=== PATIENT | female | born 1995 | race Caucasian/White ===

== ENCOUNTER → 2021-03-24 10:54 | Outpatient (CLI) | payer OTHER, SELFPAY | PROVIDERS: Referring Provider Obstetrics & Gynecology; Visit Provider Obstetrics & Gynecology | DX: Z34.90 Encounter for supervision of normal pregnancy, unspecified, unspecified trimester (principal) | CPT/HCPCS: 36415; 84702; 86850; 86900; 86901 ==

== ENCOUNTER → 2021-03-26 10:45 | Outpatient (CLI) | payer OTHER, SELFPAY | PROVIDERS: Referring Provider Obstetrics & Gynecology; Visit Provider Obstetrics & Gynecology | DX: Z34.90 Encounter for supervision of normal pregnancy, unspecified, unspecified trimester (principal) | CPT/HCPCS: 36415; 84702 ==

== ENCOUNTER → 2021-03-28 15:38 | Outpatient (CLI) | payer OTHER, SELFPAY ==
--- NOTE | 2021-03-28 15:40 | US_ITS ---
STUDY: FIRST TRIMESTER OBSTETRICAL ULTRASOUND REASON FOR EXAM: Female, 25 years old well being LMP: TECHNIQUE: Transvaginal TECHNICAL QUALITY: Adequate. PRIOR ULTRASOUND: None. FINDINGS: No evidence for abnormal intrauterine gestational sac. The uterus measures 10.1 x 6.7 x 5.2. However there is a small slightly irregular fluid cavity with irregular heterogeneous endometrial thickening There is no demonstrated uterine fibroid. The cervix is closed. The right ovary measures 3.1 x 2 x 2 cm. There is no right ovarian cyst. There is no visualized right adnexal mass or complex lesion. The left ovary measures 2.3 x 1.7 x 1.6 cm. There is no left ovarian cyst. There is no visualized left adnexal mass or complex lesion. There is no fluid in the cul de sac. US/Transvaginal w/Preg US IMPRESSION: No evidence for normal intrauterine gestation Irregular appearing fluid-filled sac with associated thickened irregular endometrial lining which given elevated hCG units raises question of trophoblastic disease or molar . Clinical correlation recommended Electronically Signed: Raymond Chopra MD at 16:36 EDT , Service support ,
== END ==
PROVIDERS: Referring Provider Obstetrics & Gynecology; Visit Provider Obstetrics & Gynecology
DX: O36.80X0 Pregnancy with inconclusive fetal viability, not applicable or unspecified (principal); Z3A.00 Weeks of gestation of pregnancy not specified
CPT/HCPCS: 76817

== ENCOUNTER 2021-03-29 10:57 | Day surgery (SDC) | payer OTHER, SELFPAY ==
[2021-03-28 16:26] VITALS: BMI 31.5
[2021-03-29] VITALS (8 sets, daily range): BP systolic 107–133; BP diastolic 71–84; PULSE 70–102; RESP 16; TEMP 36.4–36.7; O2SAT 93–100; BMI 31.6
[2021-03-29] MEDS: Lactated Ringers 1,000 ML 100 ML IV (11:35)
--- NOTE | 2021-03-29 12:10 | HP.PCM.OB_ITS ---
HPI - General HPI Narrative PRISCA SIFUENTES, is a 25 F who presents for suction D&C for molar Maternal Data Information FILIPPO Calculator Estimated Delivery Date Method Current WG Current Estimate 10/19/21 LMP (Certain) 10w 6d PFSH PFSH Home Medications prenat.vits,ozzy,[id number]-[id number] 1 tab PO DAILY 03/14/21 [History Last Taken Unknown] levonorgestrel-ethinyl estradiol 0.1 mg-20 mcg tablet 1 tab PO DAILY #56 tab 03/28/21 [Rx Last Taken Unknown] Allergy/AdvReac Type Severity Reaction Status Date / Time No Known Allergies Allergy Verified 03/28/21 16:26 Family History Mother Hypertension Gestational diabetes Father Hypertension Brother Hypertension Sister Hypertension Sister PCOS (polycystic ovarian syndrome) Surgical History S/P wisdom tooth extraction Social History adopted: No household members: spouse number of children: 0 current occupational status: employed current occupation: [employer] pets and animals: Yes (avoid litter box) pets and animals: cat(s) Smoking Status: Never smoker alcohol intake: current details: not while substance use type: does not use History 1 Elective abortions Hx Para Spontaneous abortions Hx # Term Pregnancies Ectopic pregnancies Hx # Pregnancies Multiple births # of living children Visit Details Expected Delivery Route/Plan Plans OB Flowsheet Initial Weight: Not Recorded Date -?-?-?-?-?-?-?-?-?-?-?-?- EGA Weight BP Urine Prot -?-?-?-?-?-?-?-?-?-?-?-?- Glucose FHR FuHt Pres Dilation -?-?-?-?-?-?-?-?-?-?-?-?- Effaced St Visit Note 03/24/21 -?-?-?-?-?-?-?-?-?-?-?-?- 10w 1d -?-?-?-?-?-?-?-?-?-?-?-?- -?-?-?-?-?-?-?-?-?-?-?-?- GP - US shows th ickened lining but no evidence of gestational sac. Quants ordered 03/29/21 -?-?-?-?-?-?-?-?-?-?-?-?- 10w 6d 196 lb 3.382 oz 133/72 -?-?-?-?-?-?-?-?-?-?-?-?- -?-?-?-?-?-?-?-?-?-?-?-?- ROS Eyes Eyes: Reports systems reviewed and no addt'l complaints, except as documented ENT HEENT: Reports systems reviewed and no addt'l complaints, except as documented Cardiovascular Cardiovascular: Reports systems reviewed and no addt'l complaints, except as documented Respiratory/Chest Respiratory/Chest: Reports systems reviewed and no addt'l complaints, except as documented Gastrointestinal Gastrointestinal: Reports systems reviewed and no addt'l complaints, except as documented Genitourinary Genitourinary: Reports systems reviewed and no addt'l complaints, except as documented Musculoskeletal Musculoskeletal: Reports systems reviewed and no addt'l complaints, except as documented Integumentary Integumentary: Reports systems reviewed and no addt'l complaints, except as documented Neurologic Neurologic: Reports systems reviewed and no addt'l complaints, except as documented Psychiatric Psychiatric: Reports systems reviewed and no addt'l complaints, except as documented Endocrine Endocrinology: Reports systems reviewed and no addt'l complaints, except as documented Hematologic/Lymphatic Hematologic/Lymphatic: Reports systems reviewed and no addt'l complaints, except as documented Allergic/Immunologic Allergic/Immunologic: Reports systems reviewed and no addt'l complaints, except as documented Vital Signs Vital Signs Vital Signs: 03/29/21 12:01 Temperature 97.9 F Temperature Source Temporal Pulse Rate 86 Respiratory Rate 16 Respiratory Pattern Normal Blood Pressure 133/72 H Blood Pressure Mean 92 Blood Pressure Source Monitor Blood Pressure Position Semi-Fowlers Blood Pressure Location Left Arm Pulse Ox 100 Oxygen Delivery Method Room Air Weight Weight: 196 lb 3.382 oz Body Mass Index (BMI) 31.6 Physical Exam Const alert, oriented x3, no apparent distress, average body habitus, healthy appearing and well nourished HEENT normocephalic and moist oral mucous membranes Head and Scalp: atraumatic Eyes PERRL and EOMs intact bilaterally Neck full ROM Resp normal respiratory effort, no retractions and no use of accessory muscles Cardio regular rate and regular rhythm GI soft to palpation, non-tender and non-distended Extremity normal to inspection and full ROM Skin no rashes or lesions noted Neuro no focal motor deficits and no sensory deficits noted Psych mental status grossly normal, affect normal, speech normal and activity/motor behavior normal Labs Labs Labs: Blood Type O POSITIVE Antibody Screen NEGATIVE Obstetrics US Assessment & Plan (1) Molar : COMMENT: D&C 03/29 PLAN: Patient presents for follow-up after viability scan. Ultrasound done today demonstrates evidence of complete molar Physiology and treatment of molar reviewed with patient Patient aware that this is something that has the potential to turn into a cancer and therefore requires close follow-up. Aware that it is important that she follow counts down to 0 and that she not become for 6 months after negative clots. Recommend proceeding with suction D&C for complete evacuation of molar . Scheduled for tomorrow. The nature of the procedure was described to the patient. The risks, benefits, indications, and alternatives to the procedure were discussed with the patient including bleeding, infection, and damage to surrounding structures. Discussed that risks are very low with D&C. Patient aware of increased bleeding with molar and is agreeable to blood transfusion if medically necessary. Discussed the possibility of perforation and that this could require laparotomy or laparoscopy. Discussed the possibility of damage to surrounding structures including uterus, tubes, ovaries, bowel, or bladder. Understands the risk of hospitalization or reoperation. Voices understanding and agrees to proceed. OCPs sent to pharmacy as patient is aware needs reliable contraception to avoid UPDATE- I have seen the patient and performed any clinically relevant updates to the history and physical exam. Letitia Chaves MD
--- NOTE | 2021-03-29 12:29 | PCM.OPRPT ---
Problems Associated Problem List Diagnoses (1) Molar : Report of Operation Date of Procedure: 03/29/21 Pre-Operative Diagnosis: Molar Post-Operative Diagnosis: Same Surgery/Procedure Performed:: Suction dilation and curettage Description of Surgical Findings:: Normal appearing cervix. Intra-operative ultrasound consistent with molar Type of Anesthesia: MAC Special Medications: Ancef, pitocin Specimen's removed: Products of conception Estimated Blood Loss (mL): 25 Fluids Replaced: 700 Description of Procedure: The patient was taken to the operating room where anesthesia was obtained without difficulty. She was prepped and draped in the dorsal lithotomy position with yellofin stirrups. A weighted speculum was placed in the posterior aspect of the vagina and the anterior lip of the cervix was grasped with a ring forcep. IV pitocin was initiated immediately prior to beginning to dilate the cervix. The cervix was sequentially dilated to accommodate a #7 curved curette. The suction was activated and the products of conception were removed in an outward rotating movement. A gentle sharp curettage was then performed followed by an additional pass with the suction. The procedure was deemed complete. All instruments were removed from the vagina. The patient was awakened from anesthesia and taken to the recovery room in stable condition. Complications None Admit VTE Documentation VTE Present on Admission: No VTE Mechan Device Prophylaxis: SCD's VTE Pharm Prophylaxis ordered?: No Procedures Urinary/Genital [id number]: [id number] Trmt of incomplete Ab, any TM
--- NOTE | 2021-03-29 12:37 | PCM.DC ---
Discharge Instructions Diet Discharge Diet: No restrictions Activity Discharge Activity: May Not Drive (While on narcotic pain medication) and May Shower May resume sexual activity in: 2 weeks Dressing / Incision Call your doctor if your incision/area has: Continuous Slow Oozing, Sudden Increased Bleeding, Increased Pain/ Swelling, Increased Redness, Foul Smelling Discharge and Swelling at the incision site Call your doctor if you observe: Fever of 101 or Higher, Inability to urinate, Using more than 1 pad per hour, Shortness of breath, Dizziness, Fainting spells, Chest pain and Uncontrolled pain Follow Up Care Please Follow Up With: Letitia Chaves MD When: 2 weeks Test Results: Test results from this visit will be discussed in further detail at your follow-up appointment, if applicable. Discharge Plan Admission Primary Reason for Your Visit: Suction D&C Attending Provider: Letitia Chaves Primary Care Provider: Marixa Austin Primary Instructions Patient Instructions: Discharge Instructions for ... Discharge Orders/Prescriptions Prescriptions: New ibuprofen 800 mg tablet 800 mg PO Q8H PRN (Reason: pain) Qty: 30 RF: 1 Continued prenat.vits,ozzy,axm-[id number] Tablet 1 tab PO DAILY RF: 0 levonorgestrel-ethinyl estrad [Aviane] 0.1-20 mg-mcg tablet 1 tab PO DAILY Qty: 56 RF: 5 Referrals / Follow Up: Care PhysicianMarixa Primary [Primary Care Provider] - Disposition Disposition (needs filled in before D/C Order can be placed): Home, Self Care
[2021-03-29 12:48] LABS: Hematocrit 36.8 % (37-47); Hemoglobin 12.3 g/dL (12.0-15.0); Mean Corp Hgb Conc 33.4 g/dL (32-36); Mean Corpuscular Hgb 29.1 pg (27.0-32.0); Mean Platelet Vol. 10.2 fl (6.2-12.0); Platelet Count 261 K/mm3 (150-450); RBC Distribution Width CV 12.7 % (11.6-14.6); RBC Distribution Width SD 40.4 fl (35.1-43.9); Red Blood Count 4.23 M/mm3 (4.2-5.4); White Blood Count 9.3 K/mm3 (4.4-11.0)
[2021-03-29] MEDS: Lidocaine 1% (20 ml mdv) 20 ML Vial (13:13)
--- NOTE | 2021-03-29 13:15 | POC_PTH ---
PATIENT: PRISCA SIFUENTES [place] [facility] [place][id number] AGE/SX: 25/F ROOM: RE03/29/[address]: Dr. Letitia Chaves MD : [id number] BED: DIS: 03/29/2021 SPEC #: [id number] RECD: 03/29/21 14:34 STATUS: VALERIE BRIDGES #: [id number] EDSON: 03/29/21 13:[address]: Letitia Chaves DEPT: SURGICAL PATHOLOGY RECD BY: Nicole Byrne ENTERED: 03/30/21 08:37 SP TYPE: PROD CONC OTHR DR: No Primary Care Phys Tissues: Product of conception, NOS Procedures: Surgery Specimen Level IV HEADER OPERATION: Dilation and curettage, suction PRE-OP DIAGNOSIS: Molar TISSUE SUBMITTED: Products of conception MICROSCOPIC DIAGNOSIS Endometrium, curettage: Chorionic villi with hydropic change consistent with molar . AM:mio 03/31/2021 COMMENT Case has been reviewed in consultation with Dr. Mujica who concurs with the above diagnosis. IDC:ALDO MICROSCOPIC DESCRIPTION Slides are reviewed. GROSS DESCRIPTION Received in fixative is one container labeled with the patient's name and designated products of conception. The specimen consists of multiple fragments of hemorrhagic soft tissue that in aggregate measure 8 x 8 x 2 cm. No tissue is identified. No gross vesicles are noted. Carpet Yarn Winder Operator tissue is submitted in eight cassettes. / ALDO:mio 03/30/21 TC:5 CPT: 88853
[2021-03-29] MEDS: Cefazolin 2 GM in 0.9% Normal Saline 100 ML IV (13:20)
[2021-03-29 13:26] LABS: Thyroid Stim Hormone (TSH) 0.46 uIU/mL (0.358-3.74)
[2021-03-29] MEDS: Oxytocin 30 units/NS 500 ml 30 UNITS/500 ML IV.SOLN IV (13:36)
== END 2021-03-29 17:27 | disposition home or self-care (01) ==
LOC: SDC 10:58 → AC 10:59
PROVIDERS: Referring Provider Obstetrics & Gynecology; Visit Provider Obstetrics & Gynecology
PROC: (CPT 59812; principal; 2021-03-29 13:00)
DX: O02.0 Blighted ovum and nonhydatidiform mole (principal)
CPT/HCPCS: 59812; 84443; 84702; 85027; 86850; 86900; 86901; 86920; 86922; 87426; 88305; J7120; A4216; J2405

== ENCOUNTER → 2021-04-15 15:10 | Outpatient (CLI) | payer OTHER, SELFPAY ==
[2021-04-15 14:18] VITALS: BMI 31.6
[2021-04-15 16:20] LABS: hCG Titer Quant., Serum 54 mIU/mL (1-3)
== END ==
PROVIDERS: Referring Provider Obstetrics & Gynecology; Visit Provider Obstetrics & Gynecology
DX: O02.0 Blighted ovum and nonhydatidiform mole (principal)
CPT/HCPCS: 36415; 84702

== ENCOUNTER → 2021-04-23 10:32 | Outpatient (CLI) | payer OTHER, SELFPAY ==
[2021-04-23 12:42] LABS: hCG Titer Quant., Serum 13 mIU/mL (1-3)
== END ==
PROVIDERS: Visit Provider Obstetrics & Gynecology
DX: O02.0 Blighted ovum and nonhydatidiform mole (principal)
CPT/HCPCS: 36415; 84702

== ENCOUNTER → 2021-04-30 10:39 | Outpatient (CLI) | payer OTHER, SELFPAY ==
[2021-04-30 12:24] LABS: hCG Titer Quant., Serum 6 mIU/mL (1-3)
== END ==
PROVIDERS: Visit Provider Obstetrics & Gynecology
DX: O02.0 Blighted ovum and nonhydatidiform mole (principal)
CPT/HCPCS: 36415; 84702

== ENCOUNTER → 2021-05-07 11:06 | Outpatient (CLI) | payer OTHER, SELFPAY ==
[2021-05-07 12:26] LABS: hCG Titer Quant., Serum 3 mIU/mL (1-3)
== END ==
PROVIDERS: Referring Provider Obstetrics & Gynecology; Visit Provider Obstetrics & Gynecology
DX: O02.0 Blighted ovum and nonhydatidiform mole (principal)
CPT/HCPCS: 36415; 84702

== ENCOUNTER → 2021-05-14 09:55 | Outpatient (CLI) | payer OTHER, SELFPAY ==
[2021-05-14 10:47] LABS: hCG Titer Quant., Serum 2 mIU/mL (1-3)
== END ==
PROVIDERS: Referring Provider Obstetrics & Gynecology; Visit Provider Obstetrics & Gynecology
DX: O02.0 Blighted ovum and nonhydatidiform mole (principal)
CPT/HCPCS: 36415; 84702

== ENCOUNTER → 2021-05-21 10:20 | Outpatient (CLI) | payer OTHER, SELFPAY ==
[2021-05-21 11:07] LABS: hCG Titer Quant., Serum 1 mIU/mL (1-3)
== END ==
PROVIDERS: Visit Provider Obstetrics & Gynecology
DX: O02.0 Blighted ovum and nonhydatidiform mole (principal)
CPT/HCPCS: 36415; 84702

== ENCOUNTER → 2021-06-25 10:39 | Outpatient (CLI) | payer OTHER, SELFPAY ==
[2021-06-25 12:42] LABS: hCG Titer Quant., Serum < 1 mIU/mL (1-3)
== END ==
PROVIDERS: Referring Provider Obstetrics & Gynecology; Visit Provider Obstetrics & Gynecology
DX: O02.0 Blighted ovum and nonhydatidiform mole (principal)
CPT/HCPCS: 36415; 84702

== ENCOUNTER → 2021-07-23 11:32 | Outpatient (CLI) | payer OTHER, SELFPAY ==
[2021-07-23 13:04] LABS: hCG Titer Quant., Serum < 1 mIU/mL (1-3)
== END ==
PROVIDERS: Visit Provider Obstetrics & Gynecology
DX: O02.0 Blighted ovum and nonhydatidiform mole (principal)
CPT/HCPCS: 36415; 84702

== ENCOUNTER → 2021-08-29 10:34 | Outpatient (CLI) | payer OTHER, SELFPAY ==
[2021-08-29 11:51] LABS: hCG Titer Quant., Serum < 1 mIU/mL (1-3)
== END ==
PROVIDERS: Referring Provider Obstetrics & Gynecology; Visit Provider Obstetrics & Gynecology
DX: O02.0 Blighted ovum and nonhydatidiform mole (principal)
CPT/HCPCS: 36415; 84702

== ENCOUNTER 2021-09-24 11:01 | Outpatient (CLI) | payer OTHER, SELFPAY ==
[2021-09-24 12:39] LABS: hCG Titer Quant., Serum < 1 mIU/mL (1-3)
== END 2021-09-24 23:59 | disposition short-term general hospital (02) ==
LOC: LAB 11:03
PROVIDERS: Visit Provider Obstetrics & Gynecology
DX: O02.0 Blighted ovum and nonhydatidiform mole (principal)
CPT/HCPCS: 36415; 84702

== ENCOUNTER 2021-10-29 10:53 | Outpatient (CLI) | payer OTHER, SELFPAY ==
[2021-10-29 11:51] LABS: hCG Titer Quant., Serum < 1 mIU/mL (1-3)
== END 2021-10-29 23:59 | disposition home or self-care (01) ==
LOC: LAB 10:54
PROVIDERS: Referring Provider Obstetrics & Gynecology; Visit Provider Obstetrics & Gynecology
DX: O02.0 Blighted ovum and nonhydatidiform mole (principal)
CPT/HCPCS: 36415; 84702

== ENCOUNTER 2021-11-26 10:36 | Outpatient (CLI) | payer OTHER, SELFPAY ==
[2021-11-26 12:08] LABS: hCG Titer Quant., Serum < 1 mIU/mL (1-3)
== END 2021-11-26 23:59 | disposition home or self-care (01) ==
PROVIDERS: Referring Provider Obstetrics & Gynecology; Visit Provider Obstetrics & Gynecology
DX: O02.0 Blighted ovum and nonhydatidiform mole (principal)
CPT/HCPCS: 36415; 84702

== ENCOUNTER → 2022-11-29 | Outpatient (CLI) | payer OTHER, SELFPAY ==
[2022-12-01 22:07] LABS: Chlamydia By Nucleic Acid AMP Negative (Negative)
[2022-12-02 11:25] LABS: Gonococcus By Nucleic Acid AMP Negative (Negative)
[2022-12-11 15:55] LABS: HPV Reflexed? NOT INDICATED
== END | disposition home or self-care (01) ==
PROVIDERS: Referring Provider Obstetrics & Gynecology; Visit Provider Obstetrics & Gynecology
DX: O09.90 Supervision of high risk pregnancy, unspecified, unspecified trimester (principal)
CPT/HCPCS: 87086; 87088; 87491; 87591; 88175; G0145

== ENCOUNTER → 2022-12-15 | Outpatient (CLI) | payer OTHER, SELFPAY ==
[2022-12-15 11:03] LABS: Absolute Lymphocyte Count 2.18 X10^3/uL (0.83-4.51); Absolute Neutrophil Count 6.1 X10^3/uL (2.0-7.7); Basophil# 0.03 X10^3/uL; Basophil% 0.3 % (0-1); Eosinophil# 0.04 X10^3/uL; Eosinophils% 0.4 % (0-5); Hematocrit 38.6 % (37-47); Hemoglobin 12.5 g/dL (12.0-15.0); Lymphocyte # 2.18 X10^3/ul (0.83-4.51); Lymphocyte % 24.2 % (19-41); Mean Corp Hgb Conc 32.4 g/dL (32-36); Mean Corpuscular Hgb 28.8 pg (27.0-32.0); Mean Corpuscular Volume 88.9 fL (81-99); Mean Platelet Vol. 10.1 fl (6.2-12.0); Monocyte# 0.57 X10^3/uL; Monocyte% 6.3 % (0-10); NRBC Flagged by Analyzer 0 % (0-5); Neutrophil # 6.14 X10^3/uL (2.7-7.7); Neutrophil % 68.4 % (47-70); Platelet Count 292 K/mm3 (150-450); RBC Distribution Width CV 12.8 % (11.6-14.6); RBC Distribution Width SD 41.8 fl (35.1-43.9); Red Blood Count 4.34 M/mm3 (4.2-5.4)
[2022-12-15 11:30] LABS: Glucose Challenge Gest 1H 50g 135 mg/dL (70-140)
[2022-12-15 11:55] LABS: NATERA MAILED SPECIMEN
[2022-12-15 11:57] LABS: HIV - WCH Non-Reactive (Nonreactive); Hepatitis B Surface Antigen Non-Reactive (Nonreactive); Hepatitis C Antibody Non-Reactive (Nonreactive); Rubella IgG Reactive (Nonreactive); Syphilis Antibodies Non-reactive
== END | disposition home or self-care (01) ==
LOC: PAVLAB 10:34
PROVIDERS: Referring Provider Obstetrics & Gynecology; Visit Provider Obstetrics & Gynecology
DX: O09.90 Supervision of high risk pregnancy, unspecified, unspecified trimester (principal)
CPT/HCPCS: 36415; 82950; 85025; 86703; 86762; 86780; 86803; 86850; 86900; 86901; 87340

== ENCOUNTER → 2022-12-26 | Outpatient (CLI) | payer OTHER, SELFPAY ==
[2022-12-26 09:04] LABS: Glucose GTT-Gestation. Fasting 91 mg/dL (<105)
[2022-12-26 10:04] LABS: Glucose GTT-Gestational 1 Hr 138 mg/dL (<190)
[2022-12-26 10:51] LABS: Glucose GTT-Gestational 2 Hr 107 mg/dL (<165)
[2022-12-26 12:17] LABS: Glucose GTT-Gestational 3 Hr 85 L (<145)
== END | disposition home or self-care (01) ==
LOC: LAB 07:45
PROVIDERS: Referring Provider Nurse Practitioner Women's Health; Visit Provider Nurse Practitioner Women's Health
DX: O26.91 Pregnancy related conditions, unspecified, first trimester (principal); Z3A.10 10 weeks gestation of pregnancy
CPT/HCPCS: 36415; 82951; 82952

== ENCOUNTER → 2023-04-19 | Outpatient (CLI) | payer OTHER, SELFPAY ==
[2023-04-19 08:49] LABS: Absolute Lymphocyte Count 1.14 X10^3/uL (0.83-4.51); Absolute Neutrophil Count 4.8 X10^3/uL (2.0-7.7); Basophil# 0.02 X10^3/uL; Basophil% 0.3 % (0-1); Eosinophil# 0.02 X10^3/uL; Eosinophils% 0.3 % (0-5); Hematocrit 37.5 % (37-47); Hemoglobin 12.1 g/dL (12.0-15.0); Lymphocyte # 1.14 X10^3/ul (0.83-4.51); Lymphocyte % 17.6 % (19-41); Mean Corp Hgb Conc 32.3 g/dL (32-36); Mean Corpuscular Hgb 28.4 pg (27.0-32.0); Mean Platelet Vol. 11.1 fl (6.2-12.0); Monocyte# 0.45 X10^3/uL; Monocyte% 6.9 % (0-10); NRBC Flagged by Analyzer 0 % (0-5); Platelet Count 255 K/mm3 (150-450); RBC Distribution Width CV 13.1 % (11.6-14.6); RBC Distribution Width SD 42.5 fl (35.1-43.9); Red Blood Count 4.26 M/mm3 (4.2-5.4); White Blood Count 6.5 K/mm3 (4.4-11.0)
[2023-04-19 09:08] LABS: Glucose Challenge Gest 1H 50g 185 mg/dL (70-140)
== END | disposition home or self-care (01) ==
LOC: LAB 07:42
PROVIDERS: Obstetrics & Gynecology; Referring Provider Obstetrics & Gynecology; Visit Provider Obstetrics & Gynecology
DX: Z13.1 Encounter for screening for diabetes mellitus (principal)
CPT/HCPCS: 36415; 82950; 85025

== ENCOUNTER → 2023-06-15 | Outpatient (CLI) | payer OTHER, SELFPAY | END | disposition home or self-care (01) | PROVIDERS: Visit Provider Obstetrics & Gynecology | DX: O09.90 Supervision of high risk pregnancy, unspecified, unspecified trimester (principal); Z3A.00 Weeks of gestation of pregnancy not specified | CPT/HCPCS: 87081 ==

== ENCOUNTER → 2023-07-06 | Outpatient (CLI) | payer OTHER, SELFPAY | END | disposition home or self-care (01) | PROVIDERS: Referring Provider Obstetrics & Gynecology; Visit Provider Obstetrics & Gynecology | DX: L02.91 Cutaneous abscess, unspecified (principal) | CPT/HCPCS: 87070; 87077; 87186; 87205 ==

== ENCOUNTER 2023-07-11 18:50 | Inpatient (IN) | payer OTHER, SELFPAY ==
[2023-07-11 19:19] VITALS: BMI 37.5
[2023-07-11 19:44] LABS: Absolute Lymphocyte Count 2.63 X10^3/uL (0.83-4.51); Absolute Neutrophil Count 5.8 X10^3/uL (2.0-7.7); Basophil# 0.03 X10^3/uL; Basophil% 0.3 % (0-1); Eosinophil# 0.05 X10^3/uL; Eosinophils% 0.5 % (0-5); Hemoglobin 11.9 g/dL (12.0-15.0); Lymphocyte # 2.63 X10^3/ul (0.83-4.51); Lymphocyte % 28.6 % (19-41); Mean Corp Hgb Conc 31.3 g/dL (32-36); Mean Corpuscular Volume 83.2 fL (81-99); Mean Platelet Vol. 11.7 fl (6.2-12.0); Monocyte# 0.63 X10^3/uL; Monocyte% 6.9 % (0-10); NRBC Flagged by Analyzer 0 % (0-5); Neutrophil % 63.2 % (47-70); Platelet Count 280 K/mm3 (150-450); RBC Distribution Width CV 14.5 % (11.6-14.6); RBC Distribution Width SD 43.5 fl (35.1-43.9); Red Blood Count 4.57 M/mm3 (4.2-5.4); White Blood Count 9.2 K/mm3 (4.4-11.0)
[2023-07-11 19:48] VITALS: BP 132/88; PULSE 86; TEMP 36.3
[2023-07-11] MEDS: miSOPROStol 25 MCG TABLET VAGINAL (19:51)
[2023-07-11 20:18] LABS: Syphilis Antibodies Non-reactive
[2023-07-11 21:09] LABS: Bedside Glucose 107 mg/dL (74-106)
[2023-07-11 23:57] VITALS: BP 136/82; PULSE 72; TEMP 36.3
[2023-07-12] VITALS (33 sets, daily range): BP systolic 92–142; BP diastolic 55–104; PULSE 18–108; RESP 16–18; TEMP 35.9–37; O2SAT 94–100
[2023-07-12 00:28] LABS: Bedside Glucose 91 mg/dL (74-106)
[2023-07-12] MEDS: DiphenhydrAMINE 25 MG Capsule 50 MG PO (00:33)
[2023-07-12] MEDS: miSOPROStol 25 MCG TABLET VAGINAL ×2 (04:01)
[2023-07-12 04:23] LABS: Bedside Glucose 75 mg/dL (74-106)
[2023-07-12] MEDS: LACTATED RINGERS 500 ML 999 ML IV ×2 (07:06→10:26)
[2023-07-12] MEDS: fentaNYL 100 MCG/2 ML Ampul IV (07:06)
[2023-07-12] MEDS: Lactated Ringers 1,000 ML 50 ML IV (07:18)
[2023-07-12] MEDS: 0.9% Normal Saline Single 100 ML IV.SOLN. INTRA-UTER (07:25)
[2023-07-12 08:12] LABS: Bedside Glucose 79 mg/dL (74-106)
[2023-07-12] MEDS: fentaNYL-bupivacaine (epidural) 100 ML BAG EPIDURAL ×2 (08:19→13:05)
[2023-07-12] MEDS: Amnioinfusion- 0.9% NS 1,000 ML IV.SOLN. 1000 ML INTRA-UTER (10:43)
[2023-07-12 12:27] LABS: Bedside Glucose 75 mg/dL (74-106)
[2023-07-12 12:27] LABS: Bedside Glucose 58 mg/dL (74-106)
[2023-07-12] MEDS: Lactated Ringers 1,000 ML 200 ML IV (13:05)
[2023-07-12] MEDS: Oxytocin 15 Units/NS 250ml 15 UNITS/250 ML IV.SOLN 2 UNITS IV (14:13)
--- NOTE | 2023-07-12 14:33 | HP.PCM.OB_ITS ---
HPI - General General Date of Admission: 07/11/23 HPI Narrative PRISCA SIFUENTES, is a 27 F who presents for IOL secondary to gdm. she has had good control with diet alone, no medications. Maternal Data Information FILIPPO Calculator Estimated Delivery Date Method Current WG Current Estimate 07/11/23 Ultrasound #1 40w 1d Other Estimates 07/03/23 LMP (Certain) 41w 2d PFSH PFS Medical History (Updated 07/12/23 @ 14:[address] Tricia Todd MD) Anxiety Family history of hearing loss at age younger than 7 years pyelectasis Gestational diabetes Infertility Molar Trauma Home Medications blood sugar diagnostic (Blood Glucose Test strips) #120 ea 04/19/23 [Rx Last Taken Unknown] blood-glucose meter #1 ea 04/19/23 [Rx Last Taken Unknown] lancets #200 ea 04/19/23 [Rx Last Taken Unknown] amoxicillin 875 mg-potassium clavulanate 125 mg tablet 1 tab PO BID absess #14 tabs 07/06/23 [Rx Last Taken Unknown] Allergy/AdvReac Type Severity Reaction Status Date / Time No Known Allergies Allergy Verified 07/11/23 19:19 Family History Mother Hypertension Gestational diabetes Father Hypertension Brother Hypertension Sister Hypertension PCOS (polycystic ovarian syndrome) Sister PCOS (polycystic ovarian syndrome) Surgical History (Updated 07/11/23 @ 19:47 by Jo Zamora) History of D&C History of gynecologic surgery S/P wisdom tooth extraction Social History adopted: No household members: spouse number of children: 0 current occupational status: employed current occupation: [employer] pets and animals: Yes (avoid litter box) pets and animals: cat(s) history of recent travel: No sexually active: Yes Smoking Status: Never smoker alcohol intake: current alcohol intake frequency: holidays/special occasions only details: not while substance use type: does not use well-balanced diet: about half the time caffeine: Yes Type: coffee Number of servings: 1 seatbelt use: always do you feel safe at home: Yes additional social history: [facility] History 2 Elective abortions Hx Para 0 Spontaneous abortions Hx # Term Pregnancies Ectopic pregnancies Hx # Pregnancies Multiple births # of living children 0 Visit Details Expected Delivery Route/Plan Labor Preferences- CB/BF classes: yes labor support person: Pako labor intervention preferences: [] pain management options preferred: ok with epidural cut cord/dad catch: no : yes PP control planned: discussed discussed possible routes of delivery and associated risks: [] special requests: [] Plans Covid status: unvaccinated Flu vaccine: obtained. Tdap vaccine: [] Rhogam: NA LARC form signed: yes Problem list reviewed and updated with the most current plan of care details and appropriate orders placed. Relevant counseling for the gestational age provided. Continue routine care and follow up unless otherwise noted in visit notes/problem list details OB Flowsheet Initial Weight: Not Recorded Date -?-?-?-?-?-?-?-?-?-?-?-?- EGA Weight BP Urine Prot -?-?-?-?-?-?-?-?-?-?-?-?- Glucose FHR FuHt Pres Dilation -?-?-?-?-?-?-?-?-?-?-?-?- Effaced St Visit Note 11/29/22 -?-?-?-?-?-?-?-?-?-?-?-?- 8w 0d 205 lb 6 oz 140/88 -?-?-?-?-?-?-?-?-?-?-?-?- 153 -?-?-?-?-?-?-?-?-?-?-?-?- JV JV- single live IUP measurin g 8 weeks 0 days and not consistent with LMP. new filippo of 07/11/23 given. desires NIPT. had molar and wants to come back in 2 weeks for heart tones. 12/15/22 -?-?-?-?-?-?-?-?-?-?-?-?- 10w 2d 205 lb 4 oz 132/86 Nega tive -?-?-?-?-?-?-?-?-?-?-?-?- Negative 180 -?-?-?-?-?-?-?-?-?-?-?-?- JV- CRL consiste nt with 10 weeks. no bleeding, has mild cramping. fht reassuring today. nipt ordered along with other pnl. pt wants to return in 2 weeks for heart tones. 12/29/22 -?-?-?-?-?-?--?-?-?-?-?-?- 12w 2d 204 lb 4 oz 128/77 Nega tive -?-?-?-?-?-?-?-?-?-?-?-?- Negative 145 -?-?-?-?-?-?-?-?-?-?-?-?- JV- some nausea no vomiting. anatomy ultrasound ordered. plan for 12 weeks maternity leave 01/26/23 -?-?-?-?-?-?-?-?-?-?-?-?- 16w 2d 206 lb 6 oz 130/81 Nega tive -?-?-?-?-?-?-?-?-?-?-?-?- Negative 150 -?-?-?-?-?-?-?-?-?-?-?-?- kw-no cramping/v b. discussed AFP- will decide after US -02/19. no concerns. 02/23/23 -?-?-?-?-?-?-?-?-?-?-?-?- 20w 2d 209 lb 2 oz 132/80 Nega tive -?-?-?-?-?-?-?-?-?-?-?-?- Negative 155 -?-?-?-?-?-?-?-?-?-?-?-?- JV- dilated yoana l pelvis bilaterally (7mm) and limited views of heart. will need follow up in 2 weeks with mfm .decided against afp. 03/23/23 -?-?-?-?-?-?-?-?-?-?-?-?- 24w 2d 212 lb 8 oz 116/77 Nega tive -?-?-?-?-?-?-?-?-?-?-?-?- Negative 145 27 -?-?-?-?-?-?-?-?-?-?-?-?- JV- no complaint s today. follow up scan in at 28 weeks. gct ordered. 04/20/23 -?-?-?-?-?-?-?-?-?-?-?-?- 28w 2d 218 lb 6 oz 128/88 Nega tive -?-?-?-?-?-?-?-?-?-?-?-?- Negative 140 28 -?-?-?-?-?-?-?-?-?-?-?-?- SM- no vb lof good fm no reg ular ctx discussed new diabetes diagnosis. fu in 1 week to review 04/27/23 -?-?-?-?-?-?-?-?-?-?-?-?- 29w 2d 218 lb 2 oz 218 lb 122/70 -?-?-?-?-?-?-?-?-?-?-?-?- 145 -?-?-?-?-?-?-?-?-?-?-?-?- SM- no vb lof go od fm no regular ctx. arrhythmia heard, 04/10 bedside BPP seen, reviewed BS. recommend MFM consult and echo 05/09/23 -?-?-?-?-?-?-?-?-?-?-?-?- 31w 0d 218 lb 2 oz 122/82 Nega tive -?-?-?-?-?-?-?-?-?-?-?-?- Negative 146 31 -?-?-?-?-?-?-?-?-?-?-?-?- MH-Normal FHT rh ythm today. Has echo and US next week. Denies VB. Good FM. Larc. 06/08/23 -?-?-?-?-?-?-?-?-?-?-?-?- 35w 2d 225 lb 118/80 -?-?-?-?-?-?-?-?-?-?-?-?- 150 35 -?-?-?-?-?-?-?-?-?-?-?-?- LC- no vb/ctx/lo f. good fm. normal echo. + arrhythmia continues. 06/15/23 -?-?-?-?-?-?-?-?-?-?-?-?- 36w 2d 223 lb 8 oz 120/81 Nega tive -?-?-?-?-?-?-?-?-?-?-?-?- Negative 150 36 -?-?-?-?-?-?-?-?-?-?-?-?- SM- no vb lof go od fm no regular ctx 06/22/23 -?-?-?-?-?-?-?-?-?-?-?-?- 37w 2d 226 lb 2 oz 128/82 Nega tive -?-?-?-?-?-?-?-?-?-?-?-?- Negative 150 37 -?-?-?-?-?-?-?-?-?-?-?-?- JV- NST reactive , some arrhythmia heard periodically but no disruption in rhythm strip JV- NST reactive, some arrhy thmia heard periodically but no disruption in rhythm strip. glucose numbers within normal range 06/29/23 -?-?-?-?-?-?-?-?-?-?-?-?- 38w 2d 231 lb 8 oz 131/84 Nega tive -?-?-?-?-?-?-?-?-?-?-?-?- Negative 140 37 Cephalic 0 -?-?-?-?-?-?-?-?-?-?-?-?- JV- normal gluco se levels, nst reactive 07/06/23 -?-?-?-?-?-?-?-?-?-?-?-?- 39w 2d 231 lb 8 oz 137/88 Nega tive -?-?-?-?-?-?-?-?-?-?-?-?- Negative 150 38 Cephalic 0 -?-?-?-?-?-?-?-?-?-?-?-?- JV- NST reactive . pt has a groin abscess that wants lanced. IOL for sunday next week NST FHR Rate Baby A Baseline: 130 Variability:: Moderate Accelerations:: 15 x 15 Decelerations:: None NST Reactive:: Yes FHR Category:: Category I Uterine Activity:: irregular ROS Constitutional Constitutional: Reports systems reviewed and no addt'l complaints, except as documented Eyes Eyes: Denies change in vision ENT HEENT: Reports systems reviewed and no addt'l complaints, except as documented; Denies headache(s) Cardiovascular Cardiovascular: Reports systems reviewed and no addt'l complaints, except as documented; Denies chest pain or dyspnea Respiratory/Chest Respiratory/Chest: Reports systems reviewed and no addt'l complaints, except as documented Gastrointestinal Gastrointestinal: Reports systems reviewed and no addt'l complaints, except as documented; Denies abdominal pain Genitourinary Genitourinary: Reports systems reviewed and no addt'l complaints, except as documented, contractions Details: present (irregular) and movement Details: present; Denies dysuria or genital lesions Musculoskeletal Musculoskeletal: Reports systems reviewed and no addt'l complaints, except as documented Neurologic Neurologic: Reports systems reviewed and no addt'l complaints, except as documented Endocrine Endocrinology: Reports systems reviewed and no addt'l complaints, except as documented Vital Signs Vital Signs Vital Signs: 07/11/23 19:48 07/11/23 19:48 07/11/23 19:48 Temperature Temperature Source Temporal Pulse Rate 86 Respiratory Rate Blood Pressure 132/88 H Blood Pressure Mean BP Systolic 132 BP Diastolic 88 Blood Pressure Source Blood Pressure Location Pulse Ox Oxygen Delivery Method Oxygen Flow Rate (L/min) 07/11/23 19:48 07/11/23 23:57 07/11/23 23:57 Temperature 97.4 F L Temperature Source Pulse Rate 72 Respiratory Rate Blood Pressure 136/82 H Blood Pressure Mean BP Systolic 136 BP Diastolic 82 Blood Pressure Source Blood Pressure Location Pulse Ox Oxygen Delivery Method Oxygen Flow Rate (L/min) 07/11/23 23:57 07/11/23 23:57 07/12/23 03:55 Temperature 97.4 F L Temperature Source Temporal Pulse Rate Respiratory Rate Blood Pressure 132/90 H Blood Pressure Mean BP Systolic 132 BP Diastolic 90 Blood Pressure Source Blood Pressure Location Pulse Ox Oxygen Delivery Method Oxygen Flow Rate (L/min) 07/12/23 03:55 07/12/23 03:55 07/12/23 07:51 Temperature 97.3 F L Temperature Source Pulse Rate 68 Respiratory Rate Blood Pressure 138/85 H Blood Pressure Mean BP Systolic 138 BP Diastolic 85 Blood Pressure Source Blood Pressure Location Pulse Ox Oxygen Delivery Method Oxygen Flow Rate (L/min) 07/12/23 07:51 07/12/23 07:52 07/12/23 07:52 Temperature Temperature Source Temporal Pulse Rate 68 Respiratory Rate Blood Pressure Blood Pressure Mean BP Systolic BP Diastolic Blood Pressure Source Blood Pressure Location Pulse Ox 100 Oxygen Delivery Method Oxygen Flow Rate (L/min) 07/12/23 07:52 07/12/23 08:11 07/12/23 08:11 Temperature 97.0 F L Temperature Source Pulse Rate 93 Respiratory Rate Blood Pressure 142/104 H Blood Pressure Mean BP Systolic 142 BP Diastolic 104 Blood Pressure Source Blood Pressure Location Pulse Ox Oxygen Delivery Method Oxygen Flow Rate (L/min) 07/12/23 08:21 07/12/23 08:21 07/12/23 08:23 Temperature Temperature Source Pulse Rate 80 Respiratory Rate Blood Pressure 122/69 H 125/73 H Blood Pressure Mean BP Systolic 122 125 BP Diastolic 69 73 Blood Pressure Source Blood Pressure Location Pulse Ox Oxygen Delivery Method Oxygen Flow Rate (L/min) 07/12/23 08:23 07/12/23 08:21 07/12/23 08:23 Temperature Temperature Source Pulse Rate 83 Respiratory Rate Blood Pressure Blood Pressure Mean BP Systolic BP Diastolic Blood Pressure Source Blood Pressure Location Pulse Ox 99 99 Oxygen Delivery Method Oxygen Flow Rate (L/min) 07/12/23 08:28 07/12/23 08:28 07/12/23 08:33 Temperature Temperature Source Pulse Rate 85 Respiratory Rate Blood Pressure 113/66 119/68 Blood Pressure Mean BP Systolic 113 119 BP Diastolic 66 68 Blood Pressure Source Blood Pressure Location Pulse Ox Oxygen Delivery Method Oxygen Flow Rate (L/min) 07/12/23 08:33 07/12/23 08:33 07/12/23 08:40 Temperature Temperature Source Pulse Rate 86 Respiratory Rate Blood Pressure 123/78 H Blood Pressure Mean BP Systolic 123 BP Diastolic 78 Blood Pressure Source Blood Pressure Location Pulse Ox 99 Oxygen Delivery Method Oxygen Flow Rate (L/min) 07/12/23 08:40 07/12/23 08:40 07/12/23 08:43 Temperature Temperature Source Pulse Rate 108 H Respiratory Rate Blood Pressure 120/73 Blood Pressure Mean BP Systolic 120 BP Diastolic 73 Blood Pressure Source Blood Pressure Location Pulse Ox 98 Oxygen Delivery Method Oxygen Flow Rate (L/min) 07/12/23 08:43 07/12/23 08:43 07/12/23 08:43 Temperature Temperature Source Temporal Pulse Rate 83 Respiratory Rate Blood Pressure Blood Pressure Mean BP Systolic BP Diastolic Blood Pressure Source Blood Pressure Location Pulse Ox 98 Oxygen Delivery Method Oxygen Flow Rate (L/min) 07/12/23 08:43 07/12/23 09:28 07/12/23 09:28 Temperature 97.2 F L Temperature Source Pulse Rate 88 Respiratory Rate Blood Pressure 109/68 Blood Pressure Mean BP Systolic 109 BP Diastolic 68 Blood Pressure Source Blood Pressure Location Pulse Ox Oxygen Delivery Method Oxygen Flow Rate (L/min) 07/12/23 09:28 07/12/23 10:45 07/12/23 10:45 Temperature Temperature Source Pulse Rate 85 Respiratory Rate Blood Pressure 119/72 Blood Pressure Mean BP Systolic 119 BP Diastolic 72 Blood Pressure Source Blood Pressure Location Pulse Ox 98 Oxygen Delivery Method Oxygen Flow Rate (L/min) 07/12/23 10:45 07/12/23 10:45 07/12/23 10:45 Temperature 97.6 F L Temperature Source Temporal Pulse Rate Respiratory Rate Blood Pressure Blood Pressure Mean BP Systolic BP Diastolic Blood Pressure Source Blood Pressure Location Pulse Ox 100 Oxygen Delivery Method Oxygen Flow Rate (L/min) 07/12/23 12:25 07/12/23 12:25 07/12/23 12:25 Temperature Temperature Source Temporal Pulse Rate 95 Respiratory Rate Blood Pressure 100/55 L Blood Pressure Mean BP Systolic 100 BP Diastolic 55 Blood Pressure Source Blood Pressure Location Pulse Ox Oxygen Delivery Method Oxygen Flow Rate (L/min) 07/12/23 12:25 07/12/23 12:25 07/12/23 14:14 Temperature 96.7 F L Temperature Source Pulse Rate Respiratory Rate Blood Pressure 109/70 Blood Pressure Mean BP Systolic 109 BP Diastolic 70 Blood Pressure Source Blood Pressure Location Pulse Ox 100 Oxygen Delivery Method Oxygen Flow Rate (L/min) 07/12/23 14:14 07/12/23 14:14 07/12/23 14:14 Temperature Temperature Source Temporal Pulse Rate 83 83 Respiratory Rate Blood Pressure Blood Pressure Mean BP Systolic BP Diastolic Blood Pressure Source Blood Pressure Location Pulse Ox Oxygen Delivery Method Oxygen Flow Rate (L/min) 07/12/23 14:14 07/12/23 14:14 07/12/23 10:44 Temperature 97.4 F L 97.6 F L Temperature Source Temporal Pulse Rate 85 Respiratory Rate 16 Blood Pressure 119/72 Blood Pressure Mean 87 BP Systolic BP Diastolic Blood Pressure Source Monitor Blood Pressure Location Right Arm Pulse Ox 100 100 Oxygen Delivery Method Non-Rebreather Oxygen Flow Rate (L/min) 10 Weight Weight: 233 lb Body Mass Index (BMI) 37.5 Physical Exam Const alert, oriented x3, no apparent distress and healthy appearing HEENT normocephalic and moist oral mucous membranes Head and Scalp: atraumatic Neck full ROM, no lymphadenopathy, supple and thyroid normal General: trachea midline Lymph Lymphatic: no lymphadenopathy noted Chest inspection of chest normal Resp normal respiratory effort Cardio regular rate GI normal to inspection, nondistended, normoactive bowel sounds, soft to palpation and non-tender Inspection: gravid external exam normal Manual OB Exam: estimated gestational size appropriate, presentation cephalic, dilated, effaced and station Extremity normal to inspection General Extremity: Negative for edema Skin no rashes or lesions noted Neuro no focal motor deficits and deep tendon reflexes 2+ bilaterally Motor Exam: strength 5/5 throughout and clonus absent Psych mental status grossly normal Labs Labs Labs: Blood Type O POSITIVE Antibody Screen NEGATIVE Hct 38.0 % (37-47) Hgb 11.9 g/dL (12.0-15.0) L Pap Smear Negative Obstetrics Ultrasound Syphilis Total Ab Non-reactive Rubella IgG Antibody Reactive (Nonreactive) Hep Bs Antigen Non-Reactive (Nonreactive) Hepatitis C Antibody Non-Reactive (Nonreactive) Chlamydia DNA (GALILEA) Negative (Negative) N.gonorrhoeae DNA (GALILEA) Negative (Negative) HIV 1&2 Antibody Non-Reactive (Nonreactive) Glucose 1 Hr 50 gm 185 mg/dL (70-140) H Gest Glucose Tolerance MG/DL Assessment & Plan (1) arrhythmia affecting , antepartum: COMMENT: MFM consult recommended. 04/10 BPP 04/27 in office. arrhythmia heard 145 heart rate. 05/16 and rpt US 05/17 (2) Gestational diabetes mellitus (GDM): QUALIFIERS: Gestational diabetes mellitus control: diet-controlled Trimester: third trimester Qualified Code(s): O24.410 - Gestational diabetes mellitus in , diet controlled COMMENT: nutrition consult and supplies ordered. testing ordered. (3) Obesity affecting : COMMENT: enc healthy weight gain (4) History of molar : (5) : QUALIFIERS: Weeks of gestation: 39 weeks Qualified Code(s): Z3A.39 - 39 weeks gestation of COMMENT: NIPT low risk, declined carrier and NTD screening, anatomy reviewed. (6) Supervision of high risk , antepartum: COMMENT: PRR FILIPPO 07/03/23 boy Spouse: Pako (7) PCOS (polycystic ovarian syndrome): COMMENT: with irregula cycles (8) Anxiety: COMMENT: no meds currently, stable. (9) pyelectasis: COMMENT: continues @ 28 wks, follow up US after 32 weeks: 05/17-55%. Rpt 4 wk PLAN: Plan Patient presents IOL, plan management for with cytotec overnight then fb and then pit. Pain management: plans epidural. GBS negative. Management of any complications: arhythmia, gdm I have reviewed the [facility] and made any clinically relevant updates.
--- NOTE | 2023-07-12 14:35 | PCM.PN.BLA ---
Progress Note cat II tracing earlier resolved with position changes and amnioinfusion. exp management after spear bulb spontaneously removed. arom clear fluid. current tracing: FHT: 130 Moderate variability reactive early decelerations category I tracing [place]: q 2-4 Contractions reviewed tracing abnormalities since last note: intermittent variables and early A/P: pitocin if able for no cervical change, labor positions, s/p fluid boluses. epidural adequate.
[2023-07-12 14:39] LABS: Bedside Glucose 80 mg/dL (74-106)
[2023-07-12 15:39] LABS: Bedside Glucose 58 mg/dL (74-106)
[2023-07-12] MEDS: Acetaminophen 500 MG Tablet PO (16:10)
[2023-07-12] MEDS: Sodium Citrate/Citric Acid 30 ML UDC PO (16:10)
--- NOTE | 2023-07-12 16:11 | OP.PCM_ITS ---
Assessment & Plan (1) heart deceleration: (2) Encounter for induction of labor: (3) arrhythmia affecting , antepartum: COMMENT: MFM consult recommended. 04/10 BPP 04/27 in office. arrhythmia heard 145 heart rate. 05/16 and rpt US 05/17 (4) Gestational diabetes mellitus (GDM): QUALIFIERS: Gestational diabetes mellitus control: diet-controlled Trimester: third trimester Qualified Code(s): O24.410 - Gestational diabetes mellitus in , diet controlled COMMENT: nutrition consult and supplies ordered. testing ordered. (5) Obesity affecting : COMMENT: enc healthy weight gain (6) History of molar : (7) : QUALIFIERS: Weeks of gestation: 39 weeks Qualified Code(s): Z3A.39 - 39 weeks gestation of COMMENT: NIPT low risk, declined carrier and NTD screening, anatomy revie wed. (8) Supervision of high risk , antepartum: COMMENT: PRR FILIPPO 07/03/23 boy Spouse: Pako (9) PCOS (polycystic ovarian syndrome): COMMENT: with irregula cycles (10) Anxiety: COMMENT: no meds currently, stable. (11) pyelectasis: COMMENT: continues @ 28 wks, follow up US after 32 weeks: 05/17-55%. 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 Patient underwent epidural and after Monteiro bulb came out patient developed recurrent decelerations. Amniotic membranes were ruptured and IUPC was placed. Category 2 tracing with recurrent variable and early and occasional late decelerations with minimal to moderate variability were encountered. These resolved with position changes IV fluids and an amnioinfusion. Patient did not make cervical change after several hours and the tracing was then a category 1 and therefore Pitocin was able to be started and was increased to 4 milliunits. Patient was having adequate contractions and was still 6/80 and 0 station. The patient then developed to prolonged decelerations and then intermittent recurrent late decelerations with minimal to moderate variability. It was discussed with the patient that the ability to induce with Pitocin was unlikely and an arrest of dilation along with placental insufficiency and intolerance to labor which is complicated by the arrhythmia, at this time I would recommend proceeding with a primary . Patient agrees to proceed. Patient was taken to the operating room. The patient was placed in the dorsal supine position with leftward tilt. Patient was prepped and draped in the normal sterile fashion. Pfannenstiel skin incision was made with the scalpel and carried through to the underlying layer of fascia with the scalpel. Fascia was nicked in the midline and the incision extended laterally. The rectus bellies were dissected off superiorly and inferiorly with out complication both sharply and bluntly. The peritoneum was entered digitally. The incision was stretched and a low transverse uterine incision was made with the scalpel. The infant's head was delivered atraumatically followed by the anterior and posterior shoulders without complication the rest of the infant delivered. The cord was clamped and cut and the infant was handed off to awaiting nurse. The placenta was delivered spontaneously immediately following and was noted to be intact and have a three-vessel cord. The uterus was exteriorized cleared of all clots and debris, and the incision was closed in a single layer closure using #1 Monocryl. The ovaries and fallopian tubes were noted to be within normal limits. The uterus was returned to the maternal abdomen and gutters were cleared of all clots and debris. The peritoneum was closed with 3-0 Monocryl in a running fashion. Fascia was closed with 0 PDS in a running fashion. Subcutaneous tissue was copiously irrigated and the skin was closed with 3-0 Monocryl in a subcuticular fashion. Mepilex dressing was applied without complication. Patient was taken to recovery in stable condition. It was discussed with the patient that based on the clinical information obtained during this encounter, combined with her history, at this time I would recommend or vaginal for future deliveries if further pregnancies are desired. Placental Delivery Description: Spontaneous Placenta Disposition: [facility] Cord Vessel Description: 3 Vessels Delayed Cord Clamping: Yes Complications Risks of Surgery Discussed w/Patient: Bleeding, Infection, Need for Future C- Sections and Injury to surrounding structure(s) including bowel and bladder Complications: none Admit VTE Documentation VTE Present on Admission: No VTE Mechan Device Prophylaxis: SCD's Procedures Urinary/Genital [id number]: [id number] Delivery [facility]
[2023-07-12] MEDS: Cefazolin 2 GM in 0.9% Normal Saline (100mL Bag) 100 ML IV (16:14)
[2023-07-12] MEDS: Azithromycin 500 MG in Dextrose 5%-Water (250mL Bag) 250 ML 250 MG IV (16:14)
--- NOTE | 2023-07-12 16:19 | DCINST_ITS ---
Discharge Instructions Diet Discharge Diet: No restrictions Activity Discharge Activity: May Not Drive (for 2 weeks or while taking narcotic pain medications.), May Shower and May Take a Tub Bath (in 7 days) May shower in (days): 0 May resume sexual activity in: 4-6 weeks Weight Bearing Status: Full weight bearing Lifting Restrictions: 20 pounds Dressing / Incision Call your doctor if your incision/area has: Continuous Slow Oozing, Sudden Increased Bleeding, Increased Pain/ Swelling, Increased Redness and Foul Smelling Discharge Call your doctor if you observe: Fever of 101 or Higher and Using more than 1 pad per hour (for 2 hours) Suture Line Care: Avoid Pulling/Pushing and Avoid Pinching/Bending Cleanse incision/area with: Soap & Water and Keep Dressing Clean & Dry Follow Up Care Please Follow Up With: Tricia Todd MD When: Call [phone] to make an appointment for an incision check in 1-2 weeks. Test Results: Test results from this visit will be discussed in further detail at your follow- up appointment, if applicable. Discharge Plan Admission Admit Date/Time: 07/11/23 18:50 Attending Provider: Tricia Todd Primary Care Provider: Luzma Basurto Discharge Orders/Prescriptions Prescriptions: New naproxen [naproxen] 500 mg tablet 500 mg PO BID PRN PRN (Reason: Pain) Qty: 30 1RF No Action amoxicillin-pot clavulanate 875-125 mg tablet 1 tab PO BID Qty: 14 0RF (DME) blood-glucose meter Misc See Rx Instructions .MEDSUPPLY Qty: 1 0RF Rx Instructions: As directed- Test fasting and 2 hours after meals (DME) lancets Misc See Rx Instructions .MEDSUPPLY Qty: 200 8RF Rx Instructions: As directed fasting and 2 HR post meals (DME) Blood Glucose Test Strip See Rx Instructions .Route Qty: 120 8RF Rx Instructions: As directed- fasting and 2 HR psot meals Referrals / Follow Up: Luzma Basurto PA [Primary Care Provider] - Disposition Disposition (needs filled in before D/C Order can be placed): Home, Self Care
[2023-07-12 16:23] LABS: Bedside Glucose 71 mg/dL (74-106)
[2023-07-12] MEDS: Methylergonovine 0.2 MG/ML Ampul IM (16:42)
[2023-07-12] MEDS: Oxytocin 15 Units/NS 250ml 15 UNITS/250 ML IV.SOLN 83 UNITS IV (17:20)
[2023-07-12] MEDS: Ketorolac 30 MG/ML Syringe IV (18:03)
[2023-07-12] MEDS: 0.9% Saline Lock 10 ML Syringe IV ×2 (18:08→18:14)
[2023-07-12] MEDS: Ondansetron 4 MG/2 ML Vial IV (18:13)
[2023-07-12 18:46] LABS: Bedside Glucose 72 mg/dL (74-106)
[2023-07-12 18:46] LABS: Bedside Glucose 67 mg/dL (74-106)
[2023-07-12] MEDS: Lactated Ringers 1,000 ML 100 ML IV (20:07)
[2023-07-12] MEDS: Acetaminophen 500 MG Tablet 1000 MG PO (23:05)
[2023-07-13] VITALS (9 sets, daily range): BP systolic 116–134; BP diastolic 72–88; PULSE 75–91; RESP 14–18; TEMP 36.4–36.9; O2SAT 95–99
[2023-07-13] MEDS: Ketorolac 30 MG/ML Syringe IV ×3 (00:12→13:15)
[2023-07-13] MEDS: Acetaminophen 500 MG Tablet 1000 MG PO ×4 (04:31→22:46)
[2023-07-13 04:34] LABS: Hematocrit 34.3 % (37-47); Hemoglobin 10.7 g/dL (12.0-15.0); Mean Corp Hgb Conc 31.2 g/dL (32-36); Mean Corpuscular Volume 83.5 fL (81-99); Mean Platelet Vol. 11.3 fl (6.2-12.0); Platelet Count 208 K/mm3 (150-450); RBC Distribution Width CV 14.3 % (11.6-14.6); RBC Distribution Width SD 43.6 fl (35.1-43.9); Red Blood Count 4.11 M/mm3 (4.2-5.4); White Blood Count 12.2 K/mm3 (4.4-11.0)
[2023-07-13 04:42] LABS: Bedside Glucose 103 mg/dL (74-106)
[2023-07-13] MEDS: Enoxaparin 40 MG/0.4 ML Syringe SC (05:49)
[2023-07-13] MEDS: Lactated Ringers 1,000 ML 100 ML IV (05:56)
--- NOTE | 2023-07-13 06:54 | PCM.PN.OB ---
Subjective Subjective Patient is laying in bed comfortably without complaints. She states that she slept on an off during the night. Lochia is mild and pain is minimal. patient states that her baby is having glucose problems but other than that they are both doing well. Objective Data Objective Data Vital Signs: Vital Signs Temp Pulse Resp BP Pulse Ox O2 Del Method O2 Flow Rate 97.6 F L 87 16 119/72 98 Room Air 10 07/13/23 04:30 07/13/23 04:30 07/13/23 04:30 07/13/23 04:30 07/13/23 04:30 07/13/23 04:30 07/12/23 10:44 Oxygen Flow Rate (L/min) 10 Oxygen Delivery Method Room Air Weight: 233 lb Body Mass Index (BMI) 37.5 Intake & Output: Intake and Output for Last 24 Hours 07/11/23 07/12/23 07/13/23 23:59 23:59 23:59 Intake Total 3332.91 / 3332.91 833.33 / 833.33 Output Total 1500 / 1500 900 / 900 Balance 1832.91 / 1832.91 -66.67 / -66.67 Lab / Micro Data 07/13/23 04:23 Labs: Laboratory Results - last 24 hr 07/12/23 07:49: POC Glucose 79 07/12/23 11:48: POC Glucose 58 L 07/12/23 12:07: POC Glucose 75 07/12/23 14:17: POC Glucose 80 07/12/23 15:06: POC Glucose 58 L 07/12/23 15:26: POC Glucose 71 L 07/12/23 17:56: POC Glucose 67 L 07/12/23 18:23: POC Glucose 72 L 07/13/23 04:18: POC Glucose 103 07/13/23 04:23: WBC 12.2 H, RBC 4.11 L, Hgb 10.7 L, Hct 34.3 L, MCV 83.5, MCH 26.0 L, MCHC 31.2 L, RDW Std Deviation 43.6, RDW Coeff of [place] 14.3, Plt Count 208, MPV 11.3 ROS Constitutional Constitutional: Reports systems reviewed and no addt'l complaints, except as documented Cardiovascular Cardiovascular: Denies chest pain, dizziness, dyspnea or irregular heart rhythm Respiratory/Chest Respiratory/Chest: Denies cough, pain on inspiration or shortness of breath at rest Gastrointestinal Gastrointestinal: Denies abdominal pain, nausea or vomiting Genitourinary Genitourinary: Denies burning urination Musculoskeletal Musculoskeletal: Denies muscle cramps, muscle spasms or muscle weakness Neurologic Neurologic: Denies confusion, dizziness, headache(s) or lack of coordination Psychiatric Psychiatric: Denies anxiety, behavioral changes or depression Physical Exam HEENT normocephalic Resp normal respiratory effort and normal air movement GI soft to palpation, non-tender and non-distended Rectal Exam: other Other Details: Incision is clean, dry, and intact no CVA tenderness Extremity normal to inspection General Extremity: edema bilateral (trace ) Assessment & Plan (1) delivery delivered: COMMENT: LTCS 40 recurrent decels 6 cm boy PLAN: s/p LTCS PPD # 1 1. routine post care 2. breast feeding- support given 3. rh positive 4. rubella immune 5. plan for dc likely tomorrow due to GDM and infant hypoglycemia (2) Gestational diabetes mellitus (GDM): QUALIFIERS: Gestational diabetes mellitus control: diet-controlled Trimester: third trimester Qualified Code(s): O24.410 - Gestational diabetes mellitus in , diet controlled COMMENT: nutrition consult and supplies ordered. testing ordered. (3) PCOS (polycystic ovarian syndrome): COMMENT: with irregula cycles (4) Anxiety: COMMENT: no meds currently, stable.
[2023-07-13] MEDS: Senna/Docusate Sodium 1 Tablet PO (10:08)
[2023-07-13] MEDS: 0.9% Saline Lock 10 ML Syringe IV (13:14)
[2023-07-13] MEDS: Naproxen 500 MG Tablet PO (19:05)
[2023-07-14] MEDS: Naproxen 500 MG Tablet PO ×3 (02:50→18:35)
[2023-07-14 02:58] VITALS: BP 126/83; PULSE 80; RESP 17; TEMP 36.2; O2SAT 95
[2023-07-14] MEDS: Acetaminophen 500 MG Tablet 1000 MG PO ×4 (04:24→23:58)
[2023-07-14] MEDS: Enoxaparin 40 MG/0.4 ML Syringe SC (04:24)
--- NOTE | 2023-07-14 06:07 | PCM.PN.OB ---
Subjective Subjective Patient doing well without complaints. Tolerating PO. Ambulating and voiding without difficulty. Feeding well. Denies chest pain, shortness of breath, calf pain/swelling, fevers, chills, lightheadedness. Objective Data Objective Data Vital Signs: Vital Signs Temp Pulse Resp BP Pulse Ox O2 Del Method O2 Flow Rate 97.2 F L 80 17 126/83 H 95 Room Air 10 07/14/23 02:58 07/14/23 02:58 07/14/23 02:58 07/14/23 02:58 07/14/23 02:58 07/14/23 02:58 07/12/23 10:44 Oxygen Flow Rate (L/min) 10 Oxygen Delivery Method Room Air Weight: 233 lb Body Mass Index (BMI) 37.5 Intake & Output: Intake and Output for Last 24 Hours 07/12/23 07/13/23 07/14/23 23:59 23:59 23:59 Intake Total 3332.91 / 3332.91 1563.33 / 1563.33 Output Total 1500 / 1500 1600 / 1600 Balance 1832.91 / 1832.91 -36.67 / -36.67 Lab / Micro Data 07/13/23 04:23 ROS Constitutional Constitutional: Denies chills, fatigue, fever(s), poor appetite or weakness Eyes Eyes: Denies blurry vision, change in vision, seeing flashes or spots in vision ENT HEENT: Denies dizziness, headache(s), loss taste/smell or sore throat Cardiovascular Cardiovascular: Denies chest pain, dizziness, dyspnea, irregular heart rhythm, palpitations or rapid heart rate Respiratory/Chest Respiratory/Chest: Denies chest tightness, cough, dyspnea or breast pain Gastrointestinal Gastrointestinal: Denies abdominal pain, constipation or vomiting Genitourinary Genitourinary: Denies dysuria or flank pain Musculoskeletal Musculoskeletal: Denies difficulty walking, joint pain, limited range of motion or numbness Neurologic Neurologic: Denies abnormal movements, abnormal speech, dizziness, numbness, seizure-like activity or syncope Psychiatric Psychiatric: Denies anxiety, behavioral changes, change in appetite, confusion, depression or suicidal thoughts Physical Exam Const alert, oriented x3 and no apparent distress General Appearance: cooperative and comfortable Resp normal respiratory effort Cardio regular rate GI normal to inspection, nondistended, normoactive bowel sounds GI Narrative: uterus is firm below umbilicus Palpation: soft Back/Spine no CVA tenderness and thoraco-lumbar ROM normal Extremity normal to inspection, no clubbing, cyanosis or edema, no calf tenderness and no pedal edema Psych mental status grossly normal, thought process normal, cooperative, affect normal, speech normal, activity/motor behavior normal, denies homicidal ideation and denies suicidal ideation Assessment & Plan (1) delivery delivered: COMMENT: LTCS 40 recurrent decels 6 cm boy (2) Gestational diabetes mellitus (GDM): QUALIFIERS: Gestational diabetes mellitus control: diet-controlled Trimester: third trimester Qualified Code(s): O24.410 - Gestational diabetes mellitus in , diet controlled COMMENT: nutrition consult and supplies ordered. testing ordered. (3) PCOS (polycystic ovarian syndrome): COMMENT: with irregula cycles (4) Anxiety: COMMENT: no meds currently, stable. PLAN: Plan s/p LTCS PPD # 2 1. routine post care 2. breast feeding- support given 3. rh positive 4. rubella immune 5. plan to send home later today after breakfast and when peds has rounded on her baby
[2023-07-14 08:20] VITALS: BP 133/86; PULSE 89; RESP 16; TEMP 36.9; O2SAT 96
[2023-07-14] MEDS: Senna/Docusate Sodium 1 Tablet PO (10:51)
[2023-07-14 13:44] VITALS: BP 137/82; PULSE 78; RESP 16; TEMP 37.2; O2SAT 98
[2023-07-14 20:50] VITALS: BP 140/88; PULSE 77; RESP 16; TEMP 36.7; O2SAT 98
[2023-07-15] MEDS: Naproxen 500 MG Tablet PO ×2 (02:56→10:50)
[2023-07-15 02:58] VITALS: BP 141/88; PULSE 83; RESP 15; TEMP 36.7; O2SAT 96
[2023-07-15] MEDS: Enoxaparin 40 MG/0.4 ML Syringe SC (04:58)
[2023-07-15] MEDS: Acetaminophen 500 MG Tablet 1000 MG PO ×2 (04:58→10:50)
[2023-07-15 07:51] VITALS: BP 122/87; PULSE 77; RESP 16; TEMP 36.7; O2SAT 96
--- NOTE | 2023-07-15 09:32 | PCM.DC.SUM ---
Providers Date of Admission: 07/11/23 Primary Care Physician: MAGALY Grider Reason For Visit: PRIMARY C SECTION Diagnosis Discharge Diagnosis (1) delivery delivered: Status: Acute Code(s): O82 - Encounter for delivery without indication (2) Gestational diabetes mellitus (GDM): Status: Acute Code(s): O24.419 - Gestational diabetes mellitus in , unspecified control Qualifiers: Gestational diabetes mellitus control: diet-controlled Trimester: third trimester Qualified Code(s): O24.410 - Gestational diabetes mellitus in , diet controlled (3) PCOS (polycystic ovarian syndrome): Status: Acute Code(s): E28.2 - Polycystic ovarian syndrome (4) Anxiety: Status: Acute Code(s): F41.9 - Anxiety disorder, unspecified Plan s/p LTCS PPD # 2 1. routine post care 2. breast feeding- support given 3. rh positive 4. rubella immune 5. plan to send home later today after breakfast and when peds has rounded on her baby Medications at Discharge Home Medications blood sugar diagnostic (Blood Glucose Test strips) #120 04/19/23 blood-glucose meter #1 ea 04/19/23 lancets #200 ea 04/19/23 amoxicillin 875 mg-potassium clavulanate 125 mg tablet 1 tab PO BID absess #14 tabs 07/06/23 naproxen 500 mg tablet 500 mg PO BID PRN PRN Pain #30 tabs 07/12/23 oxycodone-acetaminophen 5 mg-325 mg tablet (Percocet) 1 tab PO Q4H PRN pain 7 days #15 tabs 07/14/23 Hospital Course Operations None and section Summary of Care Provided Minutes Spent on Discharge: 30 Hospital Course: The patient was admitted for a repeat section on 07/12/23 for IOL due to gestational diabetes. She progressed up to 6 cm dilated and stalled out. The tracing also showed intermittent late decelerations, variable decelerations and then a prolonged deceleration which ultimately lead to the decision for section on 07/13/23. There were no complications. On day #1 she was tolerating pain well and ambulating, on day #2 she was ready for discharge, however needed help with support and the baby was not yet cleared by pediatricians.on PPD#3 she was ambulating more and the baby was cleared. She has follow up support appt for ppd#4, outpatient. Physical Exam HEENT normocephalic Resp normal respiratory effort and normal air movement GI soft to palpation, non-tender and non-distended Rectal Exam: other Other Details: Incision is clean, dry, and intact no CVA tenderness Extremity normal to inspection General Extremity: edema bilateral (trace ) Weight / BMI Weight Weight: 233 lb Body Mass Index (BMI) 37.5 ABG / Lab / Microbiology Data 07/13/23 04:23 D/C Instructions Discharge Diet: No restrictions Discharge Activity: May Not Drive (for 2 weeks or while taking narcotic pain medications.), May Shower and May Take a Tub Bath (in 7 days.) May shower in (days): 0 May resume sexual activity in: 4-6 weeks Weight Bearing Status: Full weight bearing Lifting Restrictions: 20 pounds Call your doctor if your incision/area has: Continuous Slow Oozing, Sudden Increased Bleeding, Increased Pain/ Swelling, Increased Redness and Foul Smelling Discharge Call your doctor if you observe: Fever of 101 or Higher and Using more than 1 pad per hour (for 2 hours) Suture Line Care: Avoid Pulling/Pushing and Avoid Pinching/Bending Cleanse incision/area with: Soap & Water and Keep Dressing Clean & Dry Please Follow Up With: Tricia Todd MD When: Call [phone] to make an appointment for an incision check in 1-2 weeks. Meaningful Use Info Meaningful Use Diagnoses (Choose all that apply): None applicable Discharge Plan Admission Admit Date/Time: 07/11/23 18:50 Primary Reason for Your Visit: section Attending Provider: Tricia Todd Primary Care Provider: Luzma Basurto Discharge Orders/Prescriptions Prescriptions: New naproxen [naproxen] 500 mg tablet 500 mg PO BID PRN PRN (Reason: Pain) Qty: 30 1RF oxycodone-acetaminophen [Percocet] 5-325 mg tablet 1 tab PO Q4H PRN (Reason: pain) 7 Days Qty: 15 0RF Rx Instructions: 1-2 tabs q 4 hrs as needed for pain No Action amoxicillin-pot clavulanate 875-125 mg tablet 1 tab PO BID Qty: 14 0RF (DME) blood-glucose meter Misc See Rx Instructions .MEDSUPPLY Qty: 1 0RF Rx Instructions: As directed- Test fasting and 2 hours after meals (DME) lancets Misc See Rx Instructions .MEDSUPPLY Qty: 200 8RF Rx Instructions: As directed fasting and 2 HR post meals (DME) Blood Glucose Test Strip See Rx Instructions .Route Qty: 120 8RF Rx Instructions: As directed- fasting and 2 HR psot meals Referrals / Follow Up: Luzma Basurto PA [Primary Care Provider] - Disposition Disposition (needs filled in before D/C Order can be placed): Home, Self Care
[2023-07-15] MEDS: Senna/Docusate Sodium 1 Tablet PO (10:50)
[2023-07-15 14:46] VITALS: BP 133/88; PULSE 82; RESP 16; TEMP 37; O2SAT 97
== END 2023-07-15 16:00 | disposition home or self-care (01) | DRG 788 ==
PROVIDERS: Obstetrics & Gynecology; Admitting Provider Obstetrics & Gynecology; Visit Provider Obstetrics & Gynecology
DX: O24.420 Gestational diabetes mellitus in childbirth, diet controlled (principal); O36.5130 Maternal care for known or suspected placental insufficiency, third trimester, not applicable or unspecified; O99.214 Obesity complicating childbirth; O62.0 Primary inadequate contractions; O76 Abnormality in fetal heart rate and rhythm complicating labor and delivery; Z37.0 Single live birth; Z3A.39 39 weeks gestation of pregnancy
CPT/HCPCS: 59025; 59050; 82962; 85025; 85027; 86780; 86850; 86900; 86901; 99221; J7030; J7120; A4216; G0378; J2405

== ENCOUNTER → 2025-08-15 | Outpatient (CLI) | payer OTHER, SELFPAY ==
--- OUTSIDE RECORDS SUMMARY | 2025-08-15 10:39 | XMS RPT_ITS | CCD ---
Author Organization [facility] Care Team Providers Care Marketing Project Lead Name Role Phone Unavailable Unavailable Unavailable Nahomy, Quan Unavailable Unavailable Nahomy, Quan Unavailable Unavailable ROSALIA HERNANDEZ Attending Unavailable ROSALIA HERNANDEZ Primary Care Unavailable ROSALIA HERNANDEZ Admitting Unavailable MAGALY Joyner Aysha Primary Care Provider [phone] MAGALY Joyner Aysha Referring Provider Dr. Estella Holder Attending Provider MAGALY Joyner Aysha Primary Care Provider [phone] MAGALY Joyner Aysha Referring Provider Dr. Estella Holder Attending Provider JENNY Price Attending Provider [phone] Dr. Tricia Todd Attending Provider [phone] ESTELLA FRANKLIN Attending Unavailab le JOYNER, AYSHA Primary Care Unavailable ESTELLA FRANKLIN Referring Unavailab le ABBY MILLARD Attending Unavailable JOYNER, AYSHA Primary Care Unavailable ESTELLA FRANKLIN Referring Unavailab le ESTELLA FRANKLIN Referring Unavailab le JOYNER, AYSHA Primary Care Unavailable SKY MONTOYA Attending Unavailable SONALI CAREY Attending Unavailable ESTELLA FRANKLIN Referring Unavailab le JOYNER, AYSHA Primary Care Unavailable ESTELLA FRANKLIN Referring Unavailab le JOYNER, AYSHA Primary Care Unavailable ESTELLA FRANKLIN Attending Unavailab SHARDA Asher Attending Unavailable JOYNER, AYSHA Primary Care Unavailable JOYNER, AYSHA Referring Unavailable SONALI CAREY Attending Unavailable ESTELLA FRANKLIN Referring Unavailab le AR, AYSHA Primary Care Unavailable Joyner, PA Aysha Primary Care Provider Joyner, PA Aysha Referring Provider Dr. Estella Holder Attending Provider Emilia NEUROSCIENCE SPECIALIST, NEUROSCIENCE SPECIALIST-C Liat Attending Provider JENNY Hunter Attending Provider MAGALY Joyner Aysha Primary Care Provider Ar PA Aysha Referring Provider Dr. Estlela Holder Attending Provider Dr. Tricia Todd Attending Provider Emilia NEUROSCIENCE SPECIALIST, NEUROSCIENCE SPECIALIST-C Liat Attending Provider JENNY Hunter Attending Provider Dr. Estella Holder Admit Provider Dr. Estella Holder Referring Provider Dr. Estella Holder Other Provider Dr. Tricia Todd Admit Provider Dr. Tricia Todd Other Provider Ar MYRICK, Aysha Cooper Unavailable Vascular Specialty Provider Unavailable Unasoham Coyne MD, Constance Jones Unavailable Hakeem BUI, Denita Unavailable Nguyen Manzo MA Unavailable Unavailable Gogoi (scribe), Hemanta Unavailable Unavaila rosa elena Keenan LPN, Estefani Unavailable Unavailable Nick HUFF, Harsh Roberto Unavailable Angelique Coffman PA-C Unavailable Mani BUI, Terrie Unavailable Unavailable Cristhian ORELLANA, Angelique Roberto Unavailable Unavaila rosa elena Mehta LPN, Tammy Unavailable Unavailable Jonah MYRICK, Sun Cooper Unavailable Carlito (Scribe)Trevor Unavailable Unavailab le Kush RETAIL STORE MANAGER, Ginger Willingham Unavailable Unavailab le Paul RETAIL STORE MANAGER, Cintia Catalan Unavailable Unavailab le Ernesto CNM, Sahara Jimenez Unavailable Narciso HUFF, Robert Roberto Unavailable Nicholas RETAIL STORE MANAGER, Estella Unavailable Unavailabl e [place] RETAIL STORE MANAGER, Cassie N Unavailable Unavaila ble Zaugg RETAIL STORE MANAGER, Rachael Unavailable Unavailable Unavailable Unavailable Bryan BOYD, Neda Unavailable Unavailable MARY, ROSALIA Jones Attending Unavailable JOYNER, AYSHA PAC Consulting Unavailable JOYNER, AYSHA PAC Referring Unavailable MARY, ROSALIA Jones Admitting Unavailable MARY, ROSALIA Jones Primary Care Unavailable PROVIDER, UNKNOWN Consulting Unavailable DIDABEL, INNA KINGSLEY Primary Care Unavailable DIDUR, INNA KINGSLEY Attending Unavailable DIDUR, INNA KINGSLEY Admitting Unavailable JOYNER, AYSHA PAC Admitting Unavailable JOYNER, AYSHA PAC Primary Care Unavailable JOYNER, AYSHA PAC Consulting Unavailable JOYNER, AYSHA PAC Attending Unavailable PROVIDER, UNKNOWN Consulting Unavailable Joyner, Aysha Referring Unavailable Joyner, Aysha Primary Care Unavailable Emilia NEUROSCIENCE SPECIALIST, Liat Attending Unavailable Medications Current Medications Medication Drug Class(es) Dates Sig (Normalized) Sig (Original) acetaminophen 325 mg / oxyCODONE hydrochloride 5 mg oral tablet (1 source) Opioid Agonist Start: 07-14-2023 take 1-2 tablets by mouth every four hours as needed for pain Oxycodone-Acetami nophen (Percocet) 5-325 mg tablet Active 1 TABLET PO Q4H 15 July 14, 2023 1-2 tabs q 4 hrs as needed for pain amoxicillin 875 mg / clavulanate 125 mg oral tablet (1 source) Penicillin-class Antibacterial Start: 07-06-2023 take 1 tablet by mouth twice daily Amoxicillin-Pot Clavulanate Active 1 TABLET PO TWICE A DAY July 05, 2023 11:00pm Blood-Glucose Meter (3 sources) Start: 04-19-2023 Blood-Glucose Meter Active 0 .MEDSUPPLY April 18, 2023 11:00pm As directed- Test fasting and 2 hours after meals Start: 04-19-2023 Blood-Glucose Meter Active 0 .MEDSUPPLY April 19, 2023 12:00am As directed- Test fasting and 2 hours after meals Levonorgestrel-Ethinyl Estrad (20 sources) Progestin, Estrogen, Progestin-containing Intrauterine Device Start: 03-28-2021 take 1 tablet by mouth once daily Levonorgestrel-Ethinyl Estrad (Aviane) 0.1-20 mg-mcg tablet Active 1 TABLET PO DAILY March 28, 2021 5:07pm Start: 03-28-2021 End: 01-27-2022 take 1 tablet by mouth once daily Levonorgestrel-Ethinyl Estrad (Aviane) 0.1-20 mg-mcg tablet Discontinued 1 TABLET PO DAILY March 27, 2021 11:00pm January 27, 2022 12:46pm Start: 03-28-2021 End: 01-27-2022 take 1 tablet by mouth once daily Levonorgestrel-Ethinyl Estrad (Aviane) 0.1-20 mg-mcg tablet Discontinued 1 TABLET PO DAILY March 28, 2021 12:00am January 27, 2022 1:46pm Start: 11-18-2019 End: 12-20-2020 take 1 tablet by mouth once daily Aviane 0.1-20 MG-MCG Oral Tablet ; 1 (one) Tablet daily for 0 days Quantity: 2 {Package} Refills: 5 Ordered: 20-Dec-2020 REYNA Morrow Start: 18-Nov-2019 End: 20-Dec-2020 Status: Inactive Aviane 0.1-20 MG -MCG Oral Tablet ; daily (0.1-20 MG-MCG) Status: Inactive Multivitamin Oral Tablet (7 sources) take 1 tablet by mouth once daily Multivitamin Oral Tablet ; 1 daily naproxen 500 mg oral tablet (1 source) Nonsteroidal Anti-inflammatory Drug Start: 07-12-20 take 500 mg by mouth twice daily as needed Naproxen Active 500 MG PO TWICE DAILY NEEDED July 12, 2023 12:00am [place] (Nk) (2 sources) Start: 01-28-20 22 [place] (Nk) Active January 27, 2022 12:00am Norethindrone (7 sources) norethindrone (contraceptive) 0.35 mg tablet ; daily (0.35 mg) ofloxacin 3 mg/ml otic solution (10 sources) Quinolone Antimicrobial Start: 02-22-20 ofloxacin 0.3 % ear drops ; 10 drops two times daily for 0 days Quantity: 10 {Milliliter} Refills: 1 Ordered: 22-Feb-2024 ELEN Joyner Start: 22-Feb-2024 Start: 10-15-2015 End: 10-22-2015 take 5-10 drop(s) into the eye(s) once daily OFLOXACIN, 0.3% (Ophthalmic Solution) ; 5-10 drops once daily to affected ear for 7 days Quantity: 5 {Milliliter} Refills: 0 Ordered: 15-Oct-2015 MD Harsh Romero Start: 15-Oct-2015 End: 22-Oct-2015 Status: Inactive Comments: Note to pharm: opthalmic solution for otic use Comment on above: Note to pharm: optha lmic solution for otic use sertraline 25 mg oral tablet (7 sources) Serotonin Reuptake Inhibitor sertraline 25 mg tab let ; daily (25 mg) Completed/Discontinued Medications Medication Drug Class(es) Dates Sig (Normalized) Sig (Original) benzoyl peroxide 0.1 mg/mg topical gel (7 sources) Start: 11-13-2012 End: 02-07-2014 BENZOYL PEROXIDE, 10% (External Gel) ; 1 applicator(s) daily for 0 days Quantity: 60 {cc} Refills: 5 Ordered: 07-Feb-2014 RAMYA Miller Cintia Catalan Start: 13-Nov-2012 End: 07-Feb-2014 Status: Inactive cephalexin 500 mg oral tablet (3 sources) Cephalosporin Antibacterial Start: 02-22-2024 End: 02-29-2024 cephALEXin 500 mg tablet ; 2 (two) tablet two times daily for 7 days Quantity: 28 {Tablet} Refills: 0 Ordered: 22-Feb-2024 ELEN Joyner Start: 22-Feb-2024 End: 29-Feb-2024 Status: Inactive Desogestrel / Ethinyl Estradiol (7 sources) Progestin, Estrogen Start: 08-31-2016 End: 03-27-2017 take 1 tablet by mouth once daily Desogestrel-Ethin yl Estradiol 0.15-30 MG-MCG Oral Tablet ; 1 (one) Tablet Tablet daily for 0 days Quantity: 3 {Package} Refills: 3 Ordered: 31-Aug-2016 ELEN Coffman Start: 31-Aug-2016 End: 27-Mar-2017 Status: Discontinued Comments: This order discontinued per [facility]. Comment on above: This order discontin ued per [facility]. erythromycin 0.02 mg/mg topical gel (7 sources) Macrolide, Macrolide Antimicrobial Start: 11-13-2012 End: 02-07-2014 ERYTHROMYCIN, 2% (External Gel) ; 1 application(s) daily for 0 days Quantity: 60 {cc} Refills: 5 Ordered: 07-Feb-2014 RAMYA Miller Samara Start: 13-Nov-2012 End: 07-Feb-2014 Status: Inactive Comments: Caution: May bleach hair or clothing. Comment on above: Caution: May bleach hair or clothing. escitalopram 10 mg oral tablet (7 sources) Serotonin Reuptake Inhibitor Start: 06-17-2015 End: 03-21-2016 take 1 tablet by mouth once daily ESCITALOPRAM OXALATE, 10MG (Oral Tablet) ; 1 (one) Tablet once daily for 0 days Quantity: 30 {Tablet} Refills: 5 Ordered: 21-Mar-2016 RAMYA Goodman Start: 17-Jun-2015 End: 21-Mar-2016 Status: Inactive ibuprofen 800 mg oral tablet (6 sources) Nonsteroidal Anti-inflammatory Drug Start: 03-29-2021 End: 04-15-2021 take 800 mg by mouth every eight hours Ibuprofen Discontinued 800 MG PO Q8H March 28, 2021 11:00pm April 15, 2021 1:18pm levoFLOXacin 500 mg oral tablet (7 sources) Quinolone Antimicrobial Start: 10-28-2015 End: 11-02-2015 take 1 tablet by mouth once daily LEVAQUIN, 500MG (Oral Tablet) ; 1 Tab daily for 5 days Quantity: 5 {Tablet} Refills: 0 Ordered: 28-Oct-2015 RAMYA Miller Beth Start: 28-Oct-2015 End: 02-Nov-2015 Status: Inactive methylPREDNISolone 4 mg oral tablet (7 sources) Corticosteroid Start: 10-28-2015 End: 11-03-2015 MEDROL (JOSE), 4MG (Oral Tablet) ; 1 Tab as directed for 6 days Quantity: 1 {Dose_Pack} Refills: 0 Ordered: 28-Oct-2015 RAMYA Miller Cintia Cataaln Start: 28-Oct-2015 End: 03-Nov-2015 Status: Inactive metroNIDAZOLE 500 mg oral tablet (7 sources) Nitroimidazole Antimicrobial Start: 03-22-2017 End: 03-27-2017 take 1 tablet by mouth twice daily MetroNIDAZOLE 500 MG Oral Tablet ; 1 (one) Tablet twice daily for 7 days Quantity: 14 {Tablet} Refills: 0 Ordered: 27-Mar-2017 ELEN Coffman Start: 22-Mar-2017 End: 27-Mar-2017 Status: Inactive Comments: Do not use with alcohol Comment on above: Do not use with [place] mupirocin 0.02 mg/mg topical ointment (7 sources) RNA Synthetase Inhibitor Antibacterial Start: 03-11-2013 End: 03-18-2013 BACTROBAN, 2% (External Ointment) ; 1 (one) Ointment three times daily for 7 days Quantity: 22 {Gram(s)} Refills: 0 Ordered: 11-Mar-2013 ELEN Coffman Start: 11-Mar-2013 End: 18-Mar-2013 Status: Inactive oxyCODONE hydrochloride 5 mg oral capsule (6 sources) Opioid Agonist Start: 03-31-2021 End: 04-02-2021 take 5 mg by mouth every six hours Oxycodone Discontinued 5 MG PO EVERY 6 HOURS 01 02March 31, 2021 April 01, 2021 11:01pm PARoxetine hydrochloride 20 mg oral tablet (7 sources) Serotonin Reuptake Inhibitor Start: 07-08-2013 End: 05-18-2015 take 1 tablet by mouth once daily PAXIL, 20MG (Oral Tablet) ; 1 Tablet daily for 0 days Quantity: 30 {Tablet} Refills: 5 Ordered: 18-May-2015 RAMYA Goodman Start: 08-Jul-2013 End: 18-May-2015 Status: Inactive Comments: future fill Comment on above: future fill penicillin v potassium 500 mg oral tablet (7 sources) Start: 02-07-2014 End: 02-17-2014 take 1 tablet by mouth three times daily PENICILLIN V POTASSIUM, 500MG (Oral Tablet) ; 1 (one) Tablet three times daily for 10 days Quantity: 30 {Tablet} Refills: 0 Ordered: 07-Feb-2014 MD Constance Coyne Start: 07-Feb-2014 End: 17-Feb-2014 Status: Inactive predniSONE 20 mg oral tablet (7 sources) Start: 06-20-2021 End: 05-19-2022 take 3 tablets by mouth once daily, then take 2 tablets by mouth once daily, then take 1 tablet by mouth once daily, then take 0.5 tablet by mouth once daily predniSONE 20 MG Oral Tablet ; 1 (one) Tablet as directed for 0 days Quantity: 20 {Tablet} Refills: 0 Ordered: 19-May-2022 REYNA Morrow Start: 20-Jun-2021 End: 19-May-2022 Status: Inactive Comments: Take 3tabs qd for 3 days thenTake 2tabs qd for 3 days thenTake 1tab qd for 3 days thenTake 1/2tab qd for 4 days. Comment on above: Take 3tabs qd for 3 days thenTake 2tabs qd for 3 days thenTake 1tab qd for 3 days thenTake 1/2tab qd for 4 days. Prenat.Vits,Stevenson,Min-Iro n-Folic (6 sources) Start: 03-14-2021 End: 04-15-2021 take 1 tablet by mouth once daily Prenat.Vits,Stevenson,M fn-Gver-Tscsb Discontinued 1 TABLET PO DAILY March 14, 2021 11:31am April 15, 2021 2:18pm Start: 03-14-2021 End: 04-15-2021 take 1 tablet by mouth once daily Prenat.Vits,Stevenson,Xqw-Fxfx-Ysgqn Discontin ued 1 TABLET PO DAILY March 13, 2021 11:00pm April 15, 2021 1:18pm Start: 03-14-2021 End: 04-15-2021 take 1 tablet by mouth once daily Prenat.Vits,Stevenson,Rln-Mydt-Tpeph Discontin ued 1 TABLET PO DAILY March 14, 2021 12:00am April 15, 2021 2:18pm sulfamethoxazole 800 mg / trimethoprim 160 mg oral tablet (7 sources) Dihydrofolate Reductase Inhibitor Antibacterial, Sulfonamide Antimicrobial Start: 04-16-2017 End: 04-19-2017 take 1 tablet by mouth twice daily Bactrim DS 800-160 MG Oral Tablet ; 1 Tab two times daily for 3 days Quantity: 6 {Tablet} Refills: 0 Ordered: 16-Apr-2017 ELEN Mckenzie Start: 16-Apr-2017 End: 19-Apr-2017 Status: Inactive terconazole 80 mg vaginal insert (7 sources) Azole Antifungal Start: 02-06-2017 End: 02-09-2017 Terconazole 80 MG Vaginal Suppository ; 1 (one) Suppository per vagina before bed for 3 days Quantity: 3 {Suppository} Refills: 0 Ordered: 06-Feb-2017 ELEN Coffman Start: 06-Feb-2017 End: 09-Feb-2017 Status: Inactive Problems Active Problems Problem Classification Problem Date Documented Date Episodic/Chronic Administrative/social admission (7 sources) Issue of repeat prescriptions 03-27-2017 Episodic Allergic reactions (14 sources) Atopic dermatitis; Translations: [Atopic dermatitis, unspecified] 11-02-2023 Chronic Allergic reactions (14 sources) Eczema; Translations: [Dermatitis, unspecified] 07-06-2022 Episodic Anxiety disorders (20 sources) Anxiety; Translations: [Anxiety disorder, unspecified] 03-14-2021 Chronic Conditions associated with dizziness or vertigo (14 sources) Dizziness; Translations: [Dizziness and giddiness] 11-02-2023 Episodic Contraceptive and procreative management (20 sources) Patient encounter status; Translations: [Encounter for other general counseling and advice on procreation] 07-06-2022 Episodic Comment on above: Wanting to start TTC soon and wants to know about preconception education Diabetes or abnormal glucose tolerance complicating ; childbirth; or the puerperium (18 sources) Gestational diabetes mellitus; Translations: [Gestational diabetes mellitus in , unspecified control] 04-20-2023 Episodic E Codes: Natural/environment (7 sources) Insect bite - wound; Translations: [Bitten or stung by nonvenomous insect and other nonvenomous arthropods, initial encounter] 03-21-2016 Episodic Genitourinary congenital anomalies (20 sources) pyelectasis; Translations: [Dilation of renal pelvis of fetus] 04-23-2023 Chronic Headache; including migraine (14 sources) Headache; Translations: [Headache] 11-02-2023 Episodic Immunizations and screening for infectious disease (20 sources) Needs influenza immunization; Translations: [Encounter for immunization] 07-06-2022 Episodic Inflammatory diseases of female pelvic organs (20 sources) Vaginitis; Translations: [Acute vaginitis] 02-06-2017 Episodic Mood disorders (20 sources) Depressive disorder; Translations: [Depressive disorder, not elsewhere classified] 11-02-2023 Chronic Other circulatory disease (14 sources) Elevated blood pressure; Translations: [Elevated blood-pressure reading, without diagnosis of hypertension] 11-02-2023 Episodic Other complications of ; puerperium affecting management of mother (1 source) Deliveries by ; Translations: [Encounter for delivery without indication] 07-14-2023 Episodic Other complications of ; puerperium affecting management of mother (1 source) Encounter for delivery without indication; Translations: [ delivery, without mention of indication, delivered, with or without mention of antepartum condition] 07-15-2023 Episodic Other complications of (5 sources) Maternal obesity complicating , childbirth and the puerperium, antepartum; Translations: [Obesity complicating , unspecified trimester] 11-29-2022 Chronic Other complications of (20 sources) Obesity complicating , unspecified trimester; Translations: [Obesity complicating , childbirth, or the puerperium, unspecified as to episode of care or not applicable] 11-29-2022 Chronic Other complications of (6 sources) Hydatidiform mole, benign; Translations: [Blighted ovum and nonhydatidiform mole] 11-17-2022 Episodic Other complications of (5 sources) High risk ; Translations: [Supervision of high risk , unspecified, unspecified trimester] 11-22-2022 Episodic Other complications of (20 sources) Supervision of high risk , unspecified, unspecified trimester; Translations: [Supervision of unspecified high-risk ] 11-29-2022 Episodic Other complications of (2 sources) condition affecting obstetrical care of mother; Translations: [Maternal care for abnormalities of the heart rate or rhythm, unspecified trimester, not applicable or unspecified] 05-09-2023 Episodic Other complications of (12 sources) Maternal care for abnormalities of the heart rate or rhythm, unspecified trimester, not applicable or unspecified; Translations: [Abnormality in heart rate or rhythm, antepartum condition or complication] 04-27-2023 Episodic Other connective tissue disease (7 sources) Pain in upper limb; Translations: [Pain in arm, unspecified] 07-31-2017 Episodic Other ear and sense organ disorders (20 sources) Otitis externa; Translations: [Unspecified otitis externa, unspecified ear] 10-28-2015 Chronic Other ear and sense organ disorders (6 sources) Otitis externa of right ear; Translations: [Unspecified otitis externa, right ear] 02-22-2024 Chronic Other ear and sense organ disorders (14 sources) Hearing loss of left ear; Translations: [Impacted cerumen, left ear] 11-02-2023 Episodic Other endocrine disorders (19 sources) Polycystic ovary syndrome; Translations: [Polycystic ovarian syndrome] 01-27-2022 Chronic Other endocrine disorders (20 sources) Polycystic ovarian syndrome; Translations: [Polycystic ovaries] 11-29-2022 Chronic Other nutritional; endocrine; and metabolic disorders (7 sources) Obesity; Translations: [Obesity, unspecified] 07-08-2013 Chronic Other nutritional; endocrine; and metabolic disorders (12 sources) Overweight in adulthood with body mass index of 25 or more but less than 30; Translations: [Body mass index (BMI) 26.0-26.9, adult] 07-06-2022 Episodic Other nutritional; endocrine; and metabolic disorders (20 sources) Overweight; Translations: [Overweight] 11-02-2023 Episodic Other nutritional; endocrine; and metabolic disorders (2 sources) Body mass index 25-29 - overweight; Translations: [Body mass index (BMI) 26.0-26.9, adult] 07-06-2022 Episodic Other and delivery including normal (20 sources) ; Translations: [Encounter for supervision of normal , unspecified, unspecified trimester] 11-22-2022 Episodic Other skin disorders (20 sources) Acne; Translations: [Acne, unspecified] 11-02-2023 Episodic Other upper respiratory infections (20 sources) Acute upper respiratory infection; Translations: [Acute upper respiratory infection, unspecified] 07-06-2022 Episodic Residual codes; unclassified (5 sources) History of molar ; Translations: [Personal history of other complications of , childbirth and the puerperium] 11-22-2022 Episodic Residual codes; unclassified (20 sources) Personal history of other complications of , childbirth and the puerperium; Translations: [Personal history of other genital system and obstetric disorders] 11-29-2022 Episodic Residual codes; unclassified (20 sources) Influenza vaccination declined; Translations: [Immunization not carried out because of patient refusal] 11-02-2023 Episodic Skin and subcutaneous tissue infections (7 sources) Unspecified local infection of skin and subcutaneous tissue 03-11-2013 Episodic Unclassified (2 sources) Invalid ICD10 Description; Translations: [Invalid ICD10 Description] Onset: 09-24-2020 Unclassified (1 source) COVID-19; Translations: [COVID-19] Onset: 09-24-2020 Unclassified (7 sources) Number of Pregnancies 11-02-2023 Comment on above: 1. Unclassified (7 sources) [facility] Routine Follow up - The patient is here for follow-up of other condition(s) (Anxiety Last rtn visit 01/07/13. No labs.). The patient always takes the prescribed medications. No side effects noted. The patient has an active lifestyle but no regular program. The patient's out of office blood pressure checks occur rarely and dietary compliance is fairly good usually adhering to recommendations. The patient states that breathing effort is stable, there is no recent angina or dyspnea, there are no vision changes or weakness, weight has increased (19#), in general mood has improved and they do not have headaches. Note for Routine chronic follow-up: Patient reports she is feeling well on medication; happier and back to my normal self. However, patient does express concern because she has gained 19# since starting the medication. 07-08-2013 Unclassified (7 sources) [facility] Routine Follow up - The patient is here for follow-up of other condition(s) (Anxiety and Acne Last rtn visit 11/13/12). The patient always takes the prescribed medications. No side effects noted. The patient has an active lifestyle but no regular program. The patient's out of office blood pressure checks occur rarely and dietary compliance is fairly good usually adhering to recommendations. The patient states that breathing effort is stable, there is no recent angina or dyspnea, there are no vision changes or weakness, weight has increased (3#), in general mood has improved and they do not have headaches. The patient does not check home blood sugars. 01-08-2013 Urinary tract infections (7 sources) Urinary tract infectious disease; Translations: [Urinary tract infection, site not specified] 04-16-2017 Episodic Varicose veins of lower extremity (14 sources) Venous varices; Translations: [Varicose veins of unspecified lower extremity with pain] 11-02-2023 Episodic Past or Other Problems Problem Classification Problem Date Documented Da te Episodic/Chronic Unclassified (2 sources) heart deceleration; Translations: [ heart deceleration] 07-14-2023 Unclassified (7 sources) Well adult female - The patient feels well with minor complaints, has good energy level and is sleeping well. The first day of the last menstrual period was : (09/2022 on BC). The patient has a balanced diet and takes supplemental vitamins. The patient exercises 3 - 4 times per week. The patient sleeps 7 hours per night. Note for Well adult female: Patient needs a form completed for her workplace.Pt has been getting dizzy spells.Pt said she has noticed it since having her son in July 2023 Pt said she noticed it when she gets up from the ground or sitting downPt also said feels it worse when she is working out and getting up and down. pt said she does feel like she might pass out but has not passed out yet. She does report some fluttering in her chest with this dizziness, but denies any chest pain or shortness of breath.She reports symptoms every 2-3 days. 11-02-2023 Unclassified (7 sources) Ear pain - The onset of the pain has been acute and has been occurring in a persistent pattern for 2 weeks. The course has been increasing. The pain is described as a moderate pressure (More pressure and discomfort than pain) and plugged. The pain is described as being located in the inner ear. The pain is felt in the left ear. The symptoms have been associated with decreased hearing and tinnitus, while the symptoms have not been associated with chills, fever, inability to 'pop' ear drum, sore throat, runny nose, cough or vertigo. Medical History does not include seasonal allergies. Note for Ear pain: Patient has used OTC ear drops without relief of symptoms. 07-06-2022 Unclassified (7 sources) Well adult female - The patient feels well with no complaints, has good energy level and is sleeping well. The first day of the last menstrual period was : (05/07 to 05/10/2022). The patient has a balanced diet and takes supplemental vitamins. The patient exercises none (no planned exercise but is very active lately, currently remodeling home.). The patient sleeps 7 (7-8 hours a night) hours per night. Note for Well adult female: Last Pap 05/19/2020 normal.Is fasting today for labs.She will bring Wellness form to the office to be completed for her workplace.Patient and her are currently trying to have a baby. Her painter plate recently diagnosed her with PCOS. 05-19-2022 Unclassified (7 sources) Well adult female - The patient feels well with minor complaints, has good energy level and is sleeping well. The first day of the last menstrual period was : (05/18/2021). The current method of contraception is: oral contraceptives. The patient has a balanced diet and takes supplemental vitamins. The patient does not exercise. The patient sleeps 7 hours per night. Note for Well adult female: Patient presents today with a complaint of an eczema flare around her eyes since January. She reports some itching and pain. She usually treats her eczema flares with steroid cream, but is out of this right now. She will get flares on multiple locations on her body, but has not had a flare around her eyes in many years.Patient is currently being managed by gynecology for a molar that she had in January. She is now at the point where she will have bloodwork once a month for the next six months. 05-25-2021 Unclassified (7 sources) Hypertension - The hypertension has been occurring for weeks (A few weeks ago, she was at the dentist and her BP was elevated. First reading was 160's/107, second reading was 140's/106.). The symptoms include headache (she usually will have headaches, have not worsened), but do not include chest pain, dyspnea on exertion, edema, fatigue, palpitations, visual changes or shortness of breath. There is no tobacco use or home blood pressure monitoring. There is a family history of hypertension. Note for Hypertension: been stressful at her workplace, wonders if stress may have caused her BP to be elevated.Does have a family history of HTN- mother, father, brother and sister.Also would like to have varicose veins looked at on her right posterior leg, will become itchy and sometimes will be painful if they become pinched. Is unable to wear knee pads. The varicose vein is located on the posteromedial aspect of the the patient's right knee. She has tried wearing compression stockings/braces and this has only caused more discomfort and itching. She reports that sometimes just wearing pants will worsen the symptoms associated with the vein. 12-20-2020 Unclassified (7 sources) Well adult female - The patient feels well with no complaints, has good energy level and is sleeping well. The first day of the last menstrual period was : (05/05/2020). The current method of contraception is: oral contraceptives. The patient has a balanced diet. The patient exercises 3 - 4 times per week. The patient sleeps 7 hours per night. 05-19-2020 Unclassified (7 sources) Well adult female - The patient feels well with no complaints, has good energy level and is sleeping well. The first day of the last menstrual period was : (03/12/19). The current method of contraception is: oral contraceptives. The patient has a balanced diet. The patient exercises 3 - 4 times per week. The patient sleeps 7 hours per night. Note for Well adult female: nguyễn 06/25/18NO papheadaches- they have been worst for the past month- almost everyday (while at work) 05-19-2019 Unclassified (7 sources) Well adult female - The patient feels well with no complaints, has good energy level and is sleeping well. The first day of the last menstrual period was : (05/31/2018). The current method of contraception is: oral contraceptives. The patient has inadequate caloric intake and takes no supplemental vitamins & iron. The patient does not exercise. The patient sleeps 7 hours per night. Note for Well adult female: NGUYỄN 06/18/2017No labshand numbness and stiffness in fingers on left hand, last 3 digits. occured twice in last month 06-25-2018 Unclassified (7 sources) Cold Symptoms - Symptoms include nasal congestion, ear pain, ear fullness, scratchy throat, dry cough and general malaise. The onset was sudden 24 hour(s) ago. The symptoms occur constantly. The patient describes this as moderate in severity. The patient is not currently being treated for this problem. Risk factors do not include smoking. The patient has not been exposed to an individual with similar symptoms. 06-19-2018 Unclassified (7 sources) Arm pain - The pain is in the left arm. The onset of the pain has been sudden (patient received the influenza vaccination at her workplace on 07/12/2017. The pain of her arm was noticed after receiving the injection. No redness or local swelling. ) and has been occurring in a persistent (the pain is described as being a sharp pain and increases in severity with movement) pattern. The course has been increasing. Note for Pain: Has tried heat compresses. 07-31-2017 Unclassified (7 sources) Well adult female - The patient feels well with no complaints, has good energy level and is sleeping well. The first day of the last menstrual period was : (06/05/2017). The patient has a balanced diet and takes no supplemental vitamins & iron. The patient exercises 3 - 4 times per week. The patient sleeps 8 hours per night. Note for Well adult female: NGUYỄN 04/16/2017no past labs donenormal pap 05/29/2016 06-18-2017 Unclassified (7 sources) UTI - Symptoms include dysuria, urinary frequency and urinary urgency, but do not include abdominal pain or back pain. The patient describes the pain as burning. Onset was sudden (this am). The symptoms occur constantly. The patient describes this as moderate in severity and worsening. Associated symptoms do not include fever, nausea or vomiting. Note for UTI: Denies possibility of STD. 04-16-2017 Unclassified (7 sources) Vaginal discharge - The discharge has been occurring for 1 week and has been constant. The discharge has been light and is characterized as yellow. The symptoms have been associated with perineal pain, but have not been associated with dysuria, fever or urinary urgency. There is a history of use of contraceptive devices (condoms), while there is no history of sexual contact with a person having an STD or douching. The patient has been using oral contraceptives. Note for Vaginal discharge: Pt. saw [facility] 02/06/17 and was diagnosed with vaginitis and treated with terconazole supp. Symptoms improved. Pt. noted same symptoms again x 1 week. 03-22-2017 Unclassified (7 sources) Vaginal discharge - The discharge has been occurring for 2 weeks and has been increasing (in the last 2 days.). The discharge has been light and is characterized as bloody (very scant) and white. The symptoms have been associated with perineal pruritus and vulvar pruritis, but have not been associated with dysuria, fever, urinary frequency, skin rash, urinary urgency, chills, urinary burning, nausea, sore throat or vulvar edema. There is no medical history of diabetes or gonorrhea. The patient has been using oral contraceptives. 02-06-2017 Unclassified (7 sources) Discuss medication - Has been on 3 months of oral control. No longer has nausea or weight gain. Weight is down 6 pounds. Would like to remain on current medication. 09-23-2016 Unclassified (7 sources) control (initial visit) - The patient's motivation for contraception is the prevention of . No previous methods of contraception have been used. Previous pregnancies: none. Previous abortions/miscarriages: none. There is no STD history pertinent to this complaint. Note for Contraception: Patient would like a method that will not cause weight gain. Patient also complains of neck pain x 1 week. No known injury. 05-30-2016 Unclassified (7 sources) Rash - The onset of the rash has been acute and has been occurring in a persistent pattern for 10 weeks. The course has been constant. The rash is characterized as red, raised above the skin and grouped in crops. The rash was first seen on the trunk (around ribs-bilaterally). There has been no progression. There has been associated itching, while there has been no associated pain. There has been associated itching, while there has been no fever or pain. 03-21-2016 Unclassified (7 sources) Ear pain - The onset of the pain has been acute and has been occurring in a persistent pattern for 1 day. The course has been increasing. The pain is described as a moderate dull aching. The pain is described as being located in the inner ear. The pain is felt in the left ear. There has been no associated decreased hearing, fever, sore throat, runny nose, cough or tinnitus. 10-15-2015 Unclassified (7 sources) Depression, follow up - The last clinic visit was 1 month(s) ago (last office visit was 05-18-15.). Since diagnosis the disease has been improving. Note for Depression: Is currently on Escitalopram 10mg daily. Is doing well on current medication. Symptoms have been improving. No problems except alteration of taste perception. Sleeping well. Mood more stable. Would like to continue on the medication. 06-17-2015 Unclassified (7 sources) Depression (Initial) - The onset of the depression has been variable and has been occurring in an intermittent pattern for years. The course has been increasing. The depression is described as feeling blue, sad, nervous and tired. The symptoms include depressed mood, fatigue, trouble concentrating, indecisiveness, loss of appetite, weight loss, insomnia, headaches, irritability and anxiety, while the symptoms do not include suicidal thoughts or suicidal attempts. The symptoms have been associated with depression in the past, difficulty sleeping, episodes of spontaneous crying, feeling tired and recent changes in life. The depression was preceded by stress and family stressors. Pertinent family history includes depression in first degree relative (Siblings). Note for Depression: Patient's boyfriend just left for the [employer] and is basic training now. Patient has been on Paxil in the past but had a large weight gain with it. 05-18-2015 Unclassified (7 sources) Cold Symptoms - Symptoms include sore throat, fever ([id number]), chills, general malaise and headache, but do not include nasal congestion, runny nose, ear pain or dry cough. The onset was sudden 2 day(s) ago. The symptoms occur constantly. The patient describes this as moderate in severity and worsening. Current treatment includes NSAIDs. The patient has not been exposed to an individual with similar symptoms. Patient denies history of seasonal allergies or asthma. Note for Upper respiratory infection: Complains of occasional nausea. 02-07-2014 Unclassified (7 sources) sores - patient has sores on both sides of her nose and her hairline on the back of her neck. They have been present for one week, yellow tinged drainage can be squeezed out of them. Does not usually have trouble with acne on her face (has an outbreak on her back an is using topical treatment). Denies exposure to infectious disease, no sores anywhere else, afebrile 03-11-2013 Unclassified (7 sources) follow up anxiety - Patient had an office visit on 10/23/12 for anxiety. Patient was prescribed Paxil 20mg daily at that visit. Patient reports that she is doing much better since being on medication and feels she has improved. Patient denies any problems or complaints at this time. 11-13-2012 Unclassified (7 sources) Anxiety - The onset of the anxiety has been variable and has been occurring in an intermittent pattern for 7 years. The course has been increasing. The anxiety is characterized as extreme fear. 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 Precipitating factors include specific forthcoming events and specific circumstances. The symptoms have been associated with agitation, breathlessness, feeling of sadness, headache and palpitations, but have not been associated with chest pain, diarrhea, dizziness, increased appetite, insomnia, lightheadedness, nausea, paresthesias, paralysis, suicidal thoughts, sweating, vomiting or weight loss. 10-23-2012 Unclassified (3 sources) Ear pain - The onset of the pain has been sudden and has been occurring in a persistent pattern for 2 days. The course has been increasing. The pain is described as a moderate dull aching, sharp pain, stabbing, pressure and plugged. The pain is described as being located in the external ear. The pain is felt in the right ear. The symptoms have been associated with decreased hearing and runny nose, while the symptoms have not been associated with chills, fever, non-purulent discharge from ear, purulent discharge from ear, sore throat, cough, tinnitus or vertigo. Medical History includes ear infections (Patient has a history of swimmers ear. She reports she had a bad case of it this spring that sent her to the ER and required oral antibiotics.), but there is no history of seasonal allergies. Note for Ear pain: She did go swimming this past weekend. 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) Chief Complaint: annual Front Edger Required: No Is patient in pain?: No Allergies No Known Allergies Allergy (Verified 08/29/24 08:07) Medications ???Medication ???Instructions ???Recorded ???Confirmed ???Type sertraline 25 mg tablet (Zoloft) 25 mg PO DAILY #90 tabs 08/24/23 08/29/24 Rx levonorgestrel-ethin yl estradiol 1 tab PO DAILY #84 tabs 08/29/24 08/29/24 Rx 0.1 mg-20 mcg tablet (Aviane) Is last menstrual period known: Yes Last Menstrual Period: 08/05/24 Post menopausal: No Patient : No : No Control Method: ocp [facility] Medical History History of gestational diabetes delivery delivered Family history of hearing loss at age younger than 7 years Infertility Trauma Anxiety Gestational diabetes pyelectasis Molar Surgical History S/P primary low transverse History of gynecologic surgery History of D C S/P wisdom tooth extraction Family History Mother Hypertension Gestational diabetes Father Hypertension Brother Hypertension Sister Hypertension PCOS (polycystic ovarian syndrome) Sister PCOS (polycystic ovarian syndrome) Social History adopted: No household members: spouse number of children: 1 current occupational status: employed current occupation: [employer] pets and animals: Yes (avoid litter box) pets and animals: cat(s) history of recent travel: No sexually active: Yes Smoking Status: Never smoker alcohol intake: current alcohol intake frequency: holidays/special occasions only details: not while substance use type: does not use well-balanced diet: about half the time caffeine: Yes Type: coffee Number of servings: 1 seatbelt use: always do you feel safe at home: Yes additional social history: [facility] History 2 Elective abortions Hx Para 1 Spontaneous abortions Hx # Term Pregnancies Ectopic pregnancies Hx # Pregnancies Multiple births # of living children 1 Past Pregnancies Del. Date Name GA/Weeks Outcome Route Bth Weight Infant Gen Labor Lgth Anesthesia Del Locatn Provider FOB 07/12/23 Jonathan Myers live - full term 6lbs 14oz Male epidural [facility] Tricia Min Delivery Date: 07/12/23 Last Updated by: RAMYA Pina [facility] decels Jonathan wang HPI Encounter for routine gynecological examination Details: PILI SAMAYOA is a 28 year old who presents for annual exam. Has infected hair in c section scar. Wants to continue OCP. Last PAP: 2022; normal History of abnormal PAP: no Last mammogram: age 39 History of abnormal mammogram: n/a Colon cancer screening: age 44 Other preventative health care screenings: Aysha Joyner pcp Female Reproductive History Last Menstrual Period: 08/05/24 Cycle Length: 21-35 Questions: metorrhagia: No, sexually active: Yes, dyspareunia: No and PCB: No ROS Const Constitutional: Denies fatigue, weight gain or weight loss Cardio Card: Denies chest pain Resp Resp: Denies cough or dyspnea on exertion GI GI: Denies abdominal pain, bloating, change in stool character, constipation or vomiting : Reports as per HPI; Denies difficulty voiding, pelvic pain, urinary frequency, urinary incontinence, urinary urgency, vaginal discharge or vaginal pruritus Exam Const General: cooperative, healthy appearing, no acute distress and well developed Orientation: alert, oriented to person and oriented to place [facility] Head: normal to inspection Neck Neck: normal visual inspection Thyroid: thyroid normal Lymphatic: no lymphadenopathy noted Chest Breast inspection: normal inspection of the breasts and normal inspection of the axillae Breast palpation: normal palpation of the breasts, normal palpation of the axillae and no axillary lymphadenopathy Resp Effort Inspection: normal respiratory effort GI Palpation: soft, no masses and nontender Rectal Exam: deferred External Female Exam: normal external appearance and normal appearance of the urethra Urethra: normal appearance of the urethra and normal palpation Specu (more content not included)... Normal [facility] CBC (INCLUDES DIFF/PLT)on Basophils (Bld) [#/Vol] 0.027 10*3/uL Normal 0-200 [facility] Comment on above: Performed By: #### 6 399, [id number], 86629 #### [facility] of [address], [address] [place] [address] Furnace Tapper: Bruno Nieves MD Basophils/100 WBC (Bld) 0.4 % Normal [facility] Comment on above: Performed By: #### 6 399, 65573, 06990 #### [facility] of [address], [address] [place] [address] Furnace Tapper: Bruno Nieves MD Eosinophils (Bld) [#/Vol] 0.08 10*3/uL Normal 15-500 [facility] Comment on above: Performed By: #### 6 399, 34237, 66848 #### [facility] of [address], [address] [place] [address] Furnace Tapper: Bruno Nieves MD Eosinophils/100 WBC (Bld) 1.2 % Normal [facility] Comment on above: Performed By: #### 6 399, 27461, 85601 #### [facility] of [address], [address] [place] [address] Furnace Tapper: Bruno Nieves MD Erythrocyte distribution width (RBC) [Ratio] 14.7 % Normal 11.0-15.0 [facility] Comment on above: Performed By: #### 6 399, 87297, 53044 #### [facility] of [place] [address] Furnace Tapper: Bruno Nieves MD Hematocrit (Bld) [Volume fraction] 39.9 % Normal 35.0-45.0 [facility] Comment on above: Performed By: #### 6 399, 84679, 23935 #### [facility] of [address], [address] [place] [address] Furnace Tapper: Bruno Nieves MD Hemoglobin (Bld) [Mass/Vol] 13.1 g/dL Normal 11.7-15.5 [facility] Comment on above: Performed By: #### 6 399, 72496, 90019 #### [facility] of [place] [address] Furnace Tapper: Bruno Nieves MD Lymphocytes (Bld) [#/Vol] 2.888 10*3/uL Normal 850-3900 [facility] Comment on above: Performed By: #### 6 399, 19910, 09285 #### [facility] of [place] [address] Furnace Tapper: Bruno Nieves MD Lymphocytes/100 WBC (Bld) 43.1 % Normal [facility] Comment on above: Performed By: #### 6 399, 87171, 34082 #### [facility] of [place] [address] Furnace Tapper: Bruno Nieves MD MCH (RBC) [Entitic mass] 26.8 pg Low 27.0-33.0 [facility] Comment on above: Performed By: #### 6 399, 26957, 37528 #### [facility] [place] [address] Furnace Tapper: Bruno Nieves MD MCHC (RBC) [Mass/Vol] 32.8 g/dL Normal 32.0-36.[address] [facility] Comment on above: Performed By: #### 6 399, 84187, 15676 #### [facility] [place] [address] Furnace Tapper: Bruno Nieves MD MCV (RBC) [Entitic vol] 81.8 fL Normal 80.0-100.0 [facility] Comment on above: Performed By: #### 6 399, 68863, 44657 #### [facility] of [place] [address] Furnace Tapper: Bruno Nieves MD Monocytes (Bld) [#/Vol] 0.529 10*3/uL Normal 200-950 [facility] Comment on above: Performed By: #### 6 399, 38324, 15518 #### [facility] of [place] [address] Furnace Tapper: Bruno Nieves MD Monocytes/100 WBC (Bld) 7.9 % Normal [facility] Comment on above: Performed By: #### 6 399, 13993, 70016 #### [facility] of [place] [address] Furnace Tapper: Bruno Nieves MD Neutrophils (Bld) [#/Vol] 3.176 10*3/uL Normal 8102-0200 [facility] Comment on above: Performed By: #### 6 399, 05387, 05825 #### [facility] of [place] [address] Furnace Tapper: Bruno Nieves MD Neutrophils/100 WBC (Bld) 47.4 % Normal [facility] Comment on above: Performed By: #### 6 399, 13730, 69209 #### [facility] of [place] [address] Furnace Tapper: Bruno Nieves MD Platelet mean volume (Bld) [Entitic vol] 11.0 fL Normal 7.5-12.5 [facility] Comment on above: Performed By: #### 6 399, 66774, 05567 #### [facility] of [place] [address] Furnace Tapper: Bruno Nieves MD Platelets (Bld) [#/Vol] 305 10*3/uL Normal 140-400 [facility] Comment on above: Performed By: #### 6 399, 14021, 79037 #### [facility] of [place] [address] Furnace Tapper: Bruno Nieves MD RBC (Bld) [#/Vol] 4.88 10*6/uL Normal 3.80-5.10 [facility] Comment on above: Performed By: #### 6 399, 56442, 73566 #### [facility] of [place] [address] Furnace Tapper: Bruno Nieves MD WBC (Bld) [#/Vol] 6.7 10*3/uL Normal 3.8-10.8 [facility] Comment on above: Performed By: #### 6 399, 19259, 82014 #### [facility] of [address], [address] [place] [address] Furnace Tapper: Bruno Nieves MD [facility] 11-03-2023 Albumin [Mass/Vol] 4.6 g/dL Normal 3.6-5.1 [facility] Comment on above: Performed By: #### 6 399, 50789, 91017 #### [facility] of [address], [address] [place] [address] Furnace Tapper: Bruno Nieves MD Albumin/Globulin [Mass ratio] 1.8 {ratio} Normal 1.0-2.5 [facility] Comment on above: Performed By: #### 6 399, 68965, 25903 #### [facility] of [place] [address] Furnace Tapper: Bruno Nieves MD ALP [Catalytic activity/Vol] 67 U/L Normal 31-125 [facility] Comment on above: Performed By: #### 6 399, 49160, 17113 #### [facility] of [place] [address] Furnace Tapper: Bruno Nieves MD ALT [Catalytic activity/Vol] 49 U/L High 6-29 [facility] Comment on above: Performed By: #### 6 399, 06472, 53107 #### [facility] of [place] [address] Furnace Tapper: Bruno Nieves MD AST [Catalytic activity/Vol] 28 U/L Normal 10-30 [facility] Comment on above: Performed By: #### 6 399, 65624, 33868 #### [facility] of [place] [address] Furnace Tapper: Bruno Nieves MD Bilirubin [Mass/Vol] 0.9 mg/dL Normal 0.2-1.2 [facility] Comment on above: Performed By: #### 6 399, 15729, 88936 #### [facility] of [address] [address] Furnace Tapper: Bruno Nieves MD BUN/CREATININE RATIO SEE NOTE: Normal 6-22 [facility] Comment on above: Result Comment: Not Reported: BUN and Creatinine are within reference range. Performed By: #### 6 399, 09982, 24316 #### [facility] [address], [address] [place] [address] Furnace Tapper: Bruno Nieves MD Calcium [Mass/Vol] 9.5 mg/dL Normal 8.6-10.2 [facility] Comment on above: Performed By: #### 6 399, 90949, 08197 #### [facility] [place] [place] [address] Furnace Tapper: Bruno Nieves MD Chloride [Moles/Vol] 105 mmol/L Normal 98-110 [facility] t Diagnostics Comment on above: Performed By: #### 6 399, [id number], [id number] #### [facility] [address], [address] [place] [address] Furnace Tapper: Bruno Nieves MD CO2 [Moles/Vol] 23 mmol/L Normal 20-32 [facility] Comment on above: Performed By: #### 6 399, 10181, 46361 #### [facility] [place] [address] Furnace Tapper: Bruno Nieves MD Creatinine [Mass/Vol] 0.80 mg/dL Normal 0.50-0.96 [facility] st [facility] Comment on above: Performed By: #### 6 399, 77132, 74771 #### [facility] of [place] [address] Furnace Tapper: Bruno Nieves MD GFR/1.73 sq M.predicted among non-blacks MDRD (S/P/Bld) [Vol rate/Area] 102 mL/min/{1.73_m2} Normal > OR = 60 [facility] Comment on above: Performed By: #### 6 399, 49131, 77815 #### [facility] of [address], [address] [place] [address] Furnace Tapper: Bruno Nieves MD Globulin (S) [Mass/Vol] 2.5 g/dL Normal 1.9-3.7 [facility] Comment on above: Performed By: #### 6 399, 22420, [id number] #### [facility] of [address], [address] [place] [address] Furnace Tapper: Bruno Nieves MD Glucose [Mass/Vol] 72 mg/dL Normal 65-99 [facility] Comment on above: Result Comment: Fasting reference interval Performed By: #### 6 399, 15249, 75209 #### [facility] of [place] [address] Furnace Tapper: Bruno Nieves MD Potassium [Moles/Vol] 4.8 mmol/L Normal 3.5-5.[address] [facility] Comment on above: Performed By: #### 6 399, 39066, 89709 #### [facility] of [place] [address] Furnace Tapper: Bruno Nieves MD Protein [Mass/Vol] 7.1 g/dL Normal 6.1-8.1 [facility] Comment on above: Performed By: #### 6 399, 00133, 19305 #### [facility] [place] [address] Furnace Tapper: Bruno Nieves MD Sodium [Moles/Vol] 140 mmol/L Normal 135-146 [facility] Comment on above: Performed By: #### 6 399, 58384, 90851 #### [facility] of [place] [address] Furnace Tapper: Bruno Nieves MD Urea nitrogen [Mass/Vol] 11 mg/dL Normal 7-25 [facility] Comment on above: Performed By: #### 6 399, 44912, 76362 #### [facility] of [place] [address] Furnace Tapper: Bruno Nieves MD SPECIMEN INTEGRITY COMPROMIS EDon 11-03-2023 SPECIMEN INTEGRITY COMPROMISED Normal [facility] Comment on above: Result Comment: Whole blood, unspun or partially spun gel barrier tube was received more than 6 hours since collection. A false elevation of K, Phos and LD as well as a false decrease in glucose may occur due to prolonged contact with red cells. Performed By: #### 6 399, 28419, 97710 #### [facility] [address] [facility], [address] Furnace Tapper: Bruno Nieves MD TSHon 11-03-2023 TSH Qn 0.73 m[IU]/L Normal [facility] Comment on above: Result Comment: Refe rence Range > or = 20 Years 0.40-4.50 Ranges First trimester 0.26-2.66 Second trimester 0.55-2.73 Third trimester 0.43-2.91 Performed By: #### 6 399, 75408, 78824 #### [facility] [address], [address] [place], [place] [id number] Furnace Tapper: Bruno Nieves MD Laboratory - Chemistry and C hemistry - challengeon 11-02-2023 Albumin [Mass/Vol] 4.6 g/dL Normal 3.6 - 5.1 g/dL [employer] [facility], [facility].; [employer] Albumin/Globulin [Mass ratio] 1.8 {ratio} Normal 1.0 - 2.5 [employer] [facility].; [employer] ALP [Catalytic activity/Vol] 67 U/L Normal 31 - 125 U/L [employer] [facility].; [employer] ALT [Catalytic activity/Vol] 49 U/L Abnormal 6 - 29 U/L [employer], [facility].; [employer] AST [Catalytic activity/Vol] 28 U/L Normal 10 - 30 U/L [employer], [facility].; [employer] Bilirubin [Mass/Vol] 0.9 mg/dL Normal 0.2 - 1 .2 mg/dL [employer] [facility].; [employer] Calcium [Mass/Vol] 9.5 mg/dL Normal 8.6 - 10. 2 mg/dL [facility], [facility].; [facility]. Chloride [Moles/Vol] 105 mmol/L Normal 98 - 11 0 mmol/L [facility], [facility].; [facility], [facility]. CO2 [Moles/Vol] 23 mmol/L Normal 20 - 32 mmol/L [facility], [facility].; [facility], [facility] Creatinine [Mass/Vol] 0.80 mg/dL Normal 0.50 - 0.96 mg/dL [facility], [facility].; [facility]. GFR/1.73 sq M.predicted among non-blacks MDRD (S/P/Bld) [Vol rate/Area] 102 mL/min/{1.73_m2} Normal [facility], [facility]. Glucose [Mass/Vol] 72 mg/dL Normal 65 - 99 mg/dL [facility], [facility].; [facility], [facility]. Potassium [Moles/Vol] 4.8 mmol/L Normal 3.5 - 5.3 mmol/L [facility], [facility].; [facility], [facility]. Protein [Mass/Vol] 7.1 g/dL Normal 6.1 - 8.1 g/dL [facility], [facility].; [facility]. Sodium [Moles/Vol] 140 mmol/L Normal 135 - 146 mmol/L [facility], [facility].; [facility], [facility]. TSH Qn 0.73 m[IU]/L Normal [facility], [facility]; [facility], [facility] Urea nitrogen [Mass/Vol] 11 mg/dL Normal 7 - 25 mg/d L [facility], [facility].; [facility], [facility]. Laboratory - Hematology and Cell countson 11-02-2023 Basophils (Bld) [#/Vol] 0.027 10*3/uL Normal 0 - 200 {cells/uL} [facility], [facility].; [facility], [facility]. Basophils/100 WBC (Bld) 0.4 % Normal [facility].; [facility], [facility] Eosinophils (Bld) [#/Vol] 0.08 10*3/uL Normal 15 - 500 {cells/uL} [facility], [facility].; [facility], [facility]. Eosinophils/100 WBC (Bld) 1.2 % Normal [facility].; [facility], [facility] Erythrocyte distribution width (RBC) [Ratio] 14.7 % Normal 11.0 - 15.0 % [facility].; [facility], [facility] Hematocrit (Bld) [Volume fraction] 39.9 % Normal 35.0 - 45.0 % [facility].; [facility], [facility] Hemoglobin (Bld) [Mass/Vol] 13.1 g/dL Normal 11.7 - 15.5 g/dL [facility].; [facility], [facility] Lymphocytes (Bld) [#/Vol] 2.888 10*3/uL Normal 850 - 3900 {cells/uL} [facility].; [facility], [facility]. Lymphocytes/100 WBC (Bld) 43.1 % Normal [facility].; [facility], [facility] MCH (RBC) [Entitic mass] 26.8 pg Abnormal 27. 0 - 33.[address] [facility].; [facility], [facility]. MCHC (RBC) [Mass/Vol] 32.8 g/dL Normal 32.0 - 36.0 g/dL [facility].; [facility], [facility]. MCV (RBC) [Entitic vol] 81.8 fL Normal 80.0 - 100.[address] [facility].; [facility], [facility]. Monocytes (Bld) [#/Vol] 0.529 10*3/uL Normal 200 - 950 {cells/uL} [facility].; [facility] [employer], [facility]. Monocytes/100 WBC (Bld) 7.9 % Normal [facility].; [facility], [facility]. Neutrophils (Bld) [#/Vol] 3.176 10*3/uL Normal 1500 - 7800 {cells/uL} [facility].; [employer], [facility]. Neutrophils/100 WBC (Bld) 47.4 % Normal [facility].; [facility], [facility] Platelet mean volume (Bld) [Entitic vol] 11.0 fL Normal 7.5 - 12.[address] [facility].; [employer]. Platelets (Bld) [#/Vol] 305 10*3/uL Normal 140 - 400 [facility].; [employer] [facility]. RBC (Bld) [#/Vol] 4.88 10*6/uL Normal 3.80 - 5.1 0 {Million/uL} [facility].; [employer]. WBC (Bld) [#/Vol] 6.7 10*3/uL Normal 3.8 - 10.8 [employer] No Panel Informationon 11-01 BUN/CREATININE RATIO SEE NOTE: Normal 6 - 22 [facility] [employer].; [employer] GLOBULIN 2.5 Normal 1.9 - 3.7 [facility].; [employer]. Basophil percentageOrdered B y: Tricia Todd on 07-13-2023 WBC (Bld) [#/Vol] 12.2 10*3/uL 4.4-11.0 [facility] Blood erythrocytes count (nu mber/volume)Ordered By: Tricia Todd on 07-13-2023 RBC (Bld) [#/Vol] 4.11 10*6/uL 4.2-5.4 [facility] Blood hemoglobin measurement (mass/volume)Ordered By: Tricia Todd on 07-13-2023 Hemoglobin (Bld) [Mass/Vol] 10.7 g/dL 12.0-15.0 [facility] Blood platelet mean volumeOr dered By: Tricia Todd on 07-13-2023 Platelet mean volume (Bld) [Entitic vol] 11.3 fL 6.2-12.0 [facility] Determination of erythrocyte mean corpuscular volume (MCV)Ordered By: Tricia Todd on 07-13-2023 MCV (RBC) [Entitic vol] 83.5 fL 81-99 [facility] Glucose Glucometer (dC) [M ass/Vol]Ordered By: Tricia Todd on 07-13-2023 Glucose [Mass/Vol] 103 mg/dL 74-106 [facility] Comment on above: MANAGEMENT OF PATIEN T CARE PER NURSING PROTOCOL Hematocrit Auto (Bld) [Volum e fraction]Ordered By: Tricia Todd on 07-13-2023 Hematocrit (Bld) [Volume fraction] 34.3 % 37-47 [facility] Laboratory - Hematology and Cell countsOrdered By: Tricia Todd on 07-13-2023 Erythrocyte distribution width (RBC) [Entitic vol] 43.6 fL 35.1-43.9 [facility] Erythrocyte distribution width (RBC) [Ratio] 14.3 % 11.6-14.6 [facility] MCH (RBC) [Entitic mass] 26.0 pg 27.0-32.0 [facility] MCHC Auto (RBC) [Mass/Vol]Or dered By: Tricia Todd on 07-13-2023 MCHC (RBC) [Mass/Vol] 31.2 g/dL 32-36 [facility] Platelets bldOrdered By: Jake Todd on 07-13-2023 Platelets (Bld) [#/Vol] 208 10*3/uL 150-450 [facility] Absolute lymphocyte countOrd ered By: Estella Hendricks on 07-11-2023 Lymphocytes Auto (Unsp spec) [#/Vol] 2.63 10*3/uL 0.83-4.51 [facility] Basophil percentageOrdered B y: Estella Hendricks on 07-11-2023 Basophils/100 WBC (Bld) 0.3 % 0-1 [facility] Eosinophils/100 WBC (Bld) 0.5 % 0-5 [facility] Neutrophils (Bld) [#/Vol] 5.8 10*3/uL 2.0-7.7 [facility] Neutrophils/100 WBC (Bld) 63.2 % 47-70 [facility] Blood lymphocytes/100 leukoc ytesOrdered By: Estella Hendricks on 07-11-2023 Lymphocytes/100 WBC (Bld) 28.6 % 19-41 [facility] Blood monocytes/100 leukocyt esOrdered By: Estella Hendricks on 07-11-2023 Monocytes/100 WBC (Bld) 6.9 % 0-10 [facility] Laboratory - Hematology and Cell countsOrdered By: Estella Hendricks on 07-11-2023 Immature granulocytes/100 WBC (Bld) 0.500 % 0.0-0.9 [facility] Comment on above: IG% - Immature Granu locytes (promyelocytes, myelocytes and metamyelocytes) > 1% indicates that a LEFT SHIFT is Present. Nucleated RBC/100 WBC (Bld) [Ratio] 0 % 0-5 [facility] Serum Treponema species anti body detectionOrdered By: Estella Hendricks on 07-11-2023 Treponema sp Ab Ql (S) Non-Reactive [facility] Bacteria identified Cx Nom ( Wound)Ordered By: Estella Hendricks on 07-06-2023 Wound Culture Staphylococcus lugdunensis [facility] Gram stain for investigation of transfusion reactionOrdered By: Estella Hendricks on 07-06-2023 Microscopic observation Gram stain Nom (Unsp spec) [facility] Laboratory - Chemistry and C hemistry - challengeon 07-06-2023 Glucose Ql (U) Negative [facility] Laboratory - Urinalysison Protein Ql (U) Negative [facility] Laboratory - Chemistry and C hemistry - challengeon 06-29-2023 Glucose Ql (U) Negative [facility] Laboratory - Urinalysison Protein Ql (U) Negative [facility] Laboratory - Chemistry and C hemistry - challengeon 06-22-2023 Glucose Ql (U) Negative [facility] Laboratory - Urinalysison Protein Ql (U) Negative [facility] No Panel InformationOrdered By: Tricia Todd on 06-16-2023 Group B Streptococcus Culture Group B Beta Streptococcus is not isolated. [facility] Laboratory - Chemistry and C hemistry - challengeon 06-15-2023 Glucose Ql (U) Negative [facility] Laboratory - Urinalysison Protein Ql (U) Negative [facility] No Panel InformationOrdered By: Tricia Todd on 06-15-2023 Group B Streptococcus Culture Group B Beta Streptococcus is not isolated. [facility] Progress Noteon 05-16-2023 [employer] Authentication Interface Message Text New patient 05/17/2023 RE: Pili Samayoa : 1995 AGE: 27 y.o. [facility]#: [id number] Gestational Age: 32 Weeks Delivery Hospital: [facility] Reason for visit: Chief Complaint Patient presents with ECHO echo for arrhythmia which was initially on Doppler and subsequently on ultrasound. According to parents there was irregularity on the heartbeat noted. Other indications: Arrhythmia on Obstetrical Ultrasound OB History 1 Para Term AB Living SAB IAB Ectopic Multiple Live Births Counseling and/or coordination of care (face to face time in the office/outpatient setting or floor/unit time in the hospital) was greater than 40 minutes which is more than 50% of the total time of 60 minutes spent on the encounter. In addition, the following items were performed before, during, and after this visit: Synthesis of current imaging findings. Results for orders placed or performed in visit on 05/16/23 Echo [facility] [place] [address] [employer] ([email or web address] ------- Echocardiogram Report M-mode, complete 2D, complete spectral Doppler, and color Doppler PATIENT: Pili Samayoa STUDY DATE/TIME: May 16 2023 12:36PM HEIGHT: : 1995 WEIGHT: AGE: 27yr BSA/BMI: / GENDER: F BP: 119 / 60 LOCATION: [facility] REFERRING PHYSICIAN: Aysha Joyner PHYSICIAN: JUHI Olivas CLEARING INSPECTOR: Nahomy Macdonald RDCS ------- SUMMARY: No significant congenital heart disease identified. 1. The rhythm is sinus rhythm, with a heart rate of 136-154bpm. There were occasional conducted premature atrial contractions. In some views it was every third beat was conducted premature atrial beat. No evidence of supraventricular tachycardia. 2. Structurally normal cardiac anatomy. 3. No evidence of pericardial effusion or hydrops. 4. Normal biventricular size and function. 5. No atrioventricular valve regurgitation. 6. Normal three vessel view. 7. Normally related great arteries. 8. Left aortic arch with left patent ductus arteriosus. 9. Normal systemic and pulmonary venous connections. 10. This study is limited in evaluating minor valve abnormalities, septal defects, partial anomalous pulmonary venous connection, and aortic arch abnormalities. 11. The above findings, including the limitations, were discussed with the parents with use of a diagram for explanation. All questions were answered. The small risk of development of supraventricular tachycardia discussed with parents usually the heart rate would be more than 200 bpm. Good prognosis explained to the parents. If arrhythmia persist than follow up postnatally with EKG. Recommendations: Baby to have EKG done in the period. follow-up if principal systems engineer hears a heart murmur or otherwise clinically indicated. ------- REASON FOR EXAM: arrhythmia. ------- STUDY AND PROCEDURE DATA: Procedure Description: New ([id number]) . Study status: Routine. Location: lab. Procedure: Transabdominal echocardiography for congenital heart disease evaluation. Patient status: Outpatient. Blood pressure: 119/60 Maternal age: 27yr. : 1. Parity: 0. Expected delivery date: 07/11/2023. Gestational age: 32wk. Trimester: 3rd trimester. ------- FINDINGS: DESCRIPTION One fetus is present. Normal three vessel view, main pulmonary artery 6.5 mm, aorta 5.9 mm and superior vena cava 4.4 mm. The rhythm is sinus rhythm, with a heart rate of 136-154bpm. There were occasional conducted premature atrial contractions. In some views it was every third beat was conducted premature atrial beat. No evidence of supraventricular tachycardia. The position is vertex. Normal Doppler pattern of the ductus venosus, umbilical artery, and vein. Three vessel cord. ANATOMIC RELATIONSHIPS - Normal visceral situs, with left sided stomach. Left sided cardiac apex (levocardia).Normall y related great vessels. VEINS AND ATRIA Atrial septum - There is a patent foramen ovale. There is a [id number] shunt. Left atrium - The atrium is normal in size. Right atrium - The atrium is normal in size. Systemic veins - Inferior vena cava and superior vena cava seen entering normally into the right atrium. Pulmonary veins: There are at least 2 out of 4 pulmonary veins seen entering normally into the left atrium, with normal Doppler pattern. A-V CANAL Tricuspid valve - The valve is structurally normal. - The (more content not included)... Normal [facility] Laboratory - Chemistry and C hemistry - challengeon 05-09-2023 Glucose Ql (U) Negative [facility] Laboratory - Urinalysison Protein Ql (U) Negative [facility] Laboratory - Chemistry and C hemistry - challengeon 04-20-2023 Glucose Ql (U) Negative [facility] Laboratory - Urinalysison Protein Ql (U) Negative [facility] Absolute lymphocyte countOrd ered By: Tricia Todd on 04-19-2023 Lymphocytes Auto (Unsp spec) [#/Vol] 1.14 10*3/uL 0.83-4.51 [facility] Basophil percentageOrdered B y: Tricia Todd on 04-19-2023 Basophils/100 WBC (Bld) 0.3 % 0-1 [facility] Eosinophils/100 WBC (Bld) 0.3 % 0-5 [facility] Neutrophils (Bld) [#/Vol] 4.8 10*3/uL 2.0-7.7 [facility] Neutrophils/100 WBC (Bld) 74.0 % 47-70 [facility] WBC (Bld) [#/Vol] 6.5 10*3/uL 4.4-11.0 [facility] Blood erythrocytes count (nu mber/volume)Ordered By: Tricia Todd on 04-19-2023 RBC (Bld) [#/Vol] 4.26 10*6/uL 4.2-5.4 [facility] Blood hemoglobin measurement (mass/volume)Ordered By: Tricia Todd on 04-19-2023 Hemoglobin (Bld) [Mass/Vol] 12.1 g/dL 12.0-15.0 [facility] Blood lymphocytes/100 leukoc ytesOrdered By: Tricia Todd on 04-19-2023 Lymphocytes/100 WBC (Bld) 17.6 % 19-41 [facility] Blood monocytes/100 leukocyt esOrdered By: Tricia Todd on 04-19-2023 Monocytes/100 WBC (Bld) 6.9 % 0-10 [facility] Blood platelet mean volumeOr dered By: Tricia Todd on 04-19-2023 Platelet mean volume (Bld) [Entitic vol] 11.1 fL 6.2-12.0 [facility] Determination of erythrocyte mean corpuscular volume (MCV)Ordered By: Tricia Todd on 04-19-2023 MCV (RBC) [Entitic vol] 88.0 fL 81-99 [facility] Gestational diabetes screen 1-hour screen with 50g oral glucose loadOrdered By: Tricia Todd on 04-19-2023 Glucose 1 Hr post 50 g glucose PO [Mass/Vol] 185 mg/dL 70-140 [facility] Hematocrit Auto (Bld) [Volum e fraction]Ordered By: Tricia Todd on 04-19-2023 Hematocrit (Bld) [Volume fraction] 37.5 % 37-47 [facility] Laboratory - Hematology and Cell countsOrdered By: Tricia Todd on 04-19-2023 Erythrocyte distribution width (RBC) [Entitic vol] 42.5 fL 35.1-43.9 [facility] Erythrocyte distribution width (RBC) [Ratio] 13.1 % 11.6-14.6 [facility] Immature granulocytes/100 WBC (Bld) 0.900 % 0.0-0.9 [facility] Comment on above: IG% - Immature Granu locytes (promyelocytes, myelocytes and metamyelocytes) > 1% indicates that a LEFT SHIFT is Present. MCH (RBC) [Entitic mass] 28.4 pg 27.0-32.0 [facility] Nucleated RBC/100 WBC (Bld) [Ratio] 0 % 0-5 [facility] MCHC Auto (RBC) [Mass/Vol]Or dered By: Tricia Todd on 04-19-2023 MCHC (RBC) [Mass/Vol] 32.3 g/dL 32-36 [facility] Platelets bldOrdered By: Jake Todd on 04-19-2023 Platelets (Bld) [#/Vol] 255 10*3/uL 150-450 [facility] Laboratory - Chemistry and C hemistry - challengeon 03-23-2023 Glucose Ql (U) Negative [facility] Laboratory - Urinalysison Protein Ql (U) Negative [facility] Laboratory - Chemistry and C hemistry - challengeon 02-23-2023 Glucose Ql (U) Negative [facility] Laboratory - Urinalysison Protein Ql (U) Negative [facility] Progress Noteon 02-19-2023 [employer] Authentication Interface Message Text Pili Rodaswitt was seen at [facility] to discuss the preliminary ultrasound finding of hydronephrosis, as reviewed by Dr Carey History At the time of the visit Pili was 27 y.o. y.o. at 19weeks 5 days based on prior assessment. Ultrasound Findings Bilateral hydronephrosis with normal vincent Family and Medical History Hx molar Low risk NIPT We described the ultrasound findings and indicated that hydronephrosis is a dilation of the renal pelvis collecting system that is seen in approximately 1% of all pregnancies. The majority of cases will resolve spontaneously after and do not require any intervention. However, the likelihood of significant urologic pathology is directly related to the size of the renal pelvis as more severe dilation increases the risk of renal/urinary tract disorders. In addition, 30% of cases of hydronephrosis will have associated urinary tract abnormalities. We explained that ultrasound findings such as hydronephrosis can also be associated with both normal pregnancies and those with chromosome abnormalities, such as Down syndrome. We also discussed the recommendation of imaging and follow up should this persist after 28 weeks. Follow-up Follow up anatomy and continued surveillance of renal status. Dr Carey will finalize ultrasound report and provide additional recommendations as clinically indicated. Referral to [facility] if renal dilation persists. The total patient time of the visit was 15 minutes: 5 direct patient care, 10 minutes chart review and documentation. Normal [facility] Laboratory - Chemistry and C hemistry - challengeon 01-26-2023 Glucose Ql (U) Negative [facility] Laboratory - Urinalysison Protein Ql (U) Negative [facility] Laboratory - Chemistry and C hemistry - challengeon 12-29-2022 Glucose Ql (U) Negative [facility] Laboratory - Urinalysison Protein Ql (U) Negative [facility] Quantitative serum or plasma 3 hour gestational glucose tolerance panelOrdered By: Liat Nieto on 12-26-2022 Glucose tolerance 3 hours gestational panel See comment [facility] Comment on above: FASTING 91 Col: 12/03 01/23 0752GLUCOSE TOLERANCE TEST FOR Reference Interval GESTATIONAL DIABETES Fasting <105 mg/dL 1 hour <190 mg/dl 2 hour <165 mg/dl 3 hour <145 mg/dl 1 HR GLU 138 Col: 12/26/22 0856 2 HR GLU 107 Col: 12/26/22 0956 3 HR GLU 85 Col: 12/26/22 1100 Absolute lymphocyte countOrd ered By: Dr. Hendricks on 12-15-2022 Lymphocytes Auto (Unsp spec) [#/Vol] 2.18 10*3/uL 0.83-4.51 [facility] Basophil percentageOrdered B y: Dr. Hendricks on 12-15-2022 Basophils/100 WBC (Bld) 0.3 % 0-1 [facility] Eosinophils/100 WBC (Bld) 0.4 % 0-5 [facility] Neutrophils (Bld) [#/Vol] 6.1 10*3/uL 2.0-7.7 [facility] Neutrophils/100 WBC (Bld) 68.4 % 47-70 [facility] WBC (Bld) [#/Vol] 9.0 10*3/uL 4.4-11.0 [facility] Blood erythrocytes count (nu mber/volume)Ordered By: Dr. Hendricks on 12-15-2022 RBC (Bld) [#/Vol] 4.34 10*6/uL 4.2-5.4 [facility] Blood hemoglobin measurement (mass/volume)Ordered By: Dr. Hendricks on 12-15-2022 Hemoglobin (Bld) [Mass/Vol] 12.5 g/dL 12.0-15.0 [facility] Blood lymphocytes/100 leukoc ytesOrdered By: Dr. Hendricks on 12-15-2022 Lymphocytes/100 WBC (Bld) 24.2 % 19-41 [facility] Blood monocytes/100 leukocyt esOrdered By: Dr. Hendricks on 12-15-2022 Monocytes/100 WBC (Bld) 6.3 % 0-10 [facility] Blood platelet mean volumeOr dered By: Dr. Hendricks on 12-15-2022 Platelet mean volume (Bld) [Entitic vol] 10.1 fL 6.2-12.0 [facility] Determination of erythrocyte mean corpuscular volume (MCV)Ordered By: Dr. Hendricks on 12-15-2022 MCV (RBC) [Entitic vol] 88.9 fL 81-99 [facility] Gestational diabetes screen 1-hour screen with 50g oral glucose loadOrdered By: Dr. Hendricks on 12-15-2022 Glucose 1 Hr post 50 g glucose PO [Mass/Vol] 135 mg/dL 70-140 [facility] HIV 1 and HIV-2 antibody ass ay with HIV-1 p24 antigen detectionOrdered By: Dr. Hendricks on 12-15-2022 HIV 1+2 Ab+HIV1 p24 Ag IA Ql Non-Reactive Nonreactive [facility] Hematocrit Auto (Bld) [Volum e fraction]Ordered By: Dr. Hendricks on 12-15-2022 Hematocrit (Bld) [Volume fraction] 38.6 % 37-47 [facility] Laboratory - Chemistry and C hemistry - challengeon 12-15-2022 Glucose Ql (U) Negative [facility] Laboratory - Hematology and Cell countsOrdered By: Dr. Hendricks on 12-15-2022 Erythrocyte distribution width (RBC) [Entitic vol] 41.8 fL 35.1-43.9 [facility] Erythrocyte distribution width (RBC) [Ratio] 12.8 % 11.6-14.6 [facility] Immature granulocytes/100 WBC (Bld) 0.400 % 0.0-0.9 [facility] Comment on above: IG% - Immature Granu locytes (promyelocytes, myelocytes and metamyelocytes) > 1% indicates that a LEFT SHIFT is Present. MCH (RBC) [Entitic mass] 28.8 pg 27.0-32.0 [facility] Nucleated RBC/100 WBC (Bld) [Ratio] 0 % 0-5 [facility] Laboratory - Urinalysison Protein Ql (U) Negative [facility] MCHC Auto (RBC) [Mass/Vol]Or dered By: Dr. Hendricks on 12-15-2022 MCHC (RBC) [Mass/Vol] 32.4 g/dL 32-36 [facility] No Panel InformationOrdered By: Dr. Hendricks on 12-15-2022 Hepatitis B Surface Antigen Non-Reactive Nonreactive [facility] Hepatitis C Antibody Non-Reactive Nonreactive [facility] Comment on above: Non Reactive: < 0.8 Equivocal: >/= 0.8 to < 1.0 Reactive: >/= 1.0The CDC recommends that a reactive/equivocal HCV antibody result be followed up by the HCV Nucleic Acid Amplificationtest (415904) Miscellaneous Test Comment MAILED SPECIMEN [facility] Rubella IgG Antibody Reactive Nonreactive [facility] Comment on above: Antibody Results Int erpretation of Immune Status Non Reactive Presumed Non-Immune Equivocal Equivocal Reactive Presumed Immune Platelets bldOrdered By: Dr. Hendricks on 12-15-2022 Platelets (Bld) [#/Vol] 292 10*3/uL 150-450 [facility] Serum Treponema species anti body detectionOrdered By: Dr. Hendricks on 12-15-2022 Treponema sp Ab Ql (S) Non-Reactive [facility] Culture, urineOrdered By: Dr Summer Hendricks on 11-30-2022 Bacteria identified Cx Nom (U) Positive [facility] Cervical or vagninal specime n microscopic examination by cytology stain (reported asOrdered By: Dr. Hendricks on 11-29-2022 Cytology report Cyto stain Doc (Cvx/Vag) Comment . [facility] Comment on above: The Pap smear is a s creening test designed to aid in thedetection of premalignant and malignant conditions of theuterine cervix. It is not a diagnostic procedure andshould not be used as the sole means of detecting cervicalcancer. Both false-positive and false-negative reports dooccur. Chlamydia trachomatis rRNA d etection by probe and target amplification methodOrdered By: Dr. Hendricks on 11-29-2022 C. trachomatis rRNA GALILEA+probe Ql (Unsp spec) Negative Negative [facility] Laboratory - CytologyOrdered By: Dr. Hendricks on 11-29-2022 [employer] Terrain Vehicle [employer] Cyto stain Nom (Cvx/Vag) [ID] Comment . [facility] Comment on above: Sanaz suarez, Pillowcase Maker (ASCP) Laboratory - Microbiology an d Antimicrobial susceptibilityOrdered By: Dr. Hendricks on 11-29-2022 N. gonorrhoeae DNA GALILEA+probe Ql (Unsp spec) Negative Negative [facility] Comment on above: Performed at: =G - L [address] [id number] Director: Azra Willard MD, Phone: [phone] Laboratory - Miscellaneous t estsOrdered By: Dr. Hendricks on 11-29-2022 Service comment (Unsp spec) [Interp] Comment . [facility] Comment on above: This liquid based Th inPrep(R) pap test was screened withthe use of an image guided system. Service comment (Unsp spec) [Interp] . . [facility] No Panel InformationOrdered By: Dr. Hendricks on 11-29-2022 Human Papillomavirus Screen Comment . [facility] Comment on above: The HPV DNA reflex c john were not met with this specimenresult therefore, no HPV testing was performed.Performed at: - [facility], [place] [id number] Director: Azra Willard MD, Phone: [phone] Pathology report final diagnosis Narrative Comment . [facility] Comment on above: NEGATIVE FOR INTRAEP ITHELIAL LESION OR MALIGNANCY. Laboratory - Chemistry and C hemistry - challengeon 05-19-2022 Albumin [Mass/Vol] 4.3 g/dL Normal 3.6 - 5.1 g/dL [facility] [employer] [facility] Albumin/Globulin [Mass ratio] 1.7 {ratio} Normal 1.0 - 2.5 [facility], [facility] [employer] ALP [Catalytic activity/Vol] 53 U/L Normal 31 - 125 U/L [employer] [facility] [employer] ALT [Catalytic activity/Vol] 14 U/L Normal 6 - 29 U/L [employer] [facility] [employer] AST [Catalytic activity/Vol] 14 U/L Normal 10 - 30 U/L [employer] [facility], [facility].; [employer] Bilirubin [Mass/Vol] 1.2 mg/dL Normal 0.2 - 1 .2 mg/dL [employer] Calcium [Mass/Vol] 9.0 mg/dL Normal 8.6 - 10. 2 mg/dL [employer] Chloride [Moles/Vol] 105 mmol/L Normal 98 - 11 0 mmol/L [employer] [facility] [employer] Cholesterol [Mass/Vol] 171 mg/dL Normal [facility] [employer] Cholesterol in HDL [Mass/Vol] 44 mg/dL Abnormal [employer] Cholesterol in LDL [Mass/Vol] 108 mg/dL Abnormal [employer] CO2 [Moles/Vol] 29 mmol/L Normal 20 - 32 mmol/L [employer] [facility] [employer] Creatinine [Mass/Vol] 0.78 mg/dL Normal 0.50 - 0.96 mg/dL [employer] [facility].; [facility] GFR/1.73 sq M.predicted among non-blacks MDRD (S/P/Bld) [Vol rate/Area] 107 mL/min/{1.73_m2} Normal [facility], [facility] Glucose [Mass/Vol] 95 mg/dL Normal 65 - 99 mg/dL [facility], [facility] Potassium [Moles/Vol] 4.1 mmol/L Normal 3.5 - 5.3 mmol/L [facility]; [facility], [facility] Protein [Mass/Vol] 6.9 g/dL Normal 6.1 - 8.1 g/dL [facility]; [facility] Sodium [Moles/Vol] 138 mmol/L Normal 135 - 146 mmol/L [facility], [facility]; [facility], [facility] Triglyceride [Mass/Vol] 98 mg/dL Normal H [facility]; [facility] Urea nitrogen [Mass/Vol] 15 mg/dL Normal 7 - 25 mg/d L [facility]; [employer] [facility] No Panel Informationon 05-19 BUN/CREATININE RATIO NOT APPLICABLE Normal 6 - 22 [facility]; [employer] [facility]. CHOL/HDLC RATIO 3.9 Normal [facility]; [employer] [facility] GLOBULIN 2.6 Normal 1.9 - 3.7 [facility]; [employer] [facility] NON HDL CHOLESTEROL 127 Normal [facility]; [employer] [facility] Serum or plasma choriogonado tropin detectionon 11-26-2021 HCG ( test) Ql < 1 mIU/mL <4 [facility] Work Phone: Comment on above: hCG levels with Gest ational AgeGestational Age hCG mIU/mL (IU/L)0.2 - 1 week 5 - 501-2 weeks 50 - 5002-3 weeks 100 - 31820-3 weeks 500 - 390393-6 weeks 1000 - 684403-3 weeks 22848 - 100,0006-8 weeks 58070 - 200,0002-3 months 46076 - 100,000 Serum or plasma choriogonado tropin detectionon 10-29-2021 HCG ( test) Ql < 1 mIU/mL <4 [facility] Work Phone: Comment on above: hCG levels with Gest ational AgeGestational Age hCG mIU/mL (IU/L)0.2 - 1 week 5 - 501-2 weeks 50 - 5002-3 weeks 100 - 60429-1 weeks 500 - 548566-3 weeks 1000 - 997851-8 weeks 48808 - 100,0006-8 weeks 18546 - 200,0002-3 months 89276 - 100,000 Serum or plasma choriogonado tropin detectionon 09-24-2021 HCG ( test) Ql < 1 mIU/mL <4 [facility] Work Phone: Comment on above: hCG levels with Gest ational AgeGestational Age hCG mIU/mL (IU/L)0.2 - 1 week 5 - 501-2 weeks 50 - 5002-3 weeks 100 - 46746-4 weeks 500 - 360696-6 weeks 1000 - 117256-3 weeks 20020 - 100,0006-8 weeks 18953 - 200,0002-3 months 10259 - 100,000 Serum or plasma choriogonado tropin detectionon 08-29-2021 HCG ( test) Ql < 1 mIU/mL <4 [facility] Work Phone: Comment on above: hCG levels with Gest ational AgeGestational Age hCG mIU/mL (IU/L)0.2 - 1 week 5 - 501-2 weeks 50 - 5002-3 weeks 100 - 87743-3 weeks 500 - 543586-6 weeks 1000 - 170833-8 weeks 97708 - 100,0006-8 weeks 32851 - 200,0002-3 months 05555 - 100,000 CORONAVIRUS PCR [CCL]on 09-04 REF LAB REPORT Positive Normal [facility] Comment on above: Performed By: #### [id number] #### [facility],[address] [place] [address] SEND TO IC? YES Normal [facility] Comment on above: Performed By: #### [id number] #### [facility],[address] [place] [address] COVID 19 Result NEUROSCIENCE SPECIALIST Positive Abnormal [facility] Comment on above: Result Comment: Posi tive for COVID19 (SARS CoV2) by PCR.(*) This test was developed and its performance characteristics determined by [facility] [place]. This test has been authorized by FDA under an Emergency Use Authorization (EUA). This test has been validated in accordance with the FDA's Guidance Document Policy for Diagnostics Testing in Laboratories Certified to Perform High Complexity Testing under CLIA prior to Emergency use Authorization for Coronavirus Disease 2019 during the Public Health Emergency issued on November 01, [place] [address] Kurtis Briones III, M.D. [id number] Performed By: #### 2 [id number] #### [place] [address] COVID 19 Source NEUROSCIENCE SPECIALIST NEUROSCIENCE SPECIALIST SWAB Normal [facility] Comment on above: Performed By: #### 2 [id number] #### [place] [address] No Panel Informationon 05-19 [id number] SEE NOTE Normal [employer] CLINICAL INFORMATION: SEE NOTE Normal [facility] [employer] [employer] [employer] RADIOLOGY RN: SEE NOTE Normal [employer] INTERPRETATION/RESULT: SEE NOTE Normal [facility] [employer] LMP: SEE NOTE Normal [employer] PREV. BX: SEE NOTE Normal [employer] PREV. PAP: SEE NOTE Normal [employer] SOURCE: SEE NOTE Normal [employer] STATEMENT OF ADEQUACY: SEE NOTE Normal [facility] [employer]. Culture, Urineon 04-22-2017 Culture, Urine Test Name: Culture, UrineCulture Status: FinalMicro Source: Urine - clean catchORGANISM ID: 1 - 25,000-50,000 CFU/ml ESCHERICHIA COLIANTIBIOTIC INTERPRETATION ANGELA STATUSAmpicillin R >= 32 FAmp/Sulbactam I 16 FCefazolin S <= 4 FCefepime S <= 1 FCeftazidime S <= 1 FCeftriaxone S <= 1 FCiprofloxacin S <= 0.25 FGentamicin S <= 1 FLevofloxacin S 1 FNitrofurantoin S <= 16 FPiperacillin/Tazo S <= 4 FTobramycin S <= 1 FTrimeth/Sulfa R >= [address] [facility] Comment on above: Performed By: #### U RCUL ####Unless otherwise noted, all testing performed by [place] [address] [address], [place] [id number]: [id number] Director: Pako Morales M.D. Laboratory - Chemistry and C hemistry - challengeon 04-16-2017 Bilirubin Ql (U) Negative Normal [employer] [facility] [employer]. Ketones Ql (U) Negative Normal [employer] [facility] [employer]. pH (U) 5.5 [pH] Normal [employer]. Specific gravity (U) [Rel density] 1.025 Normal [employer]. Urobilinogen Qn (U) 0.2 mg/dL Normal [employer]. Laboratory - Hematology and Cell countson 04-16-2017 Hemoglobin Ql (U) large Abnormal [employer] Laboratory - Specimen inform ationon 04-16-2017 Appearance (U) cloudy Abnormal [employer]. Color (U) yellow Normal [employer]. Laboratory - Urinalysison Glucose Test strip (U) [Mass/Vol] Negative Normal [facility]; [place] [email or web address] [facility] Leukocyte esterase Test strip Ql (U) moderate Abnormal [facility].; [employer]. Nitrite Ql (U) Negative Normal [facility].; [employer] [employer] Protein Ql (U) 100 mg/dL Abnormal [facility].; [employer]. Laboratory - Microbiology an d Antimicrobial susceptibilityon 03-22-2017 Bacteria identified Aer cx Nom (Genital specimen) Normal [facility]; [employer] [facility] Laboratory - Specimen inform ationon 03-22-2017 Specimen source Nom (Unsp spec) GENITAL-NOT GIVEN Normal [facility]; [employer]. Laboratory - Cytologyon 05-05 Microscopic observation Cyto stain Nom (Cvx) Normal [facility]; [employer] Laboratory - Microbiology an d Antimicrobial susceptibilityon 05-29-2016 C. trachomatis rRNA GALILEA+probe Ql (Unsp spec) Not detected Normal [facility]; [employer] N. gonorrhoeae rRNA GALILEA+probe Ql (Unsp spec) Not detected Normal [facility].; [employer]. Laboratory - Microbiology an d Antimicrobial susceptibilityon 02-07-2014 Bacteria identified # 2 Cx Nom (Unsp spec) Normal [facility]; [employer]. Bacteria identified Cx Nom (Unsp spec) Normal [facility].; [employer]. S. pyogenes Ag EIA Ql (Throat) Negative Normal [facility]; [employer]. Laboratory - Specimen inform ationon 02-07-2014 Specimen source Nom (Unsp spec) RESPIRATORY-THROAT Normal [facility]; [employer] Vital Signs Date Time Vital Sign Value Performing Clinician Facility 02-22-2024 10:35-0400 Body height 168.28 cm Neda Adams MA [facility]; [employer] 02-22-2024 10:35-0400 Body temperature 97.8 [degF] Neda Adams MA [facility].; [employer]. 02-22-2024 10:35-0400 Diastolic blood pressure 82 mm[Hg] Neda Adams [facility].; [employer]. Comment on above: Patient Position: Sitting; Cuff Location : Left Arm; Cuff Size: Standard 02-22-2024 10:35-0400 Heart rate 64 /min Neda Adams [facility].; [employer]. Comment on above: Pattern: Regular 02-22-2024 10:35-0400 Systolic blood pressure 120 mm[Hg] Neda Adams [facility].; [employer]. Comment on above: Patient Position: Sitting; Cuff Location : Left Arm; Cuff Size: Standard 11-02-2023 09:18-0500 Body height 168.28 cm Nguyen Manzo MA [facility].; [employer] [employer] [facility]. 11-02-2023 09:18-0500 Body mass index (BMI) [Ratio] 33.64 kg/m2 Nguyen Manzo MA [facility].; [employer] [employer] [facility]. 11-02-2023 09:18-0500 Body surface area Derived from formula 2.05 m[address] MA [facility].; [employer] [facility]. 11-02-2023 09:18-0500 Body weight 95.26 kg Nguyen Manzo MA [facility].; [employer] [facility]. 11-02-2023 09:18-0500 Diastolic blood pressure 85 mm[Hg] Nguyen Manzo MA [facility].; [employer]. Comment on above: Patient Position: Sitting; Cuff Location : Left Arm; Cuff Size: Standard 11-02-2023 09:18-0500 Heart rate 63 /min Nguyen Manzo MA [facility].; [employer]. Comment on above: Pattern: Regular 11-02-2023 09:18-0500 Systolic blood pressure 125 mm[Hg] Nguyen Manzo MA [facility].; [employer]. Comment on above: Patient Position: Sitting; Cuff Location : Left Arm; Cuff Size: Standard 07-15-2023 14:46-0500 Body temperature 98.6 [degF] PA Aysha Joyner Work Phone: 1(573)680-957849 [place] [address] 07-15-2023 14:46-0500 Diastolic blood pressure 88 mm[Hg] PA Aysha Joyner Work Phone: 9(858)414-902920 [place] [address] 07-15-2023 14:46-0500 Heart rate 82 /min PA Aysha Joyner Work Phone: 3(732)289-960620 [place] [address] 07-15-2023 14:46-0500 Respiratory rate 16 /min PA Aysha Joyner Work Phone: 2(232)074-161720 [place] [address] 07-15-2023 14:46-0500 SaO2% (BldA) [Mass fraction] 97 % PA Aysha Joyner Work Phone: 4(072)758-769220 [place] [address] 07-15-2023 14:46-0500 Systolic blood pressure 133 mm[Hg] PA Aysha Joyner Work Phone: 4(644)292-454620 [place] [address] 07-12-2023 10:44-0500 Inhaled oxygen flow rate 10 L/min PA Aysha Joyner Work Phone: 7(635)787-267520 [place] [address] 07-11-2023 19:19-0500 Body height 167.64 cm PA Aysha Joyner Work Phone: 1(754)058-168020 [place] [address] 07-11-2023 19:19-0500 Body mass index (BMI) [Ratio] 37.5 kg/m2 PA Aysha Joyner Work Phone: 1(575)469-431342 [address] 07-11-2023 19:19-0500 Body weight 105.68 kg PA Aysha Joyner Work Phone: 6(323)536-700920 [place] [address] 07-06-2023 15:41-0400 Body mass index (BMI) [Ratio] 41 kg/m2 PA Aysha Joyner Work Phone: 1(757)221-855042 [address] 07-06-2023 15:41-0400 Body weight 105 kg PA Aysha Joyner Work Phone: [facility] 07-06-2023 15:41-0400 Diastolic blood pressure 88 mm[Hg] PA Aysha Joyner Work Phone: 5(990)588-975449 [place] [address] 07-06-2023 15:41-0400 Systolic blood pressure 137 mm[Hg] PA Aysha Joyner Work Phone: 3(553)627-296142 [address] 06-29-2023 15:28-0400 Body mass index (BMI) [Ratio] 41 kg/m2 PA Aysha Joyner Work Phone: 0(723)098-747442 [address] 06-29-2023 15:28-0400 Body weight 105 kg PA Aysha Joyner Work Phone: 4(381)784-420020 [place] [address] 06-29-2023 15:28-0400 Diastolic blood pressure 84 mm[Hg] PA Aysha Joyner Work Phone: 1(388)976-607820 [place] [address] 06-29-2023 15:28-0400 Systolic blood pressure 131 mm[Hg] PA Aysha Joyner Work Phone: 6(381)142-750520 [place] [address] 06-22-2023 14:40-0400 Body mass index (BMI) [Ratio] 40 kg/m2 PA Aysha Joyner Work Phone: 6(709)006-027520 [place] [address] 06-22-2023 14:40-0400 Body weight 102.56 kg PA Aysha Joyner Work Phone: 5(619)268-674120 [place] [address] 06-22-2023 14:40-0400 Diastolic blood pressure 82 mm[Hg] PA Aysha Joyner Work Phone: 2(486)552-738242 [address] 06-22-2023 14:40-0400 Systolic blood pressure 128 mm[Hg] PA Aysha Joyner Work Phone: 4(533)005-179062 [place] [address] 06-15-2023 16:01-0400 Body height 160.02 cm PA Aysha Joyner Work Phone: 6(981)128-707220 [place] [address] 06-15-2023 16:01-0400 Body mass index (BMI) [Ratio] 39.6 kg/m2 PA Aysha Joyner Work Phone: 9(254)555-984149 [place] [address] 06-15-2023 16:01-0400 Body weight 101.37 kg PA Aysha Joyner Work Phone: [facility] 06-15-2023 16:01-0400 Diastolic blood pressure 81 mm[Hg] PA Aysha Joyner Work Phone: [facility] 06-15-2023 16:01-0400 Systolic blood pressure 120 mm[Hg] PA Aysha Joyner Work Phone: [facility] 06-08-2023 15:41-0400 Body mass index (BMI) [Ratio] 39.8 kg/m2 PA Aysha Joyner Work Phone: 4(206)705-341342 [address] 06-08-2023 15:41-0400 Body weight 102.05 kg PA Aysha Joyner Work Phone: 8(992)296-175342 [address] 06-08-2023 15:41-0400 Diastolic blood pressure 80 mm[Hg] PA Aysha Joyner Work Phone: 7(209)974-983042 [address] 06-08-2023 15:41-0400 Systolic blood pressure 118 mm[Hg] PA Aysha Joyner Work Phone: 4(725)510-681042 [address] 05-09-2023 14:29-0400 Body mass index (BMI) [Ratio] 38.6 kg/m2 PA Aysha Joyner Work Phone: [facility] 05-09-2023 14:29-0400 Body weight 98.93 kg PA Aysha Joyner Work Phone: 9(987)736-909042 [address] 05-09-2023 14:29-0400 Diastolic blood pressure 82 mm[Hg] PA Aysha Joyner Work Phone: [facility] 05-09-2023 14:29-0400 Systolic blood pressure 122 mm[Hg] PA Aysha Joyner Work Phone: [facility] 04-27-2023 13:58-0400 Body mass index (BMI) [Ratio] 38.6 kg/m2 PA Aysha Joyner Work Phone: [facility] 04-27-2023 13:58-0400 Body weight 98.88 kg PA Aysha Joyner Work Phone: [facility] 04-27-2023 13:58-0400 Diastolic blood pressure 70 mm[Hg] PA Aysha Joyner Work Phone: [facility] 04-27-2023 13:58-0400 Systolic blood pressure 122 mm[Hg] PA Aysha Joyner Work Phone: [facility] 04-20-2023 15:51-0400 Body height 160.02 cm PA Aysha Joyner Work Phone: [facility] 04-20-2023 15:46-0400 Body mass index (BMI) [Ratio] 35.2 kg/m2 PA Aysha Joyner Work Phone: [facility] 04-20-2023 15:46-0400 Body weight 99.05 kg PA Aysha Joyner Work Phone: [facility] 04-20-2023 15:46-0400 Diastolic blood pressure 88 mm[Hg] PA Aysha Joyner Work Phone: [phone] [place] [address] 04-20-2023 15:46-0400 Systolic blood pressure 128 mm[Hg] PA Aysha Joyner Work Phone: [facility] 03-23-2023 16:11-0400 Body mass index (BMI) [Ratio] 37.6 kg/m2 PA Aysha Joyner Work Phone: [facility] 03-23-2023 16:11-0400 Body weight 96.38 kg PA Aysha Joyner Work Phone: [facility] 03-23-2023 16:11-0400 Diastolic blood pressure 77 mm[Hg] PA Aysha Joyner Work Phone: [facility] 03-23-2023 16:11-0400 Systolic blood pressure 116 mm[Hg] PA Aysha Joyner Work Phone: [facility] 02-23-2023 16:03-0400 Body mass index (BMI) [Ratio] 37 kg/m2 PA Aysha Joyner Work Phone: [facility] 02-23-2023 16:03-0400 Body weight 94.85 kg PA Aysha Joyner Work Phone: [facility] 02-23-2023 16:03-0400 Diastolic blood pressure 80 mm[Hg] PA Aysha Joyner Work Phone: [facility] 02-23-2023 16:03-0400 Systolic blood pressure 132 mm[Hg] PA Aysha Joyner Work Phone: [facility] 01-26-2023 15:33-0400 Body mass index (BMI) [Ratio] 36.5 kg/m2 PA Aysha Joyner Work Phone: [facility] 01-26-2023 15:33-0400 Body weight 93.61 kg PA Aysha Joyner Work Phone: [facility] 01-26-2023 15:33-0400 Diastolic blood pressure 81 mm[Hg] PA Aysha Joyner Work Phone: [phone] [place] [address] 01-26-2023 15:33-0400 Systolic blood pressure 130 mm[Hg] PA Aysha Joyner Work Phone: [facility] 12-29-2022 11:47-0400 Body height 160.02 cm PA Aysha Joyner Work Phone: [facility] 12-29-2022 11:47-0400 Body mass index (BMI) [Ratio] 32.9 kg/m2 PA Aysha Joyner Work Phone: [facility] 12-29-2022 11:47-0400 Body weight 92.64 kg PA Aysha Joyner Work Phone: [facility] 12-29-2022 11:47-0400 Diastolic blood pressure 77 mm[Hg] PA Aysha Joyner Work Phone: [facility] 12-29-2022 11:47-0400 Systolic blood pressure 128 mm[Hg] PA Aysha Joyner Work Phone: [facility] 12-15-2022 10:02-0400 Body mass index (BMI) [Ratio] 36.3 kg/m2 PA Aysha Joyner Work Phone: [facility] 12-15-2022 10:02-0400 Body weight 93.09 kg PA Aysha Joyner Work Phone: [facility] 12-15-2022 10:02-0400 Diastolic blood pressure 86 mm[Hg] PA Aysha Joyner Work Phone: [facility] 12-15-2022 10:02-0400 Systolic blood pressure 132 mm[Hg] PA Aysha Joyner Work Phone: [facility] 11-29-2022 11:53-0400 Body height 160.02 cm PA Aysha Joyner Work Phone: [facility] 11-29-2022 11:53-0400 Body mass index (BMI) [Ratio] 36.3 kg/m2 PA Aysha Joyner Work Phone: [facility] 11-29-2022 11:53-0400 Body weight 93.15 kg PA Aysha Joyner Work Phone: [facility] 11-29-2022 11:53-0400 Diastolic blood pressure 88 mm[Hg] PA Aysha Joyner Work Phone: [facility] 11-29-2022 11:53-0400 Systolic blood pressure 140 mm[Hg] PA Aysha Joyner Work Phone: [facility] 07-06-2022 11:23-0400 Body height 168.28 cm Rachael King LPN [facility], [facility]. 07-06-2022 11:23-0400 Body mass index (BMI) [Ratio] 33 kg/m2 Rachael King LPN [facility], [facility]. 07-06-2022 11:23-0400 Body surface area Derived from formula 2.03 m2 Rachael King LPN [facility] [employer]. 07-06-2022 11:23-0400 Body temperature 98.3 [degF] Rachael King [facility] [employer] [facility], [facility].; [employer]. Comment on above: Method: Tympanic 07-06-2022 11:23-0400 Body weight 93.44 kg Rachael King RAMYA [place] [employer] [facility] [employer], [employer]. 07-06-2022 11:23-0400 Diastolic blood pressure 85 mm[Hg] Rachael King RETAIL STORE MANAGER [place] [employer] [facility], [facility].; [employer]. Comment on above: Patient Position: Sitting; Cuff Location : Left Arm; Cuff Size: Standard 07-06-2022 11:23-0400 Heart rate 76 /min Rachael King [facility] [employer] [facility], [facility].; [employer]. Comment on above: Pattern: Regular 07-06-2022 11:23-0400 Systolic blood pressure 121 mm[Hg] Rachael King RETAIL STORE MANAGER [place] [employer] [facility], [facility].; [employer]. Comment on above: Patient Position: Sitting; Cuff Location : Left Arm; Cuff Size: Standard 05-19-2022 09:08-0400 Body height 168.28 cm Angelique Morrow RN [place] [employer] [facility], [facility].; [employer]. 05-19-2022 09:08-0400 Body mass index (BMI) [Ratio] 32.52 kg/m2 Angelique Morrow RN [place] [employer] [facility], [employer].; [employer] [facility]. 05-19-2022 09:08-0400 Body surface area Derived from formula 2.02 m2 Angelique Morrow RN [place] [employer] [facility].; [employer]. 05-19-2022 09:08-0400 Body weight 92.08 kg Angleique Morrow RN [place] [employer] [facility].; [employer]. 05-19-2022 09:08-0400 Diastolic blood pressure 70 mm[Hg] Angelique Morrow RN [place] [employer] [facility], [employer].; [employer]. Comment on above: Patient Position: Sitting; Cuff Location : Left Arm; Cuff Size: Standard 05-19-2022 09:08-0400 Heart rate 67 /min Angelique Morrow RN [facility], [facility].; [employer] [facility]. Comment on above: Pattern: Regular 05-19-2022 09:08-0400 Systolic blood pressure 108 mm[Hg] Angelique Morrow RN [facility], [facility].; [employer], [employer]. Comment on above: Patient Position: Sitting; Cuff Location : Left Arm; Cuff Size: Standard 05-25-2021 08:31-0400 Body height 168.28 cm Tammy Mehta LPN [facility], [facility].; [place] [employer] [facility], [facility]. 05-25-2021 08:31-0400 Body mass index (BMI) [Ratio] 31.24 kg/m2 Tammy Mehta LPN [facility], [facility].; [place] [employer] [facility], [employer]. 05-25-2021 08:31-0400 Body surface area Derived from formula 1.98 m2 Tammy Mehta LPN [facility], [facility].; [place] [employer] [facility], [facility]. 05-25-2021 08:31-0400 Body weight 88.45 kg Tammy Mehta LPN [facility], [facility].; [employer] [facility], [facility]. 05-25-2021 08:31-0400 Diastolic blood pressure 90 mm[Hg] Tammy Mehta LPN [facility], [facility].; [employer], [employer]. Comment on above: Patient Position: Sitting; Cuff Location : Left Arm; Cuff Size: Standard 05-25-2021 08:31-0400 Heart rate 69 /min Tammy Mehta LPN [facility], [facility].; [employer]. Comment on above: Pattern: Regular 05-25-2021 08:31-0400 Systolic blood pressure 125 mm[Hg] Tammy Mehta LPN [facility], [facility].; [employer]. Comment on above: Patient Position: Sitting; Cuff Location : Left Arm; Cuff Size: Standard 12-20-2020 09:47-0400 Body height 482.6 cm Angelique Morrow RN [facility], [facility].; [employer]. 12-20-2020 09:47-0400 Body mass index (BMI) [Ratio] 1.29 kg/m2 Angelique Morrow RN [facility]. 12-20-2020 09:47-0400 Body surface area Derived from formula 2.69 m2 Angelique Morrow RN [facility].; [place] [email or web address] [facility]. 12-20-2020 09:47-0400 Body weight 30.05 kg Angelique Morrow RN [facility].; [email or web address] [facility]. 12-20-2020 09:47-0400 Diastolic blood pressure 83 mm[Hg] Angelique Morrow RN [facility].; [facility]. Comment on above: Patient Position: Sitting; Cuff Location : Left Arm; Cuff Size: Standard 12-20-2020 09:47-0400 Heart rate 76 /min Angelique Morrow RN [facility].; [employer]. Comment on above: Pattern: Regular 12-20-2020 09:47-0400 Systolic blood pressure 120 mm[Hg] Angelique Morrow RN [facility].; [place] [employer] [facility]. Comment on above: Patient Position: Sitting; Cuff Location : Left Arm; Cuff Size: Standard 05-19-2020 14:14-0400 Diastolic blood pressure 78 mm[Hg] Crystal K Uptain CNM Work Phone: [facility].; [employer]. Work Phone: Comment on above: Patient Position: Sitting; Cuff Location : Left Arm; Cuff Size: Standard 05-19-2020 14:14-0400 Systolic blood pressure 126 mm[Hg] Crystal K Uptain CNM Work Phone: [place] [employer].; [employer]. Work Phone: Comment on above: Patient Position: Sitting; Cuff Location : Left Arm; Cuff Size: Standard 05-19-2020 13:18-0400 Body height 168.28 cm Crystal K Uptain CNM Work Phone: [employer]; [employer]. 05-19-2020 13:18-0400 Body mass index (BMI) [Ratio] 30.6 kg/m2 Crystal Barbara Uptain CNM Work Phone: [email or web address]; [employer]. 05-19-2020 13:18-0400 Body surface area Derived from formula 1.97 m2 Crystal K Uptain CNM Work Phone: [email or web address]; [employer]. 05-19-2020 13:18-0400 Body temperature 84 [degF] Crystal K Uptain CNM Work Phone: [employer]; [employer]. Comment on above: Method: Tympanic 05-19-2020 13:18-0400 Body weight 86.64 kg Crystal Barbara Uptain CNM Work Phone: [employer]; [employer]. 05-19-2020 13:18-0400 Diastolic blood pressure 90 mm[Hg] Crystal Barbara Uptain CNM Work Phone: [employer]; [employer]. Comment on above: Patient Position: Sitting; Cuff Location : Left Arm; Cuff Size: Standard 05-19-2020 13:18-0400 Heart rate 84 /min Sahara Jimenez Uptain CNM Work Phone: [employer]; [employer]. Comment on above: Pattern: Regular 05-19-2020 13:18-0400 Systolic blood pressure 145 mm[Hg] Crystal K Uptain CNM Work Phone: [employer]; [employer]. Comment on above: Patient Position: Sitting; Cuff Location : Left Arm; Cuff Size: Standard 05-19-2019 14:19-0400 Body height 168.28 cm Terrie Singleton LPN [employer].; [employer]. 05-19-2019 14:19-0400 Body mass index (BMI) [Ratio] 29.31 kg/m2 Terrie Singleton LPN [employer].; [employer] 05-19-2019 14:190400 Body surface area Derived from formula 1.93 m2 Terrie Singleton LPN [facility] [employer], [employer] 05-19-2019 14:190400 Body weight 83.01 kg Terrie Singleton LPN [facility] [employer], [employer] 05-19-2019 14:19-0400 Diastolic blood pressure 82 mm[Hg] Terrie Singleton LPN [facility] [employer], [employer]. Comment on above: Patient Position: Sitting; Cuff Location : Left Arm; Cuff Size: Standard 05-19-2019 14:19-0400 Heart rate 65 /min Terrie Singleton LPN [facility] [employer], [employer]. Comment on above: Pattern: Regular 05-19-2019 14:19-0400 Systolic blood pressure 126 mm[Hg] Terrie Singleton LPN [place] [employer] [facility] [employer], [employer]. Comment on above: Patient Position: Sitting; Cuff Location : Left Arm; Cuff Size: Standard 06-25-2018 15:13-0400 Body height 168.28 cm [facility] Gogoi (scribe) [facility] [employer], [employer] 06-25-2018 15:13-0400 Body mass index (BMI) [Ratio] 28.99 kg/m2 [employer] (scribe) [facility] [employer] [facility].; [employer], [employer] 06-25-2018 15:130400 Body surface area Derived from formula 1.92 m2 Hemanta Gogoi (scribe) [place] [employer] [facility], [facility].; [employer], [employer] 06-25-2018 15:130400 Body weight 82.1 kg [employer] (scribe) [facility] [employer] [facility] [employer], [employer] 06-25-2018 15:13-0400 Diastolic blood pressure 78 mm[Hg] Hemanta Gogoi (scribe) [facility] [employer] [facility] [employer], [employer] Comment on above: Patient Position: Sitting; Cuff Location : Left Arm; Cuff Size: Standard 06-25-2018 15:13-0400 Heart rate 79 /min [facility] Dimitrisgoi (scribe) [employer], [employer].; [employer]. Comment on above: Pattern: Regular 06-25-2018 15:13-0400 Systolic blood pressure 126 mm[Hg] Hemanta Dimitrisgoi (scribe) [employer], [employer].; [employer] Comment on above: Patient Position: Sitting; Cuff Location : Left Arm; Cuff Size: Standard 06-19-2018 13:33-0400 Body height 168.28 cm [facility] Work Phone: [employer] Work Phone: 06-19-2018 13:33-0400 Body mass index (BMI) [Ratio] 28.03 kg/m2 [facility] Work Phone: [employer].; [employer] Work Phone: 06-19-2018 13:33-0400 Body surface area Derived from formula 1.9 m2 [facility] Work Phone: [employer]; [employer]. Work Phone: 06-19-2018 13:33-0400 Body temperature 99.2 [degF] [facility] Work Phone: [employer].; [employer] Work Phone: Comment on above: Method: Tympanic 06-19-2018 13:33-0400 Body weight 79.38 kg [facility] Work Phone: [employer].; [employer] Work Phone: 06-19-2018 13:33-0400 Diastolic blood pressure 88 mm[Hg] [facility] Work Phone: [employer].; [employer] Work Phone: Comment on above: Patient Position: Sitting; Cuff Location : Left Arm; Cuff Size: Standard 06-19-2018 13:33-0400 Heart rate 72 /min Denita Palacio LPN Work Phone: [employer].; [employer] Work Phone: Comment on above: Pattern: Regular 06-19-2018 13:33-0400 Systolic blood pressure 133 mm[Hg] Denita Palacio RETAIL STORE MANAGER Work Phone: [employer].; [employer] Work Phone: Comment on above: Patient Position: Sitting; Cuff Location : Left Arm; Cuff Size: Standard 07-31-2017 13:50-0500 Body height 168.28 cm Angelique Morrow RN [employer].; [employer]. 07-31-2017 13:50-0500 Body mass index (BMI) [Ratio] 26.91 kg/m2 Angelique Morrow RN [employer].; [employer]. 07-31-2017 13:50-0500 Body surface area Derived from formula 1.86 m2 Angelique Morrow RN [employer].; [employer]. 07-31-2017 13:50-0500 Body temperature 98.6 [degF] Angelique Morrow RN [employer].; [employer]. Comment on above: Method: Tympanic 07-31-2017 13:50-0500 Body weight 76.2 kg Angelique Morrow RN [employer].; [employer] 07-31-2017 13:50-0500 Diastolic blood pressure 90 mm[Hg] Angelique Morrow RN [employer].; [employer]. Comment on above: Patient Position: Sitting; Cuff Location : Left Arm; Cuff Size: Standard 07-31-2017 13:50-0500 Heart rate 72 /min Angelique Morrow RN [employer].; [employer]. Comment on above: Pattern: Regular 07-31-2017 13:50-0500 Systolic blood pressure 128 mm[Hg] Angelique Morrow RN [facility], [employer].; [employer], [employer]. Comment on above: Patient Position: Sitting; Cuff Location : Left Arm; Cuff Size: Standard 06-18-2017 13:16-0400 Body height 168.28 cm Trevor Carlito (Scribe) [facility] [employer], [employer] 06-18-2017 13:16-0400 Body mass index (BMI) [Ratio] 26.43 kg/m2 [facility] (Scribe) [facility] [employer], [employer]. 06-18-2017 13:160400 Body surface area Derived from formula 1.85 m2 [facility] [employer], [employer] 06-18-2017 13:160400 Body weight 74.84 kg [facility] (Scribe) [place] [employer] [facility], [facility].; [employer], [employer]. 06-18-2017 13:16-0400 Diastolic blood pressure 86 mm[Hg] Trevor Carlito (Scribe) [place] [employer] [facility] [employer]. Comment on above: Patient Position: Sitting; Cuff Location : Left Arm; Cuff Size: Standard 06-18-2017 13:16-0400 Heart rate 60 /min [facility] (Scribe) [facility] [employer] Comment on above: Pattern: Regular 06-18-2017 13:16-0400 Systolic blood pressure 135 mm[Hg] Trevor Carlito (Scribe) [facility] [employer]. Comment on above: Patient Position: Sitting; Cuff Location : Left Arm; Cuff Size: Standard 04-16-2017 15:150400 Body height 168.28 cm Estella Peterson LPN [place] [employer] [facility] [employer], [employer] 04-16-2017 15:15-0400 Body mass index (BMI) [Ratio] 25.95 kg/m2 Estella Peterson LPN [place] [employer] [facility], [facility].; [employer], [employer] 04-16-2017 15:15-0400 Body surface area Derived from formula 1.83 m[address] [place] BUI [facility] [employer], [employer] 04-16-2017 15:15-0400 Body temperature 98.9 [degF] Estella Peterson [facility], [facility].; [place] [employer] Comment on above: Method: Tympanic 04-16-2017 15:150400 Body weight 73.48 kg Estella [place] [facility] [employer], [employer] 04-16-2017 15:15-0400 Diastolic blood pressure 90 mm[Hg] Estella Veelópez [facility] [employer], [employer]. Comment on above: Patient Position: Sitting; Cuff Location : Left Arm; Cuff Size: Standard 04-16-2017 15:15-0400 Heart rate 85 /min Estella Veelópez [facility].; [employer]. Comment on above: Pattern: Regular 04-16-2017 15:15-0400 Systolic blood pressure 143 mm[Hg] Estella Veesukijulienne RETAIL STORE MANAGER [place] [employer] [facility], [facility] [employer], [employer]. Comment on above: Patient Position: Sitting; Cuff Location : Left Arm; Cuff Size: Standard 03-22-2017 11:290400 Body temperature 99.2 [degF] Aysha Joyner PA-C Work Phone: [facility].; [employer]. Comment on above: Method: Tympanic 03-22-2017 11:290400 Body weight 73.98 kg Aysha Joyner PA-C Work Phone: [place] [employer].; [employer], [employer]. 03-22-2017 11:290400 Diastolic blood pressure 88 mm[Hg] Aysha Joyner PA-C Work Phone: [place] [employer].; [employer]. Comment on above: Patient Position: Sitting; Cuff Location : Left Arm; Cuff Size: Standard 03-22-2017 11:29-0400 Heart rate 69 /min Aysha Joyner PA-C Work Phone: [employer]; [employer]. Comment on above: Pattern: Regular 03-22-2017 11:29-0400 Systolic blood pressure 125 mm[Hg] Aysha Joyner PA-C Work Phone: [employer]; [employer]. Comment on above: Patient Position: Sitting; Cuff Location : Left Arm; Cuff Size: Standard 02-06-2017 14:50-0400 Body height 168.28 cm Aysha Joyner PA-C Work Phone: [employer]; [employer]. 02-06-2017 14:50-0400 Body mass index (BMI) [Ratio] 26.24 kg/m2 Aysha Joyner PA-C Work Phone: [employer]; [employer] 02-06-2017 14:50-0400 Body surface area Derived from formula 1.84 m2 Aysha Joyner PA-C Work Phone: [employer]; [employer] 02-06-2017 14:50-0400 Body temperature 97.8 [degF] Aysha Joyner PA-C Work Phone: [employer]; [employer]. Comment on above: Method: Tympanic 02-06-2017 14:50-0400 Body weight 74.3 kg Aysha Joyner PA-C Work Phone: [employer]; [employer]. 02-06-2017 14:50-0400 Diastolic blood pressure 82 mm[Hg] Aysha Joyner PA-C Work Phone: [employer]; [employer]. Comment on above: Patient Position: Sitting; Cuff Location : Left Arm; Cuff Size: Standard 02-06-2017 14:50-0400 Heart rate 62 /min Aysha Joyner PA-C Work Phone: [employer]; [employer] Comment on above: Pattern: Regular 02-06-2017 14:50-0400 Systolic blood pressure 131 mm[Hg] Aysha Joyner PA-C Work Phone: [facility].; [employer]. Comment on above: Patient Position: Sitting; Cuff Location : Left Arm; Cuff Size: Standard 09-23-2016 08:50-0500 Body height 168.28 cm Cintia Miller [facility] [employer] [facility] [employer]. 09-23-2016 08:50-0500 Body mass index (BMI) [Ratio] 29.15 kg/m2 [facility] [employer] [facility], [employer], [employer] 09-23-2016 08:50-0500 Body surface area Derived from formula 1.93 m2 Cintia Miller [facility] [employer] [facility], [employer].; [employer], [employer]. 09-23-2016 08:50-0500 Body weight 82.56 kg Cintia Miller [facility] [employer] [facility], [employer].; [employer]. 09-23-2016 08:50-0500 Diastolic blood pressure 87 mm[Hg] Cintia Miller [facility] [employer] [facility], [employer].; [employer]. Comment on above: Patient Position: Sitting; Cuff Location : Left Arm; Cuff Size: Large 09-23-2016 08:50-0500 Heart rate 80 /min SamaraAlayna Miller [facility] [employer] [facility], [employer].; [employer]. Comment on above: Pattern: Regular 09-23-2016 08:50-0500 Systolic blood pressure 131 mm[Hg] Cintia Miller [facility] [employer] [facility] [employer]. Comment on above: Patient Position: Sitting; Cuff Location : Left Arm; Cuff Size: Large 05-29-2016 09:08-0400 Body height 168.28 cm Cassie Goodman RETAIL STORE MANAGER [place] [employer] [facility], [facility] [employer]. 05-29-2016 09:08-0400 Body mass index (BMI) [Ratio] 30.12 kg/m2 Cassie Goodman RETAIL STORE MANAGER [place] [employer] [facility], [employer].; [employer]. 05-29-2016 09:08-0400 Body surface area Derived from formula 1.95 m[address]PN [facility] [employer], [employer]. 05-29-2016 09:08-0400 Body temperature 97.7 [degF] Cassie Allyson Goodman LPN [place] [employer] [facility], [facility].; [employer]. Comment on above: Method: Tympanic 05-29-2016 09:08-0400 Body weight 85.28 kg Cassiejorge Goodman LPN [employer] [facility], [facility].; [employer], [employer]. 05-29-2016 09:08-0400 Diastolic blood pressure 90 mm[Hg] Cassie Allyson Goodman LPN [employer] [facility], [employer].; [employer], [employer]. Comment on above: Patient Position: Sitting; Cuff Location : Left Arm; Cuff Size: Large 05-29-2016 09:08-0400 Heart rate 79 /min Cassie Goodman LPN [employer] [facility], [facility].; [employer]. Comment on above: Pattern: Regular 05-29-2016 09:08-0400 Systolic blood pressure 129 mm[Hg] Cassie Allyson Goodman LPN [employer] [facility], [employer].; [employer], [employer]. Comment on above: Patient Position: Sitting; Cuff Location : Left Arm; Cuff Size: Large 03-21-2016 08:56-0400 Body height 167.64 cm Cassie Goodman LPN [employer] [facility] [employer], [employer]. 03-21-2016 08:56-0400 Body mass index (BMI) [Ratio] 30.34 kg/m2 Cassie Goodman LPN [employer] [facility], [facility].; [employer], [employer]. 03-21-2016 08:56-0400 Body surface area Derived from formula 1.95 m2 Cassie Goodman LPN [employer] [facility], [employer].; [employer], [employer]. 03-21-2016 08:56-0400 Body temperature 97.8 [degF] Cassie Goodman LPN [employer] [facility], [employer].; [employer]. Comment on above: Method: Tympanic 03-21-2016 08:56-0400 Body weight 85.28 kg Cassie Goodman LPN [facility] [employer], [employer]. 03-21-2016 08:56-0400 Diastolic blood pressure 83 mm[Hg] Cassie Goodman LPN [facility] [employer], [employer] Comment on above: Patient Position: Sitting; Cuff Location : Left Arm; Cuff Size: Large 03-21-2016 08:56-0400 Heart rate 86 /min Cassie Goodman LPN [facility] [employer] Comment on above: Pattern: Regular 03-21-2016 08:56-0400 Systolic blood pressure 119 mm[Hg] Cassie Goodman LPN [facility] [employer], [employer]. Comment on above: Patient Position: Sitting; Cuff Location : Left Arm; Cuff Size: Large 10-15-2015 14:43-0500 Body height 167.64 cm Cassie Goodman LPN [facility], [facility] [employer] 10-15-2015 14:43-0500 Body mass index (BMI) [Ratio] 30.83 kg/m2 Cassie Goodman LPN [employer] [facility], [facility].; [employer] 10-15-2015 14:43-0500 Body surface area Derived from formula 1.96 m[address]PN [facility] [employer] 10-15-2015 14:43-0500 Body temperature 98.3 [degF] Cassie Goodman LPN [employer] [facility] [employer], [employer]. Comment on above: Method: Tympanic 10-15-2015 14:43-0500 Body weight 86.64 kg Cassie Goodman LPN [employer] [facility] [employer] 10-15-2015 14:43-0500 Diastolic blood pressure 91 mm[Hg] Cassie Goodman LPN [employer] [facility] [employer], [employer]. Comment on above: Patient Position: Sitting; Cuff Location : Left Arm; Cuff Size: Standard 10-15-2015 14:43-0500 Heart rate 79 /min Cassie Goodman LPN [facility] [employer], [employer]. Comment on above: Pattern: Regular 10-15-2015 14:43-0500 Systolic blood pressure 133 mm[Hg] Cassie [facility] [employer], [employer]. Comment on above: Patient Position: Sitting; Cuff Location : Left Arm; Cuff Size: Standard 06-17-2015 11:23-0400 Body height 167.64 cm Cintia Miller [facility], [facility] [employer], [employer] 06-17-2015 11:23-0400 Body mass index (BMI) [Ratio] 29.38 kg/m2 Cintia Miller [facility] [employer], [employer] 06-17-2015 11:23-0400 Body surface area Derived from formula 1.92 m2 [facility] Paul [facility] [employer] [facility], [employer]. 06-17-2015 11:23-0400 Body weight 82.56 kg Cintia Miller [facility] [employer], [employer]. 06-17-2015 11:23-0400 Diastolic blood pressure 74 mm[Hg] Cintia Miller [facility] [employer], [employer]. Comment on above: Patient Position: Sitting; Cuff Location : Left Arm; Cuff Size: Large 06-17-2015 11:23-0400 Heart rate 76 /min Cintia Miller [facility] [employer], [employer]. Comment on above: Pattern: Regular 06-17-2015 11:23-0400 Systolic blood pressure 109 mm[Hg] Cintia Miller [facility] [employer], [employer]. Comment on above: Patient Position: Sitting; Cuff Location : Left Arm; Cuff Size: Large 05-18-2015 11:16-0400 Body height 167.64 cm Cassie Goodman LPN [facility] [employer], [employer]. 05-18-2015 11:16-0400 Body mass index (BMI) [Ratio] 29.38 kg/m2 Cassie Goodman RETAIL STORE MANAGER [facility], [facility].; [employer] [facility] 05-18-2015 11:16-0400 Body surface area Derived from formula 1.92 m2 Cassie Allyson Goodman LPN [facility] [employer] 05-18-2015 11:16-0400 Body weight 82.56 kg Cassie Townsend Rex [facility] [employer] 05-18-2015 11:16-0400 Diastolic blood pressure 85 mm[Hg] Cassie Allyson Goodman LPN [facility] [employer] Comment on above: Patient Position: Sitting; Cuff Location : Right Arm; Cuff Size: Standard 05-18-2015 11:16-0400 Heart rate 64 /min Cassie Allyson Goodman RETAIL STORE MANAGER [facility] [employer] Comment on above: Pattern: Regular 05-18-2015 11:16-0400 Systolic blood pressure 125 mm[Hg] Cassie Allyson Rex RETAIL STORE MANAGER [facility] [employer] Comment on above: Patient Position: Sitting; Cuff Location : Right Arm; Cuff Size: Standard 02-07-2014 09:32-0400 Body temperature 101.8 [degF] Cintia Miller RETAIL STORE MANAGER [facility] [employer] Comment on above: Method: Tympanic 02-07-2014 09:32-0400 Body weight 90.27 kg Cintia Miller RETAIL STORE MANAGER [facility] [employer] 02-07-2014 09:32-0400 Diastolic blood pressure 82 mm[Hg] Cintia Miller RETAIL STORE MANAGER [employer] [facility] [employer], [employer]. Comment on above: Patient Position: Sitting; Cuff Location : Left Arm; Cuff Size: Large 02-07-2014 09:32-0400 Heart rate 129 /min Cintia Miller RAMYA [employer] [facility] [employer], [employer]. Comment on above: Pattern: Regular 02-07-2014 09:32-0400 Systolic blood pressure 119 mm[Hg] Cintia Miller RETAIL STORE MANAGER [facility] [employer] [facility]. Comment on above: Patient Position: Sitting; Cuff Location : Left Arm; Cuff Size: Large 07-08-2013 13:10-0500 Body height 167.64 cm Cassie Goodman LPN [facility] [employer], [employer] 07-08-2013 13:10-0500 Body mass index (BMI) [Percentile] Per age and sex 94 % Cassie Goodman LPN [facility] [employer], [employer]. 07-08-2013 13:10-0500 Body mass index (BMI) [Ratio] 30.02 kg/m2 Cassie Goodman L[facility], [employer], [employer]. 07-08-2013 13:10-0500 Body surface area Derived from formula 1.94 m[address] [facility] [employer], [employer]. 07-08-2013 13:10-0500 Body weight 84.37 [address] Goodman [address] [facility], [facility].; [employer], [employer]. 07-08-2013 13:10-0500 Diastolic blood pressure 88 mm[Hg] Cassie Goodman LPN [facility], [employer], [employer]. Comment on above: Patient Position: Sitting; Cuff Location : Left Arm; Cuff Size: Standard 07-08-2013 13:10-0500 Heart rate 98 /min Cassie Goodman LPN [facility] [employer]. Comment on above: Pattern: Regular 07-08-2013 13:10-0500 Systolic blood pressure 134 mm[Hg] Cassie Goodman LPN [employer] [facility], [employer]. Comment on above: Patient Position: Sitting; Cuff Location : Left Arm; Cuff Size: Standard 03-11-2013 10:25-0400 Body height 167.64 cm Aysha Joyner PA-C Work Phone: [employer], [employer]. 03-11-2013 10:25-0400 Body mass index (BMI) [Percentile] Per age and sex 89 % Aysha POOLC Work Phone: [email or web address]; [employer] 03-11-2013 10:25-0400 Body mass index (BMI) [Ratio] 26.95 kg/m2 Aysha Joyner PA-C Work Phone: [email or web address]; [employer]. 03-11-2013 10:25-0400 Body surface area Derived from formula 1.85 m2 Aysha Joyner PA-C Work Phone: [email or web address]; [employer] 03-11-2013 10:25-0400 Body temperature 97.2 [degF] Aysha Joyner PA-C Work Phone: [email or web address]; [employer] Comment on above: Method: Tympanic 03-11-2013 10:25-0400 Body weight 75.75 kg Aysha Joyner PA-C Work Phone: [email or web address]; [employer] 03-11-2013 10:25-0400 Diastolic blood pressure 78 mm[Hg] Aysha Joyner PA-C Work Phone: [email or web address]; [employer]. Comment on above: Patient Position: Sitting; Cuff Location : Right Arm; Cuff Size: Standard 03-11-2013 10:25-0400 Heart rate 79 /min Aysha Joyner PA-C Work Phone: [email or web address]; [employer]. Comment on above: Pattern: Regular 03-11-2013 10:25-0400 Systolic blood pressure 117 mm[Hg] Aysha Joyner PA-C Work Phone: [email or web address]; [employer]. Comment on above: Patient Position: Sitting; Cuff Location : Right Arm; Cuff Size: Standard 01-07-2013 17:41-0400 Body height 167.64 cm Cassie Goodman LPN [employer]. 01-07-2013 17:41-0400 Body mass index (BMI) [Percentile] Per age and sex 90 % Cassie Goodman LPN [employer] [facility] [employer] 01-07-2013 17:41-0400 Body mass index (BMI) [Ratio] 27.28 kg/m2 Cassie Allyson Goodman LPN [employer] [facility] [employer] 01-07-2013 17:41-0400 Body surface area Derived from formula 1.86 m2 Cassie Allyson Goodman LPN [employer] [facility] [employer], [employer]. 01-07-2013 17:41-0400 Body temperature 97.8 [degF] Cassie Allyson Goodman RETAIL STORE MANAGER [employer] [facility] [employer], [employer]. Comment on above: Method: Tympanic 01-07-2013 17:41-0400 Body weight 76.66 kg Cassie Goodman LPN [employer] [facility] [employer] 11-13-2012 09:32-0400 Body height 167.64 cm Cassie Goodman LPN [employer] [facility] [employer], [employer]. 11-13-2012 09:32-0400 Body mass index (BMI) [Percentile] Per age and sex 89 % Cassie Goodman LPN [employer] [facility] [employer] 11-13-2012 09:32-0400 Body mass index (BMI) [Ratio] 26.79 kg/m2 Cassie Goodman LPN [employer] [facility] [employer] 11-13-2012 09:32-0400 Body surface area Derived from formula 1.85 m2 Cassie Allyson Goodman LPN [employer], [employer]. 11-13-2012 09:32-0400 Body temperature 96.6 [degF] Cassie Allyson Goodman RETAIL STORE MANAGER [employer], [employer]. Comment on above: Method: Tympanic 11-13-2012 09:32-0400 Body weight 75.3 kg Cassiejorge Goodman LPN [employer] 10-23-2012 09:45-0500 Body height 167.64 cm Cassie Goodman LPN [employer] [facility] [employer], [employer]. 10-23-2012 09:45-0500 Body mass index (BMI) [Percentile] Per age and sex 90 % Cassie Goodman LPN [employer], [employer]. 10-23-2012 09:45-0500 Body mass index (BMI) [Ratio] 27.12 kg/m2 Cassie Goodman LPN [employer], [employer]. 10-23-2012 09:45-0500 Body surface area Derived from formula 1.86 m2 Cassie Goodman LPN [employer] [facility], [employer], [employer] 10-23-2012 09:45-0500 Body temperature 98.5 [degF] Cassie Goodman LPN [employer]. Comment on above: Method: Tympanic 10-23-2012 09:45-0500 Body weight 76.2 kg Cassie Goodman LPN [employer]. Encounters Encounter Date Encounter Type Care Provider Facility Start: 09-24-2024 Encounter for gynecological examination (general) (routine) without abnormal findings Liat Nieto NP [facility] Start: 08-29-2024 End: 08-29-2024 ambulatory Aysha Joyner [place]: 05-12-2024 End: 05-12-2024 Telephone follow-up Aysha Joyner PA-C Work Phone: [employer] [facility] Start: 05-11-2024 End: 05-11-2024 Emergency department patient visit ROSALIA HERNANDEZ [facility] Start: 02-22-2024 End: 02-22-2024 Office outpatient visit 15 minutes Aysha Joyner PA-C Work Phone: [employer] [facility] Start: 11-09-2023 End: 11-09-2023 ambulatory AYSHA JOYNER [facility] Start: 11-02-2023 End: 11-02-2023 Patient encounter status Aysha Joyner PA-C Work Phone: [facility]; [facility] Start: 11-02-2023 End: 11-02-2023 Periodic preventive med est patient 18-39 yrs Aysha Joyner PA-C Work Phone: [facility] Start: 09-02-2023 End: 09-02-2023 Emergency department patient visit INNA [facility] Start: 07-15-2023 Non-patient / Non-visit PA Jess ecca Joyner Work Phone: [facility] Start: 07-14-2023 Non-patient / Non-visit PA Jess ecca Joyner Work Phone: [facility] Start: 07-13-2023 Non-patient / Non-visit PA Jess ecca Joyner Work Phone: [facility] Start: 07-12-2023 Non-patient / Non-visit PA Jess ecca Joyner Work Phone: [facility] Start: 07-11-2023 End: 07-15-2023 Evaluation and management of inpatient PA Aysha [facility] Work [facility]: Start: 07-06-2023 End: 07-06-2023 Patient encounter procedure PA Aysha Joyner Work Phone: [facility] Work Phone: Start: 07-06-2023 End: 07-06-2023 Patient encounter procedure PA Aysha Joyner Work Phone: [facility] Work Phone: Start: 06-29-2023 End: 06-29-2023 Patient encounter procedure PA Aysha Joyner Work Phone: [facility] Work Phone: Start: 06-22-2023 End: 06-22-2023 Patient encounter procedure PA Aysha Joyner Work Phone: [facility] Work Phone: Start: 06-15-2023 End: 06-15-2023 ambulatory PA Aysha Joyner Work Phone: [facility] Work Phone: Start: 06-15-2023 End: 06-15-2023 Patient encounter procedure PA Aysha Joyner Work Phone: [facility] Work Phone: Start: 06-15-2023 End: 06-15-2023 Patient encounter procedure PA Aysha Joyner Work Phone: [facility] Work Phone: Start: 06-14-2023 End: 06-14-2023 ambulatory ESTELLA FRANKLIN [facility] Start: 06-08-2023 End: 06-08-2023 Patient encounter procedure PA Aysha Joyner Work Phone: [facility] Work Phone: Start: 05-17-2023 End: 05-17-2023 ambulatory SONALI Hilda CAREY [facility] Start: 05-16-2023 End: 05-16-2023 ambulatory SHARDA RICHEY [facility] Start: 05-09-2023 End: 05-09-2023 Patient encounter procedure PA Aysha Joyner Work Phone: [facility] Work Phone: Start: 04-27-2023 End: 04-27-2023 Patient encounter procedure PA Aysha Joyner Work Phone: [facility] Work Phone: Start: 04-20-2023 End: 04-20-2023 Patient encounter procedure PA Aysha Joyner Work Phone: [facility] Work Phone: Start: 04-19-2023 End: 04-19-2023 ambulatory SONALI CAREY [facility] Start: 04-19-2023 End: 04-19-2023 ambulatory PA Aysha Joyner Work Phone: [facility] Work Phone: Start: 04-19-2023 End: 04-19-2023 Patient encounter procedure PA Aysha Joyner Work Phone: [facility] Work Phone: Start: 03-23-2023 End: 03-23-2023 Patient encounter procedure PA Aysha Joyner Work Phone: [facility] Work Phone: Start: 03-12-2023 End: 03-12-2023 ambulatory [facility] Start: 02-23-2023 End: 02-23-2023 Patient encounter procedure PA Aysha Joyner Work Phone: [facility] Work Phone: Start: 02-19-2023 End: 02-19[facility] Start[facility] 02-19-2023 End: 02-19-2023 ambulatory [facility] Start: 01-26-2023 End: 01-26-2023 Patient encounter procedure PA Aysha Joyner Work Phone: [facility] Work Phone: Start: 12-29-2022 End: 12-29-2022 Patient encounter procedure PA Aysha Joyner Work Phone: [facility] Start: 12-26-2022 End: 12-26-2022 ambulatory PA Aysha Joyner Work Phone: [facility] Work Phone: Start: 12-26-2022 End: 12-26-2022 Patient encounter procedure PA [facility] Start: 12-15-2022 End: 12-15-2022 Patient encounter procedure PA Aysha Joyner Work Phone: [facility] Start: 11-29-2022 End: 11-29-2022 ambulatory PA Aysha Joyner Work Phone: [facility] Work Phone: Start: 11-29-2022 End: 11-29-2022 Patient encounter procedure PA Aysha Joyner [facility] Start: 11-29-2022 End: 11-29-2022 Patient encounter procedure PA Aysha Joyner Work Phone: [facility] Start: 07-06-2022 End: 07-06-2022 Office outpatient visit 15 minutes Aysha Joyner PA-C Work Phone: [facility] Start: 05-19-2022 End: 05-19-2022 Patient encounter status Aysha Joyner PA-C Work Phone: [email or web address]; [employer] Start: 05-19-2022 End: 05-19-2022 Periodic preventive med est patient 18-39 yrs Aysha Joyner PA-C Work Phone: [employer]. Start: 11-26-2021 End: 11-26-2021 [facility] Start: 10-29-2021 End: 10-29-2021 [facility] Start: 09-24-2021 End: 09-24-2021 [facility] Start: 08-29-2021 [facility] Start: 06-20-2021 End: 06-20-2021 Medication Aysha Joyner PA-C Work Phone: [employer] Start: 05-25-2021 End: 05-25-2021 Patient encounter procedure Aysha Joyner PA-C Work Phone: [employer] Start: 05-25-2021 End: 05-25-2021 Periodic preventive med est patient 18-39 yrs Aysha Joyner PA-C Work Phone: [employer]. Start: 12-20-2020 End: 12-20-2020 Office outpatient visit 15 minutes Aysha Joyner PA-C Work Phone: [employer] Start: 09-24-2020 End: 09-24-2020 Patient encounter procedure ROSALIA Robert [facility] Start: 05-19-2020 End: 05-19-2020 Patient encounter procedure Rachael King LPN [employer] Start: 05-19-2020 End: 05-19-2020 Periodic preventive med est patient 18-39 yrs Aysha Joyner PA-C Work Phone: [employer] Start: 05-19-2019 End: 05-19-2019 Patient encounter procedure Aysha Joyner PA-C Work Phone: [employer]; [employer]. Start: 05-19-2019 End: 05-19-2019 Periodic preventive med est patient 18-39 yrs Aysha Joyner PA-C Work Phone: [employer] Start: 06-25-2018 End: 06-25-2018 Patient encounter status Aysha Joyner PA-C Work Phone: [employer]; [employer]. Start: 06-25-2018 End: 06-25-2018 Periodic preventive med est patient 18-39 yrs Aysha Joyner PA-C Work Phone: [employer] Start: 06-19-2018 End: 06-19-2018 Patient encounter procedure Aysha Joyner PA-C Work Phone: [employer] Start: 07-31-2017 End: 07-31-2017 Office outpatient visit 15 minutes Aysha Joyner PA-C Work Phone: [employer] Start: 06-18-2017 End: 06-18-2017 Patient encounter status Aysha Joyner PA-C Work Phone: [employer] Start: 06-18-2017 End: 06-18-2017 Periodic preventive med est patient 18-39 yrs Aysha Joyner PA-C Work Phone: [employer] Start: 04-22-2017 Ambulatory Quan Nahomy Facility:[facility] Start: 04-22-2017 End: 04-22-2017 Ambulatory [facility] N[facility]omy Work Phone: [facility] Start: 04-16-2017 End: 04-16-2017 Office outpatient visit 15 minutes Aysha Joyner PA-C Work Phone: [employer] Start: 03-27-2017 End: 03-27-2017 Medication Aysha Joyner PA-C Work Phone: [employer] Start: 03-22-2017 End: 03-22-2017 Patient encounter procedure Aysha Joyner PA-C Work Phone: [employer] Start: 02-06-2017 End: 02-06-2017 Patient encounter procedure Aysha Joyner PA-C Work Phone: [employer] Start: 09-23-2016 End: 09-23-2016 Patient encounter procedure Aysha Joyner PA-C Work Phone: [employer] Start: 05-29-2016 End: 05-29-2016 FATOU Template Aysha Joyner PA-C Work Phone: [employer] Start: 05-29-2016 End: 05-30-2016 Patient encounter procedure Aysha Joyner PA-C Work Phone: [email or web address] Start: 05-29-2016 End: 05-30-2016 Patient encounter status Aysha Joyner PA-C Work Phone: [employer] Start: 03-21-2016 End: 03-21-2016 Office outpatient visit 10 minutes Aysha Joyner PA-C Work Phone: [employer]. Start: 10-28-2015 End: 10-28-2015 Medication Aysha Joyner PA-C Work Phone: [employer]. Start: 10-28-2015 End: 10-28-2015 Medication Aysha Joyner PA-C Work Phone: [employer]. Start: 10-15-2015 End: 10-15-2015 Office outpatient visit 15 minutes Aysha Joyner PA-C Work Phone: [employer] Start: 06-17-2015 End: 06-17-2015 Office outpatient visit 15 minutes Aysha Joyner PA-C Work Phone: [employer]. Start: 05-18-2015 End: 05-18-2015 Office outpatient visit 15 minutes Aysha Joyner PA-C Work Phone: [employer] Start: 02-07-2014 End: 02-07-2014 Patient encounter procedure Aysha Joyner PA-C Work Phone: [employer] Start: 07-08-2013 End: 07-08-2013 Patient encounter procedure Aysha Joyner PA-C Work Phone: [employer]. Start: 03-11-2013 End: 03-11-2013 Patient encounter procedure Aysha Joyner PA-C Work Phone: [employer] Start: 01-07-2013 End: 01-08-2013 Patient encounter procedure Aysha Joyner PA-C Work Phone: [employer] Start: 11-13-2012 End: 11-13-2012 Patient encounter procedure Aysha Joyner PA-C Work Phone: [facility] Start: 10-23-2012 End: 10-23-2012 Patient encounter procedure Aysha Joyner PA-C Work Phone: [facility] Follow-up encounter Nguyen Manzo MA [facility]; [facility] Follow-up encounter Aysha Kenneth Kennedy gant PA-C Work Phone: [facility]; [facility] Follow-up encounter Neda Adams MA [facility]; [facility] Patient encounter procedure Rachael King LPN [facility]; [facility] Patient encounter status Rachael King LP N [facility]; [facility] Procedures Date Procedure Procedure Detail Performing Clinician Start: 11-02-2023 End: 11-02-2023 Depression screening Aysha Joyner PA-C Work Phone: Start: 11-02-2023 End: 11-02-2023 Scr dep neg, no plan reqd Aysha Joyner PA-C Work Phone: Start: 11-02-2023 End: 12-13-2023 Xtrnl pt activ ecg transmis w/r&i 30 days Aysha Joyner PA-C Work Phone: Start: 07-12-2023 End: 07-12-2023 section Nguyen Manzo MA Start: 07-06-2023 Investigation of tra nsfusion reaction PA Aysha Joyner Work Phone: Start: 07-06-2023 Microbial culture, routine PA Aysha Joyner Work Phone: Start: 06-15-2023 Group B Streptococcu s Culture PA Aysha Joyner Work Phone: Start: 07-06-2022 End: 07-06-2022 Removal impacted cerumen instrumentation unilat Aysha Joyner PA-C Work Phone: Start: 05-19-2022 End: 05-19-2022 Depression screening Aysha Joyner PA-C Work Phone: Start: 05-19-2022 End: 05-19-2022 Scr dep neg, no plan reqd Aysha Joyner PA-C Work Phone: Start: 05-25-2021 End: 05-25-2021 Depression screening Aysha Joyner PA-C Work Phone: Start: 05-25-2021 End: 05-25-2021 Scr dep neg, no plan reqd Aysha Joyner PA-C Work Phone: Start: 05-19-2020 End: 05-19-2020 Microscopic examination of cervical Papanicolaou smear Nguyen Manzo MA Comment on above: Normal. Start: 05-19-2019 End: 05-19-2019 Depression screening Harsh Romero MD Work Phone: Start: 05-19-2019 End: 05-19-2019 Flu imm no admin doc pb Harsh Chaves Work Phone: Start: 05-19-2019 End: 05-19-2019 Scr dep neg, no plan reqd Harsh Romero MD Work Phone: Start: 07-31-2017 End: 07-31-2017 Body mass index documented Harsh Romero MD Work Phone: Start: 06-18-2017 End: 06-18-2017 Flu imm no admin doc pb Chaves Work Phone: Start: 10-23-2012 End: 10-23-2012 No Known Past Surgical History Tammy Mehta LPN D&C 2020 Nguyen Manzo MA Comment on above: [facility] D&C 2020 Neda Adams MA Comment on above: [facility] Urine culture PA Aysha townsend Work Phone: Plan of Treatment Date Care Activity Detail Author Start: 11-02-2023 Xtrnl pt activ ecg transmis w/r&i 30 days 30 Day Cardiac Event Monitor (76443) Start: 02-Nov-2023 Intent [email or web address]; [employer] Start: 11-02-2023 Assay of thyroid stimulating hormone tsh TSH (THYROID STIMULATING HORMONE) (91511) Start: 02-Nov-2023 09:36-05:00 Request [email or web address]; [employer]. Start: 11-02-2023 Comprehensive metabolic panel CMP w/ GFR* (70376) Start: 02-Nov-2023 09:36-05:00 Request [email or web address]; [employer]. Start: 11-02-2023 Blood count complete auto&auto difrntl wbc CBC, PLATELETS & AUT DIFF (F) (79634) Start: 02-Nov-2023 09:36-05:00 Request [employer]; [employer] Start: 07-15-2023 Patient discharge [facility] Start: 07-14-2023 Patient discharge [facility] Start: 07-13-2023 Application of abdominal corset [facility] Start: 07-12-2023 Administration of medication [facility] Start: 07-12-2023 Ambulation therapy management [facility] Start: 07-12-2023 Application of device [facility] Start: 07-12-2023 Application of intermittent pneumatic compression device [facility] Start: 07-12-2023 Assessment of risk of venous thromboembolism [facility] Start: 07-12-2023 Catheterization of vein [facility] Start: 07-12-2023 Deep breathing and coughing exercises [facility] Start: 07-12-2023 Exercises [facility] Start: 07-12-2023 Incentive spirometry [facility] Start: 07-12-2023 Measuring intake and output [facility] Start: 07-12-2023 End: 07-12-2023 Notification of physician [facility] Start: 07-12-2023 Procedure discontinued [facility] Start: 07-12-2023 Provision of activity privileges [facility] Start: 07-12-2023 Skin care [facility] Start: 07-12-2023 Wound care [facility] Start: 07-12-2023 End: 07-12-2023 [facility] Start: 07-12-2023 Application of abdominal corset [facility] Start: 07-12-2023 Vital signs measurements [facility] Start: 07-11-2023 Admission procedure [facility] Start: 11-29-2022 Liquid based cervical cytology screening [facility] CBC W Auto Different ial panel - Blood [facility] Glucose [Mass/volume ] in Serum or Plasma --1 hour post 50 g glucose PO [facility] Hepatitis B surface antigen measurement [facility] Hepatitis C antibody measurement [facility] HIV 1+2 Ab+HIV1 p24 Ag [Presence] in Serum or Plasma by Immunoassay [facility] Incision AND drainage [facility] Path report.final Dx Spec [facility] Patient referral [facility] Work Phone: Rubella IgG measurement [facility] Treponema sp Ab [Pre sence] in Serum [facility] [place] Immunization Date Immunization Notes Care Provider Rosas saxena 06-08-2023 influenza, injectabl e, quadrivalent, preservative free PA Aysha Joyner Work Phone: [facility] 06-25-2018 influenza, injectabl e, quadrivalent, contains preservative Aysha Joyner PA-C Work Phone: [email or web address] Comment on above: Site: Right DeltoidV IS Given: * Influenza - Inactivated (04/09/15) 07-12-2017 influenza, injectabl e, quadrivalent, contains preservative Aysha Joyner PA-C Work Phone: [employer]; [employer] Comment on above: at her workplace 05-29-2016 tetanus toxoid, redu mac diphtheria toxoid, and acellular pertussis vaccine, adsorbed Aysha Joyner PA-C Work Phone: [employer]; [employer] Comment on above: Site: Deltoid (Left) VIS Given: * Tdap (Tetanus, Diphtheria, Pertussis) (10/27/14) 06-16-2015 influenza, seasonal, injectable Aysha Joyner PA-C Work Phone[facility] 07-05-2012 meningococcal polysaccharide vaccine (MPSV4) Aysha Joyner PA-C Work Phone: [facility] Payers Date Payer Category Payer Self-pay [id number] 2024 Unknown [id number] 1995 Unknown [id number] 2.16.84 [id number] 1994 Unknown [id number] 2.16. [id number] 1994 Unknown [id number] 2.16. [id number] 1994 Unknown [id number] 2.16. [id number] 1994 Unknown [id number] 2.16. [id number] 1994 Unknown [id number] 2.16. [id number] 1994 Unknown [id number] 2.16. [id number] 1994 Unknown [id number] 2.16. [id number] 1994 Unknown [id number] 2.16.8 [id number] 1994 Unknown [id number] 2.16.8 [id number] 1994 Unknown [id number] 2.16.8 [id number] Unknown [id number] Unknown Unknown [id number] Unknown [id number] 2.16.8 [id number] Social History Date Type Detail Facility Start: 04-23-2017 End: 07-11-2023 Tobacco smoking status COIS Unknown if ever smoked [facility] Sex Assigned At Not on file Octavia clifford Work Phone: Start: 1995 Sex Assigned At Female [facility] Alcohol Use Alcohol Use [employer]; [employer] Tobacco Use: Tobacco Use: ; N ever smoker. [employer]; [employer] Tobacco/Smoke Exposure: Tobacco/Smoke Exposure: ; None. [employer]; [employer] Never smoked tobacco [employer]; [employer] Work Phone: None [employer]; [employer] Work Phone: Medical Equipment Procedure Code Equipment Code Equipment Origin al Text Equipment Identifier Dates Blood Sugar Diagnostic (Blood Glucose Test) strip Start: 04-19-2023 Lancets Start: 04-19-2023 Blood Sugar Diagnostic (Blood Glucose Test) strip Start: 04-19-2023 [facility]ets Start: 04-19-2023 Blood Sugar Diagnostic (Blood Glucose Test) strip Start: 04-19-2023 [facility] Start: 04-19-2023 Goals Date Patient Goal Desired Activity /State Mental Status Date Assessment Result Facility 07-13-2023 Cognitive function Voice/Name [facility] Work Phone: Clinical Notes 11-29-2022 to 07-15-2023 Note Date & Type Note Facility 07-15-2023 Discharge summary Note Date/Time July 15, 2023 9:33am [facility] Medical Records Department [address] [place] [address] Discharge Summary 07/15/23 0932 MR#: [id number] Acct: [id number] Name: PILI SAMAYOA Rep #:[id number] : 1995 27 From: Estella Holder DO PCP: MAGALY Grider Status:ADM IN Location: [id number] Providers Date of Admission: 07/11/23 Primary Care Physician: MAGALY Grider Reason For Visit: PRIMARY C SECTION Diagnosis Discharge Diagnosis (1) delivery delivered: Status: Acute Code(s): O82 - Encounter for delivery without indication (2) Gestational diabetes mellitus (GDM): Status: Acute Code(s): O24.419 - Gestational diabetes mellitus in , unspecified control Qualifiers: Gestational diabetes mellitus control: diet-controlled Trimester: thirdtrimester Qualified Code(s): O24.410 - Gestational diabetes mellitus in , diet controlled (3) PCOS (polycystic ovarian syndrome): Status: Acute Code(s): E28.2 - Polycystic ovarian syndrome (4) Anxiety: Status: Acute Code(s): F41.9 - Anxiety disorder, unspecified Plan s/p LTCS PPD # 2 1. routine post care 2. breast feeding- support given 3. rh positive 4. rubella immune 5. plan to send home later today after breakfast and when peds has rounded on her baby Medications at Discharge Home Medications blood sugar diagnostic (Blood Glucose Test strips) #120 ea 04/19/23 blood-glucose meter #1 ea 04/19/23 lancets #200 ea 04/19/23 amoxicillin 875 mg-potassium clavulanate 125 mg tablet 1 tab PO BID absess #14 tabs 07/06/23 naproxen 500 mg tablet 500 mg PO BID PRN PRN Pain #30 tabs 07/12/23 oxycodone-acetaminophen 5 mg-325 mg tablet (Percocet) 1 tab PO Q4H PRN pain 7 days #15 tabs 07/14/23 Hospital Course Operations None and section Summary of Care Provided Minutes Spent on Discharge: 30 Hospital Course: The patient was admitted for a repeat section on 07/12/23 for IOL due togestational diabetes. She progressed up to 6 cm dilated and stalled out. The tracing also showed intermittent late decelerations, variable decelerations and then a prolonged deceleration which ultimately lead to the decision for section on 07/13/23. There were no complications. On day #1 she was tolerating pain well and ambulating, on day#2 she was ready for discharge, however needed help with support and the baby was not yet cleared by pediatricians.on PPD#3 she was ambulating more and the baby was cleared. She has follow up support appt for ppd#4, outpatient. Physical Exam HEENT normocephalic Resp normal respiratory effort and normal air movement GI soft to palpation, non-tender and non-distended Rectal Exam: other Other Details: Incision is clean, dry, and intact no CVA tenderness Extremity normal to inspection General Extremity: edema bilateral (trace ) Weight / BMI Weight Weight: 233 lb Body Mass Index (BMI) 37.5 ABG / Lab / Microbiology Data 07/13/23 04:23 D/C Instructions Discharge Diet: No restrictions Discharge Activity: May Not Drive (for 2 weeks or while taking narcotic pain medications.), May Shower and May Take a Tub Bath (in 7 days.) May shower in (days): 0 May resume sexual activity in: 4-6 weeks Weight Bearing Status: Full weight bearing Lifting Restrictions: 20 pounds Call your doctor if your incision/area has: Continuous Slow Oozing, Sudden Increased Bleeding, Increased Pain/ Swelling, Increased Redness and Foul Smelling Discharge Call your doctor if you observe: Fever of 101 or Higher and Using more than 1 pad per hour (for 2 hours) Suture Line Care: Avoid Pulling/Pushing and Avoid Pinching/Bending Cleanse incision/area with: Soap & Water and Keep Dressing Clean & Dry Please Follow Up With: Tricia Todd MD When: Call [phone] to make an appointment for an incision check in 1-2 weeks. Meaningful Use Info Meaningful Use Diagnoses (Choose all that apply): None applicable Discharge Plan Admission Admit Date/Time: 07/11/23 18:50 Primary Reason for Your Visit: section Attending Provider: Tricia Todd Primary Care Provider: Aysha Joyner Discharge Orders/Prescriptions Prescriptions: New naproxen [naproxen] 500 mg tablet 500 mg PO BID PRN PRN (Reason: Pain) Qty: 30 1RF oxycodone-acetaminophen [Percocet] 5-325 mg tablet 1 tab PO Q4H PRN (Reason: pain) 7 Days Qty: 15 0RF Rx Instructions: 1-2 tabs q 4 hrs as needed for pain No Action amoxicillin-pot clavulanate 875-125 mg tablet 1 tab PO BID Qty: 14 0RF (DME) blood-glucose meter Misc See Rx Instructions .MEDSUPPLY Qty: 1 0RF Rx Instructions: As directed- Test fasting and 2 hours after meals (DME) lancets Misc See Rx Instructions .MEDSUPPLY Qty: 200 8RF Rx Instructions: As directed fasting and 2 HR post meals (DME) Blood Glucose Test Strip See Rx Instructions .Route Qty: 120 8RF Rx Instructions: As directed- fasting and 2 HR psot meals Referrals / Follow Up: Aysha Joyner PA [Primary Care Provider] - Disposition Disposition (needs filled in before D/C Order can be placed): Home, Self Care 07/15/23 0936 <Electronically signed by Estella Holder DO> Cosigner Signature (if applicable): CC: Dr. Estella Holder DO; MAGALY Grider~ Signed [facility] Work Phone: 1(523) 314-417011-11-2023 Progress note Author Estella [facility] July 14, 2023 6:08am Note Date/Time July 14, 2023 6:09am [facility] Medical Records Department [address] [place] [address] Progress Note - OBGYN 07/14/23606 MR#: [id number] Acct: [id number] Name: PILI SAMAYOA Rep #:[id number] : 1995 From: Estella Holder DO PCP: MAGALY Grider Status:ADM IN Location: [id number] Subjective Subjective Patient doing well without complaints. Tolerating PO. Ambulating and voiding without difficulty. Feeding well. Denies chest pain, shortness of breath, calf pain/swelling, fevers, chills, lightheadedness. Objective Data Objective Data Vital Signs: Vital Signs Temp Pulse Resp BP Pulse Ox O2 Del Method O2 Flow Rate 97.2 F L 80 17 126/83 H 95 Room Air 10 07/14/23 02:58 07/14/23 02:58 07/14/23 02:58 07/14/23 02:58 07/14/23 02:58 07/14/23 02:58 07/12/23 10:44 Oxygen Flow Rate (L/min) 10 Oxygen Delivery Method Room Air Weight: 233 lb Body Mass Index (BMI) 37.5 Intake & Output: Intake and Output for Last 24 Hours 07/12/23 07/13/23 07/14/23 23:59 23:59 23:59 Intake Total 3332.91 / 3332.91 1563.33 / 1563.33 Output Total 1500 / 1500 1600 / 1600 Balance 1832.91 / 1832.91 -36.67 / -36.67 Lab / Micro Data 07/13/23 04:23 ROS Constitutional Constitutional: Denies chills, fatigue, fever(s), poor appetite or weakness Eyes Eyes: Denies blurry vision, change in vision, seeing flashes or spots in vision ENT HEENT: Denies dizziness, headache(s), loss taste/smell or sore throat Cardiovascular Cardiovascular: Denies chest pain, dizziness, dyspnea, irregular heart rhythm, palpitations or rapid heart rate Respiratory/Chest Respiratory/Chest: Denies chest tightness, cough, dyspnea or breast pain Gastrointestinal Gastrointestinal: Denies abdominal pain, constipation or vomiting Genitourinary Genitourinary: Denies dysuria or flank pain Musculoskeletal Musculoskeletal: Denies difficulty walking, joint pain, limited range of motion or numbness Neurologic Neurologic: Denies abnormal movements, abnormal speech, dizziness, numbness, seizure-like activity or syncope Psychiatric Psychiatric: Denies anxiety, behavioral changes, change in appetite, confusion, depression or suicidal thoughts Physical Exam Const alert, oriented x3 and no apparent distress General Appearance: cooperative and comfortable Resp normal respiratory effort Cardio regular rate GI normal to inspection, nondistended, normoactive bowel sounds GI Narrative: uterus is firm below umbilicus Palpation: soft Back/Spine no CVA tenderness and thoraco-lumbar ROM normal Extremity normal to inspection, no clubbing, cyanosis or edema, no calf tenderness and no pedal edema Psych mental status grossly normal, thought process normal, cooperative, affect normal, speech normal, activity/motor behavior normal, denies homicidal ideationand denies suicidal ideation Assessment & Plan (1) delivery delivered: COMMENT: LTCS 40 recurrent decels 6 cm boy (2) Gestational diabetes mellitus (GDM): QUALIFIERS: Gestational diabetes mellitus control: diet-controlled Trimester: third trimester Qualified Code(s): O24.410 - Gestational diabetes mellitus in , diet controlled COMMENT: nutrition consult and supplies ordered. testing ordered. (3) PCOS (polycystic ovarian syndrome): COMMENT: with irregula cycles (4) Anxiety: COMMENT: no meds currently, stable. PLAN: Plan s/p LTCS PPD # 2 1. routine post care 2. breast feeding- support given 3. rh positive 4. rubella immune 5. plan to send home later today after breakfast and when peds has rounded on her baby 07/14/23 0608 <Electronically signed by Estella Holder DO> Cosigner Signature (if applicable): CC: ~ Signed [facility] Work Phone: 1(650) 694-100811-10-2023 Progress note Author Estella [facility] July 13, 2023 6:56am Note Date/Time July 13, 2023 6:56am [facility] Medical Records Department [address] [place] [address] Progress Note - OBGYN 07/13/23 0654 MR#: [id number] Acct: [id number] Name: PILI SAMAYOA Rep #:[id number] : 1995 From: Estella Holder DO PCP: MAGALY Grider Status:ADM IN Location: [id number] Subjective Subjective Patient is laying in bed comfortably without complaints. She states that she slept on an off during the night. Lochia is mild and pain is minimal. patient states that her baby is having glucose problems but other than that they are both doing well. Objective Data Objective Data Vital Signs: Vital Signs Temp Pulse Resp BP Pulse Ox O2 Del Method O2 Flow Rate 97.6 F L 87 16 119/72 98 Room Air 10 07/13/23 04:30 07/13/23 04:30 07/13/23 04:30 07/13/23 04:30 07/13/23 04:30 07/13/23 04:30 07/12/23 10:44 Oxygen Flow Rate (L/min) 10 Oxygen Delivery Method Room Air Weight: 233 lb Body Mass Index (BMI) 37.5 Intake & Output: Intake and Output for Last 24 Hours 07/11/23 07/12/23 07/13/23 23:59 23:59 23:59 Intake Total 3332.91 / 3332.91 833.33 / 833.33 Output Total 1500 / 1500 900 / 900 Balance 1832.91 / 1832.91 -66.67 / -66.67 Lab / Micro Data 07/13/23 04:23 Labs: Laboratory Results - last 24 hr 07/12/23 07:49: POC Glucose 79 07/12/23 11:48: POC Glucose 58 L 07/12/23 12:07: POC Glucose 75 07/12/23 14:17: POC Glucose 80 07/12/23 15:06: POC Glucose 58 L 07/12/23 15:26: POC Glucose 71 L 07/12/23 17:56: POC Glucose 67 L 07/12/23 18:23: POC Glucose 72 L 07/13/23 04:18: POC Glucose 103 07/13/23 04:23: WBC 12.2 H, RBC 4.11 L, Hgb 10.7 L, Hct 34.3 L, MCV 83.5, MCH 26.0 L, MCHC 31.2 L, RDW Std Deviation 43.6, RDW Coeff of Aixa 14.3, Plt Count 208, MPV 11.3 ROS Constitutional Constitutional: Reports systems reviewed and no addt'l complaints, except as documented Cardiovascular Cardiovascular: Denies chest pain, dizziness, dyspnea or irregular heart rhythm Respiratory/Chest Respiratory/Chest: Denies cough, pain on inspiration or shortness of breath at rest Gastrointestinal Gastrointestinal: Denies abdominal pain, nausea or vomiting Genitourinary Genitourinary: Denies burning urination Musculoskeletal Musculoskeletal: Denies muscle cramps, muscle spasms or muscle weakness Neurologic Neurologic: Denies confusion, dizziness, headache(s) or lack of coordination Psychiatric Psychiatric: Denies anxiety, behavioral changes or depression Physical Exam HEENT normocephalic Resp normal respiratory effort and normal air movement GI soft to palpation, non-tender and non-distended Rectal Exam: other Other Details: Incision is clean, dry, and intact no CVA tenderness Extremity normal to inspection General Extremity: edema bilateral (trace ) Assessment & Plan (1) delivery delivered: COMMENT: SM LTCS 40 recurrent decels 6 cm boy PLAN: s/p LTCS PPD # 1 1. routine post care 2. breast feeding- support given 3. rh positive 4. rubella immune 5. plan for dc likely tomorrow due to GDM and hypoglycemia (2) Gestational diabetes mellitus (GDM): QUALIFIERS: Gestational diabetes mellitus control: diet-controlled Trimester: third trimester Qualified Code(s): O24.410 - Gestational diabetes mellitus in , diet controlled COMMENT: nutrition consult and supplies ordered. testing ordered. (3) PCOS (polycystic ovarian syndrome): COMMENT: with irregula cycles (4) Anxiety: COMMENT: no meds currently, stable. 07/13/23 0656 <Electronically signed by Estella Holder DO> Cosigner Signature (if applicable): CC: ~ Signed [facility] Work Phone: 1(890) 345-594011-09-2023 Discharge summary Author Tricia Todd [facility] July 12, 2023 5:33pm Note Date/Time July 12, 2023 4 :20pm [facility] Medical Records Department [address] [place] [address] Instructions for Home/Discharge Instructions 07/12/23 1619 MR#: [id number] Acct: [id number] Name: PILI SAMAYOA Rep #:[id number] : 1995 From: Tricia smiley MD PCP: MAGALY Grider Status:ADM IN Discharge Instructions Diet Discharge Diet: No restrictions Activity Discharge Activity: May Not Drive (for 2 weeks or while taking narcotic pain medications.), May Shower and May Take a Tub Bath (in 7 days) May shower in (days): 0 May resume sexual activity in: 4-6 weeks Weight Bearing Status: Full weight bearing Lifting Restrictions: 20 pounds Dressing / Incision Call your doctor if your incision/area has: Continuous Slow Oozing, Sudden Increased Bleeding, Increased Pain/ Swelling, Increased Redness and Foul Smelling Discharge Call your doctor if you observe: Fever of 101 or Higher and Using more than 1 pad per hour (for 2 hours) Suture Line Care: Avoid Pulling/Pushing and Avoid Pinching/Bending Cleanse incision/area with: Soap & Water and Keep Dressing Clean & Dry Follow Up Care Please Follow Up With: Tricia Todd MD When: Call [phone] to make an appointment for an incision check in 1-2 weeks. Test Results: Test results from this visit will be discussed in further detail at your follow- up appointment, if applicable. Discharge Plan Admission Admit Date/Time: 07/11/23 18:50 Attending Provider: Tricia Todd Primary Care Provider: Aysha Joyner Discharge Orders/Prescriptions Prescriptions: New naproxen [naproxen] 500 mg tablet 500 mg PO BID PRN PRN (Reason: Pain) Qty: 30 1RF No Action amoxicillin-pot clavulanate 875-125 mg tablet 1 tab PO BID Qty: 14 0RF (DME) blood-glucose meter Misc See Rx Instructions .MEDSUPPLY Qty: 1 0RF Rx Instructions: As directed- Test fasting and 2 hours after meals (DME) lancets Misc See Rx Instructions .MEDSUPPLY Qty: 200 8RF Rx Instructions: As directed fasting and 2 HR post meals (DME) Blood Glucose Test Strip See Rx Instructions .Route Qty: 120 8RF Rx Instructions: As directed- fasting and 2 HR psot meals Referrals / Follow Up: Aysha Joyner PA [Primary Care Provider] - Disposition Disposition (needs filled in before D/C Order can be placed): Home, Self Care 07/12/23 1733<Electronically signed by Tricia Todd MD>Tricia Todd MD CC: MAGALY Grider ~ Signed [facility] Work Phone: 1(291) 119-949611-09-2023 Procedure [facility] 07-12-2023 Progress note Author Tricia Todd [facility] July 12, 2023 2:37pm Note Date/Time July 12, 2023 2 :37pm [facility] System Medical Records Department [address] [place] [address] Progress Note 07/12/23 1435 MR#: [id number] Acct: [id number] Name: PILI SAMAYOA Rep #:[id number] : 1995 27 From: Tricia smiley MD PCP: MAGALY Grider Status:ADM IN Location: [id number] Progress Note cat II tracing earlier resolved with position changes and amnioinfusion. exp management after spear bulb spontaneously removed. arom clear fluid. current tracing: FHT: 130 Moderate variability reactive early decelerations category I tracing Helix: q 2-4 Contractions reviewed tracing abnormalities since last note: intermittent variables and early A/P: pitocin if able for no cervical change, labor positions, s/p fluid boluses. epidural adequate. 07/12/237 <Electronically signed by Tricia Todd MD> Tricia Todd MD Cosigner Signature (if applicable): CC: ~ Signed [facility] Work Phone: 1(836) 559-702311-09-2023 History and physical note Author Tricia Todd [facility] July 12, 2023 2:35pm Note Date/Time July 12, 2023 2 :35pm [facility] Medical Records Department [address] [place] [address] H&P Exam - HOME HEALTH AIDE CAREGIVER 07/12/231432 MR#: [id number] Acct: [id number] Name: PILI SAMAYOA Rep #:[id number] : 1995 27 From: Tricia smiley MD PCP: MAGALY Grider Status:ADM IN Location: [id number] HPI - General General Date of Admission: 07/11/23 HPI Narrative PILI SAMAYOA, is a 27 F who presents for IOL secondary to gdm. she has had goodcontrol with diet alone, no medications. Maternal Data Information ELKE Calculator Estimated Delivery Date Method Current WG Current Estimate 07/11/23 Ultrasound #1 40w 1d Other Estimates 07/03/23 LMP (Certain) 41w 2d PFSH PFS Medical History (Updated 07/12/23 @ 14:[address] Tricia Todd MD) Anxiety Family history of hearing loss at age younger than 7 years pyelectasis Gestational diabetes Infertility Molar Trauma Home Medications blood sugar diagnostic (Blood Glucose Test strips) #120 ea 04/19/23 [Rx Last Taken Unknown] blood-glucose meter #1 ea 04/19/23 [Rx Last Taken Unknown] lancets #200 ea 04/19/23 [Rx Last Taken Unknown] amoxicillin 875 mg-potassium clavulanate 125 mg tablet 1 tab PO BID absess #14 tabs 07/06/23 [Rx Last Taken Unknown] Allergy/AdvReac Type Severity Reaction Status Date / Time No Known Allergies Allergy Verified 07/11/23 19:19 Family History Mother Hypertension Gestational diabetes Father Hypertension Brother Hypertension Sister Hypertension PCOS (polycystic ovarian syndrome) Sister PCOS (polycystic ovarian syndrome) Surgical History (Updated 07/11/23 @ 19:47 by Jo Zamora) History of D&C History of gynecologic surgery S/P wisdom tooth extraction Social History adopted: No household members: spouse number of children: 0 current occupational status: employed current occupation: [employer] pets and animals: Yes (avoid litter box) pets and animals: cat(s) history of recent travel: No sexually active: Yes Smoking Status: Never smoker alcohol intake: current alcohol intake frequency: holidays/special occasions only details: not while substance use type: does not use well-balanced diet: about half the time caffeine: Yes Type: coffee Number of servings: 1 seatbelt use: always do you feel safe at home: Yes additional social history: [facility] History 2 Elective abortions Hx Para 0 Spontaneous abortions Hx # Term Pregnancies Ectopic pregnancies Hx # Pregnancies Multiple births # of living children 0 Visit Details Expected Delivery Route/Plan Labor Preferences- CB/BF classes: yes labor support person: Pako labor intervention preferences: [] pain management options preferred: ok with epidural cut cord/dad catch: no : yes PP control planned: discussed discussed possible routes of delivery and associated risks: [] special requests: [] Plans Covid status: unvaccinated Flu vaccine: obtained. Tdap vaccine: [] Rhogam: NA LARC form signed: yes Problem list reviewed and updated with the most current plan of care details and appropriate orders placed. Relevant counseling for the gestational age provided. Continue routine care and follow up unless otherwise noted in visit notes/problem list details OB Flowsheet Initial Weight: Not Recorded Date -?-?-?-?-?-?-?-?-?-?-?-?- EGA Weight BP Urine Prot -?-?-?-?-?-?-?-?-?-?-?-?- Glucose FHR FuHt Pres Dilation -?-?-?-?-?-?-?-?-?-?-?-?- Effaced St Visit Note 11/29/22 -?-?-?-?-?-?-?-?-?-?-?-?- 8w 0d 205 lb 6 oz 140/88 -?-?-?-?-?-?-?-?-?-?-?-?- 153 -?-?-?-?-?-?-?-?-?-?-?-?- JV JV- single live IUP measurin g 8 weeks 0 days and not consistent with LMP. new elke of 07/11/23 given. desires NIPT. had molar and wants to come back in 2 weeks for heart tones. 12/15/22 -?-?-?-?-?-?-?-?-?-?-?-?- 10w 2d 205 lb 4 oz 132/86 Nega tive -?-?-?-?-?-?-?-?-?-?-?-?- Negative 180 -?-?-?-?-?-?-?-?-?-?-?-?- JV- CRL consiste nt with 10 weeks. no bleeding, has mild cramping. fht reassuring today. nipt ordered along with other pnl. pt wants to return in 2 weeks for heart tones. 12/29/22 -?-?-?-?-?-?-?-?-?-?-?--?- 12w 2d 204 lb 4 oz 128/77 Nega tive -?-?-?-?-?-?-?-?-?-?-?-?- Negative 145 -?-?-?-?-?-?-?-?-?-?-?-?- JV- some nausea no vomiting. anatomy ultrasound ordered. plan for 12 weeks maternity leave 01/26/23 -?-?-?-?-?-?-?-?-?-?-?-?- 16w 2d 206 lb 6 oz 130/81 Nega tive -?-?-?-?-?-?-?-?-?-?-?-?- Negative 150 -?-?-?-?-?-?-?-?-?-?-?-?- kw-no cramping/v b. discussed AFP- will decide after US -02/19. no concerns. 02/23/23 -?-?-?-?-?-?-?-?-?-?-?-?- 20w 2d 209 lb 2 oz 132/80 Nega tive -?-?-?-?-?-?-?-?-?-?-?-?- Negative 155 -?-?-?-?-?-?-?-?-?-?-?-?- JV- dilated yoana l pelvis bilaterally (7mm) and limited views of heart. will need follow up in 2 weeks with mfm .decided against afp. 03/23/23 -?-?-?-?-?-?-?-?-?-?-?-?- 24w 2d 212 lb 8 oz 116/77 Nega tive -?-?-?-?-?-?-?-?-?-?-?-?- Negative 145 27 -?-?-?-?-?-?-?-?-?-?-?-?- JV- no complaint s today. follow up scan in at 28 weeks. gct ordered. 04/20/23 -?-?-?-?-?-?-?-?-?-?-?-?- 28w 2d 218 lb 6 oz 128/88 Nega tive -?-?-?-?-?-?-?-?-?-?-?-?- Negative 140 28 -?-?-?-?-?-?-?-?-?-?-?-?- SM- no vb lof good fm no reg ular ctx discussed new diabetes diagnosis. fu in 1 week to review 04/27/23 -?-?-?-?-?-?-?-?-?-?-?-?- 29w 2d 218 lb 2 oz 218 lb 122/70 -?-?--?-?-?-?-?-?-?-?-?-?- 145 -?-?-?-?-?-?-?-?-?-?-?-?- SM- no vb lof go od fm no regular ctx. arrhythmia heard, 04/10 bedside BPP seen, reviewed BS. recommend MFM consult and echo 05/09/23 -?-?-?-?-?-?-?-?-?-?-?-?- 31w 0d 218 lb 2 oz 122/82 Nega tive -?-?-?-?-?-?-?-?-?-?-?-?- Negative 146 31 -?-?-?-?-?-?-?-?-?-?-?-?- MH-Normal FHT rh ythm today. Has echo and US next week. Denies VB. Good FM. Larc. 06/08/23 -?-?-?-?-?-?-?-?-?-?-?-?- 35w 2d 225 lb 118/80 -?-?-?-?-?-?-?-?-?-?-?-?- 150 35 -?-?-?-?-?-?-?-?-?-?-?-?- LC- no vb/ctx/lo f. good fm. normal echo. + arrhythmia continues. 06/15/23 -?-?-?-?-?-?-?-?-?-?-?-?- 36w 2d 223 lb 8 oz 120/81 Nega tive -?-?-?-?-?-?-?-?-?-?-?-?- Negative 150 36 -?-?-?-?-?-?-?-?-?-?-?-?- SM- no vb lof go od fm no regular ctx 06/22/23 -?-?-?-?-?-?-?-?-?-?-?-?- 37w 2d 226 lb 2 oz 128/82 Nega tive -?-?-?-?-?-?-?-?-?-?-?-?- Negative 150 37 -?-?-?-?-?-?-?-?-?-?-?-?- JV- NST reactive , some arrhythmia heard periodically but no disruption in rhythm strip JV- NST reactive, some arrhy thmia heard periodically but no disruption in rhythm strip. glucose numbers within normal range 06/29/23 -?-?-?-?-?-?-?-?-?-?-?-?- 38w 2d 231 lb 8 oz 131/84 Nega tive -?-?-?-?-?-?-?-?-?-?-?-?- Negative 140 37 Cephalic 0 -?-?-?-?-?-?-?-?-?-?-?-?- JV- normal gluco se levels, nst reactive 07/06/23 -?-?-?-?-?-?-?-?-?-?-?-?- 39w 2d 231 lb 8 oz 137/88 Nega tive -?-?-?-?-?-?-?-?-?-?-?-?- Negative 150 38 Cephalic 0 -?-?-?-?-?-?-?-?-?-?-?-?- JV- NST reactive . pt has a groin abscess that wants lanced. IOL for sunday next week NST FHR Rate Baby A Baseline: 130 Variability:: Moderate Accelerations:: 15 x 15 Decelerations:: None NST Reactive:: Yes FHR Category:: Category I Uterine Activity:: irregular ROS Constitutional Constitutional: Reports systems reviewed and no addt'l complaints, except as documented Eyes Eyes: Denies change in vision ENT HEENT: Reports systems reviewed and no addt'l complaints, except as documented; Denies headache(s) Cardiovascular Cardiovascular: Reports systems reviewed and no addt'l complaints, except as documented; Denies chest pain or dyspnea Respiratory/Chest Respiratory/Chest: Reports systems reviewed and no addt'l complaints, except as documented Gastrointestinal Gastrointestinal: Reports systems reviewed and no addt'l complaints, except as documented; Denies abdominal pain Genitourinary Genitourinary: Reports systems reviewed and no addt'l complaints, except as documented, contractions Details: present (irregular) and movement Details: present; Denies dysuria or genital lesions Musculoskeletal Musculoskeletal: Reports systems reviewed and no addt'l complaints, except as documented Neurologic Neurologic: Reports systems reviewed and no addt'l complaints, except as documented Endocrine Endocrinology: Reports systems reviewed and no addt'l complaints, except as documented Vital Signs Vital Signs Vital Signs: 07/11/23 19:48 07/11/23 19:48 07/11/23 19:48 Temperature Temperature Source Temporal Pulse Rate 86 Respiratory Rate Blood Pressure 132/88 H Blood Pressure Mean BP Systolic 132 BP Diastolic 88 Blood Pressure Source Blood Pressure Location Pulse Ox Oxygen Delivery Method Oxygen Flow Rate (L/min) 07/11/23 19:48 07/11/23 23:57 07/11/23 23:57 Temperature 97.4 F L Temperature Source Pulse Rate 72 Respiratory Rate Blood Pressure 136/82 H Blood Pressure Mean BP Systolic 136 BP Diastolic 82 Blood Pressure Source Blood Pressure Location Pulse Ox Oxygen Delivery Method Oxygen Flow Rate (L/min) 07/11/23 23:57 07/11/23 23:57 07/12/23 03:55 Temperature 97.4 F L Temperature Source Temporal Pulse Rate Respiratory Rate Blood Pressure 132/90 H Blood Pressure Mean BP Systolic 132 BP Diastolic 90 Blood Pressure Source Blood Pressure Location Pulse Ox Oxygen Delivery Method Oxygen Flow Rate (L/min) 07/12/23 03:55 07/12/23 03:55 07/12/23 07:51 Temperature 97.3 F L Temperature Source Pulse Rate 68 Respiratory Rate Blood Pressure 138/85 H Blood Pressure Mean BP Systolic 138 BP Diastolic 85 Blood Pressure Source Blood Pressure Location Pulse Ox Oxygen Delivery Method Oxygen Flow Rate (L/min) 07/12/23 07:51 07/12/23 07:52 07/12/23 07:52 Temperature Temperature Source Temporal Pulse Rate 68 Respiratory Rate Blood Pressure Blood Pressure Mean BP Systolic BP Diastolic Blood Pressure Source Blood Pressure Location Pulse Ox 100 Oxygen Delivery Method Oxygen Flow Rate (L/min) 07/12/23 07:52 07/12/23 08:11 07/12/23 08:11 Temperature 97.0 F L Temperature Source Pulse Rate 93 Respiratory Rate Blood Pressure 142/104 H Blood Pressure Mean BP Systolic 142 BP Diastolic 104 Blood Pressure Source Blood Pressure Location Pulse Ox Oxygen Delivery Method Oxygen Flow Rate (L/min) 07/12/23 08:21 07/12/23 08:21 07/12/23 08:23 Temperature Temperature Source Pulse Rate 80 Respiratory Rate Blood Pressure 122/69 H 125/73 H Blood Pressure Mean BP Systolic 122 125 BP Diastolic 69 73 Blood Pressure Source Blood Pressure Location Pulse Ox Oxygen Delivery Method Oxygen Flow Rate (L/min) 07/12/23 08:23 07/12/23 08:21 07/12/23 08:23 Temperature Temperature Source Pulse Rate 83 Respiratory Rate Blood Pressure Blood Pressure Mean BP Systolic BP Diastolic Blood Pressure Source Blood Pressure Location Pulse Ox 99 99 Oxygen Delivery Method Oxygen Flow Rate (L/min) 07/12/23 08:28 07/12/23 08:28 07/12/23 08:33 Temperature Temperature Source Pulse Rate 85 Respiratory Rate Blood Pressure 113/66 119/68 Blood Pressure Mean BP Systolic 113 119 BP Diastolic 66 68 Blood Pressure Source Blood Pressure Location Pulse Ox Oxygen Delivery Method Oxygen Flow Rate (L/min) 07/12/23 08:33 07/12/23 08:33 07/12/23 08:40 Temperature Temperature Source Pulse Rate 86 Respiratory Rate Blood Pressure 123/78 H Blood Pressure Mean BP Systolic 123 BP Diastolic 78 Blood Pressure Source Blood Pressure Location Pulse Ox 99 Oxygen Delivery Method Oxygen Flow Rate (L/min) 07/12/23 08:40 07/12/23 08:40 07/12/23 08:43 Temperature Temperature Source Pulse Rate 108 H Respiratory Rate Blood Pressure 120/73 Blood Pressure Mean BP Systolic 120 BP Diastolic 73 Blood Pressure Source Blood Pressure Location Pulse Ox 98 Oxygen Delivery Method Oxygen Flow Rate (L/min) 07/12/23 08:43 07/12/23 08:43 07/12/23 08:43 Temperature Temperature Source Temporal Pulse Rate 83 Respiratory Rate Blood Pressure Blood Pressure Mean BP Systolic BP Diastolic Blood Pressure Source Blood Pressure Location Pulse Ox 98 Oxygen Delivery Method Oxygen Flow Rate (L/min) 07/12/23 08:43 07/12/23 09:28 07/12/23 09:28 Temperature 97.2 F L Temperature Source Pulse Rate 88 Respiratory Rate Blood Pressure 109/68 Blood Pressure Mean BP Systolic 109 BP Diastolic 68 Blood Pressure Source Blood Pressure Location Pulse Ox Oxygen Delivery Method Oxygen Flow Rate (L/min) 07/12/23 09:28 07/12/23 10:45 07/12/23 10:45 Temperature Temperature Source Pulse Rate 85 Respiratory Rate Blood Pressure 119/72 Blood Pressure Mean BP Systolic 119 BP Diastolic 72 Blood Pressure Source Blood Pressure Location Pulse Ox 98 Oxygen Delivery Method Oxygen Flow Rate (L/min) 07/12/23 10:45 07/12/23 10:45 07/12/23 10:45 Temperature 97.6 F L Temperature Source Temporal Pulse Rate Respiratory Rate Blood Pressure Blood Pressure Mean BP Systolic BP Diastolic Blood Pressure Source Blood Pressure Location Pulse Ox 100 Oxygen Delivery Method Oxygen Flow Rate (L/min) 07/12/23 12:25 07/12/23 12:25 07/12/23 12:25 Temperature Temperature Source Temporal Pulse Rate 95 Respiratory Rate Blood Pressure 100/55 L Blood Pressure Mean BP Systolic 100 BP Diastolic 55 Blood Pressure Source Blood Pressure Location Pulse Ox Oxygen Delivery Method Oxygen Flow Rate (L/min) 07/12/23 12:25 07/12/23 12:25 07/12/23 14:14 Temperature 96.7 F L Temperature Source Pulse Rate Respiratory Rate Blood Pressure 109/70 Blood Pressure Mean BP Systolic 109 BP Diastolic 70 Blood Pressure Source Blood Pressure Location Pulse Ox 100 Oxygen Delivery Method Oxygen Flow Rate (L/min) 07/12/23 14:14 07/12/23 14:14 07/12/23 14:14 Temperature Temperature Source Temporal Pulse Rate 83 83 Respiratory Rate Blood Pressure Blood Pressure Mean BP Systolic BP Diastolic Blood Pressure Source Blood Pressure Location Pulse Ox Oxygen Delivery Method Oxygen Flow Rate (L/min) 07/12/23 14:14 07/12/23 14:14 07/12/23 10:44 Temperature 97.4 F L 97.6 F L Temperature Source Temporal Pulse Rate 85 Respiratory Rate 16 Blood Pressure 119/72 Blood Pressure Mean 87 BP Systolic BP Diastolic Blood Pressure Source Monitor Blood Pressure Location Right Arm Pulse Ox 100 100 Oxygen Delivery Method Non-Rebreather Oxygen Flow Rate (L/min) 10 Weight Weight: 233 lb Body Mass Index (BMI) 37.5 Physical Exam Const alert, oriented x3, no apparent distress and healthy appearing HEENT normocephalic and moist oral mucous membranes Head and Scalp: atraumatic Neck full ROM, no lymphadenopathy, supple and thyroid normal General: trachea midline Lymph Lymphatic: no lymphadenopathy noted Chest inspection of chest normal Resp normal respiratory effort Cardio regular rate GI normal to inspection, nondistended, normoactive bowel sounds, soft to palpation and non-tender Inspection: gravid external exam normal Manual OB Exam: estimated gestational size appropriate, presentation cephalic, dilated, effaced and station Extremity normal to inspection General Extremity: Negative for edema Skin no rashes or lesions noted Neuro no focal motor deficits and deep tendon reflexes 2+ bilaterally Motor Exam: strength 5/5 throughout and clonus absent Psych mental status grossly normal Labs Labs Labs: Blood Type O POSITIVE Antibody Screen NEGATIVE Hct 38.0 % (37-47) Hgb 11.9 g/dL (12.0-15.0) L Pap Smear Negative Obstetrics Ultrasound Syphilis Total Ab Non-reactive Rubella IgG Antibody Reactive (Nonreactive) Hep Bs Antigen Non-Reactive (Nonreactive) Hepatitis C Antibody Non-Reactive (Nonreactive) Chlamydia DNA (GALILEA) Negative (Negative) N.gonorrhoeae DNA (GALILEA) Negative (Negative) HIV 1&2 Antibody Non-Reactive (Nonreactive) Glucose 1 Hr 50 gm 185 mg/dL (70-140) H Gest Glucose Tolerance MG/DL Assessment & Plan (1) arrhythmia affecting , antepartum: COMMENT: MFM consult recommended. 04/10 BPP 04/27 in office. arrhythmia heard 145 heart rate. 05/16 and rpt US 05/17 (2) Gestational diabetes mellitus (GDM): QUALIFIERS: Gestational diabetes mellitus control: diet-controlled Trimester: third trimester Qualified Code(s): O24.410 - Gestational diabetes mellitus in , diet controlled COMMENT: nutrition consult and supplies ordered. testing ordered. (3) Obesity affecting : COMMENT: enc healthy weight gain (4) History of molar : (5) : QUALIFIERS: Weeks of gestation: 39 weeks Qualified Code(s): Z3A.39 - 39 weeks gestation of COMMENT: NIPT low risk, declined carrier and NTD screening, anatomy reviewed. (6) Supervision of high risk , antepartum: COMMENT: PRR ELKE 07/03/23 boy Spouse: Pako (7) PCOS (polycystic ovarian syndrome): COMMENT: with irregula cycles (8) Anxiety: COMMENT: no meds currently, stable. (9) pyelectasis: COMMENT: continues @ 28 wks, follow up US after 32 weeks: 05/17-55%. Rpt 4 wk PLAN: Plan Patient presents IOL, plan management for with cytotec overnight then fb and then pit. Pain management: plans epidural. GBS negative. Management of any complications: arhythmia, gdm I have reviewed the [facility] and made any clinically relevant updates. 07/12/23 1435 <Electronically signed by Tricia Todd MD> Cosigner Signature (if applicable): CC: Dr. Tricia Todd MD; MAGALY Grider~ Signed [facility] Work Phone: [phone] NotePap Smear Specimen AdequacyMarch 2022 1:43pmComment.Satisfactory for evaluation. Endocervical and/or squamous metaplasticcells (endocervical component)are present.[facility]ED A#[id number] Hospitals Health SystemComment on above:Satisfactory for evaluation. Endocervical and/or squamous metaplasticcells (endocervical component)are present.Evaluation noteNo assessment information availableWUniversity Hospitals Health System Work Phone: Evaluation note* Diagnosis Onset Date Resolution Status Anxiety acute History of molar a cute Obesity affecting acute PCOS (polycystic ovarian syndrome) acute acute Supervision of high risk , antepartum acute [facility] Work Phone: Evaluation note* Diagnosis Onset Date Resolution Status Anxiety acute History of molar a cute Obesity affecting acute PCOS (polycystic ovarian syndrome) acute acute Supervision of high risk , antepartum acute Anxiety acute History of molar a cute Obesity affecting acute PCOS (polycystic ovarian syndrome) acute acute Supervision of high risk , antepartum acute Anxiety acute History of molar a cute Obesity affecting acute PCOS (polycystic ovarian syndrome) acute acute Supervision of high risk , antepartum acute [facility] Work Phone: Evaluation note* Diagnosis Onset Date Resolution Status Anxiety acute History of molar a cute Obesity affecting acute PCOS (polycystic ovarian syndrome) acute acute Supervision of high risk , antepartum acute Anxiety acute History of molar a cute Obesity affecting acute PCOS (polycystic ovarian syndrome) acute acute Supervision of high risk , antepartum acute Anxiety acute pyelectasis acute History of molar a cute Obesity affecting acute PCOS (polycystic ovarian syndrome) acute acute Supervision of high risk , antepartum acute Anxiety acute pyelectasis acute History of molar a cute Obesity affecting acute PCOS (polycystic ovarian syndrome) acute acute Supervision of high risk , antepartum acute Anxiety acute pyelectasis acute Gestational diabetes mellitus (GDM) acute History of molar a cute Obesity affecting acute PCOS (polycystic ovarian syndrome) acute acute Supervision of high risk , antepartum acute [facility] Work Phone: Evaluation note* Diagnosis Onset Date Resolution Status Anxiety acute pyelectasis acute History of molar a cute Obesity affecting acute PCOS (polycystic ovarian syndrome) acute acute Supervision of high risk , antepartum acute Anxiety acute pyelectasis acute History of molar a cute Obesity affecting acute PCOS (polycystic ovarian syndrome) acute acute Supervision of high risk , antepartum acute Anxiety acute pyelectasis acute Gestational diabetes mellitus (GDM) acute History of molar a cute Obesity affecting acute PCOS (polycystic ovarian syndrome) acute acute Supervision of high risk , antepartum acute Anxiety acute arrhythmia affecting , antepartum acute pyelectasis acute Gestational diabetes mellitus (GDM) acute History of molar a cute Obesity affecting acute PCOS (polycystic ovarian syndrome) acute acute Supervision of high risk , antepartum acute arrhythmia affecting , antepartum acute pyelectasis acute Gestational diabetes mellitus (GDM) acute History of molar a cute acute Supervision of high risk , antepartum acute Anxiety acute arrhythmia affecting , antepartum acute pyelectasis acute Gestational diabetes mellitus (GDM) acute History of molar a cute Obesity affecting acute PCOS (polycystic ovarian syndrome) acute acute Supervision of high risk , antepartum acute Anxiety acute arrhythmia affecting , antepartum acute pyelectasis acute Gestational diabetes mellitus (GDM) acute History of molar a cute Obesity affecting acute PCOS (polycystic ovarian syndrome) acute acute Supervision of high risk , antepartum acute [facility] Work Phone: Evaluation note* Diagnosis Onset Date Resolution Status Anxiety acute PCOS (polycystic ovarian syndrome) acute pyelectasis resolved History of molar r esolved Obesity affecting resolved resolved Supervision of high risk , antepartum resolved Anxiety acute Gestational diabetes mellitus (GDM) acute PCOS (polycystic ovarian syndrome) acute pyelectasis resolved History of molar r esolved Obesity affecting resolved resolved Supervision of high risk , antepartum resolved Anxiety acute Gestational diabetes mellitus (GDM) acute PCOS (polycystic ovarian syndrome) acute arrhythmia affecting , antepartum resolved pyelectasis resolved History of molar r esolved Obesity affecting resolved resolved Supervision of high risk , antepartum resolved Gestational diabetes mellitus (GDM) acute arrhythmia affecting , antepartum resolved pyelectasis resolved History of molar r esolved resolved Supervision of high risk , antepartum resolved Anxiety acute Gestational diabetes mellitus (GDM) acute PCOS (polycystic ovarian syndrome) acute arrhythmia affecting , antepartum resolved pyelectasis resolved History of molar r esolved Obesity affecting resolved resolved Supervision of high risk , antepartum resolved Anxiety acute Gestational diabetes mellitus (GDM) acute PCOS (polycystic ovarian syndrome) acute arrhythmia affecting , antepartum resolved pyelectasis resolved History of molar r esolved Obesity affecting resolved resolved Supervision of high risk , antepartum resolved Anxiety acute Gestational diabetes mellitus (GDM) acute PCOS (polycystic ovarian syndrome) acute arrhythmia affecting , antepartum resolved pyelectasis resolved History of molar r esolved Obesity affecting resolved resolved Supervision of high risk , antepartum resolved Anxiety acute Gestational diabetes mellitus (GDM) acute PCOS (polycystic ovarian syndrome) acute arrhythmia affecting , antepartum resolved pyelectasis resolved History of molar r esolved Obesity affecting resolved resolved Supervision of high risk , antepartum resolved Anxiety acute Gestational diabetes mellitus (GDM) acute PCOS (polycystic ovarian syndrome) acute arrhythmia affecting , antepartum resolved pyelectasis resolved History of molar r esolved Obesity affecting resolved resolved Supervision of high risk , antepartum resolved Anxiety acute delivery delivered acute Gestational diabetes mellitus (GDM) acute PCOS (polycystic ovarian syndrome) acute Encounter for induction of labor resolved arrhythmia affecting , antepartum resolved heart deceleration res olved pyelectasis resolved History of molar r esolved Obesity affecting resolved resolved Supervision of high risk , antepartum resolved [facility] Work Phone: Summary Purpose Family History No Family History Records Found Relationship Condition Age at Onset Recorded Date/T [place] mother Hypertension Unknown Gestational diabetes mellitus (GDM) Unkno wn father Hypertension Unknown brother Hypertension Unknown sister Hypertension Unknown sister Polycystic ovary syndrome Unknown Relationship Condition Age at Onset Recorded Date/T [place] mother Hypertension Unknown Gestational diabetes mellitus (GDM) Unkno wn father Hypertension Unknown brother Hypertension Unknown sister Hypertension Unknown Polycystic ovary syndrome Unknown sister Polycystic ovary syndrome Unknown Colon Cancer Status:Active Dementia Status:Active Hypertension Status:Active Comments:Mother. Father. Brother. Sister. Family Members In General. Status:Active Osteoarthritis Status:Active Comments:Mother. Father. Colon Cancer Status:Active Dementia Status:Active Hypertension Status:Active Comments:Mother. Father. Brother. Sister. Family Members In General. Status:Active Osteoarthritis Status:Active Comments:Mother. Father. Colon Cancer Status:Active Dementia Status:Active Hypertension Status:Active Comments:Mother. Father. Brother. Sister. Family Members In General. Status:Active Osteoarthritis Status:Active Comments:Mother. Father. Colon Cancer Status:Active Dementia Status:Active Hypertension Status:Active Comments:Mother. Father. Brother. Sister. Family Members In General. Status:Active Osteoarthritis Status:Active Comments:Mother. Father. Colon Cancer Status:Active Dementia Status:Active Hypertension Status:Active Comments:Mother. Father. Brother. Sister. Family Members In General. Status:Active Osteoarthritis Status:Active Comments:Mother. Father. Colon Cancer Status:Active Dementia Status:Active Hypertension Status:Active Comments:Mother. Father. Brother. Sister. Family Members In General. Status:Active Osteoarthritis Status:Active Comments:Mother. Father. Colon Cancer Status:Active Dementia Status:Active Hypertension Status:Active Comments:Mother. Father. Brother. Sister. Family Members In General. Status:Active Osteoarthritis Status:Active Comments:Mother. Father. Advance Directives No Advanced Directives Records Found Advance Directive Response Recorded Date/ Time Living Will No March 29, 2021 11:56am Power of Group Manager No March 29 1 11:56am Advance Directive Response Recorded Date/ Time Living Will No April 27 3 2:39pm Power of Group Manager No April 27, 023 2:39pm Advance Directive Response Recorded Date/ Time Living Will No July 11 8:01pm Power of Group Manager No July 11, 2023 8:01pm Chief Complaint and Reason for Visit Chief Complaint INT LABS E ORDER EORDER E ORDER Chief Complaint NOB LMP: 09/26 Reason for Visit Anxiety History of molar Obesity affecting PCOS (polycystic ovarian syndrome) Supervision of high risk , antepartum Chief Complaint NOB LMP: 09/26 10 WK OB 1 HR GTT-135 14 WK OB Reason for Visit Anxiety History of molar Obesity affecting PCOS (polycystic ovarian syndrome) Supervision of high risk , antepartum Anxiety History of molar Obesity affecting PCOS (polycystic ovarian syndrome) Supervision of high risk , antepartum Anxiety History of molar Obesity affecting PCOS (polycystic ovarian syndrome) Supervision of high risk , antepartum Chief Complaint 1 HR GTT-135 14 WK OB 16 wk ob 20 WK OB 24 WK OB NO E ORDER/1 HR GLUCOSE 28 WK OB Reason for Visit Anxiety History of molar Obesity affecting PCOS (polycystic ovarian syndrome) Supervision of high risk , antepartum Anxiety History of molar Obesity affecting PCOS (polycystic ovarian syndrome) Supervision of high risk , antepartum Anxiety pyelectasis History of molar Obesity affecting PCOS (polycystic ovarian syndrome) Supervision of high risk , antepartum Anxiety pyelectasis History of molar Obesity affecting PCOS (polycystic ovarian syndrome) Supervision of high risk , antepartum Anxiety pyelectasis Gestational diabetes mellitus (GDM) History of molar Obesity affecting PCOS (polycystic ovarian syndrome) Supervision of high risk , antepartum Chief Complaint 20 WK OB 24 WK OB NO E ORDER/1 HR GLUCOSE 28 WK OB 29 WK OB 31 WK OB 35 WK OB 36 WK OB Reason for Visit Anxiety pyelectasis History of molar Obesity affecting PCOS (polycystic ovarian syndrome) Supervision of high risk , antepartum Anxiety pyelectasis History of molar Obesity affecting PCOS (polycystic ovarian syndrome) Supervision of high risk , antepartum Anxiety pyelectasis Gestational diabetes mellitus (GDM) History of molar Obesity affecting PCOS (polycystic ovarian syndrome) Supervision of high risk , antepartum Anxiety arrhythmia affecting , antepartum pyelectasis Gestational diabetes mellitus (GDM) History of molar Obesity affecting PCOS (polycystic ovarian syndrome) Supervision of high risk , antepartum arrhythmia affecting , antepartum pyelectasis Gestational diabetes mellitus (GDM) History of molar Supervision of high risk , antepartum Anxiety arrhythmia affecting , antepartum pyelectasis Gestational diabetes mellitus (GDM) History of molar Obesity affecting PCOS (polycystic ovarian syndrome) Supervision of high risk , antepartum Anxiety arrhythmia affecting , antepartum pyelectasis Gestational diabetes mellitus (GDM) History of molar Obesity affecting PCOS (polycystic ovarian syndrome) Supervision of high risk , antepartum Chief Complaint 24 WK OB NO E ORDER/1 HR GLUCOSE 28 WK OB 29 WK OB 31 WK OB 35 WK OB 36 WK OB 37 WK OB/NST , ok per TK/MM 38 WK OB/NST 39 WK OB/NST PRIMARY C SECTION LABOR AND DELIVERY PRIMARY C SECTION PRIMARY C SECTION PRIMARY C SECTION Reason for Visit Anxiety PCOS (polycystic ovarian syndrome) pyelectasis History of molar Obesity affecting Supervision of high risk , antepartum Anxiety Gestational diabetes mellitus (GDM) PCOS (polycystic ovarian syndrome) pyelectasis History of molar Obesity affecting Supervision of high risk , antepartum Anxiety Gestational diabetes mellitus (GDM) PCOS (polycystic ovarian syndrome) arrhythmia affecting , antepartum pyelectasis History of molar Obesity affecting Supervision of high risk , antepartum Gestational diabetes mellitus (GDM) arrhythmia affecting , antepartum pyelectasis History of molar Supervision of high risk , antepartum Anxiety Gestational diabetes mellitus (GDM) PCOS (polycystic ovarian syndrome) arrhythmia affecting , antepartum pyelectasis History of molar Obesity affecting Supervision of high risk , antepartum Anxiety Gestational diabetes mellitus (GDM) PCOS (polycystic ovarian syndrome) arrhythmia affecting , antepartum pyelectasis History of molar Obesity affecting Supervision of high risk , antepartum Anxiety Gestational diabetes mellitus (GDM) PCOS (polycystic ovarian syndrome) arrhythmia affecting , antepartum pyelectasis History of molar Obesity affecting Supervision of high risk , antepartum Anxiety Gestational diabetes mellitus (GDM) PCOS (polycystic ovarian syndrome) arrhythmia affecting , antepartum pyelectasis History of molar Obesity affecting Supervision of high risk , antepartum Anxiety Gestational diabetes mellitus (GDM) PCOS (polycystic ovarian syndrome) arrhythmia affecting , antepartum pyelectasis History of molar Obesity affecting Supervision of high risk , antepartum Anxiety delivery delivered Gestational diabetes mellitus (GDM) PCOS (polycystic ovarian syndrome) Encounter for induction of labor arrhythmia affecting , antepartum heart deceleration pyelectasis History of molar Obesity affecting Supervision of high risk , antepartum Additional Source Comments INFORMATION SOURCE (unrecogn ized section and content) DATE CREATED AUTHOR 02/27/2018 [facility] DATE CREATED AUTHOR AUTHOR'S ORGANIZ ATION 10/07/2020 [facility] DATE CREATED AUTHOR AUTHOR'S ORGANIZ ATION 06/15/2023 [facility] DATE CREATED AUTHOR AUTHOR'S ORGANIZ ATION 11/05/2023 [facility] DATE CREATED AUTHOR AUTHOR'S ORGANIZ ATION 05/13/2024 [facility] DATE CREATED AUTHOR AUTHOR'S ORGANIZ ATION 09/26/2024 [facility] y Hospital Goals (unrecognized section and content) Goals may be documented in a n alternate sectionGoals may be documented in an alternate sectionGoals may be documented in an alternate sectionGoals may be documented in an alternate sectionGoals may be documented in an alternate section Care Teams (unrecognized sec tion and content) Team Status: Active Member Role Status Dates Aysha Joyner PA Primary Care Provider Active Team Status: Inactive Member Role Status Dates Aysha Joyner , PA Primary Care Provider, Referring Pro vider Active Dr. Estella Holder DO Attending Provider Activ e Team Status: Inactive Member Role Status Dates Aysha Joyner PA Primary Care Provider Active Dr. Estella Holder DO Attending Provider, Refe rring Provider Active Team Status: Inactive Member Role Status Dates Aysha Ar , PA Primary Care Provider Active Liat Nieto NEUROSCIENCE SPECIALIST, NEUROSCIENCE SPECIALIST-C Attending Provider, Referring Provider Active Team Status: Inactive Member Role Status Dates Aysha Joyner , PA Primary Care Provider, Referring Pro vider Active Rosana Price CNM Attending Provider Active Team Status: Inactive Member Role Status Dates Aysha Ar , PA Primary Care Provider, Referring Pro vider Active Dr. Tricia Todd MD Attending Provider Active Team Status: Inactive Member Role Status Dates Aysha Joyner , PA Primary Care Provider, Referring Pro vider Active Liat Nieto NEUROSCIENCE SPECIALIST, NEUROSCIENCE SPECIALIST-C Attending Provider Active Team Status: Inactive Member Role Status Dates Aysha Joyner , PA Primary Care Provider, Referring Pro vider Active Genie Hunter CNM Attending Provider Active Team Status: Inactive Member Role Status Dates Aysha Ar , PA Primary Care Provider Active Dr. Tricia Todd MD Attending Provider Active Team Status: Active Member Role Status Dates Aysha Joyner PA Primary Care Provider Active Dr. Estella Holder DO Admit Prov ider, Referring Provider, Other Provider Active Dr. Tricia Todd MD Attending Provider Active Team Status: Active Member Role Status Dates MAGALY Grider Primary Care Provider Active Dr. Tricia Todd MD Admit Provider, Other Prov ider Active Dr. Estella Holder DO Attending Provider Activ e Team Status: Inactive Member Role Status Dates MAGALY Grider Primary Care Provider Active Dr. Tricia Todd MD Admit Provider, Attending Provider Active FOR RECORDS PERTAINING TO PATIENTS WHO ARE OR HAVE BEEN ENROLLED IN A CHEMICAL DEPENDENCY/SUBSTANCEABUSE PROGRAM, SOME INFORMATION MAY BE OMITTED. This clinical summary was aggregated from multiple sources. Caution should be exercised in using it in the provision of clinical care. This summary normalizes information from multiple sources, and as a consequence, information in this document may materially change the coding, format and clinical context of patient data. In addition, data may be omitted in some cases. CLINICAL DECISIONS SHOULD BE BASED ON THE PRIMARY CLINICAL RECORDS. [facility]. provides no warranty or guarantee of the accuracy or completeness of information in this document.
[2025-08-15 12:26] LABS: hCG Titer Quant., Serum 35 mIU/mL (<9 non-preg)
== END | disposition home or self-care (01) ==
LOC: LAB 10:37
PROVIDERS: Referring Provider Advanced Practice Midwife; Visit Provider Advanced Practice Midwife
DX: Z34.90 Encounter for supervision of normal pregnancy, unspecified, unspecified trimester (principal)
CPT/HCPCS: 36415; 84702

== ENCOUNTER 2025-08-17 11:00 | Outpatient (CLI) | payer OTHER, SELFPAY ==
[2025-08-17 12:49] LABS: hCG Titer Quant., Serum 87 mIU/mL (<9 non-preg)
== END 2025-08-17 23:59 | disposition home or self-care (01) ==
LOC: LAB 11:04
PROVIDERS: Referring Provider Advanced Practice Midwife; Visit Provider Advanced Practice Midwife
DX: O20.0 Threatened abortion (principal); Z3A.00 Weeks of gestation of pregnancy not specified
CPT/HCPCS: 36415; 84702

== ENCOUNTER → 2025-08-19 | Outpatient (CLI) | payer OTHER, SELFPAY | END | disposition home or self-care (01) | LOC: US 10:04 | PROVIDERS: Referring Provider Advanced Practice Midwife; Visit Provider Advanced Practice Midwife | DX: Z00.00 Encounter for general adult medical examination without abnormal findings (principal) ==

== ENCOUNTER 2025-08-25 15:01 | Emergency (ER) | payer OTHER, SELFPAY ==
[2025-08-25 15:03] VITALS: BP 154/91; PULSE 81; RESP 20; TEMP 36.6; O2SAT 98; BMI 34.7
--- NOTE | 2025-08-25 15:17 | US_ITS ---
PROCEDURE: TRANSVAGINAL W/PREG US 08/25/2025 REASON FOR EXAM: Vaginal bleeding, pelvic pain, rule out ectopic . HCG 1418 TECHNIQUE: Procedure Code: USTVAGP Modality: US Procedure: TRANSVAGINAL W/PREG US COMPARISON: None. FINDINGS Anteverted uterus appears normal in size and smooth in contour, measuring 8.9 x 5.6 x 3.7 cm. No discrete uterine myoma. No intrauterine gestational sac or sac-like structure is seen at this time to confirm an intrauterine . No abnormal fluid collection within the uterine cavity. Endometrial stripe complex appears within normal limits measuring up to roughly 10 mm in thickness. Bilateral ovaries appear sonographically normal. The right ovary measures 3.1 x 2.1 x 1.9 cm. Left ovary measures 2.5 x 1.9 x 1.5 cm. Blood flow is preserved within the ovaries on color Doppler. No adnexal mass is seen. There is small amount of nonspecific free fluid in the cul-de-sac. US/Transvaginal w/Preg US IMPRESSION: No intrauterine is seen at this time. Bilateral ovaries appear sonog raphically normal. No adnexal mass visualized. Small volume nonspecific free pelvic fluid. No findings to suggest ectopic pre gnancy although this cannot be entirely excluded at this time. Correlation with serum beta HCG levels and short-term follow-up sonography recommended, as clinically indicated. Reading Location: [id number]
--- NOTE | 2025-08-25 15:30 | ED.VIS.FEGU ---
HPI HPI - Female History of Present Illness Chief Complaint: Vag Bleeding Narrative Narrative: Patient is a 29-year-old female G3, P1 with previous molar who presented to the emergency department the chief complaint of concern for ectopic . She states that she had a at home test that was positive recently and notes that she has started spotting she states that she followed up with her [employer] [place] and had 2 positive test with them. They are concerned that she has an ectopic therefore they sent her here to be further evaluated. PFSH PFS Medical History History of gestational diabetes delivery delivered Family history of hearing loss at age younger than 7 years Infertility Trauma Anxiety Gestational diabetes pyelectasis Molar Home Medications ?Medication ?Instructions ?Recorded ?Last Taken ?Type sertraline 25 mg tablet (Zoloft) 25 mg PO DAILY #90 tabs 09/12/24 Unknown Rx [id number] 3 fatty no.1 27 cap PO 08/25/25 Unknown History mg-1 mg-300 mg capsule Allergy/AdvReac Type Severity Reaction Status Date / Time No Known Allergies Allergy Verified 08/25/25 15:04 Family History Mother Hypertension Gestational diabetes Father Hypertension Brother Hypertension Sister Hypertension PCOS (polycystic ovarian syndrome) Sister PCOS (polycystic ovarian syndrome) Surgical History S/P primary low transverse History of gynecologic surgery History of D&C S/P wisdom tooth extraction Social History adopted: No household members: spouse number of children: 1 current occupational status: employed current occupation: [employer] pets and animals: Yes (avoid litter box) pets and animals: cat(s) history of recent travel: No sexually active: Yes Smoking Status: Never smoker alcohol intake: current alcohol intake frequency: holidays/special occasions only details: not while substance use type: does not use well-balanced diet: about half the time caffeine: Yes Type: coffee Number of servings: 1 seatbelt use: always do you feel safe at home: Yes additional social history: [facility] ROS ROS ED ROS Narrative Constitutional: Denies any fevers, chills, headache Abdomen: Complains of lower abdominal pain on the left side denies nausea vomiting diarrhea : Denies any urinary symptoms Neurological: Denies any numbness, weakness, tingling Musculoskeletal: Denies back pain Skin: Denies any rashes or lesions EXAM Physical Exam Narrative Exam Narrative: General: Patient was lying in bed rest comfortably did not appear to be in acute distress Head: Atraumatic, normocephalic Eyes: PERRL bilaterally, EOMI bilaterally, no conjunctival injection noted Neck: Soft, supple, trachea midline Cardiovascular: Regular rate Abdomen: Soft, mild tenderness to palpation left lower quadrants no rebound or guarding on exam Extremities: +5/5 strength noted in the bilateral upper and lower extremity Neurological: Patient is following commands knew that she was at [facility] the year is 2024 Skin: Warm, dry, intact no rashes or lesions noted Const Vital Signs: 08/25/25 15:03 08/25/25 17:02 08/25/25 19:00 Temperature 97.8 F 98.7 F Temperature Source Temporal Oral Pulse Rate 81 83 80 Respiratory Rate 20 H 16 Blood Pressure 154/91 H 131/81 H 122/83 H Blood Pressure Mean 112 97 96 Pulse Ox 98 99 96 Oxygen Delivery Method Room Air Room Air Room Air MDM MDM MDM Narrative Medical decision making narrative: Patient is a 29-year-old female who presented to the emergency department concern for ectopic . On the differential diagnose include but not limited to ectopic , intrauterine , UTI, pyelonephritis. Once the workup is obtained reviewed she will be reevaluated. Patient is a CBC reviewed and showed a white blood count that is normal 9.3, he was 12.3, plate count of 295. Patient sodium is 137, potassium normal at 4.2, creatinine normal at 0.82. Patient AST and ALT are 15 and 25 respectively quant level is 1418 positive test. Patient urinalysis showed 250 occult blood negative nitrites negative leukocyte esterase 0-5 white cells with rare bacteria noted. Patient's ultrasound reviewed and showed no intrauterine seen at this time. Bilateral ovaries appear sonographically normal. No adnexal mass visualized small volume nonspecific free fluid noted. No findings to suggest ectopic although this cannot be entirely excluded at this time. Correlation with serum beta-hCG levels and short-term follow-up sonography is recommended. I reached out and spoke with on-call [employer] for [place] Dr. Ko who states that she can have repeat quant in 2 to 3 days. I discussed this plan with the patient and significant other at bedside they are agreeable this plan all course concerns answered she was discharged home in stable condition. She was advised to return with worsening symptoms or any other concerns Lab Data Labs: Laboratory Results - last 24 hr 08/25/25 08/25/25 15:30 16:58 WBC 9.3 RBC 4.36 Hgb 12.3 Hct 38.0 MCV 87.2 MCH 28.2 MCHC 32.4 RDW Std Deviation 41.1 RDW Coeff of [place] 13.0 Plt Count 295 MPV 10.5 Immature Gran % (Auto) 0.600 Neut % (Auto) 63.2 Lymph % (Auto) 28.2 [place] % (Auto) 7.3 Eos % (Auto) 0.4 Baso % (Auto) 0.3 Absolute Neuts (auto) 5.9 Absolute Lymphs (auto) 2.63 Nucleated RBC % 0 Sodium 137 Potassium 4.2 Chloride 106 Carbon Dioxide 23.2 Anion Gap 7 BUN 12 Creatinine 0.82 Estim Creat Clear Calc 118.24 Est GFR (MDRD) Non-Af 98 BUN/Creatinine Ratio 14.6 Glucose 107 H Calcium 8.8 Total Bilirubin 0.54 AST 15 ALT 25 Alkaline Phosphatase 62 Total Protein 6.6 Albumin 4.1 Globulin 2.5 Albumin/Globulin Ratio 1.7 HCG, Quant 1418 H Serum , Qual POSITIVE Urine Color Yellow Urine Clarity Clear Urine pH 6.0 Ur Specific [place] 1.015 Urine Protein 15 H Urine Glucose (UA) Normal Urine Ketones Negative Urine Occult Blood 250 H Urine Nitrite Negative Urine Bilirubin Negative Urine Urobilinogen Normal Ur Leukocyte Esterase Negative Urine RBC 0-5 SEEN Urine WBC 0-5 SEEN Ur Squamous Epith Cells 5-10 SEEN Urine Bacteria RARE Urine Mucus 0 SEEN Blood Type O POSITIVE Radiography Diagnostic Testing: Clinical Impression(s) from Imaging Studies Obstetrics Ultrasound 08/25/25 15:17 IMPRESSION: No intrauterine is seen at this time. Bilateral ovaries appear sonographically normal. No adnexal mass visualized. Small volume nonspecific free pelvic fluid. No findings to suggest ectopic although this cannot be entirely excluded at this time. Correlation with serum beta HCG levels and short-term follow-up sonography recommended, as clinically indicated. Reading Location: [id number] Discharge Plan Triage Chief Complaint: Vag Bleeding ED Provider: Abraham Calderon Dx/Rx/DC Orders Clinical Impression: Vaginal bleeding affecting early , Anxiety, PCOS (polycystic ovarian syndrome), Abdominal pain Prescriptions: No Action [id number] 3 fatty no.1 27-1-300 mg capsule PO sertraline [Zoloft] 25 mg tablet 25 mg PO DAILY Qty: 90 4RF Primary Care Provider: Luzma Basurto Referrals: Luzma Basurto PA [Primary Care Provider, Family Practice] Activity Restrictions/Additional Instructions: Have a repeat quantitative level in 2 to 3 days follow-up with your [employer]. Return with worsening symptoms or any other concerns. Your ultrasound was indeterminant at this point time as you are likely very early on and this is not allowing visualization at this point in time. Print Language: Luxembourgish Disposition Disposition: Home, Self Care
[2025-08-25] MEDS: 0.9% Normal Saline (1000mL) 1,000 ML 999 ML IV (15:34)
[2025-08-25 15:43] LABS: Hematocrit 38.0 % (37-47); Hemoglobin 12.3 g/dL (12.0-15.0); Immature Granulocytes Count 0.060 X10^3/uL (0.0-0.0); Mean Corp Hgb Conc 32.4 g/dL (32-36); Mean Corpuscular Volume 87.2 fL (81-99); Mean Platelet Vol. 10.5 fl (6.2-12.0); NRBC Flagged by Analyzer 0 % (0-5); Platelet Count 295 K/mm3 (150-450); RBC Distribution Width CV 13.0 % (11.6-14.6); RBC Distribution Width SD 41.1 fl (35.1-43.9); Red Blood Count 4.36 M/mm3 (4.2-5.4); White Blood Count 9.3 K/mm3 (4.4-11.0)
[2025-08-25 16:22] LABS: Internal QC Validated? YES +Cl - CLEAR BKGD; Pregnancy, Serum, hCG Quali. POSITIVE Negative
[2025-08-25 16:34] LABS: AST(SGOT) 15 U/L (<=31); Alanine Aminotransfer ALT/SGPT 25 U/L (<=34); Albumin, Serum 4.1 g/dL (3.5-5.0); Alkaline Phosphatase 62 U/L (35-104); Anion Gap 7 (7-18); BUN 12 mg/dL (4-19); BUN/Creat Ratio 14.6 RATIO (10-20); Calcium,Total 8.8 mg/dL (7.6-11.0); Carbon Dioxide 23.2 mmol/L (20.0-29.0); Chloride 106 mmol/L (96-106); Estimated Creatinine Clearance 118.24 ml/min (50-250); Globulin 2.5 g/dL (2.2-4.2); Glucose 107 mg/dL (70-99); Potassium 4.2 mmol/L (3.5-5.1)
[2025-08-25 17:02] VITALS: BP 131/81; PULSE 83; RESP 16; TEMP 37.1; O2SAT 99
[2025-08-25 17:04] LABS: Mucous, Urine 0 SEEN /hpf (<or=2+)
[2025-08-25 17:13] LABS: Color, Urine Yellow (Yellow); Glucose, Dipstick Normal (Normal); Ketone-Dipstick Negative (Negative); Leukocyte Esterase-Dipstick Negative /ul (Negative); Nitrite-Dipstick Negative (Negative); Occult Blood-Urine 250 /ul (Negative); Protein-Dipstick 15 mg/dl (Negative); Specific Gravity, Urine 1.015 (1.002-1.030); Urine Bilirubin Dipstick Negative (Negative)
[2025-08-25 17:48] LABS: Red Blood Cells-Urine 0-5 SEEN /hpf (0-5); Squamous Epithelial Cells - UA 5-10 SEEN /hpf (5-10)
[2025-08-25 18:43] LABS: hCG Titer Quant., Serum 1418 mIU/mL (<9 non-preg)
[2025-08-25 19:00] VITALS: BP 122/83; PULSE 80; O2SAT 96
[2025-08-25 20:39] VITALS: BP 125/78; PULSE 83; RESP 18; TEMP 36.9; O2SAT 98
== END 2025-08-25 20:40 | disposition home or self-care (01) ==
PROVIDERS: Emergency Provider Emergency Medicine; Visit Provider Emergency Medicine
DX: O20.9 Hemorrhage in early pregnancy, unspecified (principal); F41.9 Anxiety disorder, unspecified; E28.2 Polycystic ovarian syndrome; R10.9 Unspecified abdominal pain; O99.340 Other mental disorders complicating pregnancy, unspecified trimester; O99.280 Endocrine, nutritional and metabolic diseases complicating pregnancy, unspecified trimester; Z3A.00 Weeks of gestation of pregnancy not specified
CPT/HCPCS: 76817; 80053; 81001; 84702; 84703; 85025; 86900; 86901; 96360; 96361; 99283; A4216

== ENCOUNTER → 2025-08-28 | Outpatient (CLI) | payer OTHER, SELFPAY ==
--- NOTE | 2025-08-28 10:48 | US_ITS ---
PROCEDURE: TRANSVAGINAL W/PREG US 08/28/2025 REASON FOR EXAM: Patient's spotting. DATING US. HCG 1418 on 08/25/2025. Unknown LMP. TECHNIQUE: Procedure Code: USTVAGP Modality: US Procedure: TRANSVAGINAL W/PREG US COMPARISON: 08/25/2025 FINDINGS ENDOMETRIUM: Heterogeneous with a thickness of 16.0 mm. UTERUS: Normal size and contour measuring 9.3 x 5.1 x 4.9 cm. No intrauterine identified. No fibroid detected. CERVIX: Normal size and contour. Small cervical nabothian cyst. RIGHT OVARY: Normal size and appearance measuring 3.0 x 1.8 x 2.0 cm (volume 5.6 mL). Normal follicles. Normal blood flow. No adnexal mass. LEFT OVARY: Normal size and appearance measuring 1.9 x 2.9 x 2.1 cm (volume 6.1 mL). Normal follicles. Normal blood flow. No adnexal mass. FREE FLUID: Mild free fluid. US/Transvaginal w/Preg US IMPRESSION: No intrauterine or extrauterine detected. Considerations include an e zakiya IUP, spontaneous , or unidentified ectopic . Serial beta hCG correlation with as needed follow-up trina matthew is suggested. Reading Location: [id number]
--- OUTSIDE RECORDS SUMMARY | 2025-08-28 11:03 | XMS RPT_ITS | CCD ---
Author Organization [facility] Care Team Providers Care Plating Operator Name Role Phone Unavailable Unavailable Unavailable Nahomy, Quan Unavailable Unavailable Nahomy, Quan Unavailable Unavailable ROSALIA HERNANDEZ Attending Unavailable ROSALIA HERNANDEZ Primary Care Unavailable ROSALIA HERNANDEZ Admitting Unavailable MAGALY Joyner Aysha Primary Care Provider [phone] MAGALY Joyner Aysha Referring Provider [phone] Estella Holder Attending Provider MAGALY Joyner Aysha Primary Care Provider [phone] MAGALY Joyner Aysha Referring Provider Dr. Estella Holder Attending Provider JENNY Price Attending Provider [phone] Dr. Tricia Todd Attending Provider [phone] ESTELLA FRANKLIN Attending Unavailab le JOYNER, AYSHA [...] Provider Dr. Estella Holder Attending Provider Emilia TRAIN STARTER, TRAIN STARTER-C Liat Attending Provider JENNY Hunter Attending Provider MAGALY Joyner Aysha Primary Care Provider Ar PA Aysha Referring Provider Dr. Estella Holder Attending Provider Dr. Tricia Todd Attending Provider Emilia TRAIN STARTER, TRAIN STARTER-C Liat Attending Provider JENNY Hunter Attending Provider [...] Unavailable Carlito (Scribe)Trevor Unavailable Unavailab le Kush CORRECTIONS OFFICER, Ginger Willingham Unavailable Unavailab le Paul CORRECTIONS OFFICER, Cintia Catalan Unavailable Unavailab le Ernesto CNM, Sahara Jimenez Unavailable Narciso HUFF, Robert Roberto Unavailable Nicholas CORRECTIONS OFFICER, Estella Unavailable Unavailabl e [place] CORRECTIONS OFFICER, Cassie N Unavailable Unavaila ble Zaugg CORRECTIONS OFFICER, Rachael Unavailable Unavailable Unavailable Unavailable Bryan BOYD, [...] Unavailable Joyner, Aysha Primary Care Unavailable Emilia TRAIN STARTER, Liat Attending Unavailable Medications Current Medications Medication [...] TWICE DAILY NEEDED July 12, 2023 12:00am [place] (Nk) (2 sources) Start: 01-28-20 22 [place] (Nk) Active January 27, 2022 12:00am Norethindrone [...] Refills: 0 Ordered: 28-Oct-2015 RAMYA Miller Cintia Catalan Start: 28-Oct-2015 End: 03-Nov-2015 Status: Inactive metroNIDAZOLE [...] 1 tablet by mouth once daily Prenat.Vits,Stevenson,M th-Xadq-Nneox Discontinued 1 TABLET PO DAILY March 14, 2021 11:31am April 15, 2021 2:18pm Start: 03-14-2021 End: 04-15-2021 take 1 tablet by mouth once daily Prenat.Vits,Stevenson,Cvv-Segl-Qmtyu Discontin ued 1 TABLET PO DAILY March 13, 2021 11:00pm April 15, 2021 1:18pm Start: 03-14-2021 End: 04-15-2021 take 1 tablet by mouth once daily Prenat.Vits,Stevenson,Epj-Cpff-Veknc Discontin ued 1 TABLET PO DAILY March [...] Comment on above: 1. Unclassified (7 sources) [facility] Routine Follow up - The patient [...] starting the medication. 07-08-2013 Unclassified (7 sources) [facility] Routine Follow up - The patient [...] currently trying to have a baby. Her groundskeeper porter recently diagnosed her with PCOS. 05-19-2022 Unclassified [...] contraceptives. Note for Vaginal discharge: Pt. saw [facility] 02/06/17 and was diagnosed with vaginitis and [...] Symptoms - Symptoms include sore throat, fever ([id number]), chills, general malaise and headache, but do [...] Test Name Value Interpretation Reference Range Facility [facility] Office Visit Reporton 08-29-2024 [facility] Office Visit Report [facility] [address], [address] [place] [address] OFFICE VISIT Date of Service: 08/29/24 MR#: [id number] Acct: [id number] Name: PILI SAMAYOA Rep #: [id number] : 1995 Provider: KIARRA walton Age/Sex: 28/F [place] [facility] [place]: Signed Intake Vital Signs 08/24/23 11:32 08/29/24 08:07 Height 5 ft 6 in 5 ft 6 in Weight: 213 lb BMI 34.3 BP 118/77 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 Date Name GA/Weeks Outcome Route Bth Weight Infant Gen Labor Lgth Anesthesia Del Locatn Provider FOB 07/12/23 Jonathan Myers live - full term 6lbs 14oz Male epidural [facility] Tricia Min Delivery Date: 07/12/23 Last Updated [...] oriented to person and oriented to place [facility] Head: normal to inspection Neck Neck: normal [...] palpation Specu (more content not included)... Normal [facility] CBC (INCLUDES DIFF/PLT)on Basophils (Bld) [#/Vol] 0.027 10*3/uL Normal 0-200 [facility] Comment on above: Performed By: #### 6 399, 64841, 93610 #### [facility] of [address], [address] [place] [address] Step Down Nurse: Bruno Nieves MD Basophils/100 WBC (Bld) 0.4 % Normal [facility] Comment on above: Performed By: #### 6 399, 69427, 42324 #### [facility] of [address], [address] [place] [address] Step Down Nurse: Bruno Nieves MD Eosinophils (Bld) [#/Vol] 0.08 10*3/uL Normal 15-500 [facility] Comment on above: Performed By: #### 6 399, 21036, 19560 #### [facility] of [address], [address] [place] [address] Step Down Nurse: Bruno Nieves MD Eosinophils/100 WBC (Bld) 1.2 % Normal [facility] Comment on above: Performed By: #### 6 399, 91030, 00894 #### [facility] of [address], [address] [place] [address] Step Down Nurse: Bruno Nieves MD Erythrocyte distribution width (RBC) [Ratio] 14.7 % Normal 11.0-15.0 [facility] Comment on above: Performed By: #### 6 399, 94524, 86478 #### [facility] of [place] [address] Step Down Nurse: Bruno Nieves MD Hematocrit (Bld) [Volume fraction] 39.9 % Normal 35.0-45.0 [facility] Comment on above: Performed By: #### 6 399, 17340, 63551 #### [facility] of [address], [address] [place] [address] Step Down Nurse: Bruno Nieves MD Hemoglobin (Bld) [Mass/Vol] 13.1 g/dL Normal 11.7-15.5 [facility] Comment on above: Performed By: #### 6 399, 59145, 27227 #### [facility] of [place] [address] Step Down Nurse: Bruno Nieves MD Lymphocytes (Bld) [#/Vol] 2.888 10*3/uL Normal 850-3900 [facility] Comment on above: Performed By: #### 6 399, 39137, 75804 #### [facility] of [place] [address] Step Down Nurse: Bruno Nieves MD Lymphocytes/100 WBC (Bld) 43.1 % Normal [facility] Comment on above: Performed By: #### 6 399, 75952, 75320 #### [facility] of [place] [address] Step Down Nurse: Bruno Nieves MD MCH (RBC) [Entitic mass] 26.8 pg Low 27.0-33.0 [facility] Comment on above: Performed By: #### 6 399, 32608, 73411 #### [facility] [place] [address] Step Down Nurse: Bruno Nieves MD MCHC (RBC) [Mass/Vol] 32.8 g/dL Normal 32.0-36.[address] [facility] Comment on above: Performed By: #### 6 399, 21164, 81223 #### [facility] [place] [address] Step Down Nurse: Bruno Nieves MD MCV (RBC) [Entitic vol] 81.8 fL Normal 80.0-100.0 [facility] Comment on above: Performed By: #### 6 399, 89594, 96177 #### [facility] of [place] [address] Step Down Nurse: Bruno Nieves MD Monocytes (Bld) [#/Vol] 0.529 10*3/uL Normal 200-950 [facility] Comment on above: Performed By: #### 6 399, 65621, 93443 #### [facility] of [place] [address] Step Down Nurse: Bruno Nieves MD Monocytes/100 WBC (Bld) 7.9 % Normal [facility] Comment on above: Performed By: #### 6 399, 98053, 11413 #### [facility] of [place] [address] Step Down Nurse: Bruno Nieves MD Neutrophils (Bld) [#/Vol] 3.176 10*3/uL Normal 4075-9219 [facility] Comment on above: Performed By: #### 6 399, 10576, 84513 #### [facility] of [place] [address] Step Down Nurse: Brnuo Nieves MD Neutrophils/100 WBC (Bld) 47.4 % Normal [facility] Comment on above: Performed By: #### 6 399, 90179, 06562 #### [facility] of [place] [address] Step Down Nurse: Bruno Nieves MD Platelet mean volume (Bld) [Entitic vol] 11.0 fL Normal 7.5-12.5 [facility] Comment on above: Performed By: #### 6 399, 56942, 70001 #### [facility] of [place] [address] Step Down Nurse: Bruno Nieves MD Platelets (Bld) [#/Vol] 305 10*3/uL Normal 140-400 [facility] Comment on above: Performed By: #### 6 399, 70059, 61420 #### [facility] of [place] [address] Step Down Nurse: Bruno Nieves MD RBC (Bld) [#/Vol] 4.88 10*6/uL Normal 3.80-5.10 [facility] Comment on above: Performed By: #### 6 399, 37088, 79806 #### [facility] of [place] [address] Step Down Nurse: Bruno Nieves MD WBC (Bld) [#/Vol] 6.7 10*3/uL Normal 3.8-10.8 [facility] Comment on above: Performed By: #### 6 399, 66230, 90490 #### [facility] of [address], [address] [place] [address] Step Down Nurse: Bruno Nieves MD [facility] METABOLIC PANE [facility] 11-03-2023 Albumin [Mass/Vol] 4.6 g/dL Normal 3.6-5.1 [facility] Comment on above: Performed By: #### 6 399, 04583, 63885 #### [facility] of [address], [address] [place] [address] Step Down Nurse: Bruno Nieves MD Albumin/Globulin [Mass ratio] 1.8 {ratio} Normal 1.0-2.5 [facility] Comment on above: Performed By: #### 6 399, 22619, 82654 #### [facility] of [place] [address] Step Down Nurse: Bruno Nieves MD ALP [Catalytic activity/Vol] 67 U/L Normal 31-125 [facility] Comment on above: Performed By: #### 6 399, 50015, 52482 #### [facility] of [place] [address] Step Down Nurse: Bruno Nieves MD ALT [Catalytic activity/Vol] 49 U/L High 6-29 [facility] Comment on above: Performed By: #### 6 399, 72635, 44734 #### [facility] of [place] [address] Step Down Nurse: Bruno Nieves MD AST [Catalytic activity/Vol] 28 U/L Normal 10-30 [facility] Comment on above: Performed By: #### 6 399, 18266, 25889 #### [facility] of [place] [address] Step Down Nurse: Bruno Nieves MD Bilirubin [Mass/Vol] 0.9 mg/dL Normal 0.2-1.2 [facility] Comment on above: Performed By: #### 6 399, 33339, 63914 #### [facility] of [address] [address] Step Down Nurse: Bruno Nieves MD BUN/CREATININE RATIO SEE NOTE: Normal 6-22 [facility] Comment on above: Result Comment: Not Reported: BUN and Creatinine are within reference range. Performed By: #### 6 399, 59643, 65737 #### [facility] [address], [address] [place] [address] Step Down Nurse: Bruno Nieevs MD Calcium [Mass/Vol] 9.5 mg/dL Normal 8.6-10.2 [facility] Comment on above: Performed By: #### 6 399, 50575, 21030 #### [facility] [place] [address] Step Down Nurse: Bruno Nieves MD Chloride [Moles/Vol] 105 mmol/L Normal 98-110 [facility] Comment on above: Performed By: #### 6 399, 92510, 13671 #### [facility] [address], [address] [place] [address] Step Down Nurse: Bruno Nieves MD CO2 [Moles/Vol] 23 mmol/L Normal 20-32 [facility] Comment on above: Performed By: #### 6 399, 04943, 25523 #### [facility] [place] [address] Step Down Nurse: Bruno Nieves MD Creatinine [Mass/Vol] 0.80 mg/dL Normal 0.50-0.96 [facility] Comment on above: Performed By: #### 6 399, 30156, 47403 #### [facility] of [place] [address] Step Down Nurse: Bruno Nieves MD GFR/1.73 sq M.predicted among non-blacks MDRD (S/P/Bld) [Vol rate/Area] 102 mL/min/{1.73_m2} Normal > OR = 60 [facility] Comment on above: Performed By: #### 6 399, 92975, 07096 #### [facility] of [address], [address] [place] [address] Step Down Nurse: Bruno Nieves MD Globulin (S) [Mass/Vol] 2.5 g/dL Normal 1.9-3.7 [facility] Comment on above: Performed By: #### 6 399, 62457, 04644 #### [facility] of [address], [address] [place] [address] Step Down Nurse: Bruno Nieves MD Glucose [Mass/Vol] 72 mg/dL Normal 65-99 [facility] Comment on above: Result Comment: Fasting reference interval Performed By: #### 6 399, 78455, 86836 #### [facility] of [place] [address] Step Down Nurse: Bruno Nieves MD Potassium [Moles/Vol] 4.8 mmol/L Normal 3.5-5.[address] [facility] Comment on above: Performed By: #### 6 399, 52556, 86688 #### [facility] of [place] [address] Step Down Nurse: Bruno Nieves MD Protein [Mass/Vol] 7.1 g/dL Normal 6.1-8.1 [facility] Comment on above: Performed By: #### 6 399, 87505, 68913 #### [facility] [place] [address] Step Down Nurse: Bruno Nieves MD Sodium [Moles/Vol] 140 mmol/L Normal 135-146 [facility] Comment on above: Performed By: #### 6 399, 55321, 01379 #### [facility] of [place] [address] Step Down Nurse: Bruno Nieves MD Urea nitrogen [Mass/Vol] 11 mg/dL Normal 7-25 [facility] Comment on above: Performed By: #### 6 399, 99662, 57815 #### [facility] of [place] [address] Step Down Nurse: Bruno Nieves MD SPECIMEN INTEGRITY COMPROMIS EDon [...] red cells. Performed By: #### 6 399, 21352, 07956 #### [facility], [address] Step Down Nurse: Bruno Nieves MD TSHon 11-03-2023 TSH Qn 0.73 m[IU]/L Normal [facility] Comment on above: Result Comment: Refe rence Range > or = 20 Years 0.40-4.50 Ranges First trimester 0.26-2.66 Second trimester 0.55-2.73 Third trimester 0.43-2.91 Performed By: #### 6 399, 69942, 88605 #### [facility] [address], [address] [place], [place] [address] Step Down Nurse: Bruno Nieves MD Laboratory - Chemistry and C hemistry - challengeon 11-02-2023 Albumin [Mass/Vol] 4.6 g/dL Normal 3.6 - 5.1 g/dL [place] [facility], [facility].; [employer] Albumin/Globulin [Mass ratio] 1.8 {ratio} Normal 1.0 - 2.5 [facility], [facility].; [employer] ALP [Catalytic activity/Vol] 67 U/L Normal 31 - 125 U/L [facility], [facility].; [employer] ALT [Catalytic activity/Vol] 49 U/L Abnormal 6 - 29 U/L [employer], [facility].; [employer] AST [Catalytic activity/Vol] 28 U/L Normal 10 - 30 U/L [employer], [facility].; [employer] Bilirubin [Mass/Vol] 0.9 mg/dL Normal 0.2 - 1 .2 mg/dL [facility], [facility].; [employer] Calcium [Mass/Vol] 9.5 mg/dL Normal 8.6 - 10. 2 mg/dL [facility], [facility].; [facility], [facility]. Chloride [Moles/Vol] 105 mmol/L Normal 98 - 11 0 mmol/L [facility], [facility].; [facility], [facility]. CO2 [Moles/Vol] 23 mmol/L Normal 20 - 32 mmol/L [facility], [facility].; [facility], [facility] Creatinine [Mass/Vol] 0.80 mg/dL Normal 0.50 - 0.96 mg/dL [facility], [facility].; [facility], [facility]. GFR/1.73 sq M.predicted among non-blacks MDRD (S/P/Bld) [Vol rate/Area] 102 mL/min/{1.73_m2} Normal [facility].; [facility], [facility]. Glucose [Mass/Vol] 72 mg/dL Normal 65 - 99 mg/dL [facility], [facility].; [facility], [facility]. Potassium [Moles/Vol] 4.8 mmol/L Normal 3.5 - 5.3 mmol/L [facility], [facility].; [facility], [facility]. Protein [Mass/Vol] 7.1 g/dL Normal 6.1 - 8.1 g/dL [facility], [facility].; [facility], [facility]. Sodium [Moles/Vol] 140 mmol/L Normal 135 - 146 mmol/L [facility], [facility].; [facility], [facility]. TSH Qn 0.73 m[IU]/L Normal [facility], [facility]; [facility], [facility] Urea nitrogen [Mass/Vol] 11 mg/dL Normal 7 - 25 mg/d L [facility], [facility].; [facility], [facility]. Laboratory - Hematology and Cell countson 11-02-2023 Basophils (Bld) [#/Vol] 0.027 10*3/uL Normal 0 - 200 {cells/uL} [facility], [facility].; [facility], [facility]. Basophils/100 WBC (Bld) 0.4 % Normal H [facility].; [facility], [facility] Eosinophils (Bld) [#/Vol] 0.08 10*3/uL Normal 15 - 500 {cells/uL} [facility], [facility].; [facility], [facility]. Eosinophils/100 WBC (Bld) 1.2 % Normal [facility].; [facility], [facility] Erythrocyte distribution width (RBC) [Ratio] 14.7 % Normal 11.0 - 15.0 % [facility].; [facility], [facility] Hematocrit (Bld) [Volume fraction] 39.9 % Normal 35.0 - 45.0 % [facility].; [facility], [facility] Hemoglobin (Bld) [Mass/Vol] 13.1 g/dL Normal 11.7 - 15.5 g/dL [facility].; [facility], [facility] Lymphocytes (Bld) [#/Vol] 2.888 10*3/uL Normal 850 - 3900 {cells/uL} [facility].; [facility], [facility]. Lymphocytes/100 WBC (Bld) 43.1 % Normal [facility].; [facility], [facility] MCH (RBC) [Entitic mass] 26.8 pg Abnormal 27. 0 - 33.0 pg [facility].; [facility], [facility]. MCHC (RBC) [Mass/Vol] 32.8 g/dL Normal 32.0 - 36.0 g/dL [facility].; [facility], [facility]. MCV (RBC) [Entitic vol] 81.8 fL Normal 80.0 - 100.0 fL [facility].; [facility], [facility]. Monocytes (Bld) [#/Vol] 0.529 10*3/uL Normal 200 - 950 {cells/uL} [facility].; [facility] [employer], [facility]. Monocytes/100 WBC (Bld) 7.9 % Normal [facility].; [facility], [facility]. Neutrophils (Bld) [#/Vol] 3.176 10*3/uL Normal 1500 - 7800 {cells/uL} [facility].; [place] [employer], [facility]. Neutrophils/100 WBC (Bld) 47.4 % Normal [facility].; [facility], [facility] Platelet mean volume (Bld) [Entitic vol] 11.0 fL Normal 7.5 - 12.5 fL [facility].; [place] [employer]. Platelets (Bld) [#/Vol] 305 10*3/uL Normal 140 - 400 [facility].; [place] [facility]. RBC (Bld) [#/Vol] 4.88 10*6/uL Normal 3.80 - 5.1 0 {Million/uL} [facility].; [place] [employer]. WBC (Bld) [#/Vol] 6.7 10*3/uL Normal 3.8 - 10.8 [place] [employer].; [place] [employer] No Panel Informationon 11-01 BUN/CREATININE RATIO SEE NOTE: Normal 6 - 22 [facility] [employer].; [place] [employer] GLOBULIN 2.5 Normal 1.9 - 3.7 [facility].; [place] [employer]. Basophil percentageOrdered B y: Tricia Todd on 07-13-2023 WBC (Bld) [#/Vol] 12.2 10*3/uL 4.4-11.0 [facility] Blood erythrocytes count (nu mber/volume)Ordered By: Tricia Todd on 07-13-2023 RBC (Bld) [#/Vol] 4.11 10*6/uL 4.2-5.4 [facility] Blood hemoglobin measurement (mass/volume)Ordered By: Tricia Todd on 07-13-2023 Hemoglobin (Bld) [Mass/Vol] 10.7 g/dL 12.0-15.0 [facility] Blood platelet mean volumeOr dered By: Tricia Todd on 07-13-2023 Platelet mean volume (Bld) [Entitic vol] 11.3 fL 6.2-12.0 [facility] Determination of erythrocyte mean corpuscular volume (MCV)Ordered By: Tricia Todd on 07-13-2023 MCV (RBC) [Entitic vol] 83.5 fL 81-99 [facility] Glucose Glucometer (dC) [M ass/Vol]Ordered By: Tricia Todd on 07-13-2023 Glucose [Mass/Vol] 103 mg/dL 74-106 [facility] Comment on above: MANAGEMENT OF PATIEN T CARE PER NURSING PROTOCOL Hematocrit Auto (Bld) [Volum e fraction]Ordered By: Tricia Todd on 07-13-2023 Hematocrit (Bld) [Volume fraction] 34.3 % 37-47 [facility] Laboratory - Hematology and Cell countsOrdered By: Tricia Todd on 07-13-2023 Erythrocyte distribution width (RBC) [Entitic vol] 43.6 fL 35.1-43.9 [facility] Erythrocyte distribution width (RBC) [Ratio] 14.3 % 11.6-14.6 [facility] MCH (RBC) [Entitic mass] 26.0 pg 27.0-32.0 [facility] MCHC Auto (RBC) [Mass/Vol]Or dered By: Tricia Todd on 07-13-2023 MCHC (RBC) [Mass/Vol] 31.2 g/dL 32-36 [facility] Platelets bldOrdered By: Jake Todd on 07-13-2023 Platelets (Bld) [#/Vol] 208 10*3/uL 150-450 [facility] Absolute lymphocyte countOrd ered By: Estella Hendricks on 07-11-2023 Lymphocytes Auto (Unsp spec) [#/Vol] 2.63 10*3/uL 0.83-4.51 [facility] Basophil percentageOrdered B y: Estella Hendricks on 07-11-2023 Basophils/100 WBC (Bld) 0.3 % 0-1 [facility] Eosinophils/100 WBC (Bld) 0.5 % 0-5 [facility] Neutrophils (Bld) [#/Vol] 5.8 10*3/uL 2.0-7.7 [facility] Neutrophils/100 WBC (Bld) 63.2 % 47-70 [facility] Blood lymphocytes/100 leukoc ytesOrdered By: Estella Hendricks on 07-11-2023 Lymphocytes/100 WBC (Bld) 28.6 % 19-41 [facility] Blood monocytes/100 leukocyt esOrdered By: Estella Hendricks on 07-11-2023 Monocytes/100 WBC (Bld) 6.9 % 0-10 [facility] Laboratory - Hematology and Cell countsOrdered By: Estella Hendricks on 07-11-2023 Immature granulocytes/100 WBC (Bld) 0.500 % 0.0-0.9 [facility] Comment on above: IG% - Immature Granu locytes (promyelocytes, myelocytes and metamyelocytes) > 1% indicates that a LEFT SHIFT is Present. Nucleated RBC/100 WBC (Bld) [Ratio] 0 % 0-5 [facility] Serum Treponema species anti body detectionOrdered By: Estella Hendricks on 07-11-2023 Treponema sp Ab Ql (S) Non-Reactive [facility] Bacteria identified Cx Nom ( Wound)Ordered By: Estella Hendricks on 07-06-2023 Wound Culture Staphylococcus lugdunensis [facility] Gram stain for investigation of transfusion reactionOrdered By: Estella Hendricks on 07-06-2023 Microscopic observation Gram stain Nom (Unsp spec) [facility] Laboratory - Chemistry and C hemistry - challengeon 07-06-2023 Glucose Ql (U) Negative [facility] Laboratory - Urinalysison Protein Ql (U) Negative [facility] Laboratory - Chemistry and C hemistry - challengeon 06-29-2023 Glucose Ql (U) Negative [facility] Laboratory - Urinalysison Protein Ql (U) Negative [facility] Laboratory - Chemistry and C hemistry - challengeon 06-22-2023 Glucose Ql (U) Negative [facility] Laboratory - Urinalysison Protein Ql (U) Negative [facility] No Panel InformationOrdered By: Tricia Todd on 06-16-2023 Group B Streptococcus Culture Group B Beta Streptococcus is not isolated. [facility] Laboratory - Chemistry and C hemistry - challengeon 06-15-2023 Glucose Ql (U) Negative [facility] Laboratory - Urinalysison Protein Ql (U) Negative [facility] No Panel InformationOrdered By: Tricia Todd on 06-15-2023 Group B Streptococcus Culture Group B Beta Streptococcus is not isolated. [facility] Progress Noteon 05-16-2023 Corporate Compliance Director Authentication Interface Message Text New patient 05/17/2023 RE: Pili Samayoa : 1995 AGE: 27 y.o. [facility]#: [id number] Gestational Age: 32 Weeks Delivery Hospital: [facility] Reason for visit: Chief Complaint Patient presents [...] performed in visit on 05/16/23 Echo [facility] [place] [address] [employer]fair[place] stationLocal [employer]eral[employer] rg ------- Echocardiogram Report M-mode, complete 2D, complete spectral Doppler, and color Doppler PATIENT: Pili Samayoa STUDY DATE/TIME: May 16 2023 12:36PM HEIGHT: : 1995 WEIGHT: AGE: 27yr BSA/BMI: / GENDER: F BP: 119 / 60 LOCATION: Heart [facility] REFERRING PHYSICIAN: Aysha Joyner PHYSICIAN: JUHI Olivas LIGHT BULB REPLACER: Nahomy Macdonald RDCS ------- SUMMARY: No significant [...] EKG done in the period. follow-up if dining room manager hears a heart murmur or otherwise clinically indicated. ------- REASON FOR EXAM: arrhythmia. ------- STUDY AND PROCEDURE DATA: Procedure Description: New ([id number]) . Study status: Routine. Location: lab. Procedure: [...] a patent foramen ovale. There is a [id number] shunt. Left atrium - The atrium is [...] - The (more content not included)... Normal [facility] Laboratory - Chemistry and C hemistry - challengeon 05-09-2023 Glucose Ql (U) Negative [facility] Laboratory - Urinalysison Protein Ql (U) Negative [facility] Laboratory - Chemistry and C hemistry - challengeon 04-20-2023 Glucose Ql (U) Negative [facility] Laboratory - Urinalysison Protein Ql (U) Negative [facility] Absolute lymphocyte countOrd ered By: Tricia Todd on 04-19-2023 Lymphocytes Auto (Unsp spec) [#/Vol] 1.14 10*3/uL 0.83-4.51 [facility] Basophil percentageOrdered B y: Tricia Todd on 04-19-2023 Basophils/100 WBC (Bld) 0.3 % 0-1 [facility] Eosinophils/100 WBC (Bld) 0.3 % 0-5 [facility] Neutrophils (Bld) [#/Vol] 4.8 10*3/uL 2.0-7.7 [facility] Neutrophils/100 WBC (Bld) 74.0 % 47-70 [facility] WBC (Bld) [#/Vol] 6.5 10*3/uL 4.4-11.0 [facility] Blood erythrocytes count (nu mber/volume)Ordered By: Tricia Todd on 04-19-2023 RBC (Bld) [#/Vol] 4.26 10*6/uL 4.2-5.4 [facility] Blood hemoglobin measurement (mass/volume)Ordered By: Tricia Todd on 04-19-2023 Hemoglobin (Bld) [Mass/Vol] 12.1 g/dL 12.0-15.0 [facility] Blood lymphocytes/100 leukoc ytesOrdered By: Tricia Todd on 04-19-2023 Lymphocytes/100 WBC (Bld) 17.6 % 19-41 [facility] Blood monocytes/100 leukocyt esOrdered By: Tricia Todd on 04-19-2023 Monocytes/100 WBC (Bld) 6.9 % 0-10 [facility] Blood platelet mean volumeOr dered By: Tricia Todd on 04-19-2023 Platelet mean volume (Bld) [Entitic vol] 11.1 fL 6.2-12.0 [facility] Determination of erythrocyte mean corpuscular volume (MCV)Ordered By: Tricia Todd on 04-19-2023 MCV (RBC) [Entitic vol] 88.0 fL 81-99 [facility] Gestational diabetes screen 1-hour screen with 50g oral glucose loadOrdered By: Tricia Todd on 04-19-2023 Glucose 1 Hr post 50 g glucose PO [Mass/Vol] 185 mg/dL 70-140 [facility] Hematocrit Auto (Bld) [Volum e fraction]Ordered By: Tricai Todd on 04-19-2023 Hematocrit (Bld) [Volume fraction] 37.5 % 37-47 [facility] Laboratory - Hematology and Cell countsOrdered By: Tricia Todd on 04-19-2023 Erythrocyte distribution width (RBC) [Entitic vol] 42.5 fL 35.1-43.9 [facility] Erythrocyte distribution width (RBC) [Ratio] 13.1 % 11.6-14.6 [facility] Immature granulocytes/100 WBC (Bld) 0.900 % 0.0-0.9 [facility] Comment on above: IG% - Immature Granu locytes (promyelocytes, myelocytes and metamyelocytes) > 1% indicates that a LEFT SHIFT is Present. MCH (RBC) [Entitic mass] 28.4 pg 27.0-32.0 [facility] Nucleated RBC/100 WBC (Bld) [Ratio] 0 % 0-5 [facility] MCHC Auto (RBC) [Mass/Vol]Or dered By: Tricia Todd on 04-19-2023 MCHC (RBC) [Mass/Vol] 32.3 g/dL 32-36 [facility] Platelets bldOrdered By: Jake Todd on 04-19-2023 Platelets (Bld) [#/Vol] 255 10*3/uL 150-450 [facility] Laboratory - Chemistry and C hemistry - challengeon 03-23-2023 Glucose Ql (U) Negative [facility] Laboratory - Urinalysison Protein Ql (U) Negative [facility] Laboratory - Chemistry and C hemistry - challengeon 02-23-2023 Glucose Ql (U) Negative [facility] Laboratory - Urinalysison Protein Ql (U) Negative [facility] Progress Noteon 02-19-2023 Corporate Compliance Director Authentication Interface Message Text Pili Rodaswitt was seen at [facility] to discuss the preliminary ultrasound [...] additional recommendations as clinically indicated. Referral to [facility] if renal dilation persists. The total patient time of the visit was 15 minutes: 5 direct patient care, 10 minutes chart review and documentation. Normal [facility] Laboratory - Chemistry and C hemistry - challengeon 01-26-2023 Glucose Ql (U) Negative [facility] Laboratory - Urinalysison Protein Ql (U) Negative [facility] Laboratory - Chemistry and C hemistry - challengeon 12-29-2022 Glucose Ql (U) Negative [facility] Laboratory - Urinalysison Protein Ql (U) Negative [facility] Quantitative serum or plasma 3 hour gestational glucose tolerance panelOrdered By: Liat Nieto on 12-26-2022 Glucose tolerance 3 hours gestational panel See comment [facility] Comment on above: FASTING 91 Col: 12/03 [...] Auto (Unsp spec) [#/Vol] 2.18 10*3/uL 0.83-4.51 [facility] Basophil percentageOrdered B y: Dr. Hendricks on 12-15-2022 Basophils/100 WBC (Bld) 0.3 % 0-1 [facility] Eosinophils/100 WBC (Bld) 0.4 % 0-5 [facility] Neutrophils (Bld) [#/Vol] 6.1 10*3/uL 2.0-7.7 [facility] Neutrophils/100 WBC (Bld) 68.4 % 47-70 [facility] WBC (Bld) [#/Vol] 9.0 10*3/uL 4.4-11.0 [facility] Blood erythrocytes count (nu mber/volume)Ordered By: Dr. Hendricks on 12-15-2022 RBC (Bld) [#/Vol] 4.34 10*6/uL 4.2-5.4 [facility] Blood hemoglobin measurement (mass/volume)Ordered By: Dr. Hendricks on 12-15-2022 Hemoglobin (Bld) [Mass/Vol] 12.5 g/dL 12.0-15.0 [facility] Blood lymphocytes/100 leukoc ytesOrdered By: Dr. Hendricks on 12-15-2022 Lymphocytes/100 WBC (Bld) 24.2 % 19-41 [facility] Blood monocytes/100 leukocyt esOrdered By: Dr. Hendricks on 12-15-2022 Monocytes/100 WBC (Bld) 6.3 % 0-10 [facility] Blood platelet mean volumeOr dered By: Dr. Hendricks on 12-15-2022 Platelet mean volume (Bld) [Entitic vol] 10.1 fL 6.2-12.0 [facility] Determination of erythrocyte mean corpuscular volume (MCV)Ordered By: Dr. Hendricks on 12-15-2022 MCV (RBC) [Entitic vol] 88.9 fL 81-99 [facility] Gestational diabetes screen 1-hour screen with 50g oral glucose loadOrdered By: Dr. Hendricks on 12-15-2022 Glucose 1 Hr post 50 g glucose PO [Mass/Vol] 135 mg/dL 70-140 [facility] HIV 1 and HIV-2 antibody ass ay with HIV-1 p24 antigen detectionOrdered By: Dr. Hendricks on 12-15-2022 HIV 1+2 Ab+HIV1 p24 Ag IA Ql Non-Reactive Nonreactive [facility] Hematocrit Auto (Bld) [Volum e fraction]Ordered By: Dr. Hendricks on 12-15-2022 Hematocrit (Bld) [Volume fraction] 38.6 % 37-47 [facility] Laboratory - Chemistry and C hemistry - challengeon 12-15-2022 Glucose Ql (U) Negative [facility] Laboratory - Hematology and Cell countsOrdered By: Dr. Hendricks on 12-15-2022 Erythrocyte distribution width (RBC) [Entitic vol] 41.8 fL 35.1-43.9 [facility] Erythrocyte distribution width (RBC) [Ratio] 12.8 % 11.6-14.6 [facility] Immature granulocytes/100 WBC (Bld) 0.400 % 0.0-0.9 [facility] Comment on above: IG% - Immature Granu locytes (promyelocytes, myelocytes and metamyelocytes) > 1% indicates that a LEFT SHIFT is Present. MCH (RBC) [Entitic mass] 28.8 pg 27.0-32.0 [facility] Nucleated RBC/100 WBC (Bld) [Ratio] 0 % 0-5 [facility] Laboratory - Urinalysison Protein Ql (U) Negative [facility] MCHC Auto (RBC) [Mass/Vol]Or dered By: Dr. Hendricks on 12-15-2022 MCHC (RBC) [Mass/Vol] 32.4 g/dL 32-36 [facility] No Panel InformationOrdered By: Dr. Hendricks on 12-15-2022 Hepatitis B Surface Antigen Non-Reactive Nonreactive [facility] Hepatitis C Antibody Non-Reactive Nonreactive [facility] Comment on above: Non Reactive: < 0.8 Equivocal: >/= 0.8 to < 1.0 Reactive: >/= 1.0The CDC recommends that a reactive/equivocal HCV antibody result be followed up by the HCV Nucleic Acid Amplificationtest (593833) Miscellaneous Test Comment MAILED SPECIMEN [facility] Rubella IgG Antibody Reactive Nonreactive [facility] Comment on above: Antibody Results Int erpretation of Immune Status Non Reactive Presumed Non-Immune Equivocal Equivocal Reactive Presumed Immune Platelets bldOrdered By: Dr. Hendricks on 12-15-2022 Platelets (Bld) [#/Vol] 292 10*3/uL 150-450 [facility] Serum Treponema species anti body detectionOrdered By: Dr. Hendricks on 12-15-2022 Treponema sp Ab Ql (S) Non-Reactive [facility] Culture, urineOrdered By: Dr Summer Hendricks on 11-30-2022 Bacteria identified Cx Nom (U) Positive [facility] Cervical or vagninal specime n microscopic examination by cytology stain (reported asOrdered By: Dr. Hendricks on 11-29-2022 Cytology report Cyto stain Doc (Cvx/Vag) Comment . [facility] Comment on above: The Pap smear is [...] rRNA GALILEA+probe Ql (Unsp spec) Negative Negative [facility] Laboratory - CytologyOrdered By: Dr. Hendricks on 11-29-2022 Necktie Turner Cyto stain Nom (Cvx/Vag) [ID] Comment . [facility] Comment on above: Sanaz suarez, Forest Fire Management Officer (ASCP) Laboratory - Microbiology an d Antimicrobial susceptibilityOrdered By: Dr. Hendricks on 11-29-2022 N. gonorrhoeae DNA GALILEA+probe Ql (Unsp spec) Negative Negative [facility] Comment on above: Performed at: =G - L [address] [id number] Director: Azra Willard MD, Phone: [phone] Laboratory - Miscellaneous t estsOrdered By: Dr. Hendricks on 11-29-2022 Service comment (Unsp spec) [Interp] Comment . [facility] Comment on above: This liquid based Th inPrep(R) pap test was screened withthe use of an image guided system. Service comment (Unsp spec) [Interp] . . [facility] No Panel InformationOrdered By: Dr. Hendricks on 11-29-2022 Human Papillomavirus Screen Comment . [facility] Comment on above: The HPV DNA reflex c john were not met with this specimenresult therefore, no HPV testing was performed.Performed at: - [facility], [place] [id number] Director: Azra Willard MD, Phone: [phone] Pathology report final diagnosis Narrative Comment . [facility] Comment on above: NEGATIVE FOR INTRAEP ITHELIAL LESION OR MALIGNANCY. Laboratory - Chemistry and C hemistry - challengeon 05-19-2022 Albumin [Mass/Vol] 4.3 g/dL Normal 3.6 - 5.1 g/dL [facility] [place] [facility] Albumin/Globulin [Mass ratio] 1.7 {ratio} Normal 1.0 - 2.5 [facility], [facility].; [place] [employer] ALP [Catalytic activity/Vol] 53 U/L Normal 31 - 125 U/L [facility] [employer] ALT [Catalytic activity/Vol] 14 U/L Normal 6 - 29 U/L [facility] [place] [employer] AST [Catalytic activity/Vol] 14 U/L Normal 10 - 30 U/L [place] [facility], [facility].; [employer] Bilirubin [Mass/Vol] 1.2 mg/dL Normal 0.2 - 1 .2 mg/dL [place] [employer] Calcium [Mass/Vol] 9.0 mg/dL Normal 8.6 - 10. 2 mg/dL [place] [employer] Chloride [Moles/Vol] 105 mmol/L Normal 98 - 11 0 mmol/L [place] [facility] [employer] Cholesterol [Mass/Vol] 171 mg/dL Normal [facility] [employer] Cholesterol in HDL [Mass/Vol] 44 mg/dL Abnormal [place] [employer] Cholesterol in LDL [Mass/Vol] 108 mg/dL Abnormal [place] [employer] CO2 [Moles/Vol] 29 mmol/L Normal 20 - 32 mmol/L [place] [facility] [employer] Creatinine [Mass/Vol] 0.78 mg/dL Normal 0.50 - 0.96 mg/dL [place] [facility] GFR/1.73 sq M.predicted among non-blacks MDRD (S/P/Bld) [Vol rate/Area] 107 mL/min/{1.73_m2} Normal [facility].; [facility], [facility] Glucose [Mass/Vol] 95 mg/dL Normal 65 - 99 mg/dL [facility], [facility] Potassium [Moles/Vol] 4.1 mmol/L Normal 3.5 - 5.3 mmol/L [facility] Hospital[facility] [employer] [facility]; [facility], [facility] Protein [Mass/Vol] 6.9 g/dL Normal 6.1 - 8.1 g/dL [facility]; [facility] Sodium [Moles/Vol] 138 mmol/L Normal 135 - 146 mmol/L [facility], [facility]; [facility], [facility] Triglyceride [Mass/Vol] 98 mg/dL Normal H [facility]; [facility] [employer] [facility] Urea nitrogen [Mass/Vol] 15 mg/dL Normal 7 - 25 mg/d L [facility]; [place] [facility] [employer] [facility] No Panel Informationon 05-19 BUN/CREATININE RATIO NOT APPLICABLE Normal 6 - 22 [facility]; [place] [facility] HospitalPos[facility]. CHOL/HDLC RATIO 3.9 Normal [facility]; [place] [facility] [employer] [facility] GLOBULIN 2.6 Normal 1.9 - 3.7 [facility]; [place] [facility] NON HDL CHOLESTEROL 127 Normal [facility] [facility] [employer] [facility]; [place] [facility] Serum or plasma choriogonado tropin detectionon 11-26-2021 HCG ( test) Ql < 1 mIU/mL <4 [facility] Work Phone: Comment on above: hCG levels with Gest ational AgeGestational Age hCG mIU/mL (IU/L)0.2 - 1 week 5 - 501-2 weeks 50 - 5002-3 weeks 100 - 21327-7 weeks 500 - 975683-8 weeks 1000 - 869734-5 weeks 77949 - 100,0006-8 weeks 80616 - 200,0002-3 months 87345 - 100,000 Serum or plasma choriogonado tropin detectionon 10-29-2021 HCG ( test) Ql < 1 mIU/mL <4 [facility] Work Phone: Comment on above: hCG levels with Gest ational AgeGestational Age hCG mIU/mL (IU/L)0.2 - 1 week 5 - 501-2 weeks 50 - 5002-3 weeks 100 - 51143-2 weeks 500 - 989003-1 weeks 1000 - 754102-4 weeks 22641 - 100,0006-8 weeks 94976 - 200,0002-3 months 51155 - 100,000 Serum or plasma choriogonado tropin detectionon 09-24-2021 HCG ( test) Ql < 1 mIU/mL <4 [facility] Work Phone: Comment on above: hCG levels with Gest ational AgeGestational Age hCG mIU/mL (IU/L)0.2 - 1 week 5 - 501-2 weeks 50 - 5002-3 weeks 100 - 48149-3 weeks 500 - 446096-8 weeks 1000 - 136977-9 weeks 33886 - 100,0006-8 weeks 02975 - 200,0002-3 months 31747 - 100,000 Serum or plasma choriogonado tropin detectionon 08-29-2021 HCG ( test) Ql < 1 mIU/mL <4 [facility] Work Phone: Comment on above: hCG levels with Gest ational AgeGestational Age hCG mIU/mL (IU/L)0.2 - 1 week 5 - 501-2 weeks 50 - 5002-3 weeks 100 - 89265-5 weeks 500 - 291341-8 weeks 1000 - 384982-3 weeks 07927 - 100,0006-8 weeks 54742 - 200,0002-3 months 98731 - 100,000 CORONAVIRUS PCR [CCL]on 09-04 REF LAB REPORT Positive Normal [facility] Comment on above: Performed By: #### 2 [id number] #### [facility],[address] [place] [address] SEND TO IC? YES Normal [facility] Comment on above: Performed By: #### 2 [id number] #### [facility],[address] [place] [address] COVID 19 Result TRAIN STARTER Positive Abnormal [facility] Comment on above: Result Comment: Posi tive for COVID19 (SARS CoV2) by PCR.(*) This test was developed and its performance characteristics determined by [facility]'s [facility] [place]. This test has been authorized by FDA under an Emergency Use Authorization (EUA). This test has been validated in accordance with the FDA's Guidance Document Policy for Diagnostics Testing in Laboratories Certified to Perform High Complexity Testing under CLIA prior to Emergency use Authorization for Coronavirus Disease 2019 during the Public Health Emergency issued on November 01, 2019[place] [address] Kurtis Briones III, M.D. [id number] Performed By: #### 2 [id number] #### [place] [address] COVID 19 Source TRAIN STARTER TRAIN STARTER SWAB Normal [facility] Comment on above: Performed By: #### 2 [id number] #### [place] [address] No Panel Informationon 05-19 [id number] SEE NOTE Normal [facility] [employer] CLINICAL INFORMATION: SEE NOTE Normal [facility] [employer] [employer] [employer] RESIDENTIAL REAL ESTATE APPRAISER: SEE NOTE Normal [employer] INTERPRETATION/RESULT: SEE NOTE Normal [facility] [employer] LMP: SEE NOTE Normal [employer] PREV. BX: SEE NOTE Normal [employer] PREV. PAP: SEE NOTE Normal [employer] SOURCE: SEE NOTE Normal [employer] STATEMENT OF ADEQUACY: SEE NOTE Normal [facility], Inc.; [employer]. Culture, Urineon 04-22-2017 Culture, Urine Test Name: [...] 1 FTrimeth/Sulfa R >= 320 F Normal [facility] Comment on above: Performed By: #### U RCUL ####Unless otherwise noted, all testing performed by [place] [address] [address], [place] [phone]: [id number] Director: Pako Morales M.D. Laboratory - Chemistry and C hemistry - challengeon 04-16-2017 Bilirubin Ql (U) Negative Normal [employer] [facility].; [employer]. Ketones Ql (U) Negative Normal [employer] [facility] [employer].; [employer]. pH (U) 5.5 [pH] Normal [employer]. Specific gravity (U) [Rel density] 1.025 Normal [employer].; [employer]. Urobilinogen Qn (U) 0.2 mg/dL Normal [employer]. Laboratory - Hematology and Cell countson 04-16-2017 Hemoglobin Ql (U) large Abnormal [employer].; [employer] Laboratory - Specimen inform ationon 04-16-2017 Appearance (U) cloudy Abnormal [employer].; [employer]. Color (U) yellow Normal [employer].; [employer]. Laboratory - Urinalysison Glucose Test strip (U) [Mass/Vol] Negative Normal [facility]; [place] [employer] [facility] Leukocyte esterase Test strip Ql (U) moderate Abnormal [facility].; [employer]. Nitrite Ql (U) Negative Normal [facility].; [place] [employer] Protein Ql (U) 100 mg/dL Abnormal [facility].; [place] [employer]. Laboratory - Microbiology an d Antimicrobial susceptibilityon 03-22-2017 Bacteria identified Aer cx Nom (Genital specimen) Normal [facility]; [employer] [facility] Laboratory - Specimen inform ationon 03-22-2017 Specimen source Nom (Unsp spec) GENITAL-NOT GIVEN Normal [facility]; [employer]. Laboratory - Cytologyon 05-05 Microscopic observation Cyto stain Nom (Cvx) Normal [facility] ERTejas [facility] [employer] [facility]; [employer] Laboratory - Microbiology an d Antimicrobial susceptibilityon 05-29-2016 C. trachomatis rRNA GALILEA+probe Ql (Unsp spec) Not detected Normal [facility]; [employer] N. gonorrhoeae rRNA GALILEA+probe Ql (Unsp spec) Not detected Normal [facility].; [employer]. Laboratory - Microbiology an d Antimicrobial susceptibilityon 02-07-2014 Bacteria identified # 2 Cx Nom (Unsp spec) Normal [facility] [facility]; [employer]. Bacteria identified Cx Nom (Unsp spec) Normal [facility].; [employer]. S. pyogenes Ag EIA Ql (Throat) Negative Normal [facility]; [employer]. Laboratory - Specimen inform ationon 02-07-2014 Specimen source Nom (Unsp spec) RESPIRATORY-THROAT Normal [facility]; [employer] Vital Signs Date Time Vital Sign Value Performing Clinician Facility 02-22-2024 10:35-0400 Body height 168.28 cm Neda Adams MA [facility]; [employer] 02-22-2024 10:35-0400 Body temperature 97.8 [degF] Neda Adams MA [facility].; [employer]. 02-22-2024 10:35-0400 Diastolic blood pressure 82 mm[Hg] Neda Adams MA [facility].; [employer]. Comment on above: Patient Position: Sitting; Cuff Location : Left Arm; Cuff Size: Standard 02-22-2024 10:35-0400 Heart rate 64 /min Neda Adams MA [facility] [employer]. Comment on above: Pattern: Regular 02-22-2024 10:35-0400 Systolic blood pressure 120 mm[Hg] Neda Adams MA [facility].; [place] [employer]. Comment on above: Patient Position: Sitting; Cuff Location : Left Arm; Cuff Size: Standard 11-02-2023 09:18-0500 Body height 168.28 cm Nguyen Manzo MA [facility].; [place] [employer] [facility]. 11-02-2023 09:18-0500 Body mass index (BMI) [Ratio] 33.64 kg/m2 Nguyen Manzo MA [facility].; [place] [facility]. 11-02-2023 09:18-0500 Body surface area Derived from formula 2.05 m2 Nguyen Manzo MA [facility].; [place] [facility]. 11-02-2023 09:18-0500 Body weight 95.26 kg Nguyen Manzo MA [facility].; [employer] [facility]. 11-02-2023 09:18-0500 Diastolic blood pressure 85 mm[Hg] Nguyen Manzo MA [facility].; [employer]. Comment on above: Patient Position: Sitting; Cuff Location : Left Arm; Cuff Size: Standard 11-02-2023 09:18-0500 Heart rate 63 /min Nguyen Manzo MA [facility].; [employer]. Comment on above: Pattern: Regular 11-02-2023 09:18-0500 Systolic blood pressure 125 mm[Hg] Nguyen Manzo MA [facility].; [employer]. Comment on above: Patient Position: Sitting; Cuff Location : Left Arm; Cuff Size: Standard 07-15-2023 14:46-0500 Body temperature 98.6 [degF] PA Aysha Joyner Work Phone: 9(142)695-835049 [place] [address] 07-15-2023 14:46-0500 Diastolic blood pressure 88 mm[Hg] PA Aysha Joyner Work Phone: 4(326)259-940068 [place] [address] 07-15-2023 14:46-0500 Heart rate 82 /min PA Aysha Joyner Work Phone: 3(593)597-027868 [place] [address] 07-15-2023 14:46-0500 Respiratory rate 16 /min PA Aysha Joyner Work Phone: 7(745)098-165268 [place] [address] 07-15-2023 14:46-0500 SaO2% (BldA) [Mass fraction] 97 % PA Aysha Joyner Work Phone: 6(861)932-241168 [place] [address] 07-15-2023 14:46-0500 Systolic blood pressure 133 mm[Hg] PA Aysha Joyner Work Phone: 6(214)493-555368 [place] [address] 07-12-2023 10:44-0500 Inhaled oxygen flow rate 10 L/min PA Aysha Joyner Work Phone: 8(759)020-149168 [place] [address] 07-11-2023 19:19-0500 Body height 167.64 cm PA Aysha Joyner Work Phone: 8(092)086-528668 [place] [address] 07-11-2023 19:19-0500 Body mass index (BMI) [Ratio] 37.5 kg/m2 PA Aysha Joyner Work Phone: 6(593)207-834897 [address] 07-11-2023 19:19-0500 Body weight 105.68 kg PA Aysha Joyner Work Phone: 9(649)309-320868 [place] [address] 07-06-2023 15:41-0400 Body mass index (BMI) [Ratio] 41 kg/m2 PA Aysha Joyner Work Phone: 2(474)330-997597 [address] 07-06-2023 15:41-0400 Body weight 105 kg PA Aysha Joyner Work Phone: [facility] 07-06-2023 15:41-0400 Diastolic blood pressure 88 mm[Hg] PA Aysha Joyner Work Phone: 1(782)973-039049 [place] [address] 07-06-2023 15:41-0400 Systolic blood pressure 137 mm[Hg] PA Aysha Joyner Work Phone: 8(930)310-835797 [address] 06-29-2023 15:28-0400 Body mass index (BMI) [Ratio] 41 kg/m2 PA Aysha Joyner Work Phone: 1(967)056-182597 [address] 06-29-2023 15:28-0400 Body weight 105 kg PA Aysha Joyner Work Phone: 8(044)298-596168 [place] [address] 06-29-2023 15:28-0400 Diastolic blood pressure 84 mm[Hg] PA Aysha Joyner Work Phone: 2(348)677-606668 [place] [address] 06-29-2023 15:28-0400 Systolic blood pressure 131 mm[Hg] PA Aysha Joyner Work Phone: 5(494)243-552868 [place] [address] 06-22-2023 14:40-0400 Body mass index (BMI) [Ratio] 40 kg/m2 PA Aysha Joyner Work Phone: 0(640)725-862668 [place] [address] 06-22-2023 14:40-0400 Body weight 102.56 kg PA Aysha Joyner Work Phone: 9(776)470-284368 [place] [address] 06-22-2023 14:40-0400 Diastolic blood pressure 82 mm[Hg] PA Aysha Joyner Work Phone: 6(676)582-756897 [address] 06-22-2023 14:40-0400 Systolic blood pressure 128 mm[Hg] PA Aysha Joyner Work Phone: 6(723)569-180198 [place] [address] 06-15-2023 16:01-0400 Body height 160.02 cm PA Aysha Joyner Work Phone: 0(562)486-951768 [place] [address] 06-15-2023 16:01-0400 Body mass index (BMI) [Ratio] 39.6 kg/m2 PA Aysha Joyner Work Phone: 9(299)962-721649 [place] [address] 06-15-2023 16:01-0400 Body weight 101.37 kg PA Aysha Joyner Work Phone: [facility] 06-15-2023 16:01-0400 Diastolic blood pressure 81 mm[Hg] PA Aysha Joyner Work Phone: [facility] 06-15-2023 16:01-0400 Systolic blood pressure 120 mm[Hg] PA Aysha Joyner Work Phone: [facility] 06-08-2023 15:41-0400 Body mass index (BMI) [Ratio] 39.8 kg/m2 PA Aysha Joyner Work Phone: 5(234)958-045797 [address] 06-08-2023 15:41-0400 Body weight 102.05 kg PA Aysha Joyner Work Phone: 4(241)304-521997 [address] 06-08-2023 15:41-0400 Diastolic blood pressure 80 mm[Hg] PA Aysha Joyner Work Phone: 7(212)979-511797 [address] 06-08-2023 15:41-0400 Systolic blood pressure 118 mm[Hg] PA Aysha Joyner Work Phone: 3(852)593-908897 [address] 05-09-2023 14:29-0400 Body mass index (BMI) [Ratio] 38.6 kg/m2 PA Aysha Joyner Work Phone: [facility] 05-09-2023 14:29-0400 Body weight 98.93 kg PA Aysha Joyner Work Phone: 2(240)822-717297 [address] 05-09-2023 14:29-0400 Diastolic blood pressure 82 mm[Hg] PA Aysha Joyner Work Phone: [facility] 05-09-2023 14:29-0400 Systolic blood pressure 122 mm[Hg] PA Aysha Joyner Work Phone: [facility] 04-27-2023 13:58-0400 Body mass index (BMI) [Ratio] 38.6 kg/m2 PA Aysha Joyner Work Phone: [facility] 04-27-2023 13:58-0400 Body weight 98.88 kg PA Aysha Joyner Work Phone: [facility] 04-27-2023 13:58-0400 Diastolic blood pressure 70 mm[Hg] PA Aysha Joyner Work Phone: [facility] 04-27-2023 13:58-0400 Systolic blood pressure 122 mm[Hg] PA Aysha Joyner Work Phone: [facility] 04-20-2023 15:51-0400 Body height 160.02 cm PA Aysha Joyner Work Phone: [facility] 04-20-2023 15:46-0400 Body mass index (BMI) [Ratio] 35.2 kg/m2 PA Aysha Joyner Work Phone: [facility] 04-20-2023 15:46-0400 Body weight 99.05 kg PA Aysha Joyner Work Phone: [facility] 04-20-2023 15:46-0400 Diastolic blood pressure 88 mm[Hg] PA Aysha Joyner Work Phone: 3(628)495-942749 [place] [address] 04-20-2023 15:46-0400 Systolic blood pressure 128 mm[Hg] PA Aysha Joyner Work Phone: [facility] 03-23-2023 16:11-0400 Body mass index (BMI) [Ratio] 37.6 kg/m2 PA Aysha Joyner Work Phone: [facility] 03-23-2023 16:11-0400 Body weight 96.38 kg PA Aysha Joyner Work Phone: [facility] 03-23-2023 16:11-0400 Diastolic blood pressure 77 mm[Hg] PA Aysha Joyner Work Phone: [facility] 03-23-2023 16:11-0400 Systolic blood pressure 116 mm[Hg] PA Aysha Joyner Work Phone: [facility] 02-23-2023 16:03-0400 Body mass index (BMI) [Ratio] 37 kg/m2 PA Aysha Joyner Work Phone: [facility] 02-23-2023 16:03-0400 Body weight 94.85 kg PA Aysha Joyner Work Phone: [facility] 02-23-2023 16:03-0400 Diastolic blood pressure 80 mm[Hg] PA Aysha Joyner Work Phone: [facility] 02-23-2023 16:03-0400 Systolic blood pressure 132 mm[Hg] PA Aysha Joyner Work Phone: [facility] 01-26-2023 15:33-0400 Body mass index (BMI) [Ratio] 36.5 kg/m2 PA Aysha Joyner Work Phone: [facility] 01-26-2023 15:33-0400 Body weight 93.61 kg PA Aysha Joyner Work Phone: [facility] 01-26-2023 15:33-0400 Diastolic blood pressure 81 mm[Hg] PA Aysha Joyner Work Phone: 6(728)361-576549 [place] [address] 01-26-2023 15:33-0400 Systolic blood pressure 130 mm[Hg] PA Aysha Joyner Work Phone: [facility] 12-29-2022 11:47-0400 Body height 160.02 cm PA Aysha Joyner Work Phone: [facility] 12-29-2022 11:47-0400 Body mass index (BMI) [Ratio] 32.9 kg/m2 PA Aysha Joyner Work Phone: [facility] 12-29-2022 11:47-0400 Body weight 92.64 kg PA Aysha Joyner Work Phone: [facility] 12-29-2022 11:47-0400 Diastolic blood pressure 77 mm[Hg] PA Aysha Joyner Work Phone: [facility] 12-29-2022 11:47-0400 Systolic blood pressure 128 mm[Hg] PA Aysha Joyner Work Phone: [facility] 12-15-2022 10:02-0400 Body mass index (BMI) [Ratio] 36.3 kg/m2 PA Aysha Joyner Work Phone: [facility] 12-15-2022 10:02-0400 Body weight 93.09 kg PA Aysha Joyner Work Phone: [facility] 12-15-2022 10:02-0400 Diastolic blood pressure 86 mm[Hg] PA Ayhsa Joyner Work Phone: [facility] 12-15-2022 10:02-0400 Systolic blood pressure 132 mm[Hg] PA Aysha Joyner Work Phone: [facility] 11-29-2022 11:53-0400 Body height 160.02 cm PA Aysha Joyner Work Phone: [facility] 11-29-2022 11:53-0400 Body mass index (BMI) [Ratio] 36.3 kg/m2 PA Aysha Joyner Work Phone: [facility] 11-29-2022 11:53-0400 Body weight 93.15 kg PA Aysha Joyner Work Phone: [facility] 11-29-2022 11:53-0400 Diastolic blood pressure 88 mm[Hg] PA Aysha Joyner Work Phone: [facility] 11-29-2022 11:53-0400 Systolic blood pressure 140 mm[Hg] PA Aysha Joyner Work Phone: [facility] 07-06-2022 11:23-0400 Body height 168.28 cm Rachael King LPN [facility], [facility]. 07-06-2022 11:23-0400 Body mass index (BMI) [Ratio] 33 kg/m2 Rachael King LPN [facility], [facility]. 07-06-2022 11:23-0400 Body surface area Derived from formula 2.03 m2 Rachael King LPN [facility] [employer]. 07-06-2022 11:23-0400 Body temperature 98.3 [degF] Rachael King [facility], [facility].; [employer]. Comment on above: Method: Tympanic 07-06-2022 11:23-0400 Body weight 93.44 kg Rachael King RAMYA [place] [facility], [facility].; [employer], [employer]. 07-06-2022 11:23-0400 Diastolic blood pressure 85 mm[Hg] Rachael King CORRECTIONS OFFICER [place] [facility], [facility].; [employer]. Comment on above: Patient Position: Sitting; Cuff Location : Left Arm; Cuff Size: Standard 07-06-2022 11:23-0400 Heart rate 76 /min Rachael King [facility], [facility].; [employer]. Comment on above: Pattern: Regular 07-06-2022 11:23-0400 Systolic blood pressure 121 mm[Hg] Rachael King [employer]RECTIONS OFFICER [place] [facility], [facility].; [employer]. Comment on above: Patient Position: Sitting; Cuff Location : Left Arm; Cuff Size: Standard 05-19-2022 09:08-0400 Body height 168.28 cm Angelique Morrow RN [place] [facility], [facility].; [employer]. 05-19-2022 09:08-0400 Body mass index (BMI) [Ratio] 32.52 kg/m2 Angelique Morrow RN [place] [facility], [employer].; [employer] [facility]. 05-19-2022 09:08-0400 Body surface area Derived from formula 2.02 m2 Angelique Morrow RN [place] [facility]Te[employer] [facility] [employer] [facility].; [employer]. 05-19-2022 09:08-0400 Body weight 92.08 kg Angelique Morrow RN [place] [facility]Te[facility] [employer] [facility].; [employer]. 05-19-2022 09:08-0400 Diastolic blood pressure 70 mm[Hg] Angelique Morrow RN [place] [facility], [employer].; [employer]. Comment on above: Patient Position: Sitting; Cuff Location : Left Arm; Cuff Size: Standard 05-19-2022 09:08-0400 Heart rate 67 /min Angelique Morrow RN [facility], [facility].; [facility] [facility]. Comment on above: Pattern: Regular 05-19-2022 09:08-0400 Systolic blood pressure 108 mm[Hg] Angelique Morrow RN [facility], [facility].; [employer], [employer]. Comment on above: Patient Position: Sitting; Cuff Location : Left Arm; Cuff Size: Standard 05-25-2021 08:31-0400 Body height 168.28 cm Tammy Mehta LPN [facility], [facility].; [place] [facility], [facility]. 05-25-2021 08:31-0400 Body mass index (BMI) [Ratio] 31.24 kg/m2 Tammy Mehta LPN [facility], [facility].; [place] [facility], [employer]. 05-25-2021 08:31-0400 Body surface area Derived from formula 1.98 m2 Tammy Mehta LPN [facility], [facility].; [place] [facility], [facility]. 05-25-2021 08:31-0400 Body weight 88.45 kg Tammy Mehta LPN [facility], [facility].; [facility], [facility]. 05-25-2021 08:31-0400 Diastolic blood pressure 90 mm[Hg] Tammy Mehta LPN [facility], [facility].; [employer], [employer]. Comment on above: Patient Position: Sitting; Cuff Location : Left Arm; Cuff Size: Standard 05-25-2021 08:31-0400 Heart rate 69 /min Tammy Mehta LPN [facility], [facility].; [employer]. Comment on above: Pattern: Regular 05-25-2021 08:31-0400 Systolic blood pressure 125 mm[Hg] Tammy Mehta LPN [facility], [facility].; [employer]. Comment on above: Patient Position: Sitting; Cuff Location : Left Arm; Cuff Size: Standard 12-20-2020 09:47-0400 Body height 482.6 cm Angelique Morrow RN [facility], [facility].; [employer]. 12-20-2020 09:47-0400 Body mass index (BMI) [Ratio] 1.29 kg/m2 Angelique Morrow RN [facility] [place] [facility].; [facility]. 12-20-2020 09:47-0400 Body surface area Derived from formula 2.69 m2 Angelique Morrow RN [facility] [place] [facility].; [place] [employer] [facility]. 12-20-2020 09:47-0400 Body weight 30.05 kg Angelique Morrow RN [facility].; [employer] [employer] [facility]. 12-20-2020 09:47-0400 Diastolic blood pressure 83 mm[Hg] Angelique Morrow RN [facility] [employer] [facility].; [facility]. Comment on above: Patient Position: Sitting; Cuff Location : Left Arm; Cuff Size: Standard 12-20-2020 09:47-0400 Heart rate 76 /min Angelique Morrow RN [facility].; [employer]. Comment on above: Pattern: Regular 12-20-2020 09:47-0400 Systolic blood pressure 120 mm[Hg] Angelique Morrow RN [facility] [employer] [facility].; [place] [facility]. Comment on above: Patient Position: Sitting; Cuff Location : Left Arm; Cuff Size: Standard 05-19-2020 14:14-0400 Diastolic blood pressure 78 mm[Hg] Crystal K Uptain CNM Work Phone: [facility].; [employer]. Work Phone: Comment on above: Patient Position: Sitting; Cuff Location : Left Arm; Cuff Size: Standard 05-19-2020 14:14-0400 Systolic blood pressure 126 mm[Hg] Crystal K Uptain CNM Work Phone: [place] [employer].; [employer]. Work Phone: Comment on above: Patient Position: Sitting; Cuff Location : Left Arm; Cuff Size: Standard 05-19-2020 13:18-0400 Body height 168.28 cm Crystal K Uptain CNM Work Phone: [employer]; [employer]. 05-19-2020 13:18-0400 Body mass index (BMI) [Ratio] 30.6 kg/m2 Crystal Barbara Uptain CNM Work Phone: [employer]; [employer]. 05-19-2020 13:18-0400 Body surface area Derived from formula 1.97 m2 Crystal K Uptain CNM Work Phone: [employer]; [employer]. 05-19-2020 13:18-0400 Body temperature 84 [degF] Crystal K Uptain CNM Work Phone: [employer]; [employer]. Comment on above: Method: Tympanic 05-19-2020 13:18-0400 Body weight 86.64 kg Crystal Barbara Uptain CNM Work Phone: [employer]; [employer]. 05-19-2020 13:18-0400 Diastolic blood pressure 90 mm[Hg] Crystal Barbara Uptain CNM Work Phone: [employer]; [employer]. Comment on above: Patient Position: Sitting; Cuff Location : Left Arm; Cuff Size: Standard 05-19-2020 13:18-0400 Heart rate 84 /min Sahara Jimenez Uptain CNM Work Phone: [employer]; [employer]. Comment on above: Pattern: Regular 05-19-2020 13:18-0400 Systolic blood pressure 145 mm[Hg] Crystal K Uptain CNM Work Phone: [employer]; [employer]. Comment on above: Patient Position: Sitting; Cuff Location : Left Arm; Cuff Size: Standard 05-19-2019 14:19-0400 Body height 168.28 cm Terrie Singleton LPN [employer].; [employer]. 05-19-2019 14:19-0400 Body mass index (BMI) [Ratio] 29.31 kg/m2 Terrie Singleton LPN [employer].; [employer] 05-19-2019 14:190400 Body surface area Derived from formula 1.93 m2 Terrie Singleton LPN [facility] [employer] 05-19-2019 14:190400 Body weight 83.01 kg Terrie Singleton LPN [facility] [employer], [employer] 05-19-2019 14:19-0400 Diastolic blood pressure 82 mm[Hg] Terrie Singleton LPN [facility].; [employer], [employer]. Comment on above: Patient Position: Sitting; Cuff Location : Left Arm; Cuff Size: Standard 05-19-2019 14:19-0400 Heart rate 65 /min Terrie Singleton LPN [facility].; [employer], [employer]. Comment on above: Pattern: Regular 05-19-2019 14:19-0400 Systolic blood pressure 126 mm[Hg] Terrie Singleton LPN [place] [facility].; [employer], [employer]. Comment on above: Patient Position: Sitting; Cuff Location : Left Arm; Cuff Size: Standard 06-25-2018 15:13-0400 Body height 168.28 cm [facility] (scribe) [facility] [employer], [employer] 06-25-2018 15:13-0400 Body mass index (BMI) [Ratio] 28.99 kg/m2 [facility] (scribe) [facility] [employer], [employer] 06-25-2018 15:130400 Body surface area Derived from formula 1.92 m2 Hemanta [employer]og[employer] (scribe) [place] [facility].; [employer], [employer] 06-25-2018 15:130400 Body weight 82.1 kg [employer] Get [employer] [place] (scribe) [facility].; [employer], [employer] 06-25-2018 15:13-0400 Diastolic blood pressure 78 mm[Hg] Hemanta Gogoi (scribe) [facility].; [employer], [employer]. Comment on above: Patient Position: Sitting; Cuff Location : Left Arm; Cuff Size: Standard 06-25-2018 15:13-0400 Heart rate 79 /min [facility] Dimitrisgoi (scribe) [employer], [employer].; [employer]. Comment on above: Pattern: Regular 06-25-2018 15:13-0400 Systolic blood pressure 126 mm[Hg] Hemanta Dimitrisgoi (scribe) [employer], Inc.; [employer]. Comment on above: Patient Position: Sitting; Cuff Location : Left Arm; Cuff Size: Standard 06-19-2018 13:33-0400 Body height 168.28 cm [facility] Work Phone: [employer].; [employer]. Work Phone: 06-19-2018 13:33-0400 Body mass index (BMI) [Ratio] 28.03 kg/m2 [facility] Work Phone: [employer].; [employer]. Work Phone: 06-19-2018 13:33-0400 Body surface area Derived from formula 1.9 m2 [facility] Work Phone: [employer]; [employer]. Work Phone: 06-19-2018 13:33-0400 Body temperature 99.2 [degF] [facility] Work Phone: [employer].; [employer]. Work Phone: Comment on above: Method: Tympanic 06-19-2018 13:33-0400 Body weight 79.38 kg [facility] Work Phone: [employer].; [employer]. Work Phone: 06-19-2018 13:33-0400 Diastolic blood pressure 88 mm[Hg] [facility] Work Phone: [employer].; [employer]. Work Phone: Comment on above: Patient Position: Sitting; Cuff Location : Left Arm; Cuff Size: Standard 06-19-2018 13:33-0400 Heart rate 72 /min Denita Palacio LPN Work Phone: [employer].; [employer]. Work Phone: Comment on above: Pattern: Regular 06-19-2018 13:33-0400 Systolic blood pressure 133 mm[Hg] Denita Palacio CORRECTIONS OFFICER Work Phone: [employer].; [employer]. Work Phone: Comment on above: Patient Position: Sitting; Cuff Location : Left Arm; Cuff Size: Standard 07-31-2017 13:50-0500 Body height 168.28 cm Angelique Morrow RN [employer].; [employer]. 07-31-2017 13:50-0500 Body mass index (BMI) [Ratio] 26.91 kg/m2 Angelique Morrow RN [employer].; [employer]. 07-31-2017 13:50-0500 Body surface area Derived from formula 1.86 m2 Angelique Morrow RN [employer].; [employer]. 07-31-2017 13:50-0500 Body temperature 98.6 [degF] Angelique Morrow RN [employer].; [employer]. Comment on above: Method: Tympanic 07-31-2017 13:50-0500 Body weight 76.2 kg Angelique Morrow RN [employer].; [employer]. 07-31-2017 13:50-0500 Diastolic blood pressure 90 mm[Hg] Angelique Morrow RN [employer].; [employer]. Comment on above: Patient Position: Sitting; Cuff Location : Left Arm; Cuff Size: Standard 07-31-2017 13:50-0500 Heart rate 72 /min Angelique Morrow RN [employer].; [employer]. Comment on above: Pattern: Regular 07-31-2017 13:50-0500 Systolic blood pressure 128 mm[Hg] Angelique Morrow RN [facility], [employer].; [employer], [employer]. Comment on above: Patient Position: Sitting; Cuff Location : Left Arm; Cuff Size: Standard 06-18-2017 13:16-0400 Body height 168.28 cm Trevor Carlito (Scribe) [facility], Inc.; [employer], [employer] 06-18-2017 13:16-0400 Body mass index (BMI) [Ratio] 26.43 kg/m2 [facility] (Scribe) [facility], Inc.; [employer], [employer]. 06-18-2017 13:160400 Body surface area Derived from formula 1.85 m2 [facility], Inc.; [employer], [employer] 06-18-2017 13:160400 Body weight 74.84 kg [facility] (Scribe) [place] [facility], Inc.; [employer], [employer]. 06-18-2017 13:16-0400 Diastolic blood pressure 86 mm[Hg] Trevor Carlito (Scribe) [place] [facility], Inc.; [employer]. Comment on above: Patient Position: Sitting; Cuff Location : Left Arm; Cuff Size: Standard 06-18-2017 13:16-0400 Heart rate 60 /min [facility] (Scribe) [facility], Inc.; [employer], [employer]. Comment on above: Pattern: Regular 06-18-2017 13:16-0400 Systolic blood pressure 135 mm[Hg] Trevor Carlito (Scribe) [facility], Inc.; [employer]. Comment on above: Patient Position: Sitting; Cuff Location : Left Arm; Cuff Size: Standard 04-16-2017 15:150400 Body height 168.28 cm Estella Peterson LPN [place] [facility], Inc.; [employer], [employer] 04-16-2017 15:15-0400 Body mass index (BMI) [Ratio] 25.95 kg/m2 Estella Peterson LPN [place] [facility], Inc.; [employer], [employer]. 04-16-2017 15:15-0400 Body surface area Derived from formula 1.83 m2 Estella [place] BUI [facility], Inc.; [employer], [employer]. 04-16-2017 15:15-0400 Body temperature 98.9 [degF] Estella Peterson [facility].; [place] [employer], [employer] Comment on above: Method: Tympanic 04-16-2017 15:150400 Body weight 73.48 kg Estella [place] [facility], Inc.; [employer], [employer]. 04-16-2017 15:15-0400 Diastolic blood pressure 90 mm[Hg] Estella Veelópez [facility], Inc.; [employer], [employer]. Comment on above: Patient Position: Sitting; Cuff Location : Left Arm; Cuff Size: Standard 04-16-2017 15:15-0400 Heart rate 85 /min Estella Veelópez [facility], Inc.; [employer]. Comment on above: Pattern: Regular 04-16-2017 15:15-0400 Systolic blood pressure 143 mm[Hg] Estella Veesukijulienne CORRECTIONS OFFICER [place] [facility], Inc.; [employer], [employer]. Comment on above: Patient Position: Sitting; Cuff Location : Left Arm; Cuff Size: Standard 03-22-2017 11:290400 Body temperature 99.2 [degF] Aysha Joyner PA-C Work Phone: [facility] [employer]. Comment on above: Method: Tympanic 03-22-2017 11:290400 Body weight 73.98 kg Aysha Joyner PA-C Work Phone: [place] [employer], [employer]. 03-22-2017 11:290400 Diastolic blood pressure 88 mm[Hg] Aysha Joyner PA-C Work Phone: [place] [employer]. Comment on above: Patient Position: Sitting; Cuff Location : Left Arm; Cuff Size: Standard 03-22-2017 11:29-0400 Heart rate 69 /min Aysha Joyner PA-C Work Phone: [employer]; [employer]. Comment on above: Pattern: Regular 03-22-2017 11:29-0400 Systolic blood pressure 125 mm[Hg] Aysha Joyner PA-C Work Phone: [employer]; [employer]. Comment on above: Patient Position: Sitting; Cuff Location : Left Arm; Cuff Size: Standard 02-06-2017 14:50-0400 Body height 168.28 cm Aysha Joyner PA-C Work Phone: [employer]; [employer]. 02-06-2017 14:50-0400 Body mass index (BMI) [Ratio] 26.24 kg/m2 Aysha Joyner PA-C Work Phone: [employer]; [employer]. 02-06-2017 14:50-0400 Body surface area Derived from formula 1.84 m2 Aysha Joyner PA-C Work Phone: [employer]; [employer] 02-06-2017 14:50-0400 Body temperature 97.8 [degF] Aysha Joyner PA-C Work Phone: [employer]; [employer]. Comment on above: Method: Tympanic 02-06-2017 14:50-0400 Body weight 74.3 kg Aysha Joyner PA-C Work Phone: [employer]; [employer]. 02-06-2017 14:50-0400 Diastolic blood pressure 82 mm[Hg] Aysha Joyner PA-C Work Phone: [employer]; [employer]. Comment on above: Patient Position: Sitting; Cuff Location : Left Arm; Cuff Size: Standard 02-06-2017 14:50-0400 Heart rate 62 /min Aysha Joyner PA-C Work Phone: [employer]; [facility] [employer] Comment on above: Pattern: Regular 02-06-2017 14:50-0400 Systolic blood pressure 131 mm[Hg] Aysha Joyner PA-C Work Phone: [facility] [employer]. Comment on above: Patient Position: Sitting; Cuff Location : Left Arm; Cuff Size: Standard 09-23-2016 08:50-0500 Body height 168.28 cm Cintia Miller [facility], Inc.; [employer]. 09-23-2016 08:50-0500 Body mass index (BMI) [Ratio] 29.15 kg/m2 [facility] Paul [facility], [employer].; [employer], [employer]. 09-23-2016 08:50-0500 Body surface area Derived from formula 1.93 m2 Cintia Miller [facility], [employer].; [employer], [employer]. 09-23-2016 08:50-0500 Body weight 82.56 kg Cintia Miller [facility], [employer].; [employer]. 09-23-2016 08:50-0500 Diastolic blood pressure 87 mm[Hg] Cintia Miller [facility], [employer].; [employer]. Comment on above: Patient Position: Sitting; Cuff Location : Left Arm; Cuff Size: Large 09-23-2016 08:50-0500 Heart rate 80 /min SamaraAlayna Miller [facility], [employer].; [employer]. Comment on above: Pattern: Regular 09-23-2016 08:50-0500 Systolic blood pressure 131 mm[Hg] Cintia Miller [facility], Inc.; [employer]. Comment on above: Patient Position: Sitting; Cuff Location : Left Arm; Cuff Size: Large 05-29-2016 09:08-0400 Body height 168.28 cm Cassie Goodman CORRECTIONS OFFICER [place] [facility], Inc.; [employer]. 05-29-2016 09:08-0400 Body mass index (BMI) [Ratio] 30.12 kg/m2 Cassie Goodman CORRECTIONS OFFICER [place] [facility], [employer].; [employer]. 05-29-2016 09:08-0400 Body surface area Derived from formula 1.95 m2 Cassie Goodman LPN [facility], Inc.; [employer], [employer]. 05-29-2016 09:08-0400 Body temperature 97.7 [degF] Cassie Allyson Goodman LPN [place] [facility], Inc.; [employer]. Comment on above: Method: Tympanic 05-29-2016 09:08-0400 Body weight 85.28 kg Cassiejorge Goodman LPN [facility], Inc.; [employer], [employer]. 05-29-2016 09:08-0400 Diastolic blood pressure 90 mm[Hg] Cassie Allyson Goodman LPN [facility], [employer].; [employer], [employer]. Comment on above: Patient Position: Sitting; Cuff Location : Left Arm; Cuff Size: Large 05-29-2016 09:08-0400 Heart rate 79 /min Cassie Goodman LPN [facility], Inc.; [employer]. Comment on above: Pattern: Regular 05-29-2016 09:08-0400 Systolic blood pressure 129 mm[Hg] Cassie Allyson Goodman LPN [facility], [employer].; [employer], [employer]. Comment on above: Patient Position: Sitting; Cuff Location : Left Arm; Cuff Size: Large 03-21-2016 08:56-0400 Body height 167.64 cm Cassie Goodman LPN [facility], Inc.; [employer], [employer]. 03-21-2016 08:56-0400 Body mass index (BMI) [Ratio] 30.34 kg/m2 Cassie Goodman LPN [facility], Inc.; [employer], [employer]. 03-21-2016 08:56-0400 Body surface area Derived from formula 1.95 m2 Cassie Goodman LPN [facility], [employer].; [employer], [employer]. 03-21-2016 08:56-0400 Body temperature 97.8 [degF] Cassie Goodman LPN [facility], [employer].; [employer]. Comment on above: Method: Tympanic 03-21-2016 08:56-0400 Body weight 85.28 kg Cassie Goodman LPN [facility], Inc.; [employer], [employer]. 03-21-2016 08:56-0400 Diastolic blood pressure 83 mm[Hg] Cassie Goodman LPN [facility], Inc.; [employer], Inc. Comment on above: Patient Position: Sitting; Cuff Location : Left Arm; Cuff Size: Large 03-21-2016 08:56-0400 Heart rate 86 /min Cassie Goodman LPN [facility], Inc.; [employer], [employer]. Comment on above: Pattern: Regular 03-21-2016 08:56-0400 Systolic blood pressure 119 mm[Hg] Cassie Goodman LPN [facility], Inc.; [employer], [employer]. Comment on above: Patient Position: Sitting; Cuff Location : Left Arm; Cuff Size: Large 10-15-2015 14:43-0500 Body height 167.64 cm Cassie Goodman LPN [facility], Inc.; [employer], [employer] 10-15-2015 14:43-0500 Body mass index (BMI) [Ratio] 30.83 kg/m2 Cassie Goodman LPN [place] [facility], Inc.; [employer], [employer]. 10-15-2015 14:43-0500 Body surface area Derived from formula 1.96 m2 Cassie Goodman LPN [facility], Inc.; [employer], [employer]. 10-15-2015 14:43-0500 Body temperature 98.3 [degF] Cassie Goodman LPN [place] [facility], Inc.; [employer], [employer]. Comment on above: Method: Tympanic 10-15-2015 14:43-0500 Body weight 86.64 kg Cassie Goodman LPN [place] [facility], Inc.; [employer], [employer]. 10-15-2015 14:43-0500 Diastolic blood pressure 91 mm[Hg] Cassie Goodman LPN [place] [facility], Inc.; [employer], [employer]. Comment on above: Patient Position: Sitting; Cuff Location : Left Arm; Cuff Size: Standard 10-15-2015 14:43-0500 Heart rate 79 /min Cassie Goodman LPN [facility], Inc.; [employer], [employer]. Comment on above: Pattern: Regular 10-15-2015 14:43-0500 Systolic blood pressure 133 mm[Hg] Cassie Goodman [facility], Inc.; [employer], [employer]. Comment on above: Patient Position: Sitting; Cuff Location : Left Arm; Cuff Size: Standard 06-17-2015 11:23-0400 Body height 167.64 cm Cintia Miller [facility], Inc.; [employer], [employer]. 06-17-2015 11:23-0400 Body mass index (BMI) [Ratio] 29.38 kg/m2 Cintia Miller [facility], Inc.; [employer], [employer]. 06-17-2015 11:23-0400 Body surface area Derived from formula 1.92 m2 [facility] Paul [facility], Inc.; [facility], [employer]. 06-17-2015 11:23-0400 Body weight 82.56 kg Cintia Miller [facility], Inc.; [employer], [employer]. 06-17-2015 11:23-0400 Diastolic blood pressure 74 mm[Hg] Cintia Miller [facility], Inc.; [employer], [employer]. Comment on above: Patient Position: Sitting; Cuff Location : Left Arm; Cuff Size: Large 06-17-2015 11:23-0400 Heart rate 76 /min Cintia Miller [facility], Inc.; [employer], [employer]. Comment on above: Pattern: Regular 06-17-2015 11:23-0400 Systolic blood pressure 109 mm[Hg] Cintia Miller [facility], Inc.; [employer], [employer]. Comment on above: Patient Position: Sitting; Cuff Location : Left Arm; Cuff Size: Large 05-18-2015 11:16-0400 Body height 167.64 cm Cassie Goodman LPN [facility], Inc.; [employer], [employer]. 05-18-2015 11:16-0400 Body mass index (BMI) [Ratio] 29.38 kg/m2 Cassie Goodman CORRECTIONS OFFICER [facility], Inc.; [employer] [facility], Inc[facility] 05-18-2015 11:16-0400 Body surface area Derived from formula 1.92 m2 Cassie Allyson Goodman LPN [facility], Inc.; [employer], [employer] 05-18-2015 11:16-0400 Body weight 82.56 kg Cassie Townsend Rex [facility], Inc.; [employer], Inc. 05-18-2015 11:16-0400 Diastolic blood pressure 85 mm[Hg] Cassie Allyson Goodman LPN [facility], Inc.; [employer], Inc. Comment on above: Patient Position: Sitting; Cuff Location : Right Arm; Cuff Size: Standard 05-18-2015 11:16-0400 Heart rate 64 /min Cassie Allyson Goodman CORRECTIONS OFFICER [facility], Inc.; [employer], Inc. Comment on above: Pattern: Regular 05-18-2015 11:16-0400 Systolic blood pressure 125 mm[Hg] Cassie Allyson Rex CORRECTIONS OFFICER [facility], Inc.; [employer], Inc. Comment on above: Patient Position: Sitting; Cuff Location : Right Arm; Cuff Size: Standard 02-07-2014 09:32-0400 Body temperature 101.8 [degF] Cintia Miller CORRECTIONS OFFICER [facility], Inc.; [employer], Inc. Comment on above: Method: Tympanic 02-07-2014 09:32-0400 Body weight 90.27 kg Cintia Miller CORRECTIONS OFFICER [facility], Inc.; [employer], [employer] 02-07-2014 09:32-0400 Diastolic blood pressure 82 mm[Hg] Cintia Miller CORRECTIONS OFFICER [facility], Inc.; [employer], [employer]. Comment on above: Patient Position: Sitting; Cuff Location : Left Arm; Cuff Size: Large 02-07-2014 09:32-0400 Heart rate 129 /min Cintia Miller RAMYA [place] [facility], Inc.; [employer], [employer]. Comment on above: Pattern: Regular 02-07-2014 09:32-0400 Systolic blood pressure 119 mm[Hg] Cintia Miller CORRECTIONS OFFICER [facility], Inc.; [facility] [facility]. Comment on above: Patient Position: Sitting; Cuff Location : Left Arm; Cuff Size: Large 07-08-2013 13:10-0500 Body height 167.64 cm Cassie Goodman LPN [facility], Inc.; [employer], [employer]. 07-08-2013 13:10-0500 Body mass index (BMI) [Percentile] Per age and sex 94 % Cassie Goodman LPN [facility], Inc.; [employer], [employer]. 07-08-2013 13:10-0500 Body mass index (BMI) [Ratio] 30.02 kg/m2 Cassie Goodman [facility], [employer].; [employer], [employer]. 07-08-2013 13:10-0500 Body surface area Derived from formula 1.94 m2 Cassie Goodman LPN [facility], Inc.; [employer], [employer]. 07-08-2013 13:10-0500 Body weight 84.37 kg Cassie Goodman LPN [facility], [facility].; [employer], [employer]. 07-08-2013 13:10-0500 Diastolic blood pressure 88 mm[Hg] Cassie Goodman LPN [facility], [employer].; [employer], [employer]. Comment on above: Patient Position: Sitting; Cuff Location : Left Arm; Cuff Size: Standard 07-08-2013 13:10-0500 Heart rate 98 /min Cassie Goodman LPN [facility], Inc.; [employer]. Comment on above: Pattern: Regular 07-08-2013 13:10-0500 Systolic blood pressure 134 mm[Hg] Cassie Goodman LPN [place] [facility], [employer].; [employer]. Comment on above: Patient Position: Sitting; Cuff Location : Left Arm; Cuff Size: Standard 03-11-2013 10:25-0400 Body height 167.64 cm Aysha Joyner PA-C Work Phone: [place] [employer], [employer].; [employer]. 03-11-2013 10:25-0400 Body mass index (BMI) [Percentile] Per age and sex 89 % Aysha POOLC Work Phone: [employer]; [employer]. 03-11-2013 10:25-0400 Body mass index (BMI) [Ratio] 26.95 kg/m2 Aysha Joyner PA-C Work Phone: [employer]; [employer]. 03-11-2013 10:25-0400 Body surface area Derived from formula 1.85 m2 Aysha Joyner PA-C Work Phone: [employer]; [employer] 03-11-2013 10:25-0400 Body temperature 97.2 [degF] Aysha Joyner PA-C Work Phone: [employer]; [employer] Comment on above: Method: Tympanic 03-11-2013 10:25-0400 Body weight 75.75 kg Aysha Joyner PA-C Work Phone: [employer]; [employer] 03-11-2013 10:25-0400 Diastolic blood pressure 78 mm[Hg] Aysha Joyner PA-C Work Phone: [employer]; [employer]. Comment on above: Patient Position: Sitting; Cuff Location : Right Arm; Cuff Size: Standard 03-11-2013 10:25-0400 Heart rate 79 /min Aysha Joyner PA-C Work Phone: [employer]; [employer]. Comment on above: Pattern: Regular 03-11-2013 10:25-0400 Systolic blood pressure 117 mm[Hg] Aysha Joyner PA-C Work Phone: [employer]; [employer]. Comment on above: Patient Position: Sitting; Cuff Location : Right Arm; Cuff Size: Standard 01-07-2013 17:41-0400 Body height 167.64 cm Cassie Goodman LPN [place] [employer]. 01-07-2013 17:41-0400 Body mass index (BMI) [Percentile] Per age and sex 90 % Cassie Goodman LPN [facility], Inc.; [employer], [employer] 01-07-2013 17:41-0400 Body mass index (BMI) [Ratio] 27.28 kg/m2 Cassie Allyson Goodman LPN [place] [facility], Inc.; [employer], [employer] 01-07-2013 17:41-0400 Body surface area Derived from formula 1.86 m2 Cassie Allyson Goodman LPN [facility], Inc.; [employer], [employer]. 01-07-2013 17:41-0400 Body temperature 97.8 [degF] Cassie Allyson Goodman CORRECTIONS OFFICER [facility], Inc.; [employer], [employer]. Comment on above: Method: Tympanic 01-07-2013 17:41-0400 Body weight 76.66 kg Cassie Goodman LPN [facility], Inc.; [employer], [employer]. 11-13-2012 09:32-0400 Body height 167.64 cm Cassie Goodman LPN [facility], Inc.; [employer], [employer]. 11-13-2012 09:32-0400 Body mass index (BMI) [Percentile] Per age and sex 89 % Cassie Goodman LPN [facility], Inc.; [employer], [employer]. 11-13-2012 09:32-0400 Body mass index (BMI) [Ratio] 26.79 kg/m2 Cassie Goodman LPN [facility], Inc.; [employer], [employer] 11-13-2012 09:32-0400 Body surface area Derived from formula 1.85 m2 Cassie Allyson Goodman LPN [employer], [employer]. 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 Comment on above: Method: Tympanic 11-13-2012 09:32-0400 Body weight 75.3 kg Cassiejorge Goodman LPN [employer], [employer].; [employer], [employer]. 10-23-2012 09:45-0500 Body height 167.64 cm Cassie Goodman LPN [facility], Inc.; [employer], [employer]. 10-23-2012 09:45-0500 Body mass index (BMI) [Percentile] Per age and sex 90 % Cassie Goodman LPN [employer], [employer]. 10-23-2012 09:45-0500 Body mass index (BMI) [Ratio] 27.12 kg/m2 Cassie Goodman LPN [employer], [employer]. 10-23-2012 09:45-0500 Body surface area Derived from formula 1.86 m2 Cassie Goodman LPN [facility], [employer].; [employer], [employer]. 10-23-2012 09:45-0500 Body temperature 98.5 [degF] Cassie Goodman LPN [employer].; [employer]. Comment on above: Method: Tympanic 10-23-2012 09:45-0500 Body weight 76.2 kg Cassie Goodman LPN [employer]. Encounters Encounter Date Encounter Type Care Provider Facility Start: 09-24-2024 Encounter for gynecological examination (general) (routine) without abnormal findings Liat Nieto NP [facility] Start: 08-29-2024 End: 08-29-2024 ambulatory Aysha Joyner [place] [facility] [place]: 05-12-2024 End: 05-12-2024 Telephone follow-up Aysha Joyner PA-C Work Phone: [employer] [facility] Start: 05-11-2024 End: 05-11-2024 Emergency department patient visit ROSALIA HERNANDEZ [facility] Start: 02-22-2024 End: 02-22-2024 Office outpatient visit 15 minutes Aysha Joyner PA-C Work Phone: [facility] [facility] Start: 11-09-2023 End: 11-09-2023 ambulatory AYSHA JOYNER [facility] Start: 11-02-2023 End: 11-02-2023 Patient encounter status Aysha Joyner PA-C Work Phone: [facility]; [facility] Start: 11-02-2023 End: 11-02-2023 Periodic preventive med est patient 18-39 yrs Aysha Joyner PA-C Work Phone: [facility] Start: 09-02-2023 End: 09-02-2023 Emergency department patient visit INNA [facility] Start: 07-15-2023 Non-patient / Non-visit PA Jess ecca Joyner Work Phone: [facility] Start: 07-14-2023 Non-patient / Non-visit PA Jess ecca Joyner Work Phone: [facility] Start: 07-13-2023 Non-patient / Non-visit PA Jess ecca Joyner Work Phone: [facility] Start: 07-12-2023 Non-patient / Non-visit PA Jess ecca Joyner Work Phone: [facility] Start: 07-11-2023 End: 07-15-2023 Evaluation and management of inpatient PA [facility]ysha Joyner [facility] Work [facility]: Start: 07-06-2023 End: 07-06-2023 Patient encounter procedure PA Aysha Joyner Work Phone: [facility] Work Phone: Start: 07-06-2023 End: 07-06-2023 Patient encounter procedure PA Aysha Joyner Work Phone: [facility] Work Phone: Start: 06-29-2023 End: 06-29-2023 Patient encounter procedure PA Aysha Joyner Work Phone: [facility] Work Phone: Start: 06-22-2023 End: 06-22-2023 Patient encounter procedure PA Aysha Joyner Work Phone: [facility] Work Phone: Start: 06-15-2023 End: 06-15-2023 ambulatory PA Aysha Joyner Work Phone: [facility] Work Phone: Start: 06-15-2023 End: 06-15-2023 Patient encounter procedure PA Aysha Joyner Work Phone: [facility] Work Phone: Start: 06-15-2023 End: 06-15-2023 Patient encounter procedure PA Aysha Joyner Work Phone: [facility] Work Phone: Start: 06-14-2023 End: 06-14-2023 ambulatory ESTELLA FRANKLIN [facility] Start: 06-08-2023 End: 06-08-2023 Patient encounter procedure PA Aysha Joyner Work Phone: [facility] Work Phone: Start: 05-17-2023 End: 05-17-2023 ambulatory SONALI Hilda CAREY [facility] Start: 05-16-2023 End: 05-16-2023 ambulatory SHARDA RICHEY [facility] Start: 05-09-2023 End: 05-09-2023 Patient encounter procedure PA Aysha Joyner Work Phone: [facility] Work Phone: Start: 04-27-2023 End: 04-27-2023 Patient encounter procedure PA Aysha Joyner Work Phone: [facility] Work Phone: Start: 04-20-2023 End: 04-20-2023 Patient encounter procedure PA Aysha Joyner Work Phone: [facility] Work Phone: Start: 04-19-2023 End: 04-19-2023 ambulatory SONALI CAREY [facility] Start: 04-19-2023 End: 04-19-2023 ambulatory PA Aysha Joyner Work Phone: [facility] Work Phone: Start: 04-19-2023 End: 04-19-2023 Patient encounter procedure PA Aysha Joyner Work Phone: [facility] Work Phone: Start: 03-23-2023 End: 03-23-2023 Patient encounter procedure PA Aysha Joyner Work Phone: [facility] Work Phone: Start: 03-12-2023 End: 03-12-2023 ambulatory [facility] Start: 02-23-2023 End: 02-23-2023 Patient encounter procedure PA Aysha Joyner Work Phone: [facility] Work Phone: Start: 02-19-2023 End: 02-19[facility]20[facility] Start: 02-19-2023 End: 02-19-2023 ambulatory [facility] Start: 01-26-2023 End: 01-26-2023 Patient encounter procedure PA Aysha Joyner Work Phone: [facility] Work Phone: Start: 12-29-2022 End: 12-29-2022 Patient encounter procedure PA Aysha Joyner Work Phone: [facility] Start: 12-26-2022 End: 12-26-2022 ambulatory PA Aysha Joyner Work Phone: [facility] Work Phone: Start: 12-26-2022 End: 12-26-2022 Patient encounter procedure PA Aysha Joyner [facility] Start: 12-15-2022 End: 12-15-2022 Patient encounter procedure PA Aysha Joyner Work Phone: [facility] Start: 11-29-2022 End: 11-29-2022 ambulatory PA Aysha Joyner Work Phone: [facility] Work Phone: Start: 11-29-2022 End: 11-29-2022 Patient encounter procedure PA Aysha Joyner [facility] Start: 11-29-2022 End: 11-29-2022 Patient encounter procedure PA Aysha Joynre Work Phone: [place] [facility] Start: 07-06-2022 End: 07-06-2022 Office outpatient visit 15 minutes Aysha Joyner PA-C Work Phone: [facility] Start: 05-19-2022 End: 05-19-2022 Patient encounter status Aysha Joyner PA-C Work Phone: [employer]; [employer] Start: 05-19-2022 End: 05-19-2022 Periodic preventive med est patient 18-39 yrs Aysha Joyner PA-C Work Phone: [employer]. Start: 11-26-2021 End: 11-26-2021 [facility] Start: 10-29-2021 End: 10-29-2021 [facility] Start: 09-24-2021 End: 09-24-2021 [facility] Start: 08-29-2021 [facility] Start: 06-20-2021 End: 06-20-2021 Medication Aysha Joyner PA-C Work Phone: [employer]. Start: 05-25-2021 End: 05-25-2021 Patient encounter procedure Aysha Joyner PA-C Work Phone: [employer].; [employer]. Start: 05-25-2021 End: 05-25-2021 Periodic preventive med est patient 18-39 yrs Aysha Joyner PA-C Work Phone: [employer]. Start: 12-20-2020 End: 12-20-2020 Office outpatient visit 15 minutes Aysha Joyner PA-C Work Phone: [employer] Start: 09-24-2020 End: 09-24-2020 Patient encounter procedure ROSALIA Robert [facility] Start: 05-19-2020 End: 05-19-2020 Patient encounter procedure Rachael King LPN [employer]. Start: 05-19-2020 End: 05-19-2020 Periodic preventive med est patient 18-39 yrs Aysha Joyner PA-C Work Phone: [employer]. Start: 05-19-2019 End: 05-19-2019 Patient encounter procedure Aysha Joyner PA-C Work Phone: [employer]; [employer]. Start: 05-19-2019 End: 05-19-2019 Periodic preventive med est patient 18-39 yrs Aysha Joyner PA-C Work Phone: [employer] Start: 06-25-2018 End: 06-25-2018 Patient encounter status Aysha Joyner PA-C Work Phone: [employer]; [employer]. Start: 06-25-2018 End: 06-25-2018 Periodic preventive med est patient 18-39 yrs Aysha Joyner PA-C Work Phone: [employer] Start: 06-19-2018 End: 06-19-2018 Patient encounter procedure Aysha Joyner PA-C Work Phone: [employer] Start: 07-31-2017 End: 07-31-2017 Office outpatient visit 15 minutes Aysha Joyner PA-C Work Phone: [employer] Start: 06-18-2017 End: 06-18-2017 Patient encounter status Aysha Joyner PA-C Work Phone: [employer].; [employer]. Start: 06-18-2017 End: 06-18-2017 Periodic preventive med est patient 18-39 yrs Aysha Joyner PA-C Work Phone: [employer] Start: 04-22-2017 Ambulatory [facility]an [place] Facility:[facility] Start: 04-22-2017 End: 04-22-2017 Ambulatory [facility] Work Phone: [facility] Start: 04-16-2017 End: 04-16-2017 Office outpatient visit 15 minutes Aysha Joyner PA-C Work Phone: [employer] Start: 03-27-2017 End: 03-27-2017 Medication Aysha Joyner PA-C Work Phone: [employer] Start: 03-22-2017 End: 03-22-2017 Patient encounter procedure Aysha Joyner PA-C Work Phone: [employer] Start: 02-06-2017 End: 02-06-2017 Patient encounter procedure Aysha Joyner PA-C Work Phone: [employer] Start: 09-23-2016 End: 09-23-2016 Patient encounter procedure Aysha Joyner PA-C Work Phone: [employer] Start: 05-29-2016 End: 05-29-2016 FATOU Template Aysha Joyner PA-C Work Phone: [employer] Start: 05-29-2016 End: 05-30-2016 Patient encounter procedure Aysha Joyner PA-C Work Phone: [employer] Start: 05-29-2016 End: 05-30-2016 Patient encounter status Aysha Joyner PA-C Work Phone: [employer]. Start: 03-21-2016 End: 03-21-2016 Office outpatient visit 10 minutes Aysha Joyner PA-C Work Phone: [employer]. Start: 10-28-2015 End: 10-28-2015 Medication Aysha Joyner PA-C Work Phone: [employer]. Start: 10-28-2015 End: 10-28-2015 Medication Aysha Joyner PA-C Work Phone: [employer]. Start: 10-15-2015 End: 10-15-2015 Office outpatient visit 15 minutes Aysha Joyner PA-C Work Phone: [employer] Start: 06-17-2015 End: 06-17-2015 Office outpatient visit 15 minutes Aysha Joyner PA-C Work Phone: [employer]. Start: 05-18-2015 End: 05-18-2015 Office outpatient visit 15 minutes Aysha Joyner PA-C Work Phone: [employer] Start: 02-07-2014 End: 02-07-2014 Patient encounter procedure Aysha Joyner PA-C Work Phone: [employer] Start: 07-08-2013 End: 07-08-2013 Patient encounter procedure Aysha Joyner PA-C Work Phone: [employer]. Start: 03-11-2013 End: 03-11-2013 Patient encounter procedure Aysha Joyner PA-C Work Phone: [employer] Start: 01-07-2013 End: 01-08-2013 Patient encounter procedure Aysha Joyner PA-C Work Phone: [employer] Start: 11-13-2012 End: 11-13-2012 Patient encounter procedure Aysha Joyner PA-C Work Phone: [facility] Start: 10-23-2012 End: 10-23-2012 Patient encounter procedure Aysha Joyner PA-C Work Phone: [facility] Follow-up encounter Nguyen Manzo MA [facility]; [facility] Follow-up encounter Aysha Kenneth Kennedy gant PA-C Work Phone: [facility]; [facility] Follow-up encounter Neda Adams MA [facility]; [facility] Patient encounter procedure Rachael King LPN [facility]; [facility] Patient encounter status Rachael King LP N [facility]; [facility] Procedures Date Procedure Procedure Detail Performing [...] 2020 Nguyen Manzo MA Comment on above: [facility] D&C 2020 Neda Adams MA Comment on above: [facility] Urine culture PA Aysha townsend Work Phone: Plan of Treatment Date Care Activity Detail Author Start: 11-02-2023 Xtrnl pt activ ecg transmis w/r&i 30 days 30 Day Cardiac Event Monitor (98270) Start: 02-Nov-2023 Intent [employer]; [employer]. Start: 11-02-2023 Assay of thyroid stimulating hormone tsh TSH (THYROID STIMULATING HORMONE) (69373) Start: 02-Nov-2023 09:36-05:00 Request [employer]; [employer]. Start: 11-02-2023 Comprehensive metabolic panel CMP w/ GFR* (37562) Start: 02-Nov-2023 09:36-05:00 Request [employer]; [employer]. Start: 11-02-2023 Blood count complete auto&auto difrntl wbc CBC, PLATELETS & AUT DIFF (F) (46469) Start: 02-Nov-2023 09:36-05:00 Request [employer]; [employer]. Start: 07-15-2023 Patient discharge [facility] Start: 07-14-2023 Patient discharge [facility] Start: 07-13-2023 Application of abdominal corset [facility] Start: 07-12-2023 Administration of medication [facility] Start: 07-12-2023 Ambulation therapy management [facility] Start: 07-12-2023 Application of device [facility] Start: 07-12-2023 Application of intermittent pneumatic compression device [facility] Start: 07-12-2023 Assessment of risk of venous thromboembolism [facility] Start: 07-12-2023 Catheterization of vein [facility] Start: 07-12-2023 Deep breathing and coughing exercises [facility] Start: 07-12-2023 Exercises [facility] Start: 07-12-2023 Incentive spirometry [facility] Start: 07-12-2023 Measuring intake and output [facility] Start: 07-12-2023 End: 07-12-2023 Notification of physician [facility] Start: 07-12-2023 Procedure discontinued [facility] Start: 07-12-2023 Provision of activity privileges [facility] Start: 07-12-2023 Skin care [facility] Start: 07-12-2023 Wound care [facility] Start: 07-12-2023 End: 07-12-2023 [facility] Start: 07-12-2023 Application of abdominal corset [facility] Start: 07-12-2023 Vital signs measurements [facility] Start: 07-11-2023 Admission procedure [facility] Start: 11-29-2022 Liquid based cervical cytology screening [facility] CBC W Auto Different ial panel - Blood [facility] Glucose [Mass/volume ] in Serum or Plasma --1 hour post 50 g glucose PO [facility] Hepatitis B surface antigen measurement [facility] Hepatitis C antibody measurement [facility] HIV 1+2 Ab+HIV1 p24 Ag [Presence] in Serum or Plasma by Immunoassay [facility] Incision AND drainage [facility] Path report.final Dx Spec [facility] Patient referral [facility] Work Phone: Rubella IgG measurement [facility] Treponema sp Ab [Pre sence] in Serum [facility] Immunizations Immunization Date Immunization Notes Care Provider Rosas saxena 06-08-2023 influenza, injectabl e, quadrivalent, preservative free PA Aysha Joyner Work Phone: [facility] 06-25-2018 influenza, injectabl e, quadrivalent, contains preservative Aysha Joyner PA-C Work Phone: [employer]; [employer]. Comment on above: Site: Right DeltoidV IS Given: * Influenza - Inactivated (04/09/15) 07-12-2017 influenza, injectabl e, quadrivalent, contains preservative Aysha Joyner PA-C Work Phone: [employer]; [employer] Comment on above: at her workplace 05-29-2016 tetanus toxoid, redu mac diphtheria toxoid, and acellular pertussis vaccine, adsorbed Aysha Joyner PA-C Work Phone: [employer]; [employer] Comment on above: Site: Deltoid (Left) VIS Given: * Tdap (Tetanus, Diphtheria, Pertussis) (10/27/14) 06-16-2015 influenza, seasonal, injectable Aysha Joyner PA-C [facility] Phone[facility] 07-05-2012 meningococcal polysaccharide vaccine (MPSV4) Aysha Joyner PA-C Work Phone: [facility] Payers Date Payer Category Payer Self-pay [id number] 2024 Unknown [id number] 1995 Unknown [id number] 2.16.84 [id number] 1994 Unknown [id number] 2.16. [id number] 1994 Unknown [id number] 2.16. [id number] 1994 Unknown [id number] 2.16. [id number] 1994 Unknown [id number] 2.16. [id number] 1994 Unknown [id number] 2.16. [id number] 1994 Unknown [id number] 2.16. [id number] 1994 Unknown [id number] 2.16. [id number] 1994 Unknown [id number] 2.16.8 [id number] 1994 Unknown [id number] 2.16.8 [id number] 1994 Unknown [id number] 2.16.8 [id number] Unknown [id number] Unknown Unknown [id number] Unknown [id number] 2.16.8 [id number] Social History Date Type Detail Facility Start: 04-23-2017 End: 07-11-2023 Tobacco smoking status ORIS Unknown if ever smoked [facility] Sex Assigned At Not on file Octavia clifford Work Phone: Start: 1995 Sex Assigned At Female [facility] Alcohol Use Alcohol Use [employer]; [employer] Tobacco Use: Tobacco Use: ; N ever smoker. [employer]; [employer] Tobacco/Smoke Exposure: Tobacco/Smoke Exposure: ; None. [employer]; [facility] Never smoked tobacco [employer]; [employer] Work Phone: None [employer]; [employer] Work Phone: Medical Equipment Procedure Code Equipment [...] Assessment Result Facility 07-13-2023 Cognitive function Voice/Name [facility] Work Phone: Clinical Notes 11-29-2022 to 07-15-2023 Note Date & Type Note Facility 07-15-2023 Discharge summary Note Date/Time July 15, 2023 9:33am [facility] Medical Records Department [address] [place] [address] Discharge Summary 07/15/23 0932 MR#: [id number] Acct: [id number] Name: PILI SAMAYOA Rep #:[id number] : 1995 27 From: Estella Holder DO PCP: MAGALY Grider Status:ADM IN Location: AV295-7 Providers Date of Admission: 07/11/23 Primary Care [...] Up With: Tricia Todd MD When: Call [phone] to make an appointment for an incision [...] Dr. Estella Holder DO; MAGALY Grider~ Signed [facility] Work Phone: 1(946) 749-833811-11-2023 Progress note Author [facility] July 14, 2023 6:08am Note Date/Time July 14, 2023 6:09am [facility] Medical Records Department [address] [place] [address] Progress Note - OBGYN 07/14/23606 MR#: [id number] Acct: [id number] Name: PILI SAMAYOA Rep #:[id number] : 1995 From: Estella Holder DO PCP: MAGALY Grider Status:ADM IN Location: [id number] Subjective Subjective Patient doing well without complaints. [...] Cosigner Signature (if applicable): CC: ~ Signed [facility] Work Phone: 1(207) 765-967811-10-2023 Progress note Author Estella [facility] July 13, 2023 6:56am Note Date/Time July 13, 2023 6:56am [facility] Medical Records Department [address] [place] [address] Progress Note - OBGYN 07/13/23 0654 MR#: [id number] Acct: [id number] Name: PILI SAMAYOA Rep #:[id number] : 1995 From: Estella Holder DO PCP: MAGALY Grider Status:ADM IN Location: [id number] Subjective Subjective Patient is laying in bed [...] Cosigner Signature (if applicable): CC: ~ Signed [facility] Work Phone: 1(240) 423-779711-09-2023 Discharge summary Author Tricia Todd [facility] July 12, 2023 5:33pm Note Date/Time July 12, 2023 4 :20pm [facility] Medical Records Department [address] [place] [address] Instructions for Home/Discharge Instructions 07/12/23 1619 MR#: [id number] Acct: [id number] Name: PILI SAMAYOA Rep #:[id number] : [...] Up With: Tricia Todd MD When: Call [phone] to make an appointment for an incision [...] Todd MD CC: MAGALY Grider ~ Signed [facility] Work Phone: 1(773) 200-933011-09-2023 Procedure [facility] 07-12-2023 Progress note Author Tricia Todd [facility] July 12, 2023 2:37pm Note Date/Time July 12, 2023 2 :37pm [facility] Medical Records Department [address] [place] [address] Progress Note 07/12/23 1435 MR#: [id number] Acct: [id number] Name: PILI SAMAYOA Rep #:[id number] : 1995 27 From: Tricia smiley MD PCP: MAGALY Grider Status:ADM IN Location: [id number] Progress Note cat II tracing earlier resolved with position changes and amnioinfusion. exp management after spear bulb spontaneously removed. arom clear fluid. current tracing: FHT: 130 Moderate variability reactive early decelerations category I tracing [place]: q 2-4 Contractions reviewed tracing abnormalities since last note: intermittent variables and early A/P: pitocin if able for no cervical change, labor positions, s/p fluid boluses. epidural adequate. 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 07/12/231432 MR#: [id number] Acct: [id number] Name: PILI SAMAYOA Rep #:[id number] : 1995 27 From: Tricia smiley MD PCP: MAGALY Grider Status:ADM IN Location: [id number] HPI - General General Date of Admission: [...] occupational 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 07/12/23 1435 <Electronically signed by Tricia Todd MD> Cosigner Signature (if applicable): CC: Dr. Tricia Todd MD; MAGALY Grider~ Signed [facility] Work Phone: 1(727) 128-453403-29-2023 NotePap Smear Specimen AdequacyMarch 2022 1:43pmComment.Satisfactory for evaluation. Endocervical and/or squamous metaplasticcells (endocervical component)are present.[facility] A#[id number] HospitalComment on above:Satisfactory for evaluation. Endocervical and/or squamous metaplasticcells (endocervical component)are present.Evaluation noteNo assessment information availableWMarion Hospital Work Phone: Evaluation note* Diagnosis Onset Date Resolution Status Anxiety acute History of molar a cute Obesity affecting acute PCOS (polycystic ovarian syndrome) acute acute Supervision of high risk , antepartum acute [facility] Work Phone: Evaluation note* Diagnosis Onset Date [...] Supervision of high risk , antepartum acute [facility] Work Phone: Evaluation note* Diagnosis Onset Date [...] Supervision of high risk , antepartum acute [facility] Work Phone: Evaluation note* Diagnosis Onset Date [...] Supervision of high risk , antepartum acute [facility] Work Phone: Evaluation note* Diagnosis Onset Date [...] Supervision of high risk , antepartum resolved [facility] Work Phone: Summary Purpose Family History No [...] No March 29, 2021 11:56am Power of Repair Service Dispatcher No March 29 1 11:56am Advance Directive Response Recorded Date/ Time Living Will No April 27 3 2:39pm Power of Repair Service Dispatcher No April 27, 023 2:39pm Advance Directive Response Recorded Date/ Time Living Will No July 11 8:01pm Power of Repair Service Dispatcher No July 11, 2023 8:01pm Chief Complaint [...] section and content) DATE CREATED AUTHOR 02/27/2018 [facility] DATE CREATED AUTHOR AUTHOR'S ORGANIZ ATION 10/07/2020 [facility] DATE CREATED AUTHOR AUTHOR'S ORGANIZ ATION 06/15/2023 [facility] DATE CREATED AUTHOR AUTHOR'S ORGANIZ ATION 11/05/2023 [facility] DATE CREATED AUTHOR AUTHOR'S ORGANIZ ATION 05/13/2024 [facility] DATE CREATED AUTHOR AUTHOR'S ORGANIZ ATION 09/26/2024 [facility] Goals (unrecognized section and content) [...] PA Primary Care Provider Active Liat Nieto TRAIN STARTER, TRAIN STARTER-C Attending Provider, Referring Provider Active Team Status: [...] Provider, Referring Pro vider Active Liat Nieto TRAIN STARTER, TRAIN STARTER-C Attending Provider Active Team Status: Inactive Member [...] BE BASED ON THE PRIMARY CLINICAL RECORDS. [facility]. provides no warranty or guarantee of the accuracy or completeness of information in this document.
== END | disposition home or self-care (01) ==
PROVIDERS: Referring Provider Advanced Practice Midwife; Visit Provider Advanced Practice Midwife
DX: Z03.79 Encounter for other suspected maternal and fetal conditions ruled out (principal)
CPT/HCPCS: 76817

== ENCOUNTER → 2025-08-31 | Outpatient (CLI) | payer OTHER, SELFPAY ==
--- OUTSIDE RECORDS SUMMARY | 2025-08-31 08:59 | XMS RPT_ITS | CCD ---
Author Organization [facility] Care Team Providers Care Dock Associate Name Role Phone Unavailable Unavailable Unavailable Nahomy, Quan Unavailable Unavailable Nahomy, Quan Unavailable Unavailable ROSALIA HERNANDEZ Attending Unavailable ROSALIA HERNANDEZ Primary Care Unavailable ROSLAIA HERNANDEZ Admitting Unavailable MAGALY Joyner Aysha Primary Care Provider [phone] MAGALY Joyner Aysha Referring Provider Dr. Estella Holder Attending Provider MAGALY Joyner Aysha Primary Care Provider [phone] MAGALY Joyner Aysha Referring Provider [phone] Estella Holder Attending Provider JENNY Price Attending Provider [phone] Dr. Tricia Todd Attending Provider [phone] ESTELLA FRANKLIN Attending Unavailab le JOYNER, AYSHA [...] Provider Dr. Estella Holder Attending Provider Emilia WATERMASTER, WATERMASTER-C Liat Attending Provider JENYN Hunter Attending Provider MAGALY Joyner Aysha Primary Care Provider Ar PA Aysha Referring Provider Dr. Estella Holder Attending Provider Dr. Tricia Todd Attending Provider Emilia WATERMASTER, WATERMASTER-C Liat Attending Provider JENNY Hunter Attending Provider [...] Unavailable Carlito (Scribe)Trevor Unavailable Unavailab le Kush DOUGHNUT BATTER MIXER, Ginger Willingham Unavailable Unavailab le Paul DOUGHNUT BATTER MIXER, Cintia Catalan Unavailable Unavailab le Ernesto CNM, Sahara Jimenez Unavailable [phone] Narciso HUFF, Robert Roberto Unavailable Nicholas DOUGHNUT BATTER MIXER, Estella Unavailable Unavailabl e Verona DOUGHNUT BATTER MIXER, Cassie N Unavailable Unavaila ble Zaugg DOUGHNUT BATTER MIXER, Rachael Unavailable Unavailable Unavailable Unavailable Bryan BOYD, [...] Unavailable Joyner, Aysha Primary Care Unavailable Emilia WATERMASTER, Liat Attending Unavailable Medications Current Medications Medication [...] TWICE DAILY NEEDED July 12, 2023 12:00am Merlin (Nk) (2 sources) Start: 01-28-20 22 Merlin (Nk) Active January 27, 2022 12:00am Norethindrone [...] {Milliliter} Refills: 0 Ordered: 15-Oct-2015 MD Harsh Rmoero Start: 15-Oct-2015 End: 22-Oct-2015 Status: Inactive Comments: [...] 1 tablet by mouth once daily Prenat.Vits,Stevenson,M qe-Vjhl-Oflts Discontinued 1 TABLET PO DAILY March 14, 2021 11:31am April 15, 2021 2:18pm Start: 03-14-2021 End: 04-15-2021 take 1 tablet by mouth once daily Prenat.Vits,Stevenson,Ohh-Nqpj-Cdxen Discontin ued 1 TABLET PO DAILY March 13, 2021 11:00pm April 15, 2021 1:18pm Start: 03-14-2021 End: 04-15-2021 take 1 tablet by mouth once daily Prenat.Vits,Stevenson,Fnw-Lljw-Bkxyj Discontin ued 1 TABLET PO DAILY March [...] Comment on above: 1. Unclassified (7 sources) [facility] Routine Follow up - The patient is [...] starting the medication. 07-08-2013 Unclassified (7 sources) [facility] Routine Follow up - The patient is [...] currently trying to have a baby. Her category planner recently diagnosed her with PCOS. 05-19-2022 Unclassified [...] contraceptives. Note for Vaginal discharge: Pt. saw [facility] 02/06/17 and was diagnosed with vaginitis and [...] Symptoms - Symptoms include sore throat, fever ([id number]), chills, general malaise and headache, but do [...] Test Name Value Interpretation Reference Range Facility Commercial Real Estate Underwriter Office Visit Reporton 08-29-2024 Commercial Real Estate Underwriter Office Visit Report [facility] [address], [address] [place] [address] OFFICE VISIT Date of Service: 08/29/24 MR#: [id number] Acct: [id number] Name: PILI SAMAYOA Rep #: [id number] : 1995 Provider: KIARRA walton Age/Sex: 28/F Location: [facility] Status: Signed Intake Vital Signs 08/24/23 11:32 08/29/24 08:07 Height 5 ft 6 in 5 ft 6 in Weight: 213 lb BMI 34.3 BP 118/77 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 Date Name GA/Weeks Outcome Route Bth Weight Infant Gen Labor Lgth Anesthesia Del Locatn Provider FOB 07/12/23 Jonathan Myers live - full term 6lbs 14oz Male epidural [facility] Tricia Min Delivery Date: 07/12/23 Last Updated [...] oriented to person and oriented to place [facility] Head: normal to inspection Neck Neck: [...] palpation Specu (more content not included)... Normal [facility] CBC (INCLUDES DIFF/PLT)on Basophils (Bld) [#/Vol] 0.027 10*3/uL Normal 0-200 [facility] Comment on above: Performed By: #### 6 399, 70850, 34884 #### [facility] of [address], [address] [place] [address] Patient Ombudsperson: Bruno Nieves MD Basophils/100 WBC (Bld) 0.4 % Normal [facility] Comment on above: Performed By: #### 6 399, 18446, 66766 #### [facility] of [address], [address] [place] [address] Patient Ombudsperson: Bruno Nieves MD Eosinophils (Bld) [#/Vol] 0.08 10*3/uL Normal 15-500 [facility] Comment on above: Performed By: #### 6 399, 34379, 33500 #### [facility] of [address], [address] [place] [address] Patient Ombudsperson: Bruno Nieves MD Eosinophils/100 WBC (Bld) 1.2 % Normal [facility] Comment on above: Performed By: #### 6 399, 64353, 06575 #### [facility] of [address], [address] [place] [address] Patient Ombudsperson: Bruno Nieves MD Erythrocyte distribution width (RBC) [Ratio] 14.7 % Normal 11.0-15.0 [facility] Comment on above: Performed By: #### 6 399, 48524, 45808 #### [facility] of [place] [address] Patient Ombudsperson: Bruno Nieves MD Hematocrit (Bld) [Volume fraction] 39.9 % Normal 35.0-45.0 [facility] Comment on above: Performed By: #### 6 399, 94951, 11135 #### [facility] of [address], [address] [place] [address] Patient Ombudsperson: Bruno Nieves MD Hemoglobin (Bld) [Mass/Vol] 13.1 g/dL Normal 11.7-15.5 [facility] Comment on above: Performed By: #### 6 399, 69604, 47261 #### [facility] of [place] [address] Patient Ombudsperson: Bruno Nieves MD Lymphocytes (Bld) [#/Vol] 2.888 10*3/uL Normal 850-3900 [facility] Comment on above: Performed By: #### 6 399, 24541, 95183 #### [facility] of [place] [address] Patient Ombudsperson: Bruno Nieves MD Lymphocytes/100 WBC (Bld) 43.1 % Normal [facility] Comment on above: Performed By: #### 6 399, 40525, 89588 #### [facility] of [place] [address] Patient Ombudsperson: Bruno Nieves MD MCH (RBC) [Entitic mass] 26.8 pg Low 27.0-33.0 [facility] Comment on above: Performed By: #### 6 399, 64403, 16569 #### [facility] [place] [address] Patient Ombudsperson: Bruno Nieves MD MCHC (RBC) [Mass/Vol] 32.8 g/dL Normal 32.0-36.[address] [facility] Comment on above: Performed By: #### 6 399, 57362, 40469 #### [facility] [place] [address] Patient Ombudsperson: Bruno Nieves MD MCV (RBC) [Entitic vol] 81.8 fL Normal 80.0-100.0 [facility] Comment on above: Performed By: #### 6 399, 12016, 79319 #### [facility] of [place] [address] Patient Ombudsperson: Bruno Nieves MD Monocytes (Bld) [#/Vol] 0.529 10*3/uL Normal 200-950 [facility] Comment on above: Performed By: #### 6 399, 78409, 16972 #### [facility] of [place] [address] Patient Ombudsperson: Bruno Nieves MD Monocytes/100 WBC (Bld) 7.9 % Normal [facility] Comment on above: Performed By: #### 6 399, 10003, 76421 #### [facility] of [place] [address] Patient Ombudsperson: Bruno Nieves MD Neutrophils (Bld) [#/Vol] 3.176 10*3/uL Normal 8763-3354 [facility] Comment on above: Performed By: #### 6 399, 30425, 66790 #### [facility] of [place] [address] Patient Ombudsperson: Bruno Nieves MD Neutrophils/100 WBC (Bld) 47.4 % Normal [facility] Comment on above: Performed By: #### 6 399, 19648, 42000 #### [facility] of [place] [address] Patient Ombudsperson: Bruno Nieves MD Platelet mean volume (Bld) [Entitic vol] 11.0 fL Normal 7.5-12.5 [facility] Comment on above: Performed By: #### 6 399, 03673, 99650 #### [facility] of [place] [address] Patient Ombudsperson: Bruno Nieves MD Platelets (Bld) [#/Vol] 305 10*3/uL Normal 140-400 [facility] Comment on above: Performed By: #### 6 399, 69836, 11936 #### [facility] of [place] [address] Patient Ombudsperson: Bruno Nieves MD RBC (Bld) [#/Vol] 4.88 10*6/uL Normal 3.80-5.10 [facility] Comment on above: Performed By: #### 6 399, 77247, 18463 #### [facility] of [place] [address] Patient Ombudsperson: Bruno Nieves MD WBC (Bld) [#/Vol] 6.7 10*3/uL Normal 3.8-10.8 [facility] Comment on above: Performed By: #### 6 399, 16739, 12521 #### [facility] of [address], [address] [place] [address] Patient Ombudsperson: Bruno Nivees MD [facility] 11-03-2023 Albumin [Mass/Vol] 4.6 g/dL Normal 3.6-5.1 [facility] Comment on above: Performed By: #### 6 399, 87965, 59703 #### [facility] of [address], [address] [place] [address] Patient Ombudsperson: Bruno Nieves MD Albumin/Globulin [Mass ratio] 1.8 {ratio} Normal 1.0-2.5 [facility] Comment on above: Performed By: #### 6 399, 95304, 96385 #### [facility] of [place] [address] Patient Ombudsperson: Bruno Nieves MD ALP [Catalytic activity/Vol] 67 U/L Normal 31-125 [facility] Comment on above: Performed By: #### 6 399, 60827, 37974 #### [facility] of [place] [address] Patient Ombudsperson: Bruno Nieves MD ALT [Catalytic activity/Vol] 49 U/L High 6-29 [facility] Comment on above: Performed By: #### 6 399, 73179, 34088 #### [facility] of [place] [address] Patient Ombudsperson: Bruno Nieves MD AST [Catalytic activity/Vol] 28 U/L Normal 10-30 [facility] Comment on above: Performed By: #### 6 399, 54501, 24005 #### [facility] of [place] [address] Patient Ombudsperson: Bruno Nieves MD Bilirubin [Mass/Vol] 0.9 mg/dL Normal 0.2-1.2 [facility] Comment on above: Performed By: #### 6 399, 77668, 26194 #### [facility] of [address] [address] Patient Ombudsperson: Bruno Nieves MD BUN/CREATININE RATIO SEE NOTE: Normal 6-22 [facility] Comment on above: Result Comment: Not Reported: BUN and Creatinine are within reference range. Performed By: #### 6 399, 10875, 12235 #### [facility] [address], [address] [place] [address] Patient Ombudsperson: Bruno Nieves MD Calcium [Mass/Vol] 9.5 mg/dL Normal 8.6-10.2 [facility] Comment on above: Performed By: #### 6 399, 79511, 78701 #### [facility] [place] [address] Patient Ombudsperson: Bruno Nieves MD Chloride [Moles/Vol] 105 mmol/L Normal 98-110 [facility] Comment on above: Performed By: #### 6 399, 39755, 91695 #### [facility] [address], [address] [place] [address] Patient Ombudsperson: Bruno Nieves MD CO2 [Moles/Vol] 23 mmol/L Normal 20-32 [facility] Comment on above: Performed By: #### 6 399, 58292, 74595 #### [facility] [place] [address] Patient Ombudsperson: Bruno Nieves MD Creatinine [Mass/Vol] 0.80 mg/dL Normal 0.50-0.[address] [facility] [address] [facility] Comment on above: Performed By: #### 6 399, 80875, 40637 #### [facility] of [place] [address] Patient Ombudsperson: Bruno Nieves MD GFR/1.73 sq M.predicted among non-blacks MDRD (S/P/Bld) [Vol rate/Area] 102 mL/min/{1.73_m2} Normal > OR = 60 [facility] Comment on above: Performed By: #### 6 399, 86200, 20794 #### [facility] of [address], [address] [place] [address] Patient Ombudsperson: Bruno Nieves MD Globulin (S) [Mass/Vol] 2.5 g/dL Normal 1.9-3.7 [facility] Comment on above: Performed By: #### 6 399, 91171, 51685 #### [facility] of [address], [address] [place] [address] Patient Ombudsperson: Bruno Nieves MD Glucose [Mass/Vol] 72 mg/dL Normal 65-99 [facility] Comment on above: Result Comment: Fasting reference interval Performed By: #### 6 399, 37304, 72177 #### [facility] of [place] [address] Patient Ombudsperson: Bruno Nieves MD Potassium [Moles/Vol] 4.8 mmol/L Normal 3.5-5.[address] [facility] Comment on above: Performed By: #### 6 399, 70260, 30477 #### [facility] of [place] [address] Patient Ombudsperson: Bruno Nieves MD Protein [Mass/Vol] 7.1 g/dL Normal 6.1-8.1 [facility] Comment on above: Performed By: #### 6 399, 07773, 72129 #### [facility] [place] [address] Patient Ombudsperson: Bruno Nieves MD Sodium [Moles/Vol] 140 mmol/L Normal 135-146 [facility] Comment on above: Performed By: #### 6 399, 14404, 69610 #### [facility] of [place] [address] Patient Ombudsperson: Bruno Nieves MD Urea nitrogen [Mass/Vol] 11 mg/dL Normal 7-25 [facility] Comment on above: Performed By: #### 6 399, 82442, 77295 #### [facility] of [place] [address] Patient Ombudsperson: Bruno Nieves MD SPECIMEN INTEGRITY COMPROMIS EDon [...] red cells. Performed By: #### 6 399, 97359, 43305 #### [facility] [address] [facility], [address] Patient Ombudsperson: Bruno Nieves MD TSHon 11-03-2023 TSH Qn 0.73 m[IU]/L Normal [facility] Comment on above: Result Comment: Refe rence Range > or = 20 Years 0.40-4.50 Ranges First trimester 0.26-2.66 Second trimester 0.55-2.73 Third trimester 0.43-2.91 Performed By: #### 6 399, 00412, 73285 #### [facility] [address], [address] [place], [place] [id number] Patient Ombudsperson: Bruno Nieves MD Laboratory - Chemistry and C hemistry - challengeon 11-02-2023 Albumin [Mass/Vol] 4.6 g/dL Normal 3.6 - 5.1 g/dL [place] [facility], [facility].; [employer] Albumin/Globulin [Mass ratio] 1.8 {ratio} Normal 1.0 - 2.5 [place] [facility], [facility].; [employer] ALP [Catalytic activity/Vol] 67 U/L Normal 31 - 125 U/L [place] [facility], [facility].; [employer] ALT [Catalytic activity/Vol] 49 U/L Abnormal 6 - 29 U/L [employer], [facility].; [employer] AST [Catalytic activity/Vol] 28 U/L Normal 10 - 30 U/L [employer], [facility].; [employer] Bilirubin [Mass/Vol] 0.9 mg/dL Normal 0.2 - 1 .2 mg/dL [place] [facility], [facility].; [employer] Calcium [Mass/Vol] 9.5 mg/dL Normal 8.6 - 10. 2 mg/dL [facility], [facility].; [facility], [facility]. Chloride [Moles/Vol] 105 mmol/L Normal 98 - 11 0 mmol/L [facility], [facility].; [facility], [facility]. CO2 [Moles/Vol] 23 mmol/L Normal 20 - 32 mmol/L [facility], [facility].; [facility], [facility] Creatinine [Mass/Vol] 0.80 mg/dL Normal 0.50 - 0.96 mg/dL [facility], [facility].; [facility], [facility]. GFR/1.73 sq M.predicted among non-blacks MDRD (S/P/Bld) [Vol rate/Area] 102 mL/min/{1.73_m2} Normal [facility].; [facility], [facility]. Glucose [Mass/Vol] 72 mg/dL Normal 65 - 99 mg/dL [facility], [facility].; [facility], [facility]. Potassium [Moles/Vol] 4.8 mmol/L Normal 3.5 - 5.3 mmol/L [facility], [facility].; [facility], [facility]. Protein [Mass/Vol] 7.1 g/dL Normal 6.1 - 8.1 g/dL [facility], [facility].; [facility], [facility]. Sodium [Moles/Vol] 140 mmol/L Normal 135 - 146 mmol/L [facility], [facility].; [facility], [facility]. TSH Qn 0.73 m[IU]/L Normal [facility], [facility]; [facility], [facility] Urea nitrogen [Mass/Vol] 11 mg/dL Normal 7 - 25 mg/d L [facility], [facility].; [facility], [facility]. Laboratory - Hematology and Cell countson 11-02-2023 Basophils (Bld) [#/Vol] 0.027 10*3/uL Normal 0 - 200 {cells/uL} [facility], [facility].; [facility], [facility]. Basophils/100 WBC (Bld) 0.4 % Normal H [facility].; [facility], [facility] Eosinophils (Bld) [#/Vol] 0.08 10*3/uL Normal 15 - 500 {cells/uL} [facility], [facility].; [facility], [facility]. Eosinophils/100 WBC (Bld) 1.2 % Normal [facility] [employer] [facility].; [facility], [facility] Erythrocyte distribution width (RBC) [Ratio] 14.7 % Normal 11.0 - 15.0 % [facility].; [facility], [facility] Hematocrit (Bld) [Volume fraction] 39.9 % Normal 35.0 - 45.0 % [facility] [employer] [facility].; [facility], [facility] Hemoglobin (Bld) [Mass/Vol] 13.1 g/dL Normal 11.7 - 15.5 g/dL [facility] [employer] [facility].; [facility], [facility] Lymphocytes (Bld) [#/Vol] 2.888 10*3/uL Normal 850 - 3900 {cells/uL} [facility] [employer].; [facility], [facility]. Lymphocytes/100 WBC (Bld) 43.1 % Normal [facility] [employer] [facility].; [facility], [facility] MCH (RBC) [Entitic mass] 26.8 pg Abnormal 27. 0 - 33.0 pg [facility] [employer] [facility].; [facility], [facility]. MCHC (RBC) [Mass/Vol] 32.8 g/dL Normal 32.0 - 36.0 g/dL [facility] [employer] [facility].; [facility], [facility]. MCV (RBC) [Entitic vol] 81.8 fL Normal 80.0 - 100.0 fL [facility] [employer] [facility].; [facility], [facility]. Monocytes (Bld) [#/Vol] 0.529 10*3/uL Normal 200 - 950 {cells/uL} [facility] [employer] [facility].; [facility] [employer] [facility]. Monocytes/100 WBC (Bld) 7.9 % Normal [facility] [employer] [facility].; [facility], [facility]. Neutrophils (Bld) [#/Vol] 3.176 10*3/uL Normal 1500 - 7800 {cells/uL} [facility] [employer] [facility].; [place] [employer], [facility]. Neutrophils/100 WBC (Bld) 47.4 % Normal [facility] [employer] [facility].; [facility], [facility] Platelet mean volume (Bld) [Entitic vol] 11.0 fL Normal 7.5 - 12.[address] [facility] [place] [employer]. Platelets (Bld) [#/Vol] 305 10*3/uL Normal 140 - 400 [facility] [place] [facility]. RBC (Bld) [#/Vol] 4.88 10*6/uL Normal 3.80 - 5.1 0 {Million/uL} [facility].; [place] [employer]. WBC (Bld) [#/Vol] 6.7 10*3/uL Normal 3.8 - 10.8 [place] [employer] [place] [employer] No Panel Informationon 11-01 BUN/CREATININE RATIO SEE NOTE: Normal 6 - 22 [facility] [employer] [place] [employer] GLOBULIN 2.5 Normal 1.9 - 3.7 [facility] [employer] [facility].; [place] [employer]. Basophil percentageOrdered B y: Tricia Todd on 07-13-2023 WBC (Bld) [#/Vol] 12.2 10*3/uL 4.4-11.0 [facility] Blood erythrocytes count (nu mber/volume)Ordered By: Tricia Todd on 07-13-2023 RBC (Bld) [#/Vol] 4.11 10*6/uL 4.2-5.4 [facility] Blood hemoglobin measurement (mass/volume)Ordered By: Tricia Todd on 07-13-2023 Hemoglobin (Bld) [Mass/Vol] 10.7 g/dL 12.0-15.0 [facility] Blood platelet mean volumeOr dered By: Tricia Todd on 07-13-2023 Platelet mean volume (Bld) [Entitic vol] 11.3 fL 6.2-12.0 [facility] Determination of erythrocyte mean corpuscular volume (MCV)Ordered By: Tricia Todd on 07-13-2023 MCV (RBC) [Entitic vol] 83.5 fL 81-99 [facility] Glucose Glucometer (dC) [M ass/Vol]Ordered By: Tricia Todd on 07-13-2023 Glucose [Mass/Vol] 103 mg/dL 74-106 [facility] Comment on above: MANAGEMENT OF PATIEN T CARE PER NURSING PROTOCOL Hematocrit Auto (Bld) [Volum e fraction]Ordered By: Tricia Todd on 07-13-2023 Hematocrit (Bld) [Volume fraction] 34.3 % 37-47 [facility] Laboratory - Hematology and Cell countsOrdered By: Tricia Todd on 07-13-2023 Erythrocyte distribution width (RBC) [Entitic vol] 43.6 fL 35.1-43.9 [facility] Erythrocyte distribution width (RBC) [Ratio] 14.3 % 11.6-14.6 [facility] MCH (RBC) [Entitic mass] 26.0 pg 27.0-32.0 [facility] MCHC Auto (RBC) [Mass/Vol]Or dered By: Tricia Todd on 07-13-2023 MCHC (RBC) [Mass/Vol] 31.2 g/dL 32-36 [facility] Platelets bldOrdered By: Jake Todd on 07-13-2023 Platelets (Bld) [#/Vol] 208 10*3/uL 150-450 [facility] Absolute lymphocyte countOrd ered By: Estella Hendricks on 07-11-2023 Lymphocytes Auto (Unsp spec) [#/Vol] 2.63 10*3/uL 0.83-4.51 [facility] Basophil percentageOrdered B y: Estella Hendricks on 07-11-2023 Basophils/100 WBC (Bld) 0.3 % 0-1 [facility] Eosinophils/100 WBC (Bld) 0.5 % 0-5 [facility] Neutrophils (Bld) [#/Vol] 5.8 10*3/uL 2.0-7.7 [facility] Neutrophils/100 WBC (Bld) 63.2 % 47-70 [facility] Blood lymphocytes/100 leukoc ytesOrdered By: Estella Hendricks on 07-11-2023 Lymphocytes/100 WBC (Bld) 28.6 % 19-41 [facility] Blood monocytes/100 leukocyt esOrdered By: Estella Hendricks on 07-11-2023 Monocytes/100 WBC (Bld) 6.9 % 0-10 [facility] Laboratory - Hematology and Cell countsOrdered By: Estella Hendricks on 07-11-2023 Immature granulocytes/100 WBC (Bld) 0.500 % 0.0-0.9 [facility] Comment on above: IG% - Immature Granu locytes (promyelocytes, myelocytes and metamyelocytes) > 1% indicates that a LEFT SHIFT is Present. Nucleated RBC/100 WBC (Bld) [Ratio] 0 % 0-5 [facility] Serum Treponema species anti body detectionOrdered By: Estella Hendricks on 07-11-2023 Treponema sp Ab Ql (S) Non-Reactive [facility] Bacteria identified Cx Nom ( Wound)Ordered By: Estella Hendricks on 07-06-2023 Wound Culture Staphylococcus lugdunensis [facility] Gram stain for investigation of transfusion reactionOrdered By: Estella Hendricks on 07-06-2023 Microscopic observation Gram stain Nom (Unsp spec) [facility] Laboratory - Chemistry and C hemistry - challengeon 07-06-2023 Glucose Ql (U) Negative [facility] Laboratory - Urinalysison Protein Ql (U) Negative [facility] Laboratory - Chemistry and C hemistry - challengeon 06-29-2023 Glucose Ql (U) Negative [facility] Laboratory - Urinalysison Protein Ql (U) Negative [facility] Laboratory - Chemistry and C hemistry - challengeon 06-22-2023 Glucose Ql (U) Negative [facility] Laboratory - Urinalysison Protein Ql (U) Negative [facility] No Panel InformationOrdered By: Tricia Todd on 06-16-2023 Group B Streptococcus Culture Group B Beta Streptococcus is not isolated. [facility] Laboratory - Chemistry and C hemistry - challengeon 06-15-2023 Glucose Ql (U) Negative [facility] Laboratory - Urinalysison Protein Ql (U) Negative [facility] No Panel InformationOrdered By: Tricia Todd on 06-15-2023 Group B Streptococcus Culture Group B Beta Streptococcus is not isolated. [facility] Progress Noteon 05-16-2023 Network And Threat Support Specialist Authentication Interface Message Text New patient 05/17/2023 RE: Pili Samayoa : 1995 AGE: 27 y.[facility]. [facility] [id number] Gestational Age: 32 Weeks Delivery Hospital: [facility] Reason for visit: Chief Complaint Patient presents [...] performed in visit on 05/16/[address] [facility] [place] [address] [employer] ------- Echocardiogram Report M-mode, complete 2D, complete spectral Doppler, and color Doppler PATIENT: Pili Samayoa STUDY DATE/TIME: May 16 2023 12:36PM HEIGHT: : 1995 WEIGHT: AGE: 27yr BSA/BMI: / GENDER: F BP: 119 / 60 LOCATION: [facility] REFERRING PHYSICIAN: Aysha Joyner PHYSICIAN: JUHI Olivas BRUSH CLEARING LABORER: Nahomy Macdonald RDCS ------- SUMMARY: No significant [...] EKG done in the period. follow-up if farm laborer hears a heart murmur or otherwise clinically indicated. ------- REASON FOR EXAM: arrhythmia. ------- STUDY AND PROCEDURE DATA: Procedure Description: New ([id number]) . Study status: Routine. Location: lab. Procedure: [...] a patent foramen ovale. There is a [id number] shunt. Left atrium - The atrium is [...] - The (more content not included)... Normal [facility] Laboratory - Chemistry and C hemistry - challengeon 05-09-2023 Glucose Ql (U) Negative [facility] Laboratory - Urinalysison Protein Ql (U) Negative [facility] Laboratory - Chemistry and C hemistry - challengeon 04-20-2023 Glucose Ql (U) Negative [facility] Laboratory - Urinalysison Protein Ql (U) Negative [facility] Absolute lymphocyte countOrd ered By: Tricia Todd on 04-19-2023 Lymphocytes Auto (Unsp spec) [#/Vol] 1.14 10*3/uL 0.83-4.51 [facility] Basophil percentageOrdered B y: Tricia Todd on 04-19-2023 Basophils/100 WBC (Bld) 0.3 % 0-1 [facility] Eosinophils/100 WBC (Bld) 0.3 % 0-5 [facility] Neutrophils (Bld) [#/Vol] 4.8 10*3/uL 2.0-7.7 [facility] Neutrophils/100 WBC (Bld) 74.0 % 47-70 [facility] WBC (Bld) [#/Vol] 6.5 10*3/uL 4.4-11.0 [facility] Blood erythrocytes count (nu mber/volume)Ordered By: Tricia Todd on 04-19-2023 RBC (Bld) [#/Vol] 4.26 10*6/uL 4.2-5.4 [facility] Blood hemoglobin measurement (mass/volume)Ordered By: Tricia Todd on 04-19-2023 Hemoglobin (Bld) [Mass/Vol] 12.1 g/dL 12.0-15.0 [facility] Blood lymphocytes/100 leukoc ytesOrdered By: Tricia Todd on 04-19-2023 Lymphocytes/100 WBC (Bld) 17.6 % 19-41 [facility] Blood monocytes/100 leukocyt esOrdered By: Tricia Todd on 04-19-2023 Monocytes/100 WBC (Bld) 6.9 % 0-10 [facility] Blood platelet mean volumeOr dered By: Tricia Todd on 04-19-2023 Platelet mean volume (Bld) [Entitic vol] 11.1 fL 6.2-12.0 [facility] Determination of erythrocyte mean corpuscular volume (MCV)Ordered By: Tricia Todd on 04-19-2023 MCV (RBC) [Entitic vol] 88.0 fL 81-99 [facility] Gestational diabetes screen 1-hour screen with 50g oral glucose loadOrdered By: Tricia Todd on 04-19-2023 Glucose 1 Hr post 50 g glucose PO [Mass/Vol] 185 mg/dL 70-140 [facility] Hematocrit Auto (Bld) [Volum e fraction]Ordered By: Tricia Todd on 04-19-2023 Hematocrit (Bld) [Volume fraction] 37.5 % 37-47 [facility] Laboratory - Hematology and Cell countsOrdered By: Tricia Todd on 04-19-2023 Erythrocyte distribution width (RBC) [Entitic vol] 42.5 fL 35.1-43.9 [facility] Erythrocyte distribution width (RBC) [Ratio] 13.1 % 11.6-14.6 [facility] Immature granulocytes/100 WBC (Bld) 0.900 % 0.0-0.9 [facility] Comment on above: IG% - Immature Granu locytes (promyelocytes, myelocytes and metamyelocytes) > 1% indicates that a LEFT SHIFT is Present. MCH (RBC) [Entitic mass] 28.4 pg 27.0-32.0 [facility] Nucleated RBC/100 WBC (Bld) [Ratio] 0 % 0-5 [facility] MCHC Auto (RBC) [Mass/Vol]Or dered By: Tricia Todd on 04-19-2023 MCHC (RBC) [Mass/Vol] 32.3 g/dL 32-36 [facility] Platelets bldOrdered By: Jake Todd on 04-19-2023 Platelets (Bld) [#/Vol] 255 10*3/uL 150-450 [facility] Laboratory - Chemistry and C hemistry - challengeon 03-23-2023 Glucose Ql (U) Negative [facility] Laboratory - Urinalysison Protein Ql (U) Negative [facility] Laboratory - Chemistry and C hemistry - challengeon 02-23-2023 Glucose Ql (U) Negative [facility] Laboratory - Urinalysison Protein Ql (U) Negative [facility] Progress Noteon 02-19-2023 Network And Threat Support Specialist Authentication Interface Message Text Pili Rodaswitt was seen at [facility] to discuss the preliminary ultrasound [...] additional recommendations as clinically indicated. Referral to [facility] if renal dilation persists. The total patient time of the visit was 15 minutes: 5 direct patient care, 10 minutes chart review and documentation. Normal [facility] Laboratory - Chemistry and C hemistry - challengeon 01-26-2023 Glucose Ql (U) Negative [facility] Laboratory - Urinalysison Protein Ql (U) Negative [facility] Laboratory - Chemistry and C hemistry - challengeon 12-29-2022 Glucose Ql (U) Negative [facility] Laboratory - Urinalysison Protein Ql (U) Negative [facility] Quantitative serum or plasma 3 hour gestational glucose tolerance panelOrdered By: Liat Nieto on 12-26-2022 Glucose tolerance 3 hours gestational panel See comment [facility] Comment on above: FASTING 91 Col: 12/03 [...] Auto (Unsp spec) [#/Vol] 2.18 10*3/uL 0.83-4.51 [facility] Basophil percentageOrdered B y: Dr. Hendricks on 12-15-2022 Basophils/100 WBC (Bld) 0.3 % 0-1 [facility] Eosinophils/100 WBC (Bld) 0.4 % 0-5 [facility] Neutrophils (Bld) [#/Vol] 6.1 10*3/uL 2.0-7.7 [facility] Neutrophils/100 WBC (Bld) 68.4 % 47-70 [facility] WBC (Bld) [#/Vol] 9.0 10*3/uL 4.4-11.0 [facility] Blood erythrocytes count (nu mber/volume)Ordered By: Dr. Hendricks on 12-15-2022 RBC (Bld) [#/Vol] 4.34 10*6/uL 4.2-5.4 [facility] Blood hemoglobin measurement (mass/volume)Ordered By: Dr. Hendricks on 12-15-2022 Hemoglobin (Bld) [Mass/Vol] 12.5 g/dL 12.0-15.0 [facility] Blood lymphocytes/100 leukoc ytesOrdered By: Dr. Hendricks on 12-15-2022 Lymphocytes/100 WBC (Bld) 24.2 % 19-41 [facility] Blood monocytes/100 leukocyt esOrdered By: Dr. Hendricks on 12-15-2022 Monocytes/100 WBC (Bld) 6.3 % 0-10 [facility] Blood platelet mean volumeOr dered By: Dr. Hendricks on 12-15-2022 Platelet mean volume (Bld) [Entitic vol] 10.1 fL 6.2-12.0 [facility] Determination of erythrocyte mean corpuscular volume (MCV)Ordered By: Dr. Hendricks on 12-15-2022 MCV (RBC) [Entitic vol] 88.9 fL 81-99 [facility] Gestational diabetes screen 1-hour screen with 50g oral glucose loadOrdered By: Dr. Hendricks on 12-15-2022 Glucose 1 Hr post 50 g glucose PO [Mass/Vol] 135 mg/dL 70-140 [facility] HIV 1 and HIV-2 antibody ass ay with HIV-1 p24 antigen detectionOrdered By: Dr. Hendricks on 12-15-2022 HIV 1+2 Ab+HIV1 p24 Ag IA Ql Non-Reactive Nonreactive [facility] Hematocrit Auto (Bld) [Volum e fraction]Ordered By: Dr. Hendricks on 12-15-2022 Hematocrit (Bld) [Volume fraction] 38.6 % 37-47 [facility] Laboratory - Chemistry and C hemistry - challengeon 12-15-2022 Glucose Ql (U) Negative [facility] Laboratory - Hematology and Cell countsOrdered By: Dr. Hendricks on 12-15-2022 Erythrocyte distribution width (RBC) [Entitic vol] 41.8 fL 35.1-43.9 [facility] Erythrocyte distribution width (RBC) [Ratio] 12.8 % 11.6-14.6 [facility] Immature granulocytes/100 WBC (Bld) 0.400 % 0.0-0.9 [facility] Comment on above: IG% - Immature Granu locytes (promyelocytes, myelocytes and metamyelocytes) > 1% indicates that a LEFT SHIFT is Present. MCH (RBC) [Entitic mass] 28.8 pg 27.0-32.0 [facility] Nucleated RBC/100 WBC (Bld) [Ratio] 0 % 0-5 [facility] Laboratory - Urinalysison Protein Ql (U) Negative [facility] MCHC Auto (RBC) [Mass/Vol]Or dered By: Dr. Hendricks on 12-15-2022 MCHC (RBC) [Mass/Vol] 32.4 g/dL 32-36 [facility] No Panel InformationOrdered By: Dr. Hendricks on 12-15-2022 Hepatitis B Surface Antigen Non-Reactive Nonreactive [facility] Hepatitis C Antibody Non-Reactive Nonreactive [facility] Comment on above: Non Reactive: < 0.8 Equivocal: >/= 0.8 to < 1.0 Reactive: >/= 1.0The CDC recommends that a reactive/equivocal HCV antibody result be followed up by the HCV Nucleic Acid Amplificationtest (637244) Miscellaneous Test Comment MAILED SPECIMEN [facility] Rubella IgG Antibody Reactive Nonreactive [facility] Comment on above: Antibody Results Int erpretation of Immune Status Non Reactive Presumed Non-Immune Equivocal Equivocal Reactive Presumed Immune Platelets bldOrdered By: Dr. Hendricks on 12-15-2022 Platelets (Bld) [#/Vol] 292 10*3/uL 150-450 [facility] Serum Treponema species anti body detectionOrdered By: Dr. Hendricks on 12-15-2022 Treponema sp Ab Ql (S) Non-Reactive [facility] Culture, urineOrdered By: Dr Summer Hendricks on 11-30-2022 Bacteria identified Cx Nom (U) Positive [facility] Cervical or vagninal specime n microscopic examination by cytology stain (reported asOrdered By: Dr. Hendricks on 11-29-2022 Cytology report Cyto stain Doc (Cvx/Vag) Comment . [facility] Comment on above: The Pap smear is [...] rRNA GALILEA+probe Ql (Unsp spec) Negative Negative [facility] Laboratory - CytologyOrdered By: Dr. Hendricks on 11-29-2022 Claims Service Representative Cyto stain Nom (Cvx/Vag) [ID] Comment . [facility] Comment on above: Sanaz suarez, [employer] (ASCP) Laboratory - Microbiology an d Antimicrobial susceptibilityOrdered By: Dr. Hendricks on 11-29-2022 N. gonorrhoeae DNA GALILEA+probe Ql (Unsp spec) Negative Negative [facility] Comment on above: Performed at: =G - L [address] [id number] Director: Azra Willard MD, Phone: [phone] Laboratory - Miscellaneous t estsOrdered By: Dr. Hendricks on 11-29-2022 Service comment (Unsp spec) [Interp] Comment . [facility] Comment on above: This liquid based Th inPrep(R) pap test was screened withthe use of an image guided system. Service comment (Unsp spec) [Interp] . . [facility] No Panel InformationOrdered By: Dr. Hendricks on 11-29-2022 Human Papillomavirus Screen Comment . [facility] Comment on above: The HPV DNA reflex c john were not met with this specimenresult therefore, no HPV testing was performed.Performed at: - [facility], [place] [id number] Director: Azra Willard MD, Phone: [phone] Pathology report final diagnosis Narrative Comment . [facility] Comment on above: NEGATIVE FOR INTRAEP ITHELIAL LESION OR MALIGNANCY. Laboratory - Chemistry and C hemistry - challengeon 05-19-2022 Albumin [Mass/Vol] 4.3 g/dL Normal 3.6 - 5.1 g/dL [facility] [place] [facility] Albumin/Globulin [Mass ratio] 1.7 {ratio} Normal 1.0 - 2.5 [facility], [facility] [place] [employer] ALP [Catalytic activity/Vol] 53 U/L Normal 31 - 125 U/L [place] [facility] [employer] ALT [Catalytic activity/Vol] 14 U/L Normal 6 - 29 U/L [place] [facility] [place] [employer] AST [Catalytic activity/Vol] 14 U/L Normal 10 - 30 U/L [place] [facility] [facility], [facility].; [employer] Bilirubin [Mass/Vol] 1.2 mg/dL Normal 0.2 - 1 .2 mg/dL [place] [employer] Calcium [Mass/Vol] 9.0 mg/dL Normal 8.6 - 10. 2 mg/dL [place] [employer] Chloride [Moles/Vol] 105 mmol/L Normal 98 - 11 0 mmol/L [place] [facility] [employer] Cholesterol [Mass/Vol] 171 mg/dL Normal [facility] [employer] Cholesterol in HDL [Mass/Vol] 44 mg/dL Abnormal [place] [employer] Cholesterol in LDL [Mass/Vol] 108 mg/dL Abnormal [place] [employer] CO2 [Moles/Vol] 29 mmol/L Normal 20 - 32 mmol/L [place] [facility] [employer] Creatinine [Mass/Vol] 0.78 mg/dL Normal 0.50 - 0.96 mg/dL [place] [employer] [facility] GFR/1.73 sq M.predicted among non-blacks MDRD (S/P/Bld) [Vol rate/Area] 107 mL/min/{1.73_m2} Normal [facility].; [facility], [facility] Glucose [Mass/Vol] 95 mg/dL Normal 65 - 99 mg/dL [facility], [facility] Potassium [Moles/Vol] 4.1 mmol/L Normal 3.5 - 5.3 mmol/L [facility] [employer] [facility]; [facility], [facility] Protein [Mass/Vol] 6.9 g/dL Normal 6.1 - 8.1 g/dL [facility] [employer] [facility]; [facility] [employer] [facility] Sodium [Moles/Vol] 138 mmol/L Normal 135 - 146 mmol/L [facility], [facility]; [facility], [facility] Triglyceride [Mass/Vol] 98 mg/dL Normal [facility]; [facility] [employer] [facility] Urea nitrogen [Mass/Vol] 15 mg/dL Normal 7 - 25 mg/d L [facility]; [place] [employer] [employer] [facility] No Panel Informationon 05-19 BUN/CREATININE RATIO NOT APPLICABLE Normal 6 - 22 [facility]; [place] [facility]. CHOL/HDLC RATIO 3.9 Normal [facility]; [place] [employer] [facility] [employer] [facility] GLOBULIN 2.6 Normal 1.9 - 3.7 [facility] [employer] [facility]; [place] [facility] [facility] [employer] [facility] NON HDL CHOLESTEROL 127 Normal [facility] [employer] [facility]; [place] [facility] [facility] [employer] [facility] Serum or plasma choriogonado tropin detectionon 11-26-2021 HCG ( test) Ql < 1 mIU/mL <4 [facility] Work Phone: Comment on above: hCG levels with Gest ational AgeGestational Age hCG mIU/mL (IU/L)0.2 - 1 week 5 - 501-2 weeks 50 - 5002-3 weeks 100 - 67690-0 weeks 500 - 035077-3 weeks 1000 - 681701-3 weeks 88513 - 100,0006-8 weeks 81761 - 200,0002-3 months 55679 - 100,000 Serum or plasma choriogonado tropin detectionon 10-29-2021 HCG ( test) Ql < 1 mIU/mL <4 [facility] Work Phone: Comment on above: hCG levels with Gest ational AgeGestational Age hCG mIU/mL (IU/L)0.2 - 1 week 5 - 501-2 weeks 50 - 5002-3 weeks 100 - 12631-4 weeks 500 - 205582-3 weeks 1000 - 684976-0 weeks 19850 - 100,0006-8 weeks 03632 - 200,0002-3 months 18275 - 100,000 Serum or plasma choriogonado tropin detectionon 09-24-2021 HCG ( test) Ql < 1 mIU/mL <4 [facility] Work Phone: Comment on above: hCG levels with Gest ational AgeGestational Age hCG mIU/mL (IU/L)0.2 - 1 week 5 - 501-2 weeks 50 - 5002-3 weeks 100 - 47356-5 weeks 500 - 035659-7 weeks 1000 - 028669-6 weeks 56885 - 100,0006-8 weeks 45962 - 200,0002-3 months 40670 - 100,000 Serum or plasma choriogonado tropin detectionon 08-29-2021 HCG ( test) Ql < 1 mIU/mL <4 [facility] Work Phone: Comment on above: hCG levels with Gest ational AgeGestational Age hCG mIU/mL (IU/L)0.2 - 1 week 5 - 501-2 weeks 50 - 5002-3 weeks 100 - 80525-9 weeks 500 - 553772-0 weeks 1000 - 336340-4 weeks 02610 - 100,0006-8 weeks 65956 - 200,0002-3 months 98281 - 100,000 CORONAVIRUS PCR [CCL]on 09-04 REF LAB REPORT Positive Normal [facility] Comment on above: Performed By: #### 2 [id number] #### [facility] [place] [facility],[address] [place] [address] SEND TO IC? YES Normal [facility] Comment on above: Performed By: #### 2 [id number] #### [facility],[address] [place] [address] COVID 19 Result WATERMASTER Positive Abnormal [facility] Comment on above: Result Comment: Posi tive for COVID19 (SARS CoV2) by PCR.(*) This test was developed and its performance characteristics determined by [facility]'s [facility] [place]. This test has been authorized by FDA under an Emergency Use Authorization (EUA). This test has been validated in accordance with the FDA's Guidance Document Policy for Diagnostics Testing in Laboratories Certified to Perform High Complexity Testing under CLIA prior to Emergency use Authorization for Coronavirus Disease 2019 during the Public Health Emergency issued on November 01, 2019[place] [address] Kurtis Briones III, M.D. [id number] Performed By: #### 2 [id number] #### [place] [address] COVID 19 Source WATERMASTER WATERMASTER SWAB Normal [facility] Comment on above: Performed By: #### 2 [id number] #### [place] [address] No Panel Informationon 05-19 [id number] SEE NOTE Normal [employer] CLINICAL INFORMATION: SEE NOTE Normal [facility] [employer] STORE PERSON: SEE NOTE Normal [employer] INTERPRETATION/RESULT: SEE NOTE Normal [facility] [employer] LMP: SEE NOTE Normal [employer] PREV. BX: SEE NOTE Normal [employer] PREV. PAP: SEE NOTE Normal [employer] SOURCE: SEE NOTE Normal [employer] STATEMENT OF ADEQUACY: SEE NOTE Normal [facility] [employer]. Culture, Urineon 04-22-2017 Culture, Urine Test Name: [...] 1 FTrimeth/Sulfa R >= 320 F Normal [facility] Comment on above: Performed By: #### U RCUL ####Unless otherwise noted, all testing performed by [place] [address] [address], [place] [id number]: [id number] Director: Pako Morales M.D. Laboratory - Chemistry and C hemistry - challengeon 04-16-2017 Bilirubin Ql (U) Negative Normal [employer] [facility].; [employer]. Ketones Ql (U) Negative Normal [employer] [facility] [email or web address].; [employer]. pH (U) 5.5 [pH] Normal [employer] Specific gravity (U) [Rel density] 1.025 Normal [employer]. Urobilinogen Qn (U) 0.2 mg/dL Normal [employer].; [employer]. Laboratory - Hematology and Cell countson 04-16-2017 Hemoglobin Ql (U) large Abnormal [employer] Laboratory - Specimen inform ationon 04-16-2017 Appearance (U) cloudy Abnormal [employer] Color (U) yellow Normal [employer] Laboratory - Urinalysison Glucose Test strip (U) [Mass/Vol] Negative Normal [facility]; [place] [email or web address] [facility] Leukocyte esterase Test strip Ql (U) moderate Abnormal [facility].; [employer]. Nitrite Ql (U) Negative Normal [facility] [employer].; [place] [employer] Protein Ql (U) 100 mg/dL Abnormal [facility].; [place] [employer]. Laboratory - Microbiology an d Antimicrobial susceptibilityon 03-22-2017 Bacteria identified Aer cx Nom (Genital specimen) Normal [facility]; [employer] [facility] Laboratory - Specimen inform ationon 03-22-2017 Specimen source Nom (Unsp spec) GENITAL-NOT GIVEN Normal [facility] [employer] [facility]; [employer]. Laboratory - Cytologyon 05-05 Microscopic observation Cyto stain Nom (Cvx) Normal [facility]; [employer] Laboratory - Microbiology an d Antimicrobial susceptibilityon 05-29-2016 C. trachomatis rRNA GALILEA+probe Ql (Unsp spec) Not detected Normal [facility]; [employer] N. gonorrhoeae rRNA GALILEA+probe Ql (Unsp spec) Not detected Normal [facility] [employer] [facility].; [employer]. Laboratory - Microbiology an d Antimicrobial susceptibilityon 02-07-2014 Bacteria identified # 2 Cx Nom (Unsp spec) Normal [facility]; [employer]. Bacteria identified Cx Nom (Unsp spec) Normal [facility].; [employer]. S. pyogenes Ag EIA Ql (Throat) Negative Normal [facility] [employer] [facility]; [employer]. Laboratory - Specimen inform ationon 02-07-2014 Specimen source Nom (Unsp spec) RESPIRATORY-THROAT Normal [facility] [employer]; [employer] Vital Signs Date Time Vital Sign Value Performing Clinician Facility 02-22-2024 10:35-0400 Body height 168.28 cm Neda Adams MA [facility] [employer]; [employer] 02-22-2024 10:35-0400 Body temperature 97.8 [degF] Neda Adams MA [facility] [employer].; [employer]. 02-22-2024 10:35-0400 Diastolic blood pressure 82 mm[Hg] Neda Adams MA [facility] [employer].; [employer]. Comment on above: Patient Position: Sitting; Cuff Location : Left Arm; Cuff Size: Standard 02-22-2024 10:35-0400 Heart rate 64 /min [facility]eda Adams [facility] [employer]. Comment on above: Pattern: Regular 02-22-2024 10:35-0400 Systolic blood pressure 120 mm[Hg] Neda Adams [facility] [place] [employer]. Comment on above: Patient Position: Sitting; Cuff Location : Left Arm; Cuff Size: Standard 11-02-2023 09:18-0500 Body height 168.28 cm Nguyen Manzo [facility] [employer] [facility].; [place] [email or web address] [facility]. 11-02-2023 09:18-0500 Body mass index (BMI) [Ratio] 33.64 kg/m2 Nguyen Manzo [facility] [employer] [facility].; [place] [facility] [employer] [facility]. 11-02-2023 09:18-0500 Body surface area Derived from formula 2.05 m2 Nguyen Manzo MA [facility] [employer] [facility].; [place] [facility] [employer] [facility]. 11-02-2023 09:18-0500 Body weight 95.26 kg Nguyen Manzo MA [facility] [employer] [facility].; [employer] [facility]. 11-02-2023 09:18-0500 Diastolic blood pressure 85 mm[Hg] Nguyen Manzo MA [facility] [employer] [facility].; [employer]. Comment on above: Patient Position: Sitting; Cuff Location : Left Arm; Cuff Size: Standard 11-02-2023 09:18-0500 Heart rate 63 /min Nguyen Manzo MA [facility] [employer] [facility].; [employer]. Comment on above: Pattern: Regular 11-02-2023 09:18-0500 Systolic blood pressure 125 mm[Hg] Nguyen Manzo MA [facility] [employer]. Comment on above: Patient Position: Sitting; Cuff Location : Left Arm; Cuff Size: Standard 07-15-2023 14:46-0500 Body temperature 98.6 [degF] PA Aysha Joyner Work Phone: 9(017)438-963762 [place] [address] 07-15-2023 14:46-0500 Diastolic blood pressure 88 mm[Hg] PA Aysha Joyner Work Phone: 5(109)141-745635 [place] [address] 07-15-2023 14:46-0500 Heart rate 82 /min PA Aysha Joyner Work Phone: 4(757)714-876535 [place] [address] 07-15-2023 14:46-0500 Respiratory rate 16 /min PA Aysha Joyner Work Phone: 6(906)978-240735 [place] [address] 07-15-2023 14:46-0500 SaO2% (BldA) [Mass fraction] 97 % PA Aysha Joyner Work Phone: 4(600)850-653935 [place] [address] 07-15-2023 14:46-0500 Systolic blood pressure 133 mm[Hg] PA Aysha Joyner Work Phone: 3(974)217-360335 [place] [address] 07-12-2023 10:44-0500 Inhaled oxygen flow rate 10 L/min PA Aysha Joyner Work Phone: 4(046)605-163235 [place] [address] 07-11-2023 19:19-0500 Body height 167.64 cm PA Aysha Joyner Work Phone: 1(541)125-625035 [place] [address] 07-11-2023 19:19-0500 Body mass index (BMI) [Ratio] 37.5 kg/m2 PA Aysha Joyner Work Phone: 2(651)420-628389 [address] 07-11-2023 19:19-0500 Body weight 105.68 kg PA Aysha Joyner Work Phone: 4(432)878-540935 [place] [address] 07-06-2023 15:41-0400 Body mass index (BMI) [Ratio] 41 kg/m2 PA Aysha Joyner Work Phone: 3(129)819-148589 [address] 07-06-2023 15:41-0400 Body weight 105 kg PA Aysha Joyner Work Phone: [facility] 07-06-2023 15:41-0400 Diastolic blood pressure 88 mm[Hg] PA Aysha Joyner Work Phone: 6(547)694-443762 [place] [address] 07-06-2023 15:41-0400 Systolic blood pressure 137 mm[Hg] PA Aysha Joyner Work Phone: 3(431)163-065389 [address] 06-29-2023 15:28-0400 Body mass index (BMI) [Ratio] 41 kg/m2 PA Aysha Joyner Work Phone: 3(514)130-696689 [address] 06-29-2023 15:28-0400 Body weight 105 kg PA Aysha Joyner Work Phone: 4(270)289-909235 [place] [address] 06-29-2023 15:28-0400 Diastolic blood pressure 84 mm[Hg] PA Aysha Joyner Work Phone: 2(229)962-422235 [place] [address] 06-29-2023 15:28-0400 Systolic blood pressure 131 mm[Hg] PA Aysha Joyner Work Phone: 1(845)030-485835 [place] [address] 06-22-2023 14:40-0400 Body mass index (BMI) [Ratio] 40 kg/m2 PA Aysha Joyner Work Phone: 7(239)867-614635 [place] [address] 06-22-2023 14:40-0400 Body weight 102.56 kg PA Aysha Joyner Work Phone: 0(537)013-312135 [place] [address] 06-22-2023 14:40-0400 Diastolic blood pressure 82 mm[Hg] PA Aysha Joyner Work Phone: 6(095)080-837889 [address] 06-22-2023 14:40-0400 Systolic blood pressure 128 mm[Hg] PA Aysha Joyner Work Phone: 3(654)488-910344 [place] [address] 06-15-2023 16:01-0400 Body height 160.02 cm PA Aysha Joyner Work Phone: 6(394)910-645635 [place] [address] 06-15-2023 16:01-0400 Body mass index (BMI) [Ratio] 39.6 kg/m2 PA Aysha Joyner Work Phone: 7(706)157-865762 [place] [address] 06-15-2023 16:01-0400 Body weight 101.37 kg PA Aysha Joyner Work Phone: [facility] 06-15-2023 16:01-0400 Diastolic blood pressure 81 mm[Hg] PA Aysha Joyner Work Phone: [facility] 06-15-2023 16:01-0400 Systolic blood pressure 120 mm[Hg] PA Aysha Joyner Work Phone: [facility] 06-08-2023 15:41-0400 Body mass index (BMI) [Ratio] 39.8 kg/m2 PA Aysha Joyner Work Phone: 4(130)617-221689 [address] 06-08-2023 15:41-0400 Body weight 102.05 kg PA Aysha Joyner Work Phone: 7(156)325-883489 [address] 06-08-2023 15:41-0400 Diastolic blood pressure 80 mm[Hg] PA Aysha Joyner Work Phone: 3(979)523-950689 [address] 06-08-2023 15:41-0400 Systolic blood pressure 118 mm[Hg] PA Aysha Joyner Work Phone: 1(781)173-099389 [address] 05-09-2023 14:29-0400 Body mass index (BMI) [Ratio] 38.6 kg/m2 PA Aysha Joyner Work Phone: [facility] 05-09-2023 14:29-0400 Body weight 98.93 kg PA Aysha Joyner Work Phone: 8(043)045-124289 [address] 05-09-2023 14:29-0400 Diastolic blood pressure 82 mm[Hg] PA Aysha Joyner Work Phone: [facility] 05-09-2023 14:29-0400 Systolic blood pressure 122 mm[Hg] PA Aysha Joyner Work Phone: [facility] 04-27-2023 13:58-0400 Body mass index (BMI) [Ratio] 38.6 kg/m2 PA Aysha Joyner Work Phone: [facility] 04-27-2023 13:58-0400 Body weight 98.88 kg PA Aysha Joyner Work Phone: [facility] 04-27-2023 13:58-0400 Diastolic blood pressure 70 mm[Hg] PA Aysha Joyner Work Phone: [facility] 04-27-2023 13:58-0400 Systolic blood pressure 122 mm[Hg] PA Aysha Joyner Work Phone: [facility] 04-20-2023 15:51-0400 Body height 160.02 cm PA Aysha Joyner Work Phone: [facility] 04-20-2023 15:46-0400 Body mass index (BMI) [Ratio] 35.2 kg/m2 PA Aysha Joyner Work Phone: [facility] 04-20-2023 15:46-0400 Body weight 99.05 kg PA Aysha Joyner Work Phone: [facility] 04-20-2023 15:46-0400 Diastolic blood pressure 88 mm[Hg] PA Aysha Joyner Work Phone: 9(853)586-376862 [place] [address] 04-20-2023 15:46-0400 Systolic blood pressure 128 mm[Hg] PA Aysha Joyner Work Phone: [facility] 03-23-2023 16:11-0400 Body mass index (BMI) [Ratio] 37.6 kg/m2 PA Aysha Joyner Work Phone: [facility] 03-23-2023 16:11-0400 Body weight 96.38 kg PA Aysha Joyner Work Phone: [facility] 03-23-2023 16:11-0400 Diastolic blood pressure 77 mm[Hg] PA Aysha Joyner Work Phone: [facility] 03-23-2023 16:11-0400 Systolic blood pressure 116 mm[Hg] PA Aysha Joyner Work Phone: [facility] 02-23-2023 16:03-0400 Body mass index (BMI) [Ratio] 37 kg/m2 PA Aysha Joyner Work Phone: [facility] 02-23-2023 16:03-0400 Body weight 94.85 kg PA Aysha Joyner Work Phone: [facility] 02-23-2023 16:03-0400 Diastolic blood pressure 80 mm[Hg] PA Aysha Joyner Work Phone: [facility] 02-23-2023 16:03-0400 Systolic blood pressure 132 mm[Hg] PA Aysha Joyner Work Phone: [facility] 01-26-2023 15:33-0400 Body mass index (BMI) [Ratio] 36.5 kg/m2 PA Aysha Joyner Work Phone: [facility] 01-26-2023 15:33-0400 Body weight 93.61 kg PA Aysha Joyner Work Phone: [facility] 01-26-2023 15:33-0400 Diastolic blood pressure 81 mm[Hg] PA Aysha Joyner Work Phone: 4(471)308-488862 [place] [address] 01-26-2023 15:33-0400 Systolic blood pressure 130 mm[Hg] PA Aysha Joyner Work Phone: [facility] 12-29-2022 11:47-0400 Body height 160.02 cm PA Aysha Joyner Work Phone: [facility] 12-29-2022 11:47-0400 Body mass index (BMI) [Ratio] 32.9 kg/m2 PA Aysha Joyner Work Phone: [facility] 12-29-2022 11:47-0400 Body weight 92.64 kg PA Aysha Joyner Work Phone: [facility] 12-29-2022 11:47-0400 Diastolic blood pressure 77 mm[Hg] PA Aysha Joyner Work Phone: [facility] 12-29-2022 11:47-0400 Systolic blood pressure 128 mm[Hg] PA Aysha Joyner Work Phone: [facility] 12-15-2022 10:02-0400 Body mass index (BMI) [Ratio] 36.3 kg/m2 PA Aysha Joyner Work Phone: [facility] 12-15-2022 10:02-0400 Body weight 93.09 kg PA Aysha Joyner Work Phone: [facility] 12-15-2022 10:02-0400 Diastolic blood pressure 86 mm[Hg] PA Aysha Joyner Work Phone: [facility] 12-15-2022 10:02-0400 Systolic blood pressure 132 mm[Hg] PA Aysha Joyner Work Phone: [facility] 11-29-2022 11:53-0400 Body height 160.02 cm PA Aysha Joyner Work Phone: [facility] 11-29-2022 11:53-0400 Body mass index (BMI) [Ratio] 36.3 kg/m2 PA Aysha Joyner Work Phone: [facility] 11-29-2022 11:53-0400 Body weight 93.15 kg PA Aysha Joyner Work Phone: [facility] 11-29-2022 11:53-0400 Diastolic blood pressure 88 mm[Hg] PA Aysha Joyner Work Phone: [facility] 11-29-2022 11:53-0400 Systolic blood pressure 140 mm[Hg] PA Aysha Joyner Work Phone: [facility] 07-06-2022 11:23-0400 Body height 168.28 cm Rachael King LPN [facility]. 07-06-2022 11:23-0400 Body mass index (BMI) [Ratio] 33 kg/m2 Rachael King LPN [facility]. 07-06-2022 11:23-0400 Body surface area Derived from formula 2.03 m2 Rachael King LPN [facility] [employer]. 07-06-2022 11:23-0400 Body temperature 98.3 [degF] Rachael King [facility], [facility].; [employer]. Comment on above: Method: Tympanic 07-06-2022 11:23-0400 Body weight 93.44 kg Rachael King RAMYA [place] [facility] [employer]. 07-06-2022 11:23-0400 Diastolic blood pressure 85 mm[Hg] Rachael King [employer] [place] [facility], [facility].; [employer]. Comment on above: Patient Position: Sitting; Cuff Location : Left Arm; Cuff Size: Standard 07-06-2022 11:23-0400 Heart rate 76 /min Rachael King [facility], [facility].; [employer]. Comment on above: Pattern: Regular 07-06-2022 11:23-0400 Systolic blood pressure 121 mm[Hg] Rachael King [employer] [place] [facility], [facility].; [employer]. Comment on above: Patient Position: Sitting; Cuff Location : Left Arm; Cuff Size: Standard 05-19-2022 09:08-0400 Body height 168.28 cm Angelique Morrow RN [place] [facility], [facility].; [employer]. 05-19-2022 09:08-0400 Body mass index (BMI) [Ratio] 32.52 kg/m2 Angelique Morrow RN [place] [facility], [employer] [facility]. 05-19-2022 09:08-0400 Body surface area Derived from formula 2.02 m2 Angelique Morrow RN [place] [facility] [employer] [facility].; [employer]. 05-19-2022 09:08-0400 Body weight 92.08 kg Angelique Morrow RN [place] [facility] [employer] [facility].; [employer]. 05-19-2022 09:08-0400 Diastolic blood pressure 70 mm[Hg] Angelique Morrow RN [place] [facility], [employer]. Comment on above: Patient Position: Sitting; Cuff Location : Left Arm; Cuff Size: Standard 05-19-2022 09:08-0400 Heart rate 67 /min Angelique Morrow RN [facility].; [employer] [facility]. Comment on above: Pattern: Regular 05-19-2022 09:08-0400 Systolic blood pressure 108 mm[Hg] Angelique Morrow RN [facility].; [employer]. Comment on above: Patient Position: Sitting; Cuff Location : Left Arm; Cuff Size: Standard 05-25-2021 08:31-0400 Body height 168.28 cm Tammy Mehta LPN [facility].; [place] [facility], [facility]. 05-25-2021 08:31-0400 Body mass index (BMI) [Ratio] 31.24 kg/m2 Tammy Mehta LPN [facility].; [place] [facility], [employer]. 05-25-2021 08:31-0400 Body surface area Derived from formula 1.98 m2 Tammy Mehta LPN [facility].; [place] [facility], [facility]. 05-25-2021 08:31-0400 Body weight 88.45 kg Tammy Mehta LPN [facility].; [employer] [facility], [facility]. 05-25-2021 08:31-0400 Diastolic blood pressure 90 mm[Hg] Tammy Mehta LPN [facility].; [employer]. Comment on above: Patient Position: Sitting; Cuff Location : Left Arm; Cuff Size: Standard 05-25-2021 08:31-0400 Heart rate 69 /min Tammy Mehta LPN [facility].; [employer]. Comment on above: Pattern: Regular 05-25-2021 08:31-0400 Systolic blood pressure 125 mm[Hg] Tammy Mehta LPN [facility].; [employer]. Comment on above: Patient Position: Sitting; Cuff Location : Left Arm; Cuff Size: Standard 12-20-2020 09:47-0400 Body height 482.6 cm Angelique Morrow RN [facility].; [employer]. 12-20-2020 09:47-0400 Body mass index (BMI) [Ratio] 1.29 kg/m2 Angelique Morrow RN [facility] [employer] [facility].; [facility] [employer] [facility]. 12-20-2020 09:47-0400 Body surface area Derived from formula 2.69 m2 Angelique Morrow RN [facility] [employer] [facility].; [place] [email or web address] [facility]. 12-20-2020 09:47-0400 Body weight 30.05 kg Angelique Morrow RN [facility] [employer] [facility].; [email or web address] [facility]. 12-20-2020 09:47-0400 Diastolic blood pressure 83 mm[Hg] Angelique Morrow RN [facility] [employer] [facility].; [facility]. Comment on above: Patient Position: Sitting; Cuff Location : Left Arm; Cuff Size: Standard 12-20-2020 09:47-0400 Heart rate 76 /min Angelique Morrow RN [facility] [employer] [facility].; [employer]. Comment on above: Pattern: Regular 12-20-2020 09:47-0400 Systolic blood pressure 120 mm[Hg] Angelique Morrow RN [facility] [employer] [facility].; [place] [facility]. Comment on above: Patient Position: Sitting; Cuff Location : Left Arm; Cuff Size: Standard 05-19-2020 14:14-0400 Diastolic blood pressure 78 mm[Hg] Crystal K Uptain CNM Work Phone: [facility] [employer]. Work Phone: Comment on above: Patient Position: Sitting; Cuff Location : Left Arm; Cuff Size: Standard 05-19-2020 14:14-0400 Systolic blood pressure 126 mm[Hg] Crystal K Uptain CNM Work Phone: [place] [employer]. Work Phone: Comment on above: Patient Position: Sitting; Cuff Location : Left Arm; Cuff Size: Standard 05-19-2020 13:18-0400 Body height 168.28 cm Crystal K Uptain CNM Work Phone: [employer]; [employer]. 05-19-2020 13:18-0400 Body mass index (BMI) [Ratio] 30.6 kg/m2 Crystal Barbara Uptain CNM Work Phone: [employer] 05-19-2020 13:18-0400 Body surface area Derived from formula 1.97 m2 Crystal K Uptain CNM Work Phone: [employer]. 05-19-2020 13:18-0400 Body temperature 84 [degF] Crystal K Uptain CNM Work Phone: [employer]; [employer]. Comment on above: Method: Tympanic 05-19-2020 13:18-0400 Body weight 86.64 kg Crystal Barbara Uptain CNM Work Phone: [employer]; [employer]. 05-19-2020 13:18-0400 Diastolic blood pressure 90 mm[Hg] Crystal Barbara Uptain CNM Work Phone: [employer]; [employer]. Comment on above: Patient Position: Sitting; Cuff Location : Left Arm; Cuff Size: Standard 05-19-2020 13:18-0400 Heart rate 84 /min Sahara Jimenez Uptain CNM Work Phone: [employer]; [employer]. Comment on above: Pattern: Regular 05-19-2020 13:18-0400 Systolic blood pressure 145 mm[Hg] Crystal K Uptain CNM Work Phone: [employer]; [employer]. Comment on above: Patient Position: Sitting; Cuff Location : Left Arm; Cuff Size: Standard 05-19-2019 14:19-0400 Body height 168.28 cm Terrie Singleton LPN [employer].; [employer]. 05-19-2019 14:19-0400 Body mass index (BMI) [Ratio] 29.31 kg/m2 Terrie Singleton LPN [employer] 05-19-2019 14:190400 Body surface area Derived from formula 1.93 m2 Terrie Singleton LPN [facility] [employer] 05-19-2019 14:190400 Body weight 83.01 kg Terrie Singleton LPN [facility] [employer] 05-19-2019 14:19-0400 Diastolic blood pressure 82 mm[Hg] Terrie Singleton LPN [facility] [employer], [employer]. Comment on above: Patient Position: Sitting; Cuff Location : Left Arm; Cuff Size: Standard 05-19-2019 14:19-0400 Heart rate 65 /min Terrie Singleton LPN [facility] [employer], [employer]. Comment on above: Pattern: Regular 05-19-2019 14:19-0400 Systolic blood pressure 126 mm[Hg] Terrie Singleton LPN [place] [facility] [employer], [employer]. Comment on above: Patient Position: Sitting; Cuff Location : Left Arm; Cuff Size: Standard 06-25-2018 15:13-0400 Body height 168.28 cm [facility] (scribe) [facility] [employer] 06-25-2018 15:13-0400 Body mass index (BMI) [Ratio] 28.99 kg/m2 [facility]scribe[facility] [employer] [employer] 06-25-2018 15:130400 Body surface area Derived from formula 1.92 m2 Hemanta [employer] (scribe) [place] [facility] [employer] 06-25-2018 15:130400 Body weight 82.1 kg [employer] (scribe) [employer] [employer] 06-25-2018 15:13-0400 Diastolic blood pressure 78 mm[Hg] Hemanta [employer] (scribe) [employer] [employer] Comment on above: Patient Position: Sitting; Cuff Location : Left Arm; Cuff Size: Standard 06-25-2018 15:13-0400 Heart rate 79 /min [facility] [employer] (scribe) [employer], [employer].; [employer]. Comment on above: Pattern: Regular 06-25-2018 15:13-0400 Systolic blood pressure 126 mm[Hg] Hemanta Dimitrisgoi (scribe) [employer] Comment on above: Patient Position: Sitting; Cuff Location : Left Arm; Cuff Size: Standard 06-19-2018 13:33-0400 Body height 168.28 cm [facility] Work Phone: [employer] Work Phone: 06-19-2018 13:33-0400 Body mass index (BMI) [Ratio] 28.03 kg/m2 [facility] Work Phone: [employer] Work Phone: 06-19-2018 13:33-0400 Body surface area Derived from formula 1.9 m2 [facility] Work Phone: [employer]; [employer]. Work Phone: 06-19-2018 13:33-0400 Body temperature 99.2 [degF] [facility] Work Phone: [employer] Work Phone: Comment on above: Method: Tympanic 06-19-2018 13:33-0400 Body weight 79.38 kg [facility] Work Phone: [employer] Work Phone: 06-19-2018 13:33-0400 Diastolic blood pressure 88 mm[Hg] [facility] Work Phone: [employer] Work Phone: Comment on above: Patient Position: Sitting; Cuff Location : Left Arm; Cuff Size: Standard 06-19-2018 13:33-0400 Heart rate 72 /min Denita Palacio LPN Work Phone: [employer].; [employer] Work Phone: Comment on above: Pattern: Regular 06-19-2018 13:33-0400 Systolic blood pressure 133 mm[Hg] Denita Palacio [employer] Work Phone: [employer].; [employer] Work Phone: Comment on above: Patient Position: Sitting; Cuff Location : Left Arm; Cuff Size: Standard 07-31-2017 13:50-0500 Body height 168.28 cm Angelique Morrow RN [employer]. 07-31-2017 13:50-0500 Body mass index (BMI) [Ratio] 26.91 kg/m2 Angelique Morrow RN [employer].; [employer]. 07-31-2017 13:50-0500 Body surface area Derived from formula 1.86 m2 Angelique Morrow RN [employer] 07-31-2017 13:50-0500 Body temperature 98.6 [degF] Angelique Morrow RN [employer].; [employer]. Comment on above: Method: Tympanic 07-31-2017 13:50-0500 Body weight 76.2 kg Angelique Morrow RN [employer].; [employer]. 07-31-2017 13:50-0500 Diastolic blood pressure 90 mm[Hg] Angelique Morrow RN [employer].; [employer]. Comment on above: Patient Position: Sitting; Cuff Location : Left Arm; Cuff Size: Standard 07-31-2017 13:50-0500 Heart rate 72 /min Angelique Morrow RN [employer].; [employer]. Comment on above: Pattern: Regular 07-31-2017 13:50-0500 Systolic blood pressure 128 mm[Hg] Angelique Morrow RN [facility], [employer], [employer]. Comment on above: Patient Position: Sitting; Cuff Location : Left Arm; Cuff Size: Standard 06-18-2017 13:16-0400 Body height 168.28 cm Trevor Carlito (Scribe) [facility] [employer] 06-18-2017 13:16-0400 Body mass index (BMI) [Ratio] 26.43 kg/m2 [facility] (Scribe) [facility] [employer], [employer]. 06-18-2017 13:160400 Body surface area Derived from formula 1.85 m2 [facility] [employer] 06-18-2017 13:160400 Body weight 74.84 kg [facility] (Scribe) [place] [facility], [facility].; [employer], [employer] 06-18-2017 13:16-0400 Diastolic blood pressure 86 mm[Hg] Trevor Carlito (Scribe) [place] [facility], [facility].; [employer]. Comment on above: Patient Position: Sitting; Cuff Location : Left Arm; Cuff Size: Standard 06-18-2017 13:16-0400 Heart rate 60 /min [facility] (Scribe) [facility] [employer] Comment on above: Pattern: Regular 06-18-2017 13:16-0400 Systolic blood pressure 135 mm[Hg] Trevor Carlito (Scribe) [facility] [employer]. Comment on above: Patient Position: Sitting; Cuff Location : Left Arm; Cuff Size: Standard 04-16-2017 15:150400 Body height 168.28 cm Estella Peterson LPN [place] [facility] [employer] 04-16-2017 15:15-0400 Body mass index (BMI) [Ratio] 25.95 kg/m2 Estella Peterson LPN [place] [facility], [facility].; [employer] 04-16-2017 15:15-0400 Body surface area Derived from formula 1.83 m2 Estella [place] BUI [facility] [employer] 04-16-2017 15:15-0400 Body temperature 98.9 [degF] Estella Peterson [facility] [place] [employer] Comment on above: Method: Tympanic 04-16-2017 15:150400 Body weight 73.48 kg Estella [place] [facility], [facility].; [employer] 04-16-2017 15:15-0400 Diastolic blood pressure 90 mm[Hg] Estella Veelópez [facility], Inc.; [employer], [employer]. Comment on above: Patient Position: Sitting; Cuff Location : Left Arm; Cuff Size: Standard 04-16-2017 15:15-0400 Heart rate 85 /min Estella Veelópez [facility], [facility].; [employer]. Comment on above: Pattern: Regular 04-16-2017 15:15-0400 Systolic blood pressure 143 mm[Hg] Estella Veesukijulienne [employer] [place] [facility] [employer], [employer]. Comment on above: Patient Position: Sitting; Cuff Location : Left Arm; Cuff Size: Standard 03-22-2017 11:290400 Body temperature 99.2 [degF] Aysha Joyner PA-C Work Phone: [facility] [employer]. Comment on above: Method: Tympanic 03-22-2017 11:290400 Body weight 73.98 kg Aysha Joyner PA-C Work Phone: [place] [employer], [employer]. 03-22-2017 11:290400 Diastolic blood pressure 88 mm[Hg] Aysha Joyner PA-C Work Phone: [place] [employer]. Comment on above: Patient Position: Sitting; Cuff Location : Left Arm; Cuff Size: Standard 03-22-2017 11:29-0400 Heart rate 69 /min Aysha Joyner PA-C Work Phone: [employer]; [employer]. Comment on above: Pattern: Regular 03-22-2017 11:29-0400 Systolic blood pressure 125 mm[Hg] Aysha Joyner PA-C Work Phone: [employer]; [employer]. Comment on above: Patient Position: Sitting; Cuff Location : Left Arm; Cuff Size: Standard 02-06-2017 14:50-0400 Body height 168.28 cm Aysha Joyner PA-C Work Phone: [employer]; [employer]. 02-06-2017 14:50-0400 Body mass index (BMI) [Ratio] 26.24 kg/m2 Aysha Joyner PA-C Work Phone: [employer]; [employer]. 02-06-2017 14:50-0400 Body surface area Derived from formula 1.84 m2 Aysha Joyner PA-C Work Phone: [employer]; [employer] 02-06-2017 14:50-0400 Body temperature 97.8 [degF] Aysha Joyner PA-C Work Phone: [employer]; [employer]. Comment on above: Method: Tympanic 02-06-2017 14:50-0400 Body weight 74.3 kg Aysha Joyner PA-C Work Phone: [employer]; [employer]. 02-06-2017 14:50-0400 Diastolic blood pressure 82 mm[Hg] Aysha Joyner PA-C Work Phone: [employer]; [employer]. Comment on above: Patient Position: Sitting; Cuff Location : Left Arm; Cuff Size: Standard 02-06-2017 14:50-0400 Heart rate 62 /min Aysha Joyner PA-C Work Phone: [employer]; [facility] [employer] Comment on above: Pattern: Regular 02-06-2017 14:50-0400 Systolic blood pressure 131 mm[Hg] Aysha Joyner PA-C Work Phone: [facility] [employer]. Comment on above: Patient Position: Sitting; Cuff Location : Left Arm; Cuff Size: Standard 09-23-2016 08:50-0500 Body height 168.28 cm Cintia Miller [facility] [employer]. 09-23-2016 08:50-0500 Body mass index (BMI) [Ratio] 29.15 kg/m2 [facility] Paul [facility], [employer], [employer] 09-23-2016 08:50-0500 Body surface area Derived from formula 1.93 m2 Cintia Miller [facility], [employer], [employer]. 09-23-2016 08:50-0500 Body weight 82.56 kg Cintia Miller [facility], [employer]. 09-23-2016 08:50-0500 Diastolic blood pressure 87 mm[Hg] Cintia Miller [facility], [employer]. Comment on above: Patient Position: Sitting; Cuff Location : Left Arm; Cuff Size: Large 09-23-2016 08:50-0500 Heart rate 80 /min SamaraAlayna Miller [facility], [employer]. Comment on above: Pattern: Regular 09-23-2016 08:50-0500 Systolic blood pressure 131 mm[Hg] Cintia Miller [facility] [employer]. Comment on above: Patient Position: Sitting; Cuff Location : Left Arm; Cuff Size: Large 05-29-2016 09:08-0400 Body height 168.28 cm Cassie Goodman [employer] [place] [facility].; [employer]. 05-29-2016 09:08-0400 Body mass index (BMI) [Ratio] 30.12 kg/m2 Cassie Goodman [employer] [place] [facility], [employer]. 05-29-2016 09:08-0400 Body surface area Derived from formula 1.95 m2 Cassie Goodman LPN [facility] [employer], [employer]. 05-29-2016 09:08-0400 Body temperature 97.7 [degF] Cassie Allyson Goodman LPN [place] [facility].; [employer]. Comment on above: Method: Tympanic 05-29-2016 09:08-0400 Body weight 85.28 kg Cassiejorge Goodman LPN [employer] [facility], [facility].; [employer], [employer]. 05-29-2016 09:08-0400 Diastolic blood pressure 90 mm[Hg] Cassie Allyson Goodman LPN [employer] [facility], [employer], [employer]. Comment on above: Patient Position: Sitting; Cuff Location : Left Arm; Cuff Size: Large 05-29-2016 09:08-0400 Heart rate 79 /min Cassie Goodman LPN [employer] [facility], [facility] [employer]. Comment on above: Pattern: Regular 05-29-2016 09:08-0400 Systolic blood pressure 129 mm[Hg] Cassie Allyson Goodman LPN [employer] [facility], [employer], [employer]. Comment on above: Patient Position: Sitting; Cuff Location : Left Arm; Cuff Size: Large 03-21-2016 08:56-0400 Body height 167.64 cm Cassie Goodman LPN [facility], [facility].; [employer], [employer]. 03-21-2016 08:56-0400 Body mass index (BMI) [Ratio] 30.34 kg/m2 Cassie Goodman LPN [employer] [facility], [facility] [employer], [employer]. 03-21-2016 08:56-0400 Body surface area Derived from formula 1.95 m2 Cassie Goodman LPN [employer] [facility], [employer].; [employer], [employer]. 03-21-2016 08:56-0400 Body temperature 97.8 [degF] Cassie Goodman LPN [employer] [facility], [employer].; [employer]. Comment on above: Method: Tympanic 03-21-2016 08:56-0400 Body weight 85.28 kg Cassie Goodman LPN [facility] [employer], [employer]. 03-21-2016 08:56-0400 Diastolic blood pressure 83 mm[Hg] Cassie Goodman LPN [facility] [employer] Comment on above: Patient Position: Sitting; Cuff Location : Left Arm; Cuff Size: Large 03-21-2016 08:56-0400 Heart rate 86 /min Cassie Goodman LPN [facility] [employer] Comment on above: Pattern: Regular 03-21-2016 08:56-0400 Systolic blood pressure 119 mm[Hg] Cassie Goodman LPN [facility] [employer], [employer]. Comment on above: Patient Position: Sitting; Cuff Location : Left Arm; Cuff Size: Large 10-15-2015 14:43-0500 Body height 167.64 cm Cassie Goodman LPN [facility] [employer] 10-15-2015 14:43-0500 Body mass index (BMI) [Ratio] 30.83 kg/m2 Cassie Goodman LPN [place] [facility].; [employer] 10-15-2015 14:43-0500 Body surface area Derived from formula 1.96 m2 Cassie Goodman LPN [facility] [employer] 10-15-2015 14:43-0500 Body temperature 98.3 [degF] Cassie Goodman LPN [place] [facility] [employer], [employer]. Comment on above: Method: Tympanic 10-15-2015 14:43-0500 Body weight 86.64 kg Cassie Goodman LPN [place] [facility].; [employer] 10-15-2015 14:43-0500 Diastolic blood pressure 91 mm[Hg] Cassie Goodman LPN [place] [facility] [employer], [employer]. Comment on above: Patient Position: Sitting; Cuff Location : Left Arm; Cuff Size: Standard 10-15-2015 14:43-0500 Heart rate 79 /min Cassie Goodman LPN [facility] [employer], [employer]. Comment on above: Pattern: Regular 10-15-2015 14:43-0500 Systolic blood pressure 133 mm[Hg] [facility] [employer], [employer]. Comment on above: Patient Position: Sitting; Cuff Location : Left Arm; Cuff Size: Standard 06-17-2015 11:23-0400 Body height 167.64 cm Cintia Miller [facility], [facility].; [employer], [employer]. 06-17-2015 11:23-0400 Body mass index (BMI) [Ratio] 29.38 kg/m2 Cintia Miller [facility].; [employer], [employer]. 06-17-2015 11:23-0400 Body surface area Derived from formula 1.92 m2 [facility], [facility].; [facility] [facility], [employer]. 06-17-2015 11:23-0400 Body weight 82.56 kg Cintia Miller [facility].; [employer], [employer]. 06-17-2015 11:23-0400 Diastolic blood pressure 74 mm[Hg] Cintia Miller [facility] [employer], [employer]. Comment on above: Patient Position: Sitting; Cuff Location : Left Arm; Cuff Size: Large 06-17-2015 11:23-0400 Heart rate 76 /min Cintia Miller [facility] [employer], [employer]. Comment on above: Pattern: Regular 06-17-2015 11:23-0400 Systolic blood pressure 109 mm[Hg] Cintia Miller [facility] [employer], [employer]. Comment on above: Patient Position: Sitting; Cuff Location : Left Arm; Cuff Size: Large 05-18-2015 11:16-0400 Body height 167.64 cm Cassie Goodman LPN [facility] [employer], [employer]. 05-18-2015 11:16-0400 Body mass index (BMI) [Ratio] 29.38 kg/m2 Cassie Goodman [employer] [facility] [employer] [facility] 05-18-2015 11:16-0400 Body surface area Derived from formula 1.92 m2 Cassie Allyson Goodman LPN [facility] [employer] 05-18-2015 11:16-0400 Body weight 82.56 kg Cassie Townsend Rex [facility].; [employer] 05-18-2015 11:16-0400 Diastolic blood pressure 85 mm[Hg] Cassie Allyson Goodman LPN [facility] [employer] Comment on above: Patient Position: Sitting; Cuff Location : Right Arm; Cuff Size: Standard 05-18-2015 11:16-0400 Heart rate 64 /min Cassie Allyson Goodman [employer] [facility] [employer] Comment on above: Pattern: Regular 05-18-2015 11:16-0400 Systolic blood pressure 125 mm[Hg] Cassie Allyson Rex [employer] [facility] [employer] Comment on above: Patient Position: Sitting; Cuff Location : Right Arm; Cuff Size: Standard 02-07-2014 09:32-0400 Body temperature 101.8 [degF] Cintia Miller [employer] [facility] [employer] Comment on above: Method: Tympanic 02-07-2014 09:32-0400 Body weight 90.27 kg Cintia Miller [employer] [facility] [employer] 02-07-2014 09:32-0400 Diastolic blood pressure 82 mm[Hg] Cintia Miller [employer] [facility], [facility] [employer], [employer]. Comment on above: Patient Position: Sitting; Cuff Location : Left Arm; Cuff Size: Large 02-07-2014 09:32-0400 Heart rate 129 /min Cintia Miller RAMYA [place] [facility], [facility] [employer], [employer]. Comment on above: Pattern: Regular 02-07-2014 09:32-0400 Systolic blood pressure 119 mm[Hg] Cintia Miller [employer] [facility] [employer] [facility]. Comment on above: Patient Position: Sitting; Cuff Location : Left Arm; Cuff Size: Large 07-08-2013 13:10-0500 Body height 167.64 cm Cassie Goodman LPN [facility] [employer], [employer]. 07-08-2013 13:10-0500 Body mass index (BMI) [Percentile] Per age and sex 94 % Cassie Goodman LPN [facility] [employer], [employer]. 07-08-2013 13:10-0500 Body mass index (BMI) [Ratio] 30.02 kg/m2 Cassie [facility], [employer].; [employer], [employer]. 07-08-2013 13:10-0500 Body surface area Derived from formula 1.94 m2 Cassie Goodman LPN [facility] [employer], [employer]. 07-08-2013 13:10-0500 Body weight 84.37 kg Cassie Goodman LPN [facility], [facility].; [employer], [employer]. 07-08-2013 13:10-0500 Diastolic blood pressure 88 mm[Hg] Cassie Goodman LPN [facility], [employer], [employer]. Comment on above: Patient Position: Sitting; Cuff Location : Left Arm; Cuff Size: Standard 07-08-2013 13:10-0500 Heart rate 98 /min Cassie Goodman LPN [facility] [employer]. Comment on above: Pattern: Regular 07-08-2013 13:10-0500 Systolic blood pressure 134 mm[Hg] Cassie Goodman LPN [place] [facility], [employer]. Comment on above: Patient Position: Sitting; Cuff Location : Left Arm; Cuff Size: Standard 03-11-2013 10:25-0400 Body height 167.64 cm Aysha Joyner PA-C Work Phone: [place] [employer], [employer].; [employer]. 03-11-2013 10:25-0400 Body mass index (BMI) [Percentile] Per age and sex 89 % Aysha POOLC Work Phone: [employer]. 03-11-2013 10:25-0400 Body mass index (BMI) [Ratio] 26.95 kg/m2 Aysha Joyner PA-C Work Phone: [employer]. 03-11-2013 10:25-0400 Body surface area Derived from formula 1.85 m2 Aysha Joyner PA-C Work Phone: [employer] 03-11-2013 10:25-0400 Body temperature 97.2 [degF] Aysha Joyner PA-C Work Phone: [employer] Comment on above: Method: Tympanic 03-11-2013 10:25-0400 Body weight 75.75 kg Aysha Joyner PA-C Work Phone: [employer] 03-11-2013 10:25-0400 Diastolic blood pressure 78 mm[Hg] Aysha Joyner PA-C Work Phone: [employer]. Comment on above: Patient Position: Sitting; Cuff Location : Right Arm; Cuff Size: Standard 03-11-2013 10:25-0400 Heart rate 79 /min Aysha Joyner PA-C Work Phone: [employer]. Comment on above: Pattern: Regular 03-11-2013 10:25-0400 Systolic blood pressure 117 mm[Hg] Aysha Joyner PA-C Work Phone: [employer]. Comment on above: Patient Position: Sitting; Cuff Location : Right Arm; Cuff Size: Standard 01-07-2013 17:41-0400 Body height 167.64 cm Cassie Goodman LPN [place] [employer]. 01-07-2013 17:41-0400 Body mass index (BMI) [Percentile] Per age and sex 90 % Cassie Goodman LPN [facility], [facility] [employer] 01-07-2013 17:41-0400 Body mass index (BMI) [Ratio] 27.28 kg/m2 Cassie Allyson Goodman LPN [place] [facility], [facility].; [employer] 01-07-2013 17:41-0400 Body surface area Derived from formula 1.86 m2 Cassie Allyson Goodman LPN [employer] [facility], [facility] [employer], [employer]. 01-07-2013 17:41-0400 Body temperature 97.8 [degF] Cassie Allyson Goodman [employer] [facility], Inc[facility] [employer], [employer]. Comment on above: Method: Tympanic 01-07-2013 17:41-0400 Body weight 76.66 kg Cassie Goodman LPN [employer] [facility], [facility] [employer] 11-13-2012 09:32-0400 Body height 167.64 cm Cassie Goodman LPN [employer] [facility], [facility] [employer], [employer]. 11-13-2012 09:32-0400 Body mass index (BMI) [Percentile] Per age and sex 89 % Cassie Goodman LPN [employer] [facility], [facility] [employer] 11-13-2012 09:32-0400 Body mass index (BMI) [Ratio] 26.79 kg/m2 Cassie Goodman LPN [employer] [facility], [facility].; [employer] 11-13-2012 09:32-0400 Body surface area Derived from formula 1.85 m2 Cassie Allyson Goodman LPN [employer], [employer]. 11-13-2012 09:32-0400 Body temperature 96.6 [degF] Cassie Allyson Goodman [employer], [employer]. Comment on above: Method: Tympanic 11-13-2012 09:32-0400 Body weight 75.3 kg Cassiejorge Goodman LPN [employer] 10-23-2012 09:45-0500 Body height 167.64 cm Cassie Goodman LPN [employer] [facility], [facility] [employer], [employer]. 10-23-2012 09:45-0500 Body mass index (BMI) [Percentile] Per age and sex 90 % Cassie Goodman LPN [employer], [employer]. 10-23-2012 09:45-0500 Body mass index (BMI) [Ratio] 27.12 kg/m2 Cassie Goodman LPN [employer], [employer]. 10-23-2012 09:45-0500 Body surface area Derived from formula 1.86 m2 Cassie Goodman LPN [employer] [facility], [employer].; [employer], [employer]. 10-23-2012 09:45-0500 Body temperature 98.5 [degF] Cassie Goodman LPN [employer]. Comment on above: Method: Tympanic 10-23-2012 09:45-0500 Body weight 76.2 kg Cassie Goodman LPN [employer]. Encounters Encounter Date Encounter Type Care Provider Facility Start: 09-24-2024 Encounter for gynecological examination (general) (routine) without abnormal findings Liat Nieto NP [facility] Start: 08-29-2024 End: 08-29-2024 ambulatory [place] [place]: 05-12-2024 End: 05-12-2024 Telephone follow-up Aysha Joyner PA-C Work Phone: [employer] [facility] Start: 05-11-2024 End: 05-11-2024 Emergency department patient visit ROSALIA HERNANDEZ [facility] Start: 02-22-2024 End: 02-22-2024 Office outpatient visit 15 minutes Aysha Joyner PA-C Work Phone: [employer] [facility] [employer] [facility] Start: 11-09-2023 End: 11-09-2023 ambulatory AYSHA JOYNER [facility] Start: 11-02-2023 End: 11-02-2023 Patient encounter status Aysha Joyner PA-C Work Phone: [facility]; [facility] Start: 11-02-2023 End: 11-02-2023 Periodic preventive med est patient 18-39 yrs Aysha Joyner PA-C Work Phone: [facility] Start: 09-02-2023 End: 09-02-2023 Emergency department patient visit INNA [facility] Start: 07-15-2023 Non-patient / Non-visit PA Jess ecca Joyner Work Phone: [facility] Start: 07-14-2023 Non-patient / Non-visit PA Jess ecca Joyner Work Phone: [facility] Start: 07-13-2023 Non-patient / Non-visit PA Jess ecca Joyner Work Phone: [facility] Start: 07-12-2023 Non-patient / Non-visit PA Jess ecca Joyner Work Phone: [facility] Start: 07-11-2023 End: 07-15-2023 Evaluation and management of inpatient PA [facility] Work [facility]: Start: 07-06-2023 End: 07-06-2023 Patient encounter procedure PA Aysha Joyner Work Phone: [facility] Work Phone: Start: 07-06-2023 End: 07-06-2023 Patient encounter procedure PA Aysha Joyner Work Phone: [facility] Work Phone: Start: 06-29-2023 End: 06-29-2023 Patient encounter procedure PA Aysha Joyner Work Phone: [facility] Work Phone: Start: 06-22-2023 End: 06-22-2023 Patient encounter procedure PA Aysha Joyner Work Phone: [facility] Work Phone: Start: 06-15-2023 End: 06-15-2023 ambulatory PA Aysha Joyner Work Phone: [facility] Work Phone: Start: 06-15-2023 End: 06-15-2023 Patient encounter procedure PA Aysha Joyner Work Phone: [facility] Work Phone: Start: 06-15-2023 End: 06-15-2023 Patient encounter procedure PA Aysha Joyner Work Phone: [facility] Work Phone: Start: 06-14-2023 End: 06-14-2023 ambulatory ESTELLA FRANKLIN [facility] Start: 06-08-2023 End: 06-08-2023 Patient encounter procedure PA Aysha Joyner Work Phone: [facility] Work Phone: Start: 05-17-2023 End: 05-17-2023 ambulatory SONALI Hilda CAREY [facility] Start: 05-16-2023 End: 05-16-2023 ambulatory SHARDA RICHEY [facility] Start: 05-09-2023 End: 05-09-2023 Patient encounter procedure PA Aysha Joyner Work Phone: [facility] Work Phone: Start: 04-27-2023 End: 04-27-2023 Patient encounter procedure PA Aysha Joyner Work Phone: [facility] Work Phone: Start: 04-20-2023 End: 04-20-2023 Patient encounter procedure PA Aysha Joyner Work Phone: [facility] Work Phone: Start: 04-19-2023 End: 04-19-2023 ambulatory SONALI CAREY [facility] Start: 04-19-2023 End: 04-19-2023 ambulatory PA Aysha Joyner Work Phone: [facility] Work Phone: Start: 04-19-2023 End: 04-19-2023 Patient encounter procedure PA Aysha Joyner Work Phone: [facility] Work Phone: Start: 03-23-2023 End: 03-23-2023 Patient encounter procedure PA Aysha Joyner Work Phone: [facility] Work Phone: Start: 03-12-2023 End: 03-12-2023 ambulatory [facility] Start: 02-23-2023 End: 02-23-2023 Patient encounter procedure PA Aysha Joyner Work Phone: [facility] Work Phone: Start: 02-19-2023 End: [facility] Start: 02-19-2023 End: 02-19-2023 ambulatory [facility] Start: 01-26-2023 End: 01-26-2023 Patient encounter procedure PA Aysha Joyner Work Phone: [facility] Work Phone: Start: 12-29-2022 End: 12-29-2022 Patient encounter procedure PA Aysha Joyner Work Phone: [facility] Start: 12-26-2022 End: 12-26-2022 ambulatory PA Aysha Joyner Work Phone: [facility] Work Phone: Start: 12-26-2022 End: 12-26-2022 Patient encounter procedure PA [facility] Start: 12-15-2022 End: 12-15-2022 Patient encounter procedure PA Aysha Joyner Work Phone: [facility] Start: 11-29-2022 End: 11-29-2022 ambulatory PA Aysha Joyner Work Phone: [facility] Work Phone: Start: 11-29-2022 End: 11-29-2022 Patient encounter procedure PA [facility] Start: 11-29-2022 End: 11-29-2022 Patient encounter procedure PA Aysha Joyner Work Phone: [facility] Start: 07-06-2022 End: 07-06-2022 Office outpatient visit 15 minutes Aysha Joyner PA-C [facility] Phone: [facility] Start: 05-19-2022 End: 05-19-2022 Patient encounter status Aysha Joyner PA-C Work Phone: [employer] Start: 05-19-2022 End: 05-19-2022 Periodic preventive med est patient 18-39 yrs Aysha Joyner PA-C Work Phone: [employer] Start: 11-26-2021 End: 11-26-2021 [facility] Start: 10-29-2021 End: 10-29-2021 [facility] Start: 09-24-2021 End: 09-24-2021 [facility] Start: 08-29-2021 [facility] Start: 06-20-2021 End: 06-20-2021 Medication Aysha Joyner PA-C Work Phone: [employer]. Start: 05-25-2021 End: 05-25-2021 Patient encounter procedure Aysha Joyner PA-C Work Phone: [employer]. Start: 05-25-2021 End: 05-25-2021 Periodic preventive med est patient 18-39 yrs Aysha Joyner PA-C Work Phone: [employer]. Start: 12-20-2020 End: 12-20-2020 Office outpatient visit 15 minutes Aysha Joyner PA-C Work Phone: [employer] Start: 09-24-2020 End: 09-24-2020 Patient encounter procedure ROSALIA [facility] Start: 05-19-2020 End: 05-19-2020 Patient encounter procedure Rachael King LPN [employer]. Start: 05-19-2020 End: 05-19-2020 Periodic preventive med est patient 18-39 yrs Aysha Joyner PA-C Work Phone: [employer]. Start: 05-19-2019 End: 05-19-2019 Patient encounter procedure Aysha Joyner PA-C Work Phone: [employer]; [employer]. Start: 05-19-2019 End: 05-19-2019 Periodic preventive med est patient 18-39 yrs Aysha Joyner PA-C Work Phone: [employer] Start: 06-25-2018 End: 06-25-2018 Patient encounter status Aysha Joyner PA-C Work Phone: [employer]; [employer]. Start: 06-25-2018 End: 06-25-2018 Periodic preventive med est patient 18-39 yrs Aysha Joyner PA-C Work Phone: [employer] Start: 06-19-2018 End: 06-19-2018 Patient encounter procedure Aysha Joyner PA-C Work Phone: [employer] Start: 07-31-2017 End: 07-31-2017 Office outpatient visit 15 minutes Aysha Joyner PA-C Work Phone: [employer] Start: 06-18-2017 End: 06-18-2017 Patient encounter status Aysha Joyner PA-C Work Phone: [employer] Start: 06-18-2017 End: 06-18-2017 Periodic preventive med est patient 18-39 yrs Aysha Joyner PA-C Work Phone: [employer] Start: 04-22-2017 Ambulatory Quan N[place]omy Facility:[facility] Start: 04-22-2017 End: 04-22-2017 Ambulatory [facility] Work Phone: [facility] Start: 04-16-2017 End: 04-16-2017 Office outpatient visit 15 minutes Aysha Joyner PA-C Work Phone: [employer] Start: 03-27-2017 End: 03-27-2017 Medication Aysha Joyner PA-C Work Phone: [employer] Start: 03-22-2017 End: 03-22-2017 Patient encounter procedure Aysha Joyner PA-C Work Phone: [employer] Start: 02-06-2017 End: 02-06-2017 Patient encounter procedure Aysha Joyner PA-C Work Phone: [employer] Start: 09-23-2016 End: 09-23-2016 Patient encounter procedure Aysha Joyner PA-C Work Phone: [employer] Start: 05-29-2016 End: 05-29-2016 FATOU Template Aysha Joyner PA-C Work Phone: [employer] Start: 05-29-2016 End: 05-30-2016 Patient encounter procedure Aysha Joyner PA-C Work Phone: [employer] Start: 05-29-2016 End: 05-30-2016 Patient encounter status Aysha Joyner PA-C Work Phone: [employer]. Start: 03-21-2016 End: 03-21-2016 Office outpatient visit 10 minutes Aysha Joyner PA-C Work Phone: [employer] Start: 10-28-2015 End: 10-28-2015 Medication Aysha Joyner PA-C Work Phone: [employer]. Start: 10-28-2015 End: 10-28-2015 Medication Aysha Joyner PA-C Work Phone: [employer]. Start: 10-15-2015 End: 10-15-2015 Office outpatient visit 15 minutes Aysha Joyner PA-C Work Phone: [employer] Start: 06-17-2015 End: 06-17-2015 Office outpatient visit 15 minutes Aysha Joyner PA-C Work Phone: [employer]. Start: 05-18-2015 End: 05-18-2015 Office outpatient visit 15 minutes Aysha Joyner PA-C Work Phone: [employer] Start: 02-07-2014 End: 02-07-2014 Patient encounter procedure Aysha Joyner PA-C Work Phone: [employer] Start: 07-08-2013 End: 07-08-2013 Patient encounter procedure Aysha Joyner PA-C Work Phone: [employer]. Start: 03-11-2013 End: 03-11-2013 Patient encounter procedure Aysha Joyner PA-C Work Phone: [employer] Start: 01-07-2013 End: 01-08-2013 Patient encounter procedure Aysha Joyner PA-C Work Phone: [employer] Start: 11-13-2012 End: 11-13-2012 Patient encounter procedure Aysha Joyner PA-C Work Phone: [facility] Start: 10-23-2012 End: 10-23-2012 Patient encounter procedure Aysha Joyner PA-C Work Phone: [facility] Follow-up encounter Nguyen Manzo MA [facility]; [facility] Follow-up encounter Aysha Kenneth Kennedy gant PA-C Work Phone: [facility]; [facility] Follow-up encounter Neda Adams MA [facility]; [facility] Patient encounter procedure Rachael King LPN [facility]; [facility] Patient encounter status Rachael King LP N [facility]; [facility] Procedures Date Procedure Procedure Detail Performing [...] End: 10-23-2012 No Known Past Surgical History aTmmy Mehta LPN D&C 2020 Nguyen Manzo MA Comment on above: [facility] D&C 2020 Neda Adams MA Comment on above: [facility] Urine culture PA Aysha townsend Work Phone: Plan of Treatment Date Care Activity Detail Author Start: 11-02-2023 Xtrnl pt activ ecg transmis w/r&i 30 days 30 Day Cardiac Event Monitor (75414) Start: 02-Nov-2023 Intent [employer]. Start: 11-02-2023 Assay of thyroid stimulating hormone tsh TSH (THYROID STIMULATING HORMONE) (11504) Start: 02-Nov-2023 09:36-05:00 Request [employer]. Start: 11-02-2023 Comprehensive metabolic panel CMP w/ GFR* (94063) Start: 02-Nov-2023 09:36-05:00 Request [employer]. Start: 11-02-2023 Blood count complete auto&auto difrntl wbc CBC, PLATELETS & AUT DIFF (F) (24645) Start: 02-Nov-2023 09:36-05:00 Request [employer]; [employer]. Start: 07-15-2023 Patient discharge [facility] Start: 07-14-2023 Patient discharge [facility] Start: 07-13-2023 Application of abdominal corset [facility] Start: 07-12-2023 Administration of medication [facility] Start: 07-12-2023 Ambulation therapy management [facility] Start: 07-12-2023 Application of device [facility] Start: 07-12-2023 Application of intermittent pneumatic compression device [facility] Start: 07-12-2023 Assessment of risk of venous thromboembolism [facility] Start: 07-12-2023 Catheterization of vein [facility] Start: 07-12-2023 Deep breathing and coughing exercises [facility] Start: 07-12-2023 Exercises [facility] Start: 07-12-2023 Incentive spirometry [facility] Start: 07-12-2023 Measuring intake and output [facility] Start: 07-12-2023 End: 07-12-2023 Notification of physician [facility] Start: 07-12-2023 Procedure discontinued [facility] Start: 07-12-2023 Provision of activity privileges [facility] Start: 07-12-2023 Skin care [facility] Start: 07-12-2023 Wound care [facility] Start: 07-12-2023 End: 07-12-2023 [facility] Start: 07-12-2023 Application of abdominal corset [facility] Start: 07-12-2023 Vital signs measurements [facility] Start: 07-11-2023 Admission procedure [facility] Start: 11-29-2022 Liquid based cervical cytology screening [facility] CBC W Auto Different ial panel - Blood [facility] Glucose [Mass/volume ] in Serum or Plasma --1 hour post 50 g glucose PO [facility] Hepatitis B surface antigen measurement [facility] Hepatitis C antibody measurement [facility] HIV 1+2 Ab+HIV1 p24 Ag [Presence] in Serum or Plasma by Immunoassay [facility] Incision AND drainage [facility] Path report.final Dx Spec [facility] Patient referral [facility] Work Phone: Rubella IgG measurement [facility] Treponema sp Ab [Pre sence] in Serum [facility] Immunizations Immunization Date Immunization Notes Care Provider Rosas saxena 06-08-2023 influenza, injectabl e, quadrivalent, preservative free PA Aysha Joyner Work Phone: [facility] 06-25-2018 influenza, injectabl e, quadrivalent, contains preservative Aysha Joyner PA-C Work Phone: [employer]. Comment on above: Site: Right DeltoidV IS Given: * Influenza - Inactivated (04/09/15) 07-12-2017 influenza, injectabl e, quadrivalent, contains preservative Aysha Joyner PA-C Work Phone: [employer] [employer] Comment on above: at her workplace 05-29-2016 tetanus toxoid, redu mac diphtheria toxoid, and acellular pertussis vaccine, adsorbed Aysha Joyner PA-C Work Phone: [employer]; [employer] Comment on above: Site: Deltoid (Left) VIS Given: * Tdap (Tetanus, Diphtheria, Pertussis) (10/27/14) 06-16-2015 influenza, seasonal, injectable Aysha Joyner PA-C Work Phone: [facility] 07-05-2012 meningococcal polysaccharide vaccine (MPSV4) Aysha Joyner PA-C Work Phone: [facility] Payers Date Payer Category Payer Self-pay [id number] 2024 Unknown [id number] 1995 Unknown [id number] 2.16.84 [id number] 1994 Unknown [id number] 2.16. [id number] 1994 Unknown [id number] 2.16. [id number] 1994 Unknown [id number] 2.16. [id number] 1994 Unknown [id number] 2.16. [id number] 1994 Unknown [id number] 2.16. [id number] 1994 Unknown [id number] 2.16. [id number] 1994 Unknown [id number] 2.16. [id number] 1994 Unknown [id number] 2.16.8 [id number] 1994 Unknown [id number] 2.16.8 [id number] 1994 Unknown [id number] 2.16.8 [id number] Unknown [id number] Unknown Unknown [id number] Unknown [id number] 2.16.8 [id number] Social History Date Type Detail Facility Start: 04-23-2017 End: 07-11-2023 Tobacco smoking status MNIS Unknown if ever smoked [facility] Sex Assigned At Not on file Octavia clifford Work Phone: Start: 1995 Sex Assigned At Female [facility] Alcohol Use Alcohol Use [employer]; [employer] Tobacco Use: Tobacco Use: ; N ever smoker. [employer]; [facility] Tobacco/Smoke Exposure: Tobacco/Smoke Exposure: ; None. [employer] Never smoked tobacco [employer] Work Phone: None [employer]; [employer] Work Phone: Medical Equipment Procedure Code Equipment [...] Assessment Result Facility 07-13-2023 Cognitive function Voice/Name [facility] Work Phone: Clinical Notes 11-29-2022 to 07-15-2023 Note Date & Type Note Facility 07-15-2023 Discharge summary Note Date/Time July 15, 2023 9:33am [facility] Medical Records Department [address] [place] [address] Discharge Summary 07/15/23 0932 MR#: [id number] Acct: [id number] Name: PILI SAMAYOA Rep #:[id number] : 1995 27 From: Estella Holder DO PCP: MAGALY Grider Status:ADM IN Location: GA244-7 Providers Date of Admission: 07/11/23 Primary Care [...] Up With: Tricia Todd MD When: Call [phone] to make an appointment for an incision [...] Dr. Estella Holder DO; MAGALY Grider~ Signed [facility] Work Phone: 1(733) 704-504411-11-2023 Progress note Author [facility] July 14, 2023 6:08am Note Date/Time July 14, 2023 6:09am [facility] Medical Records Department [address] [place] [address] Progress Note - OBGYN 07/14/23606 MR#: [id number] Acct: [id number] Name: PILI SAMAYOA Rep #:[id number] : 1995 From: Estella Holder DO PCP: MAGALY Grider Status:ADM IN Location: [id number] Subjective Subjective Patient doing well without complaints. [...] Cosigner Signature (if applicable): CC: ~ Signed [facility] Work Phone: 1(276) 755-838011-10-2023 Progress note Author Estella [facility] July 13, 2023 6:56am Note Date/Time July 13, 2023 6:56am [facility] Medical Records Department [address] [place] [address] Progress Note - OBGYN 07/13/23 0654 MR#: [id number] Acct: [id number] Name: PILI SAMAYOA Rep #:[id number] : 1995 From: Estella Holder DO PCP: MAGALY Grider Status:ADM IN Location: VI870-2 Subjective Subjective Patient is laying in bed [...] Cosigner Signature (if applicable): CC: ~ Signed [facility] Work Phone: 1(508) 111-757011-09-2023 Discharge summary Author Tricia Todd [facility] July 12, 2023 5:33pm Note Date/Time July 12, 2023 4 :20pm [facility] Medical Records Department [address] [place] [address] Instructions for Home/Discharge Instructions 07/12/23 1619 MR#: [id number] Acct: [id number] Name: PILI SAMAYOA Rep #:[id number] : [...] Up With: Tricia Todd MD When: Call [phone] to make an appointment for an incision [...] Todd MD CC: MAGALY Grider ~ Signed [facility] Work Phone: 1(329) 841-254411-09-2023 Procedure [facility] 07-12-2023 Progress note Author Tricia Todd [facility] July 12, 2023 2:37pm Note Date/Time July 12, 2023 2 :37pm [facility] Medical Records Department [address] [place] [address] Progress Note 07/12/23 1435 MR#: [id number] Acct: [id number] Name: PILI SAMAYOA Rep #:[id number] : 1995 27 From: Tricia smiley MD PCP: MAGALY Grider Status:ADM IN Location: [id number] Progress Note cat II tracing earlier resolved with position changes and amnioinfusion. exp management after spear bulb spontaneously removed. arom clear fluid. current tracing: FHT: 130 Moderate variability reactive early decelerations category I tracing [place]: q 2-4 Contractions reviewed tracing abnormalities since last note: intermittent variables and early A/P: pitocin if able for no cervical change, labor positions, s/p fluid boluses. epidural adequate. 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 07/12/23 1435 <Electronically signed by Tricia Todd MD> Cosigner Signature (if applicable): CC: Dr. Tricia Todd MD; MAGALY Grider~ Signed [facility] Work Phone: 1(274) 754-462903-29-2023 NotePap Smear Specimen AdequacyMarch 2022 1:43pmComment.Satisfactory for evaluation. Endocervical and/or squamous metaplasticcells (endocervical component)are present.[facility] A#[id number] City HospitalComment on above:Satisfactory for evaluation. Endocervical and/or squamous metaplasticcells (endocervical component)are present.Evaluation noteNo assessment information availableWZanesville City Hospital Work Phone: Evaluation note* Diagnosis Onset Date Resolution Status Anxiety acute History of molar a cute Obesity affecting acute PCOS (polycystic ovarian syndrome) acute acute Supervision of high risk , antepartum acute [facility] Work Phone: Evaluation note* Diagnosis Onset Date [...] Supervision of high risk , antepartum acute [facility] Work Phone: Evaluation note* Diagnosis Onset Date [...] Supervision of high risk , antepartum acute [facility] Work Phone: Evaluation note* Diagnosis Onset Date [...] Supervision of high risk , antepartum acute [facility] Work Phone: Evaluation note* Diagnosis Onset Date [...] Supervision of high risk , antepartum resolved [facility] Work Phone: Summary Purpose Family History No [...] No March 29, 2021 11:56am Power of Aquatic Scientist No March 29 1 11:56am Advance Directive Response Recorded Date/ Time Living Will No April 27 3 2:39pm Power of Aquatic Scientist No April 27, 023 2:39pm Advance Directive Response Recorded Date/ Time Living Will No July 11 8:01pm Power of Aquatic Scientist No July 11, 2023 8:01pm Chief Complaint [...] section and content) DATE CREATED AUTHOR 02/27/2018 [facility] DATE CREATED AUTHOR AUTHOR'S ORGANIZ ATION 10/07/2020 [facility] DATE CREATED AUTHOR AUTHOR'S ORGANIZ ATION 06/15/2023 [facility] DATE CREATED AUTHOR AUTHOR'S ORGANIZ ATION 11/05/2023 [facility] DATE CREATED AUTHOR AUTHOR'S ORGANIZ ATION 05/13/2024 [facility] DATE CREATED AUTHOR AUTHOR'S ORGANIZ ATION 09/26/2024 [facility] y Hospital Goals (unrecognized section and [...] PA Primary Care Provider Active Liat Nieto WATERMASTER, WATERMASTER-C Attending Provider, Referring Provider Active Team Status: [...] Provider, Referring Pro vider Active Liat Nieto WATERMASTER, WATERMASTER-C Attending Provider Active Team Status: Inactive Member [...] BE BASED ON THE PRIMARY CLINICAL RECORDS. [facility]. provides no warranty or guarantee of the accuracy or completeness of information in this document.
[2025-08-31 13:09] LABS: hCG Titer Quant., Serum 456 mIU/mL (<9 non-preg)
== END | disposition home or self-care (01) ==
PROVIDERS: Obstetrics & Gynecology; Visit Provider Advanced Practice Midwife
DX: O20.9 Hemorrhage in early pregnancy, unspecified (principal); Z3A.00 Weeks of gestation of pregnancy not specified
CPT/HCPCS: 36415; 84702